=== PATIENT | female | born 1970 | race Two or more races ===

== ENCOUNTER 2017-01-28 06:42 | Inpatient (IN) | payer MEDICARE, OTHER ==
[2017-01-28] MEDS ORDERED: ACETAMINOPHEN IV (For NPO) 1,000 MG in EMPTY BAG 1 BAG IVPB STA (07:49)
[2017-01-28] MEDS ORDERED: SODIUM CHLORIDE 0.9% 500 ML IV STA (07:50)
[2017-01-28] MEDS ORDERED: RX INFO: IV CONTRAST WAS GIVEN 1 EACH MISC MISCELLANE PRN (07:50)
--- NOTE | 2017-01-28 07:55 | ED ---
General Adult HPI - General Chief complaint: Abdominal Pain Stated complaint: abd pain Time Seen by Provider: 01/28/17 07:42 Source: patient, family, RN notes reviewed Mode of arrival: wheelchair Limitations: no limitations - History of Present Illness Initial comments: Patient is a pleasant 46-year-old female complaining of abdominal discomfort. Patient states symptoms did start almost a week ago however became much more severe 3 days ago. Patient has been taking diet pills and questions if this is plain a factor. Patient does have nausea. Patient has had decreased appetite. Patient has had some dry heaves. Patient had one episode of diarrhea. Discomfort is diffuse about the abdomen however more so on the right lower abdomen. No history of chronic abdominal problems. No history of abdominal surgery previously. - Related Data Home Medications Medication Instructions Recorded Confirmed Aspirin 81 mg PO DAILY 07/15/15 01/28/17 Meloxicam 15 mg PO DAILY 07/15/15 01/28/17 Abatacept/Maltose [Orencia] 152 mg IVPB COATS 06/06/16 01/28/17 Clindamycin Topical Soln 1 applic TOPICAL BID 06/06/16 01/28/17 [Cleocin-T Topical Soln] Doxycycline Hyclate [Vibramycin] 100 mg PO BID 06/06/16 01/28/17 azaTHIOprine [Imuran] 50 mg PO TID 06/06/16 01/28/17 Leflunomide 20 mg PO DAILY 01/28/17 01/28/17 Melatonin 5 mg PO HS 01/28/17 01/28/17 Naltrexone HCl/Bupropion HCl 2 tab PO BID 01/28/17 01/28/17 [Contrave ER 8-90 mg Tablet] Allergies Allergy/AdvReac Type Severity Reaction Status Date / Time No Known Allergies Allergy Verified 01/28/17 08:06 Review of Systems ROS Statement: Those systems with pertinent positive or pertinent negative responses have been documented in the HPI. ROS Other: All systems not noted in ROS Statement are negative. Constitutional: Reports: chills. Denies: fever Eyes: Denies: eye pain ENT: Denies: ear pain Respiratory: Denies: cough, dyspnea Cardiovascular: Denies: chest pain Endocrine: Denies: as per HPI Gastrointestinal: Reports: abdominal pain, nausea, diarrhea Genitourinary: Reports: urgency Musculoskeletal: Denies: back pain Skin: Denies: rash Neurological: Denies: weakness Past Medical History Past Medical History: Rheumatoid Arthritis (RA) Additional Past Medical History / Comment(s): RA History of Any Multi-Drug Resistant Organisms: None Reported Additional Past Surgical History / Comment(s): Knee, sinus surgery Past Psychological History: No Psychological Hx Reported Smoking Status: Never smoker Past Alcohol Use History: None Reported Past Drug Use History: None Reported General Exam Limitations: no limitations General appearance: alert, in no apparent distress, obese Head exam: Present: atraumatic Eye exam: Present: normal appearance, PERRL ENT exam: Present: normal oropharynx Neck exam: Present: normal inspection Respiratory exam: Present: normal lung sounds bilaterally Cardiovascular Exam: Present: tachycardia GI/Abdominal exam: Present: soft, tenderness (Mild diffuse tenderness. Moderate tenderness right lower abdomen), guarding (Right lower abdomen), normal bowel sounds. Absent: distended, rebound, rigid, pulsatile mass External exam: Present: normal external exam (RN Sofy is present) Speculum exam: Present: normal speculum exam. Absent: vaginal discharge, cervical discharge By manual exam: Present: cervical motion tenderness, adnexal tenderness Extremities exam: Present: normal inspection Neurological exam: Present: alert Psychiatric exam: Present: normal affect, normal mood Skin exam: Absent: rash Course Vital Signs 01/28/17 01/28/17 01/28/17 06:46 07:48 10:26 Temperature 98.3 F 103.2 F H 100.6 F H Pulse Rate 124 H 107 H Respiratory 22 18 Rate Blood Pressure 121/59 O2 Sat by Pulse 98 99 Oximetry - Reevaluation(s) Reevaluation #1: 01/28/17 09:40 Patient does meet sepsis criteria diagnosed at 9:38 AM antibiotics have been ordered. Patient will need pelvic exam and surgical consultation. 01/28/17 10:32 Case was discussed with Dr. Mcdonnell, who will consult. 01/28/17 10:[address] Anglin who will admit for Dr. Bloom. Ultrasound is pending. CARDIOPULMONARY TECHNICIAN will be placed on consult. EKG Findings - EKG Comments: EKG Findings:: Sinus tachycardia at 112. Normal intervals. No axis. Low voltage. Q waves in leads V3 and V4. No acute ST change. Medical Decision Making - Lab Data Result diagrams: 01/28/17 07:55 01/28/17 07:55 Lab Results 01/28/17 01/28/17 01/28/17 Range/Units 07:55 07:55 07:55 WBC 9.9 (3.8-10.6) k/uL RBC 4.56 (3.80-5.40) m/uL Hgb 13.1 (11.4-16.0) gm/dL Hct 39.7 (34.0-46.0) % MCV 87.0 (80.0-100.0) fL MCH 28.8 (25.0-35.0) pg MCHC 33.1 (31.0-37.0) g/dL RDW 15.0 (11.5-15.5) % Plt Count 458 H (150-450) k/uL Neutrophils % (Manual) 77.5 % Band Neutrophils % 16.0 % Lymphocytes % (Manual) 2.5 % Monocytes % (Manual) 3.0 % Eosinophils % (Manual) 0.5 % Basophils % (Manual) 0.5 % Neutrophils # (Manual) 9.3 H (1.3-7.7) k/uL Lymphocytes # (Manual) 0.2 L (1.0-4.8) k/uL Monocytes # (Manual) 0.3 (0-1.0) k/uL Eosinophils # (Manual) 0.0 (0-0.7) k/uL Basophils # (Manual) 0.0 (0-0.2) k/uL Nucleated RBCs 0 (0-0) /100 WBC Manual Slide Review Performed PT (9.0-12.0) sec INR (<1.1) APTT (22.0-30.0) sec Sodium 137 (137-145) mmol/L Potassium 4.3 (3.5-5.1) mmol/L Chloride 104 (98-107) mmol/L Carbon Dioxide 20 L (22-30) mmol/L Anion Gap 13 mmol/L BUN 16 (7-17) mg/dL Creatinine 0.74 (0.52-1.04) mg/dL Est GFR (MDRD) Af Amer >60 (>60 ml/min/1.73 sqM) Est GFR (MDRD) Non-Af >60 (>60 ml/min/1.73 sqM) Glucose 156 H (74-99) mg/dL Plasma Lactic Acid Jose Martin 2.0 (0.7-2.0) mmol/L Calcium 8.9 (8.4-10.2) mg/dL Total Bilirubin 1.4 H (0.2-1.3) mg/dL AST 32 (14-36) U/L ALT 21 (9-52) U/L Alkaline Phosphatase 112 (38-126) U/L Total Protein 7.0 (6.3-8.2) g/dL Albumin 3.7 (3.5-5.0) g/dL Amylase 36 (30-110) U/L Lipase 63 (23-300) U/L Urine Color Urine Appearance (Clear) Urine pH (5.0-8.0) Urine Protein (Negative) Urine Glucose (UA) (Negative) Urine Ketones (Negative) Urine Blood (Negative) Urine Nitrite (Negative) Urine Bilirubin (Negative) Urine Urobilinogen (<2.0) mg/dL Ur Leukocyte Esterase (Negative) Urine RBC (0-5) /hpf Urine WBC (0-5) /hpf Ur Squamous Epith Cells (0-4) /hpf Urine Mucus (None) /hpf 01/28/17 01/28/17 Range/Units 07:55 10:00 WBC (3.8-10.6) k/uL RBC (3.80-5.40) m/uL Hgb (11.4-16.0) gm/dL Hct (34.0-46.0) % MCV (80.0-100.0) fL MCH (25.0-35.0) pg MCHC (31.0-37.0) g/dL RDW (11.5-15.5) % Plt Count (150-450) k/uL Neutrophils % (Manual) % Band Neutrophils % % Lymphocytes % (Manual) % Monocytes % (Manual) % Eosinophils % (Manual) % Basophils % (Manual) % Neutrophils # (Manual) (1.3-7.7) k/uL Lymphocytes # (Manual) (1.0-4.8) k/uL Monocytes # (Manual) (0-1.0) k/uL Eosinophils # (Manual) (0-0.7) k/uL Basophils # (Manual) (0-0.2) k/uL Nucleated RBCs (0-0) /100 WBC Manual Slide Review PT 11.6 (9.0-12.0) sec INR 1.2 (<1.1) APTT 24.7 (22.0-30.0) sec Sodium (137-145) mmol/L Potassium (3.5-5.1) mmol/L Chloride (98-107) mmol/L Carbon Dioxide (22-30) mmol/L Anion Gap mmol/L BUN (7-17) mg/dL Creatinine (0.52-1.04) mg/dL Est GFR (MDRD) Af Amer (>60 ml/min/1.73 sqM) Est GFR (MDRD) Non-Af (>60 ml/min/1.73 sqM) Glucose (74-99) mg/dL Plasma Lactic Acid Jose Martin (0.7-2.0) mmol/L Calcium (8.4-10.2) mg/dL Total Bilirubin (0.2-1.3) mg/dL AST (14-36) U/L ALT (9-52) U/L Alkaline Phosphatase (38-126) U/L Total Protein (6.3-8.2) g/dL Albumin (3.5-5.0) g/dL Amylase (30-110) U/L Lipase (23-300) U/L Urine Color Yellow Urine Appearance Clear (Clear) Urine pH 9.0 H (5.0-8.0) Urine Protein 1+ H (Negative) Urine Glucose (UA) Negative (Negative) Urine Ketones Negative (Negative) Urine Blood Negative (Negative) Urine Nitrite Negative (Negative) Urine Bilirubin Negative (Negative) Urine Urobilinogen <2.0 (<2.0) mg/dL Ur Leukocyte Esterase Negative (Negative) Urine RBC 20 H (0-5) /hpf Urine WBC 1 (0-5) /hpf Ur Squamous Epith Cells 16 H (0-4) /hpf Urine Mucus Rare H (None) /hpf Critical Care Time Critical Care Time: Yes Total Critical Care Time: 33 Disposition Clinical Impression: Abdominal pain, Sepsis Disposition: ADMITTED IP TO THIS HOSP
[2017-01-28] MEDS: SODIUM CHLORIDE 0.9% 500 ML IV SCH ×2 (08:03→09:33)
[2017-01-28 08:16] LABS: CH 29.1; CHCM 33.6; HCT 39.7 % (34.0-46.0); HGB 13.1 gm/dL (11.4-16.0); Immature Gran Flag Moderate; MCH 28.8 pg (25.0-35.0); MCHC 33.1 g/dL (31.0-37.0); Mean Platelet Volume 7.5; RBC 4.56 m/uL (3.80-5.40); WBC 9.9 k/uL (3.8-10.6); WBC (Perox) 10.19
[2017-01-28 08:17] LABS: INR 1.2 (<1.1); Partial Thromboplastin Time 24.7 sec (22.0-30.0); Prothrombin Time 11.6 sec (9.0-12.0)
[2017-01-28 08:18] LABS: ALT 21 U/L (9-52); AST 32 U/L (14-36); Alkaline Phosphatase 112 U/L (38-126); Amylase 36 U/L (30-110); Anion Gap 13 mmol/L; Blood Urea Nitrogen 16 mg/dL (7-17); Calcium 8.9 mg/dL (8.4-10.2); Carbon Dioxide 20 mmol/L (22-30); Chloride 104 mmol/L (98-107); Glucose 156 mg/dL (74-99); Non-African American GFR(MDRD) >60 (>60 ml/min/1.73 sqM); Potassium 4.3 mmol/L (3.5-5.1); Sodium 137 mmol/L (137-145); Total Bilirubin 1.4 mg/dL (0.2-1.3)
[2017-01-28 08:44] LABS: Add Differential Manual Differential
[2017-01-28 08:55] LABS: Nucleated Red Blood Cells 0 /100 WBC (0-0); Total Cells Counted 200
[2017-01-28 08:58] LABS: Manual Review Performed
--- NOTE | 2017-01-28 09:23 | XR ---
EXAMINATION TYPE: XR chest 2V DATE OF EXAM: 01/28/2017 9:13 AM COMPARISON: 07/15/2015 TECHNIQUE: PA and lateral views submitted. HISTORY: Fever FINDINGS: Exam technically limited The lungs are clear and there is no pneumothorax, pleural effusion, or focal pneumonia. IMPRESSION: 1. No obvious acute process. Correlate clinically.
--- NOTE | 2017-01-28 09:35 | CT ---
EXAMINATION TYPE: CT abdomen pelvis w con DATE OF EXAM: 01/28/2017 9:13 AM REFERENCE: Previous study dated 06/06/2016 HISTORY: Pain HISTORY: Generalized abdominal pain CT DLP: 4514 mGy Automated exposure control for dose reduction was used. TECHNIQUE: Helical acquisition through the abdomen and pelvis was obtained following the oral ingesti on of without Oral Contrast and following intravenous administration of 100 ml mL of Omnipaque 300. T he data was reformatted in axial, coronal and sagittal projections. FINDINGS: Visualized portions of the lungs are clear. There is no pleural or pericardial fluid. Within the abdomen, the liver, spleen and gallbladder are normal. Both adrenal glands are normal. Both kidneys demonstrate function and appear morphologically normal. The pancreas is unremarkable. There is no significant retroperitoneal, iliac or inguinal adenopathy. The bladder is unremarkable. This follicular changes in the right ovary. The uterus is unremarkable. There is marked inflammatory change surrounding the left adnexa. There is no significant diverticular change. Much of the colon is collapsed. This makes it difficult to assess colonic wall thickness. The appendix is prominent measuring 8.5 mm. There is a small amount of free fluid surrounding the appendix. Small bowel loops are normal. No free air is identified. There is degenerative disc disease at L4-5 and L5-S1. There is mild hypertrophic spondylosis in the l ower dorsal spine. IMPRESSION: 1. INFLAMMATORY CHANGE SURROUNDING THE LEFT ADNEXA. PLEASE CORRELATE FOR PID. 2. PROMINENT APPENDIX WITH MILD FLUID AROUND MAY BE SECONDARILY INFLAMED. I COULD NOT EXCLUDE ACUTE A PPENDICITIS. 3. I CANNOT ASSESS THE THICKNESS OF THE COLONIC WALL. PLEASE CORRELATE CLINICALLY TO EXCLUDE COLITIS.
[2017-01-28] MEDS ORDERED: cefTRIAXone 2,000 MG in SODIUM CHLORIDE 0.9% 100 ML IVPB STA (09:41)
[2017-01-28] MEDS ORDERED: HYDROmorphone 1 MG/ML 1 ML SYRINGE IVP STA (10:12)
[2017-01-28 10:26] LABS: Appearance,Urine Clear (Clear); Bilirubin,Urine Negative (Negative); Glucose,Urine (UA) Negative (Negative); Ketones,Urine Negative (Negative); Leukocyte Esterase,Urine Negative (Negative); Mucus,Urine Rare /hpf; Nitrite,Urine Negative (Negative); Particle Count 8142; Protein,Urine 1+ (Negative); RBC,Urine 20 /hpf (0-5); Squamous Epithelial Cell,Urine 16 /hpf (0-4); UA Billing (MACRO vs. MICRO) MICRO; Urobilinogen,Urine <2.0 mg/dL (<2.0); WBC,Urine 1 /hpf (0-5)
[2017-01-28] MEDS ORDERED: ONDANSETRON 4 MG/2 ML VIAL IVP STA (10:30)
[2017-01-28] MEDS ORDERED: NALOXONE 0.4 MG/ML 1 ML VIAL IV PRN (10:39)
[2017-01-28] MEDS ORDERED: DOXYCYCLINE 100 MG in SODIUM CHLORIDE 0.9% 100 ML IVPB STA ×2 (10:50→10:56)
[2017-01-28 10:54] LABS: Specific Gravity,Urine >1.050 (1.001-1.035)
[2017-01-28] MEDS: SODIUM CHLORIDE 0.9% 1,000 ML IV SCH ×2 (11:25→16:10)
--- NOTE | 2017-01-28 14:24 | US ---
EXAMINATION TYPE: US transvaginal DATE OF EXAM: 01/28/2017 1:31 PM COMPARISON: 3 01/28/2017 CT scan CLINICAL HISTORY: pain. TECHNIQUE: Transvaginal (TV), patient morbidly obese and in severe pain and distress, tried to lift her hips for transvaginal exam and had dry heaves, patient experiencing incontinence due to extreme p ain Date of LMP: unknown EXAM MEASUREMENTS: Uterus: 8.5 x 3.3 x 3.9 cm Endometrial Stripe: 0.8 cm Right Ovary: unable to visualize due to overlying bowel/obesity Left Ovary: unable to visualize due to overlying bowel/obesity cm FINDINGS: 1. Uterus: Anteverted wnl 2. Endometrium: wnl 3. Right Ovary: Obscured by overlying bowel gas/obesity 4. Left Ovary: Obscured by overlying bowel gas/obesity 5. Bilateral Adnexa: no abnormality seen 6. Posterior cul-de-sac: tubular structure in free fluid seen here in sagittal plane, unable to asse ss in transverse due to overlying bowel gas Exam technically difficult and limited due to patients large size/extensive bowel gas and patient kerline ng in extreme pain. IMPRESSION: 1. Severely limited exam technically. Ovaries are not seen. Small amount of free fluid. May not be si mple and may represent a component of hemorrhage. Appendix is not seen with certainty exam is nondiag nostic for appendicitis.
[2017-01-28] MEDS: ONDANSETRON 4 MG/2 ML VIAL IVP PRN ×2 (15:06→22:31)
[2017-01-28] MEDS: HYDROmorphone 1 MG/ML 1 ML SYRINGE IV PRN ×2 (15:06→21:22)
--- NOTE | 2017-01-28 16:07 | P.HPIM ---
History of Present Illness H&P Date: 01/28/17 46-year-old female was previously healthy comes in the hospital complains of right lower quadrant abdominal pain that started 2-3 days prior to admission. Patient states she has associated chills nausea vomiting and a fever of 103 within the last 24 hours. Patient states her abdominal pain and initially started in the right lower quadrant thereafter was radiating to her umbilical region. States that crushing down helps with her pain laying flat worsens the pain. Patient denies having any associated worsening of pain with bowel movements denies having any urinary urgency or frequency or any vaginal discharge. Patient's last menstrual period was on January 15. Patient is not sexually active at this time. In the emergency room patient underwent a computed tomography scan of the abdomen and pelvis was noted to have changes around the appendix some concern for PID. A vaginal ultrasound was also done which was a difficult study apparently. Currently states to have significant amount of pain and has persistent nausea at this time. Review of Systems All systems: negative (noted in HPI) Past Medical History Past Medical History: Rheumatoid Arthritis (RA), Seizure Disorder Additional Past Medical History / Comment(s): RA-pain in multiple joints, spinal stenosis/instability and herniated disc-difficulty walking, pt saw Dr. Lezama (neurologist in [place], [place]) yesterday for 2nd opnion for least invasive back surgery, past bronchitis, childhood seizures, History of Any Multi-Drug Resistant Organisms: None Reported Past Surgical History: Orthopedic Surgery Additional Past Surgical History / Comment(s): endoscopic sinus surgery, L knee arthroscopy, back epidural injections. Past Anesthesia/Blood Transfusion Reactions: No Reported Reaction, Motion Sickness Past Psychological History: No Psychological Hx Reported Additional Psychological History / Comment(s): Pt states since starting diet pill 2 days ago, she has had depression but denies suicidal thoughts or plans. She lives alone in a 1 level home. She has a cane but wheels herself around on her computer chair. She has a motorized scooter for going to stores. She drives. Smoking Status: Never smoker Past Alcohol Use History: None Reported Past Drug Use History: None Reported - Past Family History Father Family Medical History: Cancer Additional Family Medical History / Comment(s): Father of leukemia at the age of 65yrs. Mother Family Medical History: Diabetes Mellitus, Hypertension, Osteoarthritis (OA) Additional Family Medical History / Comment(s): Mother has IIDM, depression. Medications and Allergies Home Medications Medication Instructions Recorded Confirmed Type Aspirin 81 mg PO DAILY 07/15/15 01/28/17 History Meloxicam 15 mg PO DAILY 07/15/15 01/28/17 History Abatacept/Maltose [Orencia] 152 mg IVPB COATS 06/06/16 01/28/17 History Clindamycin Topical Soln 1 applic TOPICAL BID 06/06/16 01/28/17 History [Cleocin-T Topical Soln] Doxycycline Hyclate [Vibramycin] 100 mg PO BID 06/06/16 01/28/17 History azaTHIOprine [Imuran] 50 mg PO TID 06/06/16 01/28/17 History Leflunomide 20 mg PO DAILY 01/28/17 01/28/17 History Melatonin 5 mg PO HS 01/28/17 01/28/17 History Naltrexone HCl/Bupropion HCl 2 tab PO BID 01/28/17 01/28/17 History [Contrave ER 8-90 mg Tablet] Allergies Allergy/AdvReac Type Severity Reaction Status Date / Time No Known Allergies Allergy Verified 01/28/17 08:06 Physical Exam Vitals: Intake and Output 01/28/17 01/28/17 01/28/17 06:59 14:59 22:59 Intake Total 375 Balance 375 Intake: IV 375 Sodium Chloride 0.9% 1, 375 000 ml @ 125 mls/hr IV . Q8H [facility] Rx#:[id number] Other: # Voids 1 Physical exam Gen. appearance oriented 3 in no distress Neck is supple no JVD Lungs good air entry clear to auscultation no rhonchi or wheezing Heart S1-S2 heard regular rate and rhythm no murmurs appreciated Abdomen is soft tender to palpation in the right lower quadrant focally no rebound tenderness appreciated bowel sounds intact no organomegaly appreciated Neurologically cranial nerves II-12 grossly intact no focal motor or sensory deficits noted Skin no abnormalities appreciated Results CBC & Chem 7: 01/28/17 07:55 01/28/17 07:55 Thrombosis Risk Factor Assmnt - Choose All That Apply Any of the Below Risk Factors Present?: Yes Each Factor Represents 1 point: Age 41-60 years, Obesity (BMI >25) Other Risk Factors: No Other congenital or acquired thrombophilia - If yes, enter type in comment: No Thrombosis Risk Factor Assessment Total Risk Factor Score: 2 Thrombosis Risk Factor Assessment Level: Low Risk Assessment and Plan Plan: #1 abdominal pain likely secondary to be from acute appendicitis Rule out etiologies from the pelvis. However I strongly believe this is a case of acute appendicitis. #2 rheumatoid arthritis #3 morbid obesity Plan We'll hold off on immune therapy at this time we'll start patient on Rocephin and Flagyl to cover for for intra-abdominal organisms. We'll have a general surgery consult on. Obstetrics and gynecology was also consulted we'll await their evaluation to rule out any pelvic etiologies.
[2017-01-28] MEDS: metroNIDAZOLE-NS PMX 500 MG in SALINE 1 100ML.BAG IVPB SCH ×2 (16:10→23:05)
--- NOTE | 2017-01-28 20:56 | P.PN ---
Progress Note - Text Patient seen and evaluated. Please see full dictated consult. She presents with SIRS including acute abdominal pain with localized peritonitis. Will proceed with diagnostic laparoscopy with appendectomy. Benefits and risks described.
[2017-01-28] MEDS ORDERED: DOXYCYCLINE 100 MG in SODIUM CHLORIDE 0.9% 100 ML IVPB SCH (21:00)
[2017-01-28] MEDS: azaTHIOprine 50 MG TAB PO SCH (22:59)
[2017-01-28] MEDS: MELATONIN 5 MG TABLET PO SCH (22:59)
[2017-01-28] MEDS: HEPARIN SODIUM,PORCINE 5,000 UNIT/ML 1 ML VIAL SQ SCH (23:05)
[2017-01-29] MEDS: HYDROmorphone 1 MG/ML 1 ML SYRINGE IV PRN (03:21)
[2017-01-29] MEDS: SODIUM CHLORIDE 0.9% 1,000 ML IV SCH ×3 (03:33→17:02)
[2017-01-29] MEDS ORDERED: ceFAZolin 2 GM in SODIUM CHLORIDE 0.9% 100 ML IVPB ONE (06:00)
[2017-01-29] MEDS: metroNIDAZOLE-NS PMX 500 MG in SALINE 1 100ML.BAG IVPB SCH ×3 (08:12→23:00)
[2017-01-29] MEDS: PANTOPRAZOLE 40 MG/10 ML VIAL IV SCH (08:12)
[2017-01-29] MEDS: HEPARIN SODIUM,PORCINE 5,000 UNIT/ML 1 ML VIAL SQ SCH ×3 (08:18→23:00)
[2017-01-29] MEDS: azaTHIOprine 50 MG TAB PO SCH ×3 (08:19→21:55)
[2017-01-29 09:23] LABS: Basophils % (A) 0 %; CH 28.2; CHCM 32.3; Eosinophils % (A) 0 %; HDW 2.81; HGB 11.5 gm/dL (11.4-16.0); Luc # (Auto) 0.22; Luc % (Auto) 2; Lymphocytes # (A) 0.4 k/uL (1.0-4.8); Lymphocytes % (A) 4 %; MCH 28.9 pg (25.0-35.0); MCHC 32.9 g/dL (31.0-37.0); MCV 87.7 fL (80.0-100.0); Mean Platelet Volume 6.8; Monocytes # (A) 0.4 k/uL (0-1.0); Monocytes % (A) 4 %; Neutrophils # (A) 9.2 k/uL (1.3-7.7); Neutrophils % (A) 89 %; RBC 3.99 m/uL (3.80-5.40); RDW 15.1 % (11.5-15.5); WBC 10.3 k/uL (3.8-10.6); WBC (Perox) 11.07
[2017-01-29 09:46] LABS: ALT 20 U/L (9-52); AST 19 U/L (14-36); Alkaline Phosphatase 88 U/L (38-126); Anion Gap 14 mmol/L; Blood Urea Nitrogen 17 mg/dL (7-17); Calcium 8.1 mg/dL (8.4-10.2); Carbon Dioxide 21 mmol/L (22-30); Chloride 105 mmol/L (98-107); Glucose 110 mg/dL (74-99); Non-African American GFR(MDRD) >60 (>60 ml/min/1.73 sqM); Potassium 3.6 mmol/L (3.5-5.1); Sodium 140 mmol/L (137-145); Total Bilirubin 1.2 mg/dL (0.2-1.3); Total Protein 6.4 g/dL (6.3-8.2)
[2017-01-29] MEDS ORDERED: IV FLUID CONTINUATION 1,000 ML IV ONE (09:46)
[2017-01-29] MEDS ORDERED: MORPHINE SULFATE 4 MG/ML SYRINGE IVP ONE (09:47)
--- NOTE | 2017-01-29 10:00 | P.HPADDEND ---
H&P Addendum H&P Addendum Date: 01/29/17 Patient seen and evaluated. Findings consistent with abdominal peritonitis. I discussed with the patient's family diagnostic laparoscopy with abdominal washout should perforation be identified. Placement of drain was also reviewed. We'll likely need tailored antibiotics.
[2017-01-29] MEDS ORDERED: DEXAMETHASONE SOD PHOS (MDV) 100 MG/10 ML VIAL ONE (10:05)
[2017-01-29] MEDS ORDERED: GLYCOPYRROLATE 0.2 MG/ML 2 ML VIAL ONE (10:05)
[2017-01-29] MEDS ORDERED: ROCURONIUM BROMIDE 10 MG/ML 10 ML VIAL IV ONE (10:05)
[2017-01-29] MEDS ORDERED: NEOSTIGMINE 1 MG/ML 10 ML VIAL ONE (10:05)
[2017-01-29] MEDS ORDERED: HEPARIN SODIUM,PORCINE 5,000 UNIT/ML 1 ML VIAL ONE (10:05)
[2017-01-29] MEDS ORDERED: SUCCINYLCHOLINE CHLORIDE VIAL 200 MG/10 ML VIAL IV ONE (10:05)
[2017-01-29] MEDS ORDERED: PROPOFOL 10 MG/ML 20 ML VIAL IV ONE (10:05)
[2017-01-29] MEDS ORDERED: fentaNYL (PF) 50 MCG/ML 2 ML AMP ONE (10:05)
[2017-01-29] MEDS ORDERED: ONDANSETRON 4 MG/2 ML VIAL ONE (10:05)
[2017-01-29] MEDS ORDERED: LIDOCAINE 1% INJ 10MG/ML (20 ML MDV) ONE (10:05)
--- NOTE | 2017-01-29 10:09 | P.GSCN ---
History of Present Illness Consult date: 01/28/17 Reason for Consult: Possible appendicitis Requesting physician: Melo Cash History of present illness: The patient is a 46-year-old female who reports last night developing acute onset right lower quadrant abdominal pain. She reports having earlier abdominal pain approximate 4 days ago at the right lower abdomen. She takes daily suppressive therapy antibiotics for facial rash. Separately she has severe rheumatoid arthritis for which she is constantly on immunosuppressants. She also has troubles with weight loss as she is over 140 pounds overweight. She has been on Adipex including Contrave. She also reports severe back pain and is pending surgical intervention hence the need for surgical weight loss. Gen. surgery is consulted with as her computed tomography scan of the abdomen and pelvis demonstrated possible ovarian abscess versus appendicitis with free fluid. She comes in with 2 days of high temperatures over 101 including chills. As a result of her systemic inflammatory response syndrome, she has been admitted as well. Review of Systems CONSTITUTIONAL: Has fever and chills. No significant recent weight loss as she is on Contrave. She is over 100+ pounds overweight. HEENT: Denies any trouble with vision, hearing or nosebleeds. No difficulty swallowing. LYMPHATIC: The patient denies any lumps and bumps around the neck. ENDOCRINE: Denies any thyroid disorders. Denies any blood sugar glucose intolerance. RESPIRATORY: Denies pneumonia. Denies any troubles with breathing or dyspnea on exertion. CARDIOVASCULAR: Denies any chest pain, palpitations, or recent heart attacks. GASTROINTESTINAL: Has heart burn. No constipation or bright red blood per rectum. GENITOURINARY: Denies any blood in urine or increased urinary frequency. MUSCULOSKELETAL: Has back pain, stiffness and joint arthritis. NEUROLOGIC: Denies any numbness or tingling along the distal extremities. Has seizure disorders. PSYCHIATRIC: Denies depression or suidical ideation. HEMATOLOGIC: Denies any abnormal bleeding or bruising. Past Medical History Past Medical History: Rheumatoid Arthritis (RA), Seizure Disorder Additional Past Medical History / Comment(s): RA-pain in multiple joints, spinal stenosis/instability and herniated disc-difficulty walking, pt saw Dr. Lezama (neurologist in [place], [place]) yesterday for 2nd opnion for least invasive back surgery, past bronchitis, childhood seizures, History of Any Multi-Drug Resistant Organisms: None Reported Past Surgical History: Orthopedic Surgery Additional Past Surgical History / Comment(s): endoscopic sinus surgery, L knee arthroscopy, back epidural injections. Past Anesthesia/Blood Transfusion Reactions: No Reported Reaction, Motion Sickness Past Psychological History: No Psychological Hx Reported Additional Psychological History / Comment(s): Pt states since starting diet pill 2 days ago, she has had depression but denies suicidal thoughts or plans. She lives alone in a 1 level home. She has a cane but wheels herself around on her computer chair. She has a motorized scooter for going to stores. She drives. Smoking Status: Never smoker Past Alcohol Use History: None Reported Past Drug Use History: None Reported - Past Family History Father Family Medical History: Cancer Additional Family Medical History / Comment(s): Father of leukemia at the age of 65yrs. Mother Family Medical History: Diabetes Mellitus, Hypertension, Osteoarthritis (OA) Additional Family Medical History / Comment(s): Mother has IIDM, depression. Medications and Allergies Home Medications Medication Instructions Recorded Confirmed Type Aspirin 81 mg PO DAILY 07/15/15 01/28/17 History Meloxicam 15 mg PO DAILY 07/15/15 01/28/17 History Abatacept/Maltose [Orencia] 152 mg IVPB COATS 06/06/16 01/28/17 History Clindamycin Topical Soln 1 applic TOPICAL BID 06/06/16 01/28/17 History [Cleocin-T Topical Soln] Doxycycline Hyclate [Vibramycin] 100 mg PO BID 06/06/16 01/28/17 History azaTHIOprine [Imuran] 50 mg PO TID 06/06/16 01/28/17 History Leflunomide 20 mg PO DAILY 01/28/17 01/28/17 History Melatonin 5 mg PO HS 01/28/17 01/28/17 History Naltrexone HCl/Bupropion HCl 2 tab PO BID 01/28/17 01/28/17 History [Contrave ER 8-90 mg Tablet] Allergies Allergy/AdvReac Type Severity Reaction Status Date / Time No Known Allergies Allergy Verified 01/28/17 08:06 Surgical - Exam Vital Signs Temp Pulse Resp Pulse Ox 98.3 F 124 H 22 98 01/28/17 06:46 01/28/17 06:46 01/28/17 06:46 01/28/17 06:46 GENERAL: Well developed and in no acute distress. Pleasant. HEENT: No sclera icterus. Extraocular movements grossly intact. Moist buccal mucosa. Head is atraumatic, normocephalic. Hears conversational speech. No nasal drainage. NECK: Supple without lymphadenopathy. No JV distention. CHEST: Non-labored respirations and equal bilateral excursions. CARDIOVASCULAR: Has tachycardia. Palpable 2+ radial pulses. ABDOMEN: Soft. Diffusely tender. Has right lower quadrant guarding. Findings consistent with peritonitis. MUSCULOSKELETAL: No clubbing, cyanosis or edema. NEUROLOGIC: No focal or lateralizing signs. PSYCH: Appropriate affect. Alert and oriented to person, place and time. Results - Labs 01/29/17 09:13 01/29/17 09:13 - Imaging CT scan - abdomen: report reviewed, image reviewed CT scan - pelvis: report reviewed, image reviewed Assessment and Plan (1) Right lower quadrant abdominal pain Status: Acute (2) Morbid obesity due to excess calories Status: Acute (3) Rheumatoid arthritis Status: Acute (4) Immunosuppression Status: Acute (5) Chronic back pain Status: Acute (6) Peritonitis (acute) generalized Status: Acute (7) Fever Status: Acute (8) Tachycardia Status: Acute Plan: 1. Recommend diagnostic laparoscopy with appendectomy and placement of a drain if needed. 2. Antibiotic management, broad-spectrum. 3. Benefits and risks of surgical intervention with possibility of open technique was described in detail. 4. DVT prophylaxis. 5. Incentive spirometry. 6. Sepsis protocol.
[2017-01-29] MEDS ORDERED: BUPIVACAIN-EPI 0.25%-1:200,000 30 ML VIAL SQ ONE ×2 (10:30)
[2017-01-29] MEDS ORDERED: LACTATED RINGERS 1,000 ML IV ONE ×2 (11:10→12:10)
--- NOTE | 2017-01-29 11:13 | P.OBCN ---
History of Present Illness Consult date: 01/29/17 Reason for consult: pelvic pain (Possible PID) Chief complaint: Acute abdominal pain worsening over the last week, significantly so in the History of present illness: The patient is a 46-year-old woman who presented to the emergency room with increasing abdominal pain as reported in previous dictations. She is unavailable for interview at this time as she is in surgery. Having reviewed the other notes, the patient apparently reports no recent sexual activity and her age makes her an unlikely candidate for pelvic inflammatory disease. Obstetrical and gynecologic history unavailable to me at this time. Past Medical History Past Medical History: Rheumatoid Arthritis (RA), Seizure Disorder Additional Past Medical History / Comment(s): RA-pain in multiple joints, spinal stenosis/instability and herniated disc-difficulty walking, pt saw Dr. Lezama (neurologist in [place], [place]) yesterday for 2nd opnion for least invasive back surgery, past bronchitis, childhood seizures, History of Any Multi-Drug Resistant Organisms: None Reported Past Surgical History: Orthopedic Surgery Additional Past Surgical History / Comment(s): endoscopic sinus surgery, L knee arthroscopy, back epidural injections. Past Anesthesia/Blood Transfusion Reactions: No Reported Reaction, Motion Sickness Past Psychological History: No Psychological Hx Reported Additional Psychological History / Comment(s): Pt states since starting diet pill 2 days ago, she has had depression but denies suicidal thoughts or plans. She lives alone in a 1 level home. She has a cane but wheels herself around on her computer chair. She has a motorized scooter for going to stores. She drives. Smoking Status: Never smoker Past Alcohol Use History: None Reported Past Drug Use History: None Reported - Past Family History Father Family Medical History: Cancer Additional Family Medical History / Comment(s): Father of leukemia at the age of 65yrs. Mother Family Medical History: Diabetes Mellitus, Hypertension, Osteoarthritis (OA) Additional Family Medical History / Comment(s): Mother has IIDM, depression. Medications and Allergies Home Medications Medication Instructions Recorded Confirmed Type Aspirin 81 mg PO DAILY 07/15/15 01/28/17 History Meloxicam 15 mg PO DAILY 07/15/15 01/28/17 History Abatacept/Maltose [Orencia] 152 mg IVPB COATS 06/06/16 01/28/17 History Clindamycin Topical Soln 1 applic TOPICAL BID 06/06/16 01/28/17 History [Cleocin-T Topical Soln] Doxycycline Hyclate [Vibramycin] 100 mg PO BID 06/06/16 01/28/17 History azaTHIOprine [Imuran] 50 mg PO TID 06/06/16 01/28/17 History Leflunomide 20 mg PO DAILY 01/28/17 01/28/17 History Melatonin 5 mg PO HS 01/28/17 01/28/17 History Naltrexone HCl/Bupropion HCl 2 tab PO BID 01/28/17 01/28/17 History [Contrave ER 8-90 mg Tablet] Allergies Allergy/AdvReac Type Severity Reaction Status Date / Time No Known Allergies Allergy Verified 01/28/17 08:06 Exam - Vital Signs Vital signs: Vital Signs Temp Pulse Resp BP BP Pulse Ox 01/29/17 09:46 115 H 16 170/79 98 01/29/17 07:00 100.2 F H 115 H 18 136/65 96 01/28/17 22:10 100.9 F H 118 H 16 102/66 95 01/28/17 16:00 99.3 F 116 H 16 107/70 95 01/28/17 15:00 101.9 F H 123 H 20 128/75 96 Intake and Output 01/28/17 01/29/17 01/29/17 22:59 06:59 14:59 Intake Total 50 Balance 50 Intake: IV 50 Other: # Voids 2 1 Physical exam is deferred as the patient is under anesthesia. Her pelvis was examined laparoscopically with Dr. Ba's help. She was able to dissected the sigmoid colon from the pelvic organs. The bilateral ovaries were seen and appeared to be within normal limits. The sigmoid colon was densely adherent to the fundus of the uterus and the left adnexa. Dissection of the interface between these 2 structures demonstrated geovany pus. The findings appeared to be consistent with diverticular disease rather than a pelvic process. Results Result Diagrams: 01/29/17 09:13 01/29/17 09:13 Abnormal Lab Results - Last 24 Hours (Table) 01/29/17 01/29/17 Range/Units 09:13 09:13 Neutrophils # 9.2 H (1.3-7.7) k/uL Lymphocytes # 0.4 L (1.0-4.8) k/uL Carbon Dioxide 21 L (22-30) mmol/L Glucose 110 H (74-99) mg/dL Calcium 8.1 L (8.4-10.2) mg/dL Albumin 3.2 L (3.5-5.0) g/dL Assessment and Plan (1) Abdominal pain Status: Acute (2) Peritonitis (acute) generalized Status: Acute Plan: The process appears both historically and surgically consistent with diverticular disease with possible rupture or, at the very least, diverticular abscess. The pelvic organs appeared to be uninvolved. There is is does not appear to be evidence of pelvic inflammatory disease or tubo-ovarian abscess other than as created by the diverticular process. In either case, antibiotics are the best course of action. I will otherwise leave the case in the hands of medicine and general surgery as gynecologic input appears unnecessary at this time. Should that change, please call me and I will return for further disposition.
[2017-01-29] MEDS ORDERED: METOCLOPRAMIDE 5 MG/ML 2 ML VIAL IVP PRN (12:10)
[2017-01-29] MEDS ORDERED: SODIUM CHLORIDE 0.9% 2,000 ML IV ONE (12:16)
--- NOTE | 2017-01-29 12:20 | P.PCN ---
Date of Procedure: 01/29/17 Preoperative Diagnosis: Peritonitis, sepsis, abnormal computed tomography scan, dehydration, morbid obesity, BMI 47.6, right lower quadrant abdominal pain Postoperative Diagnosis: Same, pelvic abscess 30 mL, acute appendicitis, peritonitis, intra-abdominal adhesions from infection Procedure(s) Performed: Extensive laparoscopic lysis of adhesions over 1 hour, drainage of intrapelvic abscess 30 mL left lower quadrant, placement of JOSE drain cul-de-sac, laparoscopic appendectomy Anesthesia: GETA, local Surgeon: Hilda Ba Estimated Blood Loss (ml): 20 Pathology: other (Appendix, aerobic and anaerobic culture peritoneal fluid) Condition: stable Disposition: floor Operative Findings: Severe pelvic and intra-abdominal adhesions secondary to pelvic infection, uterus unremarkable, right fallopian tube and round ligament and ovary unremarkable, dense adhesions of the left fallopian tube and ovary without identified ovarian abscess, sigmoid colon with moderate inflammation, drainage of intermesenteric abscess 30 mL, inflammation of distal appendix with periappendicitis, cecum and terminal ileum unremarkable, base of cecum unremarkable
[2017-01-29] MEDS ORDERED: ONDANSETRON 4 MG/2 ML VIAL IVP ONE (12:24)
[2017-01-29] MEDS ORDERED: MORPHINE SULFATE 10 MG/ML SYRINGE IVP ONE (12:29)
[2017-01-29 13:36] VITALS: BMI 47.5
[2017-01-29] MEDS ORDERED: SODIUM CHLORIDE 0.9% 1,000 ML IV ONE (16:53)
[2017-01-29] MEDS: MORPHINE SULFATE 4 MG/ML SYRINGE IVP PRN ×2 (18:45→23:01)
--- NOTE | 2017-01-29 19:30 | P.PN ---
Subjective 46-year-old female was previously healthy comes in the hospital complains of right lower quadrant abdominal pain that started 2-3 days prior to admission. Patient states she has associated chills nausea vomiting and a fever of 103 within the last 24 hours. Patient states her abdominal pain and initially started in the right lower quadrant thereafter was radiating to her umbilical region. States that crushing down helps with her pain laying flat worsens the pain. Patient denies having any associated worsening of pain with bowel movements denies having any urinary urgency or frequency or any vaginal discharge. Patient's last menstrual period was on January 15. Patient is not sexually active at this time. In the emergency room patient underwent a computed tomography scan of the abdomen and pelvis was noted to have changes around the appendix some concern for PID. A vaginal ultrasound was also done which was a difficult study apparently. Currently states to have significant amount of pain and has persistent nausea at this time. 01/29/17 states to have some chills, intemittent nausea, bertha associated with pain medications Continues to have pain, was seen post operatively. Objective - Vital Signs Vital signs: Vital Signs Temp 100.3 F H 01/29/17 12:04 Pulse 104 H 01/29/17 14:45 Resp 16 01/29/17 12:46 BP 123/61 01/29/17 14:45 Pulse Ox 97 01/29/17 14:45 Intake & Output 01/29/17 01/29/17 01/30/17 06:59 18:59 06:59 Intake Total 1200 Output Total 270 Balance 930 Weight 117.934 kg Intake: IV 1200 Output: Drainage 100 Abdomen 100 Urine 100 Estimated Blood Loss 70 Other: # Voids 1 2 - Constitutional General appearance: Present: no acute distress - EENT Eyes: Present: PERRLA - Neck Neck: Present: normal ROM. Absent: rigidity - Respiratory Respiratory: bilateral: CTA, negative: dullness, rales, rhonchi, wheezing - Cardiovascular Rhythm: regular Heart sounds: normal: S1, S2 Abnormal Heart Sounds: Absent: systolic murmur - Gastrointestinal Localized gastrointestinal: tender: diffuse (port sites appear appropriate, Drain noted in the left mariah abdomen) - Neurologic Neurologic: Present: CNII-XII intact - Musculoskeletal Musculoskeletal: Present: gait normal, strength equal bilaterally - Psychiatric Psychiatric: Present: A&O x's 3, appropriate affect, intact judgment & insight - Labs CBC & Chem 7: 01/29/17 09:13 01/29/17 09:13 Labs: Abnormal Lab Results - Last 24 Hours (Table) 01/29/17 01/29/17 Range/Units 09:13 09:13 Neutrophils # 9.2 H (1.3-7.7) k/uL Lymphocytes # 0.4 L (1.0-4.8) k/uL Carbon Dioxide 21 L (22-30) mmol/L Glucose 110 H (74-99) mg/dL Calcium 8.1 L (8.4-10.2) mg/dL Albumin 3.2 L (3.5-5.0) g/dL Microbiology - Last 24 Hours (Table) 01/29/17 11:33 Anaerobic Culture - Preliminary Peritoneal Fluid 01/29/17 11:33 Body Fluid Culture - Preliminary Peritoneal Fluid Assessment and Plan Plan: #1Acute appendicitis, with abscess formation and pelvic adhesions #2 rheumatoid arthritis #3 morbid obesity Plan We'll hold off on immune therapy at this time, continue patient on Rocephin and Flagyl to cover for for intra-abdominal organisms. Pain control 3 l ivf 125 ml/hr ns thereafter Abx with concern for peritonitis.
[2017-01-29] MEDS: MELATONIN 5 MG TABLET PO SCH (21:55)
[2017-01-30] MEDS: PIPERACILLIN-TAZOBACTAM 3.375 GM in DEXTROSE/WATER 1 50ML.BAG IVPB SCH ×4 (00:44→23:30)
[2017-01-30] MEDS: MORPHINE SULFATE 4 MG/ML SYRINGE IVP PRN ×4 (05:20→21:14)
[2017-01-30] MEDS: SODIUM CHLORIDE 0.9% 1,000 ML IV SCH ×3 (05:21→18:24)
[2017-01-30] MEDS: metroNIDAZOLE-NS PMX 500 MG in SALINE 1 100ML.BAG IVPB SCH (08:00)
[2017-01-30] MEDS: ASPIRIN 81 MG CHEW PO SCH (08:02)
[2017-01-30] MEDS: HEPARIN SODIUM,PORCINE 5,000 UNIT/ML 1 ML VIAL SQ SCH ×3 (08:03→23:30)
[2017-01-30] MEDS: azaTHIOprine 50 MG TAB PO SCH (08:04)
[2017-01-30 08:55] LABS: Basophils % (A) 0 %; CH 28.3; CHCM 32.1; Eosinophils % (A) 0 %; HCT 31.7 % (34.0-46.0); HDW 2.93; HGB 10.2 gm/dL (11.4-16.0); Hypochromasia Slight; Luc # (Auto) 0.12; Luc % (Auto) 1; Lymphocytes # (A) 0.4 k/uL (1.0-4.8); Lymphocytes % (A) 4 %; MCH 28.5 pg (25.0-35.0); MCHC 32.2 g/dL (31.0-37.0); MCV 88.5 fL (80.0-100.0); Mean Platelet Volume 6.8; Monocytes # (A) 0.3 k/uL (0-1.0); Monocytes % (A) 4 %; Neutrophils # (A) 8.3 k/uL (1.3-7.7); Neutrophils % (A) 91 %; RBC 3.58 m/uL (3.80-5.40); RDW 15.3 % (11.5-15.5); WBC 9.1 k/uL (3.8-10.6); WBC (Perox) 9.74
[2017-01-30 09:04] LABS: ALT 21 U/L (9-52); AST 15 U/L (14-36); Alkaline Phosphatase 70 U/L (38-126); Anion Gap 8 mmol/L; Blood Urea Nitrogen 11 mg/dL (7-17); Calcium 7.5 mg/dL (8.4-10.2); Carbon Dioxide 23 mmol/L (22-30); Chloride 108 mmol/L (98-107); Glucose 107 mg/dL (74-99); Magnesium 2.1 mg/dL (1.6-2.3); Non-African American GFR(MDRD) >60 (>60 ml/min/1.73 sqM); Phosphorous 1.9 mg/dL (2.5-4.5); Potassium 3.8 mmol/L (3.5-5.1); Sodium 139 mmol/L (137-145); Total Bilirubin 0.6 mg/dL (0.2-1.3); Total Protein 5.5 g/dL (6.3-8.2)
[2017-01-30] MEDS: PANTOPRAZOLE 40 MG/10 ML VIAL IV SCH (09:09)
--- NOTE | 2017-01-30 14:42 | P.PN ---
Subjective Principal diagnosis: Intra-abdominal abscess, appendicitis The patient is a 46-year-old female who presented with right lower quadrant abdominal pain including intra-abdominal pelvic abscess of unclear etiology. Today she reports her pain is moderately improved. She no longer has fevers. Her tachycardia is resolved. She is yet to ambulate. Her family is at bedside. She reports minimal appetite. Objective - Vital Signs Vital signs: Vital Signs Temp 97.4 F L 01/30/17 07:00 Pulse 76 01/30/17 07:00 Resp 18 01/30/17 07:00 BP 103/73 01/30/17 07:00 Pulse Ox 97 01/30/17 07:00 Intake & Output 01/29/17 01/30/17 01/30/17 18:59 06:59 18:59 Intake Total 1200 500 Output Total 270 1730 Balance 930 -1230 Weight 117.934 kg Intake: IV 1200 Oral 500 Output: Drainage 100 30 Abdomen 100 30 Urine 100 1700 Estimated Blood Loss 70 Other: Voiding Method Indwelling Catheter Indwelling Catheter # Voids 2 - Exam GENERAL: Well developed and in no acute distress. Pleasant. HEENT: No sclera icterus. Extraocular movements grossly intact. Moist buccal mucosa. Head is atraumatic, normocephalic. Hears conversational speech. No nasal drainage. NECK: Supple without lymphadenopathy. No JV distention. CHEST: Non-labored respirations and equal bilateral excursions. CARDIOVASCULAR: Regular rate and rhythm. Palpable 2+ radial pulses. ABDOMEN: Soft, mild tenderness along the suprapubic area. JOSE serosanguineous. Incisions clean dry and intact with Dermabond. MUSCULOSKELETAL: No clubbing, cyanosis or edema. NEUROLOGIC: No focal or lateralizing signs. PSYCH: Appropriate affect. Alert and oriented to person, place and time. : Gutierres is now clear urine. - Labs CBC & Chem 7: 01/30/17 08:15 01/30/17 08:15 Labs: Abnormal Lab Results - Last 24 Hours (Table) 01/30/17 01/30/17 Range/Units 08:15 08:15 RBC 3.58 L (3.80-5.40) m/uL Hgb 10.2 L (11.4-16.0) gm/dL Hct 31.7 L (34.0-46.0) % Neutrophils # 8.3 H (1.3-7.7) k/uL Lymphocytes # 0.4 L (1.0-4.8) k/uL Chloride 108 H (98-107) mmol/L Glucose 107 H (74-99) mg/dL Calcium 7.5 L (8.4-10.2) mg/dL Phosphorus 1.9 L (2.5-4.5) mg/dL Total Protein 5.5 L (6.3-8.2) g/dL Albumin 2.7 L (3.5-5.0) g/dL Microbiology - Last 24 Hours (Table) 01/29/17 11:33 Gram Stain - Preliminary Peritoneal Fluid Body Fluid Culture - Preliminary 01/29/17 11:33 Anaerobic Culture - Preliminary Peritoneal Fluid Assessment and Plan (1) Right lower quadrant abdominal pain Status: Acute (2) Morbid obesity due to excess calories Status: Acute (3) Rheumatoid arthritis Status: Acute (4) Immunosuppression Status: Acute (5) Chronic back pain Status: Acute (6) Peritonitis (acute) generalized Status: Acute (7) Fever Status: Acute (8) Tachycardia Status: Acute (9) Peritoneal abscess Status: Acute (10) Appendicitis with peritonitis Status: Acute (11) Sepsis Status: Acute Plan: 1. Today she is doing much better. Recommend discontinuation of Gutierres. 2. Continue hospitalization with intravenous antibiotics. She is pending results of her microbiology of her peritoneal fluid. 3. I personally discussed with her attending provider possibility of infectious disease consultation pending results of her cultures. 4. Recommend ambulation following removal of Gutierres. 5. Anticipated disposition from hospital at least another 2-3 more days which was reviewed with the patient's family again pending cultures. 6. Continue with JOSE which will be removed in the office upon follow-up as outpatient. 7. She will need outpatient colonoscopy as perforated diverticulitis cannot be completely excluded as a cause of her peritoneal intra-abdominal abscess
[2017-01-30] MEDS: SODIUM PHOSPHATE 10 MMOL in SODIUM CHLORIDE 0.9% 250 ML IVPB SCH ×3 (15:36→21:07)
--- NOTE | 2017-01-30 17:30 | P.PN ---
Subjective 46-year-old female was previously healthy comes in the hospital complains of right lower quadrant abdominal pain that started 2-3 days prior to admission. Patient states she has associated chills nausea vomiting and a fever of 103 within the last 24 hours. Patient states her abdominal pain and initially started in the right lower quadrant thereafter was radiating to her umbilical region. States that crushing down helps with her pain laying flat worsens the pain. Patient denies having any associated worsening of pain with bowel movements denies having any urinary urgency or frequency or any vaginal discharge. Patient's last menstrual period was on January 15. Patient is not sexually active at this time. In the emergency room patient underwent a computed tomography scan of the abdomen and pelvis was noted to have changes around the appendix some concern for PID. A vaginal ultrasound was also done which was a difficult study apparently. Currently states to have significant amount of pain and has persistent nausea at this time. 01/29/17 states to have some chills, intemittent nausea, bertha associated with pain medications Continues to have pain, was seen post operatively. 01/30/17 Denies having chest pain, jose elias, headaches, palpitations Has some abdominal discomfort, however improving. Objective - Vital Signs Vital signs: Vital Signs Temp 97.4 F L 01/30/17 15:00 Pulse 71 01/30/17 15:00 Resp 18 01/30/17 15:00 BP 107/71 01/30/17 15:00 Pulse Ox 97 01/30/17 15:00 Intake & Output 01/29/17 01/30/17 01/30/17 18:59 06:59 18:59 Intake Total 1200 500 Output Total 270 1730 Balance 930 -1230 Weight 117.934 kg Intake: IV 1200 Oral 500 Output: Drainage 100 30 Abdomen 100 30 Urine 100 1700 Estimated Blood Loss 70 Other: Voiding Method Indwelling Catheter Indwelling Catheter # Voids 2 - Constitutional General appearance: Present: no acute distress - EENT Eyes: Present: EOMI, PERRLA - Neck Neck: Present: normal ROM - Respiratory Respiratory: bilateral: CTA, negative: rales, rhonchi - Cardiovascular Rhythm: regular Heart sounds: normal: S1, S2 Abnormal Heart Sounds: Absent: systolic murmur - Gastrointestinal General gastrointestinal: Present: normal bowel sounds (surgical sites appear appropriate. ), soft Localized gastrointestinal: surgical scar: LLQ (drain in place. ) - Integumentary Integumentary: Present: normal - Neurologic Neurologic: Present: CNII-XII intact. Absent: focal deficits - Musculoskeletal Musculoskeletal: Present: strength equal bilaterally - Psychiatric Psychiatric: Present: A&O x's 3, appropriate affect - Labs CBC & Chem 7: 01/30/17 08:15 01/30/17 08:15 Labs: Abnormal Lab Results - Last 24 Hours (Table) 01/30/17 01/30/17 Range/Units 08:15 08:15 RBC 3.58 L (3.80-5.40) m/uL Hgb 10.2 L (11.4-16.0) gm/dL Hct 31.7 L (34.0-46.0) % Neutrophils # 8.3 H (1.3-7.7) k/uL Lymphocytes # 0.4 L (1.0-4.8) k/uL Chloride 108 H (98-107) mmol/L Glucose 107 H (74-99) mg/dL Calcium 7.5 L (8.4-10.2) mg/dL Phosphorus 1.9 L (2.5-4.5) mg/dL Total Protein 5.5 L (6.3-8.2) g/dL Albumin 2.7 L (3.5-5.0) g/dL Microbiology - Last 24 Hours (Table) 01/29/17 11:33 Gram Stain - Preliminary Peritoneal Fluid Body Fluid Culture - Preliminary 01/29/17 11:33 Anaerobic Culture - Preliminary Peritoneal Fluid Assessment and Plan Plan: #1Acute appendicitis, with abscess formation and pelvic adhesions, suspicion for diverticular disease. will have a outpatient colonoscopy. #2 rheumatoid arthritis #3 morbid obesity #4 Asymptomatic bacteuria. Plan We'll hold off on immune therapy at this time, Continue ivf await cultures zosyn to continue Pain control dc sanchez Encourage ambulation Has not passed gas yet.
[2017-01-30] MEDS: MELOXICAM 7.5 MG TAB PO SCH (18:23)
[2017-01-30] MEDS ORDERED: CLINDAMYCIN PHOSPHATE TOPICAL SCH (21:00)
[2017-01-30] MEDS ORDERED: DOXYCYCLINE 50 MG CAP PO SCH (21:00)
[2017-01-30] MEDS: MELATONIN 5 MG TABLET PO SCH (22:28)
[2017-01-31] MEDS: MORPHINE SULFATE 4 MG/ML SYRINGE IVP PRN ×5 (01:48→20:40)
[2017-01-31] MEDS: SODIUM CHLORIDE 0.9% 1,000 ML IV SCH ×3 (03:18→15:41)
[2017-01-31] MEDS: MELOXICAM 7.5 MG TAB PO SCH (07:38)
[2017-01-31] MEDS: HEPARIN SODIUM,PORCINE 5,000 UNIT/ML 1 ML VIAL SQ SCH ×3 (07:38→23:06)
[2017-01-31] MEDS: ASPIRIN 81 MG CHEW PO SCH (07:38)
[2017-01-31] MEDS: PANTOPRAZOLE 40 MG/10 ML VIAL IV SCH (07:39)
[2017-01-31] MEDS: PIPERACILLIN-TAZOBACTAM 3.375 GM in DEXTROSE/WATER 1 50ML.BAG IVPB SCH ×3 (07:58→23:05)
[2017-01-31 08:57] LABS: ALT 27 U/L (9-52); AST 17 U/L (14-36); Alkaline Phosphatase 68 U/L (38-126); Anion Gap 10 mmol/L; Blood Urea Nitrogen 11 mg/dL (7-17); Calcium 7.6 mg/dL (8.4-10.2); Carbon Dioxide 22 mmol/L (22-30); Chloride 109 mmol/L (98-107); Glucose 86 mg/dL (74-99); Non-African American GFR(MDRD) >60 (>60 ml/min/1.73 sqM); Phosphorous 2.3 mg/dL (2.5-4.5); Potassium 3.2 mmol/L (3.5-5.1); Sodium 141 mmol/L (137-145); Total Bilirubin 0.5 mg/dL (0.2-1.3); Total Protein 5.4 g/dL (6.3-8.2)
[2017-01-31] MEDS ORDERED: LEFLUNOMIDE 20 MG TAB PO SCH (09:00)
[2017-01-31 09:04] LABS: Basophils % (A) 0 %; CH 28.3; CHCM 32.3; Eosinophils # (A) 0.1 k/uL (0-0.7); Eosinophils % (A) 1 %; HCT 31.7 % (34.0-46.0); HDW 3.02; HGB 10.1 gm/dL (11.4-16.0); Hypochromasia Slight; Luc # (Auto) 0.09; Luc % (Auto) 2; Lymphocytes # (A) 0.6 k/uL (1.0-4.8); Lymphocytes % (A) 12 %; MCH 28.2 pg (25.0-35.0); MCHC 31.9 g/dL (31.0-37.0); MCV 88.2 fL (80.0-100.0); Mean Platelet Volume 6.8; Monocytes # (A) 0.3 k/uL (0-1.0); Monocytes % (A) 6 %; Neutrophils # (A) 4.3 k/uL (1.3-7.7); Neutrophils % (A) 80 %; RBC 3.59 m/uL (3.80-5.40); RDW 15.2 % (11.5-15.5); WBC 5.5 k/uL (3.8-10.6); WBC (Perox) 6.25
[2017-01-31] MEDS ORDERED: Potassium Replacement Protocol 1 EACH MISC MISCELLANE PRN (09:51)
[2017-01-31] MEDS: POTASSIUM CHLORIDE ER 20 MEQ TAB.ER PO SCH ×2 (10:16→10:51)
[2017-01-31 13:09] LABS: Iron 20 ug/dL (37-170)
[2017-01-31 13:23] LABS: % Iron Saturation 7.8 % (20-50); Total Iron Binding Capacity 258 ug/dL (265-497)
--- NOTE | 2017-01-31 14:49 | P.PN ---
Subjective 46-year-old female being seen on rounds. Patient is sitting up in a chair this morning. Patient's chief complaint is "my rheumatoid arthritis is really acting up off of my meds can not move my hands. Patient is being followed by surgical service for right lower quadrant abdominal pain that started 2-3 days prior to coming into the hospital patient underwent on the first january Extensive laparoscopic lysis of adhesions over 1 hour, drainage of intrapelvic abscess 30 mL left lower quadrant , placement of JOSE drain cul-de-sac, laparoscopic appendectomy. Patient was being treated for peritonitis with sepsis with an abnormal CAT scan and dehydration Objective - Vital Signs Vital signs: Vital Signs Temp 97.1 F L 01/31/17 07:00 Pulse 90 01/31/17 07:00 Resp 20 01/31/17 07:00 BP 119/73 01/31/17 07:00 Pulse Ox 97 01/31/17 07:00 Intake & Output 01/30/17 01/31/17 01/31/17 18:59 06:59 18:59 Intake Total 440 600 Output Total 1200 Balance -760 600 Intake: Oral 440 600 Output: Urine 1200 Other: Voiding Method Indwelling Catheter Indwelling Catheter # Voids 1 # Bowel Movements 0 - Exam Physical exam 46-year-old female sitting up in a chair states pain medication has been effective for surgical pain Lungs essentially clear adequate air movement on room air Heart S1-S2 audible regular Abdomen surgical site dry soft and not distended no nausea vomiting surgical tenderness with active bowel tones noted states no stool states not passing gas urinating no difficulty Extremities no edema noted to the bilateral lower extremities - Labs CBC & Chem 7: 01/31/17 07:59 01/31/17 12:55 Labs: Abnormal Lab Results - Last 24 Hours (Table) 01/31/17 01/31/17 Range/Units 07:59 07:59 RBC 3.59 L (3.80-5.40) m/uL Hgb 10.1 L (11.4-16.0) gm/dL Hct 31.7 L (34.0-46.0) % Lymphocytes # 0.6 L (1.0-4.8) k/uL Potassium 3.2 L (3.5-5.1) mmol/L Chloride 109 H (98-107) mmol/L Calcium 7.6 L (8.4-10.2) mg/dL Phosphorus 2.3 L (2.5-4.5) mg/dL Iron 20 L (37-170) ug/dL TIBC 258 L (265-497) ug/dL % Saturation 7.8 L (20-50) % Total Protein 5.4 L (6.3-8.2) g/dL Albumin 2.6 L (3.5-5.0) g/dL Microbiology - Last 24 Hours (Table) 01/29/17 11:33 Gram Stain - Preliminary Peritoneal Fluid Body Fluid Culture - Preliminary Alpha Hemolytic Streptococcus Assessment and Plan Plan: ImpressionPlan: #1Acute appendicitis, with abscess formation and pelvic adhesions, suspicion for diverticular disease. will have a outpatient colonoscopy. #2 rheumatoid arthritis #3 morbid obesity with a BMI of 47 #4 Asymptomatic bacteuria. History of rheumatoid arthritis on immune therapy currently being held Plan Continue postop surgical care Continue with antibiotics follow-up on abdominal cultures currently on Zosyn to cover for intra-abdominal organisms Pain control DVT and GI prophylaxis Increase activity The above dictated assessment and findings were discussed with dr Jesenia Goodwin and the plan of care have been dictated as directed. Rebeca Ruiz nurse practitioner acting as a scribe for Jesenia
[2017-01-31] MEDS: ONDANSETRON 4 MG/2 ML VIAL IVP PRN (16:33)
[2017-01-31] MEDS ORDERED: predniSONE 20 MG TAB PO STA (16:55)
[2017-01-31] MEDS: azaTHIOprine 50 MG TAB PO SCH ×2 (17:15→20:53)
[2017-01-31] MEDS: LEFLUNOMIDE 20 MG TAB PO SCH (17:35)
--- NOTE | 2017-01-31 19:53 | P.PN ---
Subjective 46-year-old female was previously healthy comes in the hospital complains of right lower quadrant abdominal pain that started 2-3 days prior to admission. Patient states she has associated chills nausea vomiting and a fever of 103 within the last 24 hours. Patient states her abdominal pain and initially started in the right lower quadrant thereafter was radiating to her umbilical region. States that crushing down helps with her pain laying flat worsens the pain. Patient denies having any associated worsening of pain with bowel movements denies having any urinary urgency or frequency or any vaginal discharge. Patient's last menstrual period was on January 15. Patient is not sexually active at this time. In the emergency room patient underwent a computed tomography scan of the abdomen and pelvis was noted to have changes around the appendix some concern for PID. A vaginal ultrasound was also done which was a difficult study apparently. Currently states to have significant amount of pain and has persistent nausea at this time. 01/29/17 states to have some chills, intemittent nausea, bertha associated with pain medications Continues to have pain, was seen post operatively. 01/30/17 Denies having chest pain, jose elias, headaches, palpitations Has some abdominal discomfort, however improving. 01/31/17 Passing urine, denies any urgency, frequency abdominal pain is controlled, passing gas however states to have pain in her left hand and shoulder, Objective - Vital Signs Vital signs: Vital Signs Temp 97.2 F L 01/31/17 15:00 Pulse 90 01/31/17 15:00 Resp 20 01/31/17 15:00 BP 137/85 01/31/17 15:00 Pulse Ox 95 01/31/17 15:00 Intake & Output 01/31/17 01/31/17 02/01/17 06:59 18:59 06:59 Intake Total 600 Output Total 50 Balance 600 -50 Intake: Oral 600 Output: Drainage 50 Abdomen 50 Other: Voiding Method Bedside Commode # Voids 1 1 - Constitutional General appearance: Present: no acute distress - EENT Eyes: Present: PERRLA - Respiratory Respiratory: bilateral: CTA, negative: dullness, rales, rhonchi, wheezing - Cardiovascular Rhythm: regular Heart sounds: normal: S1, S2 Abnormal Heart Sounds: Absent: systolic murmur - Gastrointestinal General gastrointestinal: Present: normal bowel sounds (incision sites appear appropriate, JOSE drain in the left hemiabdomen.), soft. Absent: organomegaly - Integumentary Integumentary: Present: normal - Neurologic Neurologic: Present: CNII-XII intact. Absent: focal deficits - Musculoskeletal Musculoskeletal Comment(s): left shoulder tender to palpation, left wrist, swollen - Psychiatric Psychiatric: Present: A&O x's 3, appropriate affect - Labs CBC & Chem 7: 01/31/17 07:59 01/31/17 12:55 Labs: Abnormal Lab Results - Last 24 Hours (Table) 01/31/17 01/31/17 Range/Units 07:59 07:59 RBC 3.59 L (3.80-5.40) m/uL Hgb 10.1 L (11.4-16.0) gm/dL Hct 31.7 L (34.0-46.0) % Lymphocytes # 0.6 L (1.0-4.8) k/uL Potassium 3.2 L (3.5-5.1) mmol/L Chloride 109 H (98-107) mmol/L Calcium 7.6 L (8.4-10.2) mg/dL Phosphorus 2.3 L (2.5-4.5) mg/dL Iron 20 L (37-170) ug/dL TIBC 258 L (265-497) ug/dL % Saturation 7.8 L (20-50) % Total Protein 5.4 L (6.3-8.2) g/dL Albumin 2.6 L (3.5-5.0) g/dL Microbiology - Last 24 Hours (Table) 01/29/17 11:33 Gram Stain - Preliminary Peritoneal Fluid Body Fluid Culture - Preliminary Alpha Hemolytic Streptococcus Assessment and Plan Plan: #1Acute appendicitis, with abscess formation and pelvic adhesions, suspicion for diverticular disease. will have a outpatient colonoscopy. #2 rheumatoid arthritis #3 morbid obesity #4 Asymptomatic bacteuria. Plan Restart immune therapy, wtih leflonimide and azathioprine, pt can start her abatercept miguelito. One dose of solumedrol 40mg. Continue ivf await cultures zosyn to continue Pain control dc sanchez Encourage ambulation IS
[2017-01-31] MEDS: MELATONIN 5 MG TABLET PO SCH (20:36)
[2017-02-01] MEDS: SODIUM CHLORIDE 0.9% 1,000 ML IV SCH ×2 (02:10→11:49)
--- NOTE | 2017-02-01 07:36 | P.PN ---
Progress Note - Text Patient seen and evaluated. Fever curve now resolved. Now she reports inflammation from rheumatoid arthritis. JOSE is serosanguineous. Growth from peritoneal fluid is alpha hemolytic strep. She is passing flatus. May start slowly increasing diet. Oral versus intravenous antibiotic per cultures. Discharge home within 24 hours pending medical clearance. Continue with JOSE until seen in outpatient.
[2017-02-01] MEDS: azaTHIOprine 50 MG TAB PO SCH ×2 (07:47→15:07)
[2017-02-01] MEDS: ASPIRIN 81 MG CHEW PO SCH (07:47)
[2017-02-01] MEDS: MELOXICAM 7.5 MG TAB PO SCH (07:47)
[2017-02-01] MEDS: LEFLUNOMIDE 20 MG TAB PO SCH (07:47)
[2017-02-01] MEDS: PIPERACILLIN-TAZOBACTAM 3.375 GM in DEXTROSE/WATER 1 50ML.BAG IVPB SCH ×2 (07:48→15:07)
[2017-02-01] MEDS: HEPARIN SODIUM,PORCINE 5,000 UNIT/ML 1 ML VIAL SQ SCH ×2 (07:48→15:07)
[2017-02-01] MEDS: PANTOPRAZOLE 40 MG/10 ML VIAL IV SCH (07:48)
[2017-02-01 09:51] LABS: Basophils % (A) 0 %; CH 28.4; CHCM 32.2; Eosinophils % (A) 0 %; HCT 35.4 % (34.0-46.0); HDW 3.01; HGB 11.1 gm/dL (11.4-16.0); Hypochromasia Slight; Luc # (Auto) 0.07; Luc % (Auto) 2; Lymphocytes # (A) 0.5 k/uL (1.0-4.8); Lymphocytes % (A) 13 %; MCH 27.9 pg (25.0-35.0); MCHC 31.4 g/dL (31.0-37.0); MCV 88.8 fL (80.0-100.0); Mean Platelet Volume 6.7; Monocytes # (A) 0.2 k/uL (0-1.0); Monocytes % (A) 4 %; Neutrophils # (A) 3.3 k/uL (1.3-7.7); Neutrophils % (A) 81 %; RBC 3.98 m/uL (3.80-5.40); RDW 15.2 % (11.5-15.5); WBC 4.2 k/uL (3.8-10.6); WBC (Perox) 4.42
[2017-02-01 10:34] LABS: ALT 22 U/L (9-52); AST 21 U/L (14-36); Alkaline Phosphatase 94 U/L (38-126); Anion Gap 11 mmol/L; Blood Urea Nitrogen 9 mg/dL (7-17); Calcium 8.2 mg/dL (8.4-10.2); Carbon Dioxide 24 mmol/L (22-30); Chloride 107 mmol/L (98-107); Glucose 134 mg/dL (74-99); Non-African American GFR(MDRD) >60 (>60 ml/min/1.73 sqM); Sodium 142 mmol/L (137-145); Total Bilirubin 0.6 mg/dL (0.2-1.3); Total Protein 5.9 g/dL (6.3-8.2)
--- NOTE | 2017-02-01 12:40 | P.CONS ---
History of Present Illness - Reason for Consult Consult date: 02/01/17 - Chief Complaint Progressive abdominal pain - History of Present Illness 46-year-old woman presents to the emergency center with complaints of increasing right lower quadrant abdominal pain over several days before she came to hospital. She relates that she was having a fever up to 103 as well as chills without geovany rigors. She developed some nausea and emesis [place] considerably worse. Because of increasing amount of pain she did present to the emergency center. There imaging studies reveal evidence of marked abnormality into the right lower quadrant. Due to the potential involvement of the ovary and fallopian tube she was seen by gynecology. The patient was taken to the operating room and laproscopic intervention occurred. With both general surgery and gynecology. There is no evidence of any significant infection of the fallopian tube or ovary although they were a bit edematous. Patient had a marked infection of her appendix and this was removed. The patient showing ongoing improvement since the time of surgery. She has evidence of a positive culture but that the infectious disease consult was requested The patient does have a very significant history of rheumatoid arthritis it is difficult to control and she is on medications include Arava, Mobic, azathioprine, Orencia and has received steroid therapy here. The patient is quite immunosuppressed which is likely why she had a somewhat atypical presentation of her appendicitis. She's not doing considerably better. Review of Systems Pleasant 46 or woman who is currently feeling considerably better. Sitting upright looking forward to a solid lunch. His first solid food she's had so far and she believes she is ready HEENT:Denies headache or acute visual change. Denies sinus or mouth discomforts. Denies neck stiffness or pain. Denies significant oral cavity pain. Denies difficulty on swallowing. Lungs: Denies significant shortness of breath, cough, sputum production, or hemoptysis. Cardiovascular: Denies significant shortness of breath, chest pain, chest wall pain, orthopnea, dyspnea on exertion, syncope Gastrointestinal: Nausea emesis and bowel pain of all improved. She's passed 3 stools today. No hematemesis melena or hematochezia have occurred. Abdominal pain is much improved. Musculoskeletal: Has chronic myalgia and arthralgia. She is off her medications for a few days and was starting to flare to her left hand and left shoulder. The short burst of steroid has definitely helped. Skin: Denies new rash or lesions. No new ulcers or wounds are related.. Neuro: Denies headache or visual change. Denies any new onset weakness or difficulty with ambulation. Denies falls or seizures. Psychiatric:Denies anxiety or depression. Endocrine: Chronic fatigue and ongoing great difficulties with weight gain over time she is superobese Past Medical History Past Medical History: Rheumatoid Arthritis (RA), Seizure Disorder Additional Past Medical History / Comment(s): RA-pain in multiple joints, spinal stenosis/instability and herniated disc-difficulty walking, pt saw Dr. Lezama (neurologist in [place], [place]) yesterday for 2nd opnion for least invasive back surgery, past bronchitis, childhood seizures, History of Any Multi-Drug Resistant Organisms: None Reported Past Surgical History: Orthopedic Surgery Additional Past Surgical History / Comment(s): endoscopic sinus surgery, L knee arthroscopy, back epidural injections. Past Anesthesia/Blood Transfusion Reactions: No Reported Reaction, Motion Sickness Past Psychological History: No Psychological Hx Reported Additional Psychological History / Comment(s): Pt states since starting diet pill 2 days ago, she has had depression but denies suicidal thoughts or plans. She lives alone in a 1 level home. She has a cane but wheels herself around on her computer chair. She has a motorized scooter for going to stores. She drives. Single. No animal exposures. The experience. No international travel Smoking Status: Never smoker Past Alcohol Use History: None Reported Past Drug Use History: None Reported - Past Family History Father Family Medical History: Cancer Additional Family Medical History / Comment(s): Father of leukemia at the age of 65yrs. Mother Family Medical History: Diabetes Mellitus, Hypertension, Osteoarthritis (OA) Additional Family Medical History / Comment(s): Mother has IIDM, depression. Medications and Allergies Home Medications and Allergies Comment(s): Current Medications Aspirin (Aspirin) 81 mg PO DAILY [facility] Last Admin: 02/01/17 07:47 Dose: 81 mg Azathioprine (Imuran) 50 mg PO TID [facility] Last Admin: 02/01/17 07:47 Dose: 50 mg Heparin Sodium (Porcine) (Heparin) 5,000 unit SQ Q8HR [facility] Last Admin: 02/01/17 07:48 Dose: 5,000 unit Hydromorphone HCl (Dilaudid) 1 mg IV Q3HR PRN PRN Reason: Severe Pain Last Admin: 01/29/17 03:21 Dose: 1 mg Sodium Chloride (Saline 0.9%) 1,000 mls @ 125 mls/hr IV .Q8H [facility] Last Admin: 02/01/17 11:49 Dose: Not Given Piperacillin/Tazobactam/ (Dextrose 3.375 gm/ IV Solution) 50 mls @ 12.5 mls/hr IVPB Q8HR [facility] Last Admin: 02/01/17 07:48 Dose: 12.5 mls/hr Leflunomide (Arava) 20 mg PO DAILY [facility] Last Admin: 02/01/17 07:47 Dose: 20 mg Melatonin (Melatonin) 5 mg PO HS [facility] Last Admin: 01/31/17 20:36 Dose: 5 mg Meloxicam (Mobic) 15 mg PO DAILY [facility] Last Admin: 02/01/17 07:47 Dose: 15 mg Metoclopramide HCl (Reglan) 10 mg IVP Q6H PRN PRN Reason: Nausea And Vomiting Miscellaneous Information (Potassium Per Protocol) 1 each MISCELLANE DAILY PRN ; Protocol PRN Reason: Per Protocol Morphine Sulfate (Morphine Sulfate (Inj)) 4 mg IVP Q4HR PRN PRN Reason: Pain Last Admin: 01/31/17 20:40 Dose: 4 mg Naloxone HCl (Narcan) 0.2 mg IV Q2M PRN PRN Reason: Opioid Reversal Ondansetron HCl (Zofran) 4 mg IVP Q8HR PRN PRN Reason: Nausea And Vomiting Last Admin: 01/31/17 16:33 Dose: 4 mg Pantoprazole Sodium (Protonix) 40 mg IV DAILY [facility] Last Admin: 02/01/17 07:48 Dose: 40 mg Home Medications Medication Instructions Recorded Confirmed Type Aspirin 81 mg PO DAILY 07/15/15 01/28/17 History Meloxicam 15 mg PO DAILY 07/15/15 01/28/17 History Abatacept/Maltose [Orencia] 152 mg IVPB COATS 06/06/16 01/28/17 History Clindamycin Topical Soln 1 applic TOPICAL BID 06/06/16 01/28/17 History [Cleocin-T Topical Soln] Doxycycline Hyclate [Vibramycin] 100 mg PO BID 06/06/16 01/28/17 History azaTHIOprine [Imuran] 50 mg PO TID 06/06/16 01/28/17 History Leflunomide 20 mg PO DAILY 01/28/17 01/28/17 History Melatonin 5 mg PO HS 01/28/17 01/28/17 History Naltrexone HCl/Bupropion HCl 2 tab PO BID 01/28/17 01/28/17 History [Contrave ER 8-90 mg Tablet] Allergies Allergy/AdvReac Type Severity Reaction Status Date / Time No Known Allergies Allergy Verified 01/28/17 08:06 Physical Exam Vitals: Vital Signs Temp Pulse Resp BP BP Pulse Ox 02/01/17 07:00 96.6 F L 61 21 167/85 99 01/31/17 23:00 97.3 F L 78 20 120/75 96 01/31/17 15:00 97.2 F L 90 20 137/85 95 Intake and Output 01/31/17 02/01/17 02/01/17 22:59 06:59 14:59 Intake Total 100 100 100 Output Total 50 30 Balance 50 70 100 Intake: Oral 100 100 100 Output: Drainage 50 30 Abdomen 50 30 Other: Voiding Method Bedside Commode Bedside Commode # Voids 1 3 1 # Bowel Movements 2 Pleasant 41 year old woman who suffers from superobesity seems to be much more comfortable now than at admission. HEENT: Anicteric conjunctiva are pink and moist nasal mucosa grossly intact without significant lesions, there is no thrush. Neck: The neck is supple without significant lymphadenopathy or thyromegaly. Lungs: Good bilateral air entry without significant crackles or wheezing. There is no significant bronchial sounds. There is no egophony or dullness. Heart: Regular rate and rhythm with an audible S1-S2, no S3 no S4. There is no significant murmur click or rub, PMI was nondisplaced. Abdomen: Positive bowel sounds soft and obese without significant tenderness on exam. Organomegaly is not palpable there is no rigidity or rebound Extremities: The upper extremities have excellent pulses they are symmetric, no significant petechiae or telangiectasia. No splinter hemorrhages were noted. The lower extremities are free from significant edema. The peripheral pulses were 2+ and symmetric. Patient does have some mild deformity to the other joints of her hands nothing is acutely flared at the moment. However she has had poor range of motion of her left shoulder she relates is much worse now than it was a month ago related to being off of her medications. She relates that in the past and she is actually off her medications for a day or 2 she starts to get significant flares. This is why she is on 4 medications. Neuro: Awake alert oriented to person place and time. There are no acute new gross focal sensory motor deficits. Results CBC & Chem 7: 02/01/17 08:42 02/01/17 08:42 Labs: Abnormal Lab Results - Last 24 Hours (Table) 01/31/17 02/01/17 02/01/17 Range/Units 07:59 08:42 08:42 Hgb 11.1 L (11.4-16.0) gm/dL Plt Count 462 H (150-450) k/uL Lymphocytes # 0.5 L (1.0-4.8) k/uL Potassium 3.2 L (3.5-5.1) mmol/L Chloride 109 H (98-107) mmol/L Creatinine 0.48 L (0.52-1.04) mg/dL Glucose 134 H (74-99) mg/dL Calcium 7.6 L 8.2 L (8.4-10.2) mg/dL Phosphorus 2.3 L (2.5-4.5) mg/dL Iron 20 L (37-170) ug/dL TIBC 258 L (265-497) ug/dL % Saturation 7.8 L (20-50) % Total Protein 5.4 L 5.9 L (6.3-8.2) g/dL Albumin 2.6 L 2.9 L (3.5-5.0) g/dL Microbiology - Last 24 Hours (Table) 01/29/17 11:33 Gram Stain - Preliminary Peritoneal Fluid Body Fluid Culture - Preliminary Alpha Hemolytic Streptococcus Laboratory Results WBC 4.2 k/uL (3.8-10.6) 02/01/17 08:42 RBC 3.98 m/uL (3.80-5.40) 02/01/17 08:42 Hgb 11.1 gm/dL (11.4-16.0) L 02/01/17 08:42 Hct 35.4 % (34.0-46.0) 02/01/17 08:42 MCV 88.8 fL (80.0-100.0) 02/01/17 08:42 MCH 27.9 pg (25.0-35.0) 02/01/17 08:42 MCHC 31.4 g/dL (31.0-37.0) 02/01/17 08:42 RDW 15.2 % (11.5-15.5) 02/01/17 08:42 Plt Count 462 k/uL (150-450) H 02/01/17 08:42 Neutrophils % 81 % 02/01/17 08:42 Neutrophils % (Manual) 77.5 % 01/28/17 07:55 Band Neutrophils % 16.0 % 01/28/17 07:55 Lymphocytes % 13 % 02/01/17 08:42 Lymphocytes % (Manual) 2.5 % 01/28/17 07:55 Monocytes % 4 % 02/01/17 08:42 Monocytes % (Manual) 3.0 % 01/28/17 07:55 Eosinophils % 0 % 02/01/17 08:42 Eosinophils % (Manual) 0.5 % 01/28/17 07:55 Basophils % 0 % 02/01/17 08:42 Basophils % (Manual) 0.5 % 01/28/17 07:55 Neutrophils # 3.3 k/uL (1.3-7.7) 02/01/17 08:42 Neutrophils # (Manual) 9.3 k/uL (1.3-7.7) H 01/28/17 07:55 Lymphocytes # 0.5 k/uL (1.0-4.8) L 02/01/17 08:42 Lymphocytes # (Manual) 0.2 k/uL (1.0-4.8) L 01/28/17 07:55 Monocytes # 0.2 k/uL (0-1.0) 02/01/17 08:42 Monocytes # (Manual) 0.3 k/uL (0-1.0) 01/28/17 07:55 Eosinophils # 0.0 k/uL (0-0.7) 02/01/17 08:42 Eosinophils # (Manual) 0.0 k/uL (0-0.7) 01/28/17 07:55 Basophils # 0.0 k/uL (0-0.2) 02/01/17 08:42 Basophils # (Manual) 0.0 k/uL (0-0.2) 01/28/17 07:55 Nucleated RBCs 0 /100 WBC (0-0) 01/28/17 07:55 Manual Slide Review Performed 01/28/17 07:55 Hypochromasia Slight 02/01/17 08:42 PT 11.6 sec (9.0-12.0) 01/28/17 07:55 INR 1.2 (<1.1) 01/28/17 07:55 APTT 24.7 sec (22.0-30.0) 01/28/17 07:55 Sodium 142 mmol/L (137-145) 02/01/17 08:42 Potassium 4.0 mmol/L (3.5-5.1) 02/01/17 08:42 Chloride 107 mmol/L (98-107) 02/01/17 08:42 Carbon Dioxide 24 mmol/L (22-30) 02/01/17 08:42 Anion Gap 11 mmol/L 02/01/17 08:42 BUN 9 mg/dL (7-17) 02/01/17 08:42 Creatinine 0.48 mg/dL (0.52-1.04) L 02/01/17 08:42 Est GFR (MDRD) Af Amer >60 (>60 ml/min/1.73 sqM) 02/01/17 08:42 Est GFR (MDRD) Non-Af >60 (>60 ml/min/1.73 sqM) 02/01/17 08:42 Glucose 134 mg/dL (74-99) H 02/01/17 08:42 Plasma Lactic Acid Jose Martin 2.0 mmol/L (0.7-2.0) 01/28/17 07:55 Calcium 8.2 mg/dL (8.4-10.2) L 02/01/17 08:42 Phosphorus 2.3 mg/dL (2.5-4.5) L 01/31/17 07:59 Magnesium 2.1 mg/dL (1.6-2.3) 01/30/17 08:15 Iron 20 ug/dL (37-170) L 01/31/17 07:59 TIBC 258 ug/dL (265-497) L 01/31/17 07:59 % Saturation 7.8 % (20-50) L 01/31/17 07:59 Ferritin 115 ng/mL (6-137) 01/31/17 07:59 Total Bilirubin 0.6 mg/dL (0.2-1.3) 02/01/17 08:42 AST 21 U/L (14-36) 02/01/17 08:42 ALT 22 U/L (9-52) 02/01/17 08:42 Alkaline Phosphatase 94 U/L (38-126) 02/01/17 08:42 Total Protein 5.9 g/dL (6.3-8.2) L 02/01/17 08:42 Albumin 2.9 g/dL (3.5-5.0) L 02/01/17 08:42 Amylase 36 U/L (30-110) 01/28/17 07:55 Lipase 63 U/L (23-300) 01/28/17 07:55 Urine Color Yellow 01/28/17 10:00 Urine Appearance Clear (Clear) 01/28/17 10:00 Urine pH 9.0 (5.0-8.0) H 01/28/17 10:00 Ur Specific [place] >1.050 (1.001-1.035) H 01/28/17 10:00 Urine Protein 1+ (Negative) H 01/28/17 10:00 Urine Glucose (UA) Negative (Negative) 01/28/17 10:00 Urine Ketones Negative (Negative) 01/28/17 10:00 Urine Blood Negative (Negative) 01/28/17 10:00 Urine Nitrite Negative (Negative) 01/28/17 10:00 Urine Bilirubin Negative (Negative) 01/28/17 10:00 Urine Urobilinogen <2.0 mg/dL (<2.0) 01/28/17 10:00 Ur Leukocyte Esterase Negative (Negative) 01/28/17 10:00 Urine RBC 20 /hpf (0-5) H 01/28/17 10:00 Urine WBC 1 /hpf (0-5) 01/28/17 10:00 Ur Squamous Epith Cells 16 /hpf (0-4) H 01/28/17 10:00 Urine Mucus Rare /hpf (None) H 01/28/17 10:00 Urine HCG, Qual Not Detected (Not Detectd) 01/29/17 08:00 C.trachomatis RNA Not detected (Not detected) 01/28/17 10:11 Chlamydia/GC DNA Source Endocervix 01/28/17 10:11 N.gonorrhoeae RNA Not detected (Not detected) 01/28/17 10:11 Trichomonas Ag (Rapid) Negative (Negative) 01/28/17 10:11 Microbiology 01/28/17 08:10 Blood Blood Culture - Preliminary No Growth after 96 hours 01/28/17 10:11 Cervix Gram Stain - Final 01/28/17 10:11 Cervix Genital Culture - Final 01/29/17 11:33 Peritoneal Fluid Gram Stain - Preliminary 01/29/17 11:33 Peritoneal Fluid Body Fluid Culture - Preliminary Alpha Hemolytic Streptococcus 01/28/17 10:00 Urine,Voided Urine Culture - Final Proteus mirabilis 01/29/17 11:33 Peritoneal Fluid Anaerobic Culture - Preliminary Assessment and Plan (1) Appendicitis with peritonitis Narrative/Plan: 46-year-old woman presents to hospital with increasing abdominal pain over a few day time frame. It was mostly into the right lower quadrant with some radiation into the umbilical area. Imaging studies revealed evidence of concerns to appendicitis as well as of difficulties with the fallopian tube and ovary. She was taken to the operating room and evidence of appendicitis was found and microscopic appendectomy was performed. There is inflammation of fallopian tube and ovary but no abscess was seen. Testing was all negative for pelvic inflammatory disease. Patient however did have positive urine culture for Proteus mirabilis. In appear to have fluid has evidence of alpha hemolytic strep. Current antibiotic therapy of Zosyn is an excellent choice. If she is improving and transitioning to care for home. Augmentin 500 mg orally every 8 hours to complete 7 days of therapy should be adequate for both the post-appendicitis peritonitis and a urinary tract infection. Status: Acute (2) Rheumatoid arthritis Status: Acute (3) Fever Status: Acute
[2017-02-01 15:13] VITALS: BP 136/73; PULSE 84; RESP 20; TEMP 96.4
--- NOTE | 2017-02-01 16:03 | P.PN ---
Subjective 46-year-old female sitting up in a chair this morning states is less pain in her hands. Vivek-Vela drain removed patient states that she has had 2 bowel movements since passing gas. Did note the growth from the peritoneal fluid is alpha hemolytic strep. Infectious disease consultation will be requested. Patient states she's tolerating a diet. Has remained afebrile patient underwent on the january Extensive laparoscopic lysis of adhesions over 1 hour, drainage of intrapelvic abscess 30 mL left lower quadrant , placement of JOSE drain cul-de-sac, laparoscopic appendectomy. Patient was being treated for peritonitis with sepsis with an abnormal CAT scan and dehydration Objective - Vital Signs Vital signs: Vital Signs Temp 96.4 F L 02/01/17 15:00 Pulse 84 02/01/17 15:00 Resp 20 02/01/17 15:00 BP 136/73 02/01/17 15:00 Pulse Ox 98 02/01/17 15:00 Intake & Output 01/31/17 02/01/17 02/01/17 18:59 06:59 18:59 Intake Total 200 100 Output Total 50 30 Balance -50 170 100 Intake: Oral 200 100 Output: Drainage 50 30 Abdomen 50 30 Other: Voiding Method Bedside Commode Bedside Commode Bedside Commode # Voids 1 3 1 # Bowel Movements 2 - Exam Physical exam 46-year-old female sitting up in a chair states pain medication has been effective for surgical pain states passing gas and has had 2 bowel movements urinating no difficulty Lungs essentially clear adequate air movement on room air Heart S1-S2 audible regular Abdomen surgical site dry soft and not distended no nausea vomiting surgical tenderness with active bowel tones urinating no difficulty Extremities no edema noted to the bilateral lower extremities - Labs CBC & Chem 7: 02/01/17 08:42 02/01/17 08:42 Labs: Abnormal Lab Results - Last 24 Hours (Table) 02/01/17 02/01/17 Range/Units 08:42 08:42 Hgb 11.1 L (11.4-16.0) gm/dL Plt Count 462 H (150-450) k/uL Lymphocytes # 0.5 L (1.0-4.8) k/uL Creatinine 0.48 L (0.52-1.04) mg/dL Glucose 134 H (74-99) mg/dL Calcium 8.2 L (8.4-10.2) mg/dL Total Protein 5.9 L (6.3-8.2) g/dL Albumin 2.9 L (3.5-5.0) g/dL Microbiology - Last 24 Hours (Table) 01/29/17 11:33 Gram Stain - Preliminary Peritoneal Fluid Body Fluid Culture - Preliminary Alpha Hemolytic Streptococcus Assessment and Plan Plan: ImpressionPlan: 1Acute appendicitis, with abscess formation and pelvic adhesions, suspicion for diverticular disease. will have a outpatient colonoscopy. rheumatoid arthritis morbid obesity with a BMI of 47 Asymptomatic bacteuria. History of rheumatoid arthritis on immune therapy currently being held patient underwent on the january Extensive laparoscopic lysis of adhesions over 1 hour, drainage of intrapelvic abscess 30 mL left lower quadrant , placement of JOSE drain cul-de-sac, laparoscopic appendectomy. Patient was being treated for peritonitis with sepsis with an abnormal CAT scan and dehydration Growth from peritoneal fluid is alpha hemolytic strep Plan Continue postop surgical care Consult infectious disease Dr. Mendoza Pain control DVT and GI prophylaxis Increase activity The above dictated assessment and findings were discussed with dr Jesenia Goodwin and the plan of care have been dictated as directed. Rebeca Ruiz nurse practitioner acting as a scribe for Jesenia
--- NOTE | 2017-02-01 19:41 | P.DS ---
Providers Date of admission: 01/28/17 10:39 Attending physician: Ferny Anglin Consults: 01/28/17 20:58 Consult Physician Routine Consulting Provider: [facility] Consult Reason/Comments: [facility] Do you want consulting provider notified?: Yes 02/01/17 08:55 Consult Physician Stat Consulting Provider: Blanco Mendoza Consult Reason/Comments: rec abx Do you want consulting provider notified?: Yes Primary care physician: Rica Healy [facility] Hospital Course: 46-year-old female was previously healthy comes in the hospital complains of right lower quadrant abdominal pain that started 2-3 days prior to admission. Patient states she has associated chills nausea vomiting and a fever of 103 within the last 24 hours. Patient states her abdominal pain and initially started in the right lower quadrant thereafter was radiating to her umbilical region. States that crushing down helps with her pain laying flat worsens the pain. Patient denies having any associated worsening of pain with bowel movements denies having any urinary urgency or frequency or any vaginal discharge. Patient's last menstrual period was on January 15. Patient is not sexually active at this time. In the emergency room patient underwent a computed tomography scan of the abdomen and pelvis was noted to have changes around the appendix some concern for PID. A vaginal ultrasound was also done which was a difficult study apparently. Currently states to have significant amount of pain and has persistent nausea at this time. 01/29/17 states to have some chills, intemittent nausea, bertha associated with pain medications Continues to have pain, was seen post operatively. 01/30/17 Denies having chest pain, jose elias, headaches, palpitations Has some abdominal discomfort, however improving. 01/31/17 Passing urine, denies any urgency, frequency abdominal pain is controlled, passing gas however states to have pain in her left hand and shoulder, 02/01/17 Pt had a bowel movement, ambulated well No other complaints reported No fevers, chills, nausea, vomiting. tolerating diet. - Constitutional General appearance: Present: no acute distress - EENT Eyes: Present: PERRLA - Respiratory Respiratory: bilateral: CTA, negative: dullness, rales, rhonchi, wheezing - Cardiovascular Rhythm: regular Heart sounds: normal: S1, S2 Abnormal Heart Sounds: Absent: systolic murmur - Gastrointestinal General gastrointestinal: Present: normal bowel sounds (incision sites appear appropriate, soft. Absent: organomegaly - Integumentary Integumentary: Present: normal - Neurologic Neurologic: Present: CNII-XII intact. Absent: focal deficits - Musculoskeletal Musculoskeletal Comment(s): left shoulder tender to palpation, left wrist, swollen - Psychiatric Psychiatric: Present: A&O x's 3, appropriate affect Assessment and Plan Plan: #1Acute appendicitis, with abscess formation and pelvic adhesions, suspicion for diverticular disease. will have a outpatient colonoscopy. #2 rheumatoid arthritis #3 morbid obesity #4 Asymptomatic bacteuria. Plan leflonimide and azathioprine were held for 2 days then restarted, pt can start her abatercept miguelito. One dose of solumedrol 40mg was given. pt had complaints of left sided shoulder and wrist pain, which were relieved on the day of discharge Drain was removed Follow up with Dr Ba , Dr Ventura in 1 -2 weeks. Plan - Discharge Summary New Discharge Prescriptions: Ciprofloxacin HCl [Cipro] 750 mg PO DAILY #10 tablet metroNIDAZOLE [Flagyl] 500 mg PO TID #15 tab Discharge Medication List Aspirin 81 mg PO DAILY 07/15/15 [History] Meloxicam 15 mg PO DAILY 07/15/15 [History] Abatacept/Maltose [Orencia] 152 mg IVPB COATS 06/06/16 [History] Clindamycin Topical Soln [Cleocin-T Topical Soln] 1 applic TOPICAL BID 06/06/16 [History] Doxycycline Hyclate [Vibramycin] 100 mg PO BID 06/06/16 [History] azaTHIOprine [Imuran] 50 mg PO TID 06/06/16 [History] Leflunomide 20 mg PO DAILY 01/28/17 [History] Melatonin 5 mg PO HS 01/28/17 [History] Naltrexone HCl/Bupropion HCl [Contrave ER 8-90 mg Tablet] 2 tab PO BID 01/28/17 [History] Ciprofloxacin HCl [Cipro] 750 mg PO DAILY #10 tablet 02/01/17 [Rx] metroNIDAZOLE [Flagyl] 500 mg PO TID #15 tab 02/01/17 [Rx] Follow up Appointment(s)/Referral(s): Rica Bloom III, MD [Primary Care Provider] - 1-2 days Jesenia,Hilda N, MD [STAFF PHYSICIAN] - 1 Week Patient Instructions/Handouts: Laparoscopic Appendectomy (DC) Discharge Disposition: HOME SELF-CARE
--- NOTE | 2017-02-04 07:49 | CDI ---
In responding to this query, please exercise your independent professional judgment. The [facility] Coding Staff and Clinical Documentation Specialists appreciate your assistance in clarifying documentation, maintaining compliance with coding guidelines, accurately documenting patients condition and capturing severity of illness. The fact that a question is asked does not imply that any particular answer is desired or expected. Communication forms are a method of clarifying documentation and are not made part of the Legal Health Record. Thank you in advance for your clarification. Last Revision, August [address] [facility] [place] [address] Documentation Clarification Form Date: 02/04/2017 7:28:00 AM From: Sulma Rose Phone: Admit Date: 01/28/2017 10:39:00 AM Patient Name: Marixa Otero Visit Number: [id number] Discharge Date: 02/04/17 Dr. Melo Cash Conflicting documentation has been found in the medical record. Sepsis has been documented by the ED physician and the surgeon in the consult, operative note, and PNs 01/30, 01/31 & 02/01. History/Risk Factors: rheumatoid arthritis, morbid obesity Clinical Indicators: WBC 9.9, Neutrophils-9.3, lactic acid 9.2, temp in ED 98.3 /103.2/100.6, P-124/107, RR-22/18 Treatment: IV antibiotics (started w Ceftriaxone, Vibramycin changed to Zosyn In your opinion what is the most clinically appropriate diagnosis for this patient? Sepsis No sepsis OTHER explanation of clinical findings Unable to determine (no explanation for clinical findings) Please document in your progress notes and discharge summary in order to capture severity of illness and risk of mortality. Include clinical findings that support your diagnosis. FYI: Press F11 to launch patient chart. HILARY Rojas, CCS, AHIMA Certified [employer]/[place] [employer] II MURALI
--- NOTE | 2017-02-09 10:52 | DS ---
DATE OF ADMISSION: 01/28/2017 DATE OF DISCHARGE: 02/01/2017 ADDENDUM: Addendum to discharge summary. DISCHARGE DIAGNOSES: Sepsis secondary to acute complicated appendicitis that was present on admission in a patient with chronic immunosuppression.
--- NOTE | 2017-03-04 05:40 | P.OP ---
Date of Procedure: 01/29/17 Description of Procedure: DATE OF SERVICE: 01/29/2017 SURGEON: AMANDA SOTELO MD PHYSICIAN ANESTHESIOLOGIST: NONE. PREOPERATIVE DIAGNOSES: 1. Generalized peritonitis. 2. Sepsis. 3. Abnormal abdominal CT scan with questionable appendicitis versus tubo- ovarian abscess. 4. Dehydration. 5. Morbid obesity due to excess calories. 6. BMI of 47.6. 7. Rheumatoid arthritis. 8. Right lower quadrant abdominal pain. 9. Chronic pain. POSTOPERATIVE DIAGNOSES: 1. Generalized peritonitis. 2. Sepsis. 3. Abnormal abdominal CT scan with questionable appendicitis versus tubo-ovarian abscess. 4. Dehydration. 5. Morbid obesity due to excess calories. 6. BMI of 47.6. 7. Rheumatoid arthritis. 8. Right lower quadrant abdominal pain. 9. Persistent immunocompromise state. 10. Intrapelvic abscess left lower quadrant. 11. Acute appendicitis. 12. Diffuse intra-abdominal adhesions of the lower pelvis consistent with pelvic inflammatory disease. 13. Chronic pain. OPERATION: 1. Laparoscopic extensive lysis of adhesions over one hour. 2. Laparoscopic drainage of intrapelvic abscess 30 mL of the sigmoid mesentery. 3. Placement of round #19 Jaswant drain along the cul-de-sac and left lower quadrant. 4. Laparoscopic appendectomy. 5. Laparoscopic peritoneal lavage over 3 liters. ANESTHESIA: General with 60 mL of 0.25% Marcaine with epinephrine. ESTIMATED BLOOD LOSS: 20 mL. SPECIMENS REMOVED: 1. Appendix. 2. Aerobic, anaerobic culture of peritoneal fluid. COMPLICATIONS: None. OPERATIVE FINDINGS: 1. Severe pelvic and intra-abdominal adhesions secondary to pelvic inflammation and infection. 2. The uterus was unremarkable. 3. Right fallopian tube and round ligament and ovary were identified and unremarkable. 4. Dense adhesions of the left fallopian tube and ovary identified without gross ovarian abscess. 5. Decompressed mesenteric abscess over 30 mL with aerobic anaerobic cultures obtained. 6. Sigmoid colon identified, however, with moderate inflammation along the area of abscess. 7. Inflammation of the distal appendix with periappendicitis. 8. Cecum and terminal ileum were unremarkable for gross inflammation. 9. Base of the cecum was also unremarkable. INDICATIONS: Celeste Otero is a 46-year-old female who reports one week long history of increased abdominal pain. She had been taking Contrave for weight loss. In the last 24 to 48 hours she reports acute onset right lower quadrant abdominal pain. At baseline she is immunocompromised on medication for rheumatoid arthritis and she takes chronic antibiotics for facial rash. She then presented to the emergency room with pyrexia and fevers of over 103 as well as tachycardia consistent with sepsis. As a result, CT of the abdomen and pelvis was obtained with findings consistent with dense inflammation along the left pelvis; however, tubal ovarian abscess and appendicitis could not be excluded. Given the severity of her abdominal pain and peritonitis, surgical intervention with a diagnostic laparoscopy, laparoscopic appendectomy was described in detail. Informed consent was obtained. DESCRIPTION: Patient was brought to the operating room, laid in supine position. After general induction, the abdomen had been prepped and draped in standard sterile fashion. Gutierres catheter was placed. A timeout protocol was confirmed with surgical team regarding the patient's name including procedure to be performed. Attention was brought to the left upper quadrant whereby a 0 degree 5 mm laparoscopic trocar entry was performed and entered into abdominal cavity. The abdomen was insufflated to 15 mmHg of pressure, which she tolerated well. Diagnostic laparoscopy demonstrated no injury to bowel, viscera or mesentery. Along the right lower pelvis, peritoneal adhesions of the small bowel to the anterior abdominal wall were identified. Immediately over the pubis and dome of the uterus, small bowel was also found to be densely adherent. Along the left lower quadrant, the serosa and anterior surface of the sigmoid colon had appeared unremarkable. Next, two 5 mm trocars were placed along the left lateral abdominal wall under direct visualization. The patient was placed in Trendelenburg position with the right side up. At this time, Dr. Watt had entered the case for the diagnostic laparoscopy portion of the case. Using careful dissection, primarily bluntly, the small bowel of the lower pelvis was found densely adherent due to a phlegmon reaction. Using a fenestrated graspers, the small bowel was carefully dissected away and freed of the pelvis. Using blunt dissection with Kittner, the dome of the uterus was carefully dissected away from the sigmoid colon and immediately along the left pelvis gross pus was identified and aspirated using a Leuker trap. The decompress abscess pocket was consistent with inflammatory changes found along the mesentery of the pelvis of the sigmoid colon. No evidence of diverticulosis was found along this portion of the sigmoid colon, however. Attention was then brought to the cul-de-sac whereby free fluid was identified. The aspirate was turbid in color. The uterus was otherwise unremarkable. The right fallopian tube including round ligament was identified. The right ovary was identified without inflammatory changes or signs of ovarian abscess. Again, the ovary was found to be adherent to the right pelvic wall including the small bowel from inflammatory process. Attention was now brought to the left pelvis whereby the fallopian tube including round ligament was found densely adherent in a similar fashion to the left pelvis. Care was taken to identify the left ovary whereby cystic changes were found; however, without any gross tubo-ovarian abscess as well. The pocket of intrapelvic abscess was completely decompressed and irrigated with over 3 liters of normal saline until the aspirate was clear. Attention was now brought to identification of the appendix. The base of the cecum was identified and found to be without inflammation. The terminal ileum was also identified whereby the anterior surface was consistent with inflammatory reaction from the pelvic infection. The base of the appendix was unremarkable, however, the midbody to the distal tip of the appendix was grossly inflamed with periappendicitis. This was consistent with appendicitis as well. The appendix was dissected free from the phlegmon reaction and mesoappendix was controlled using a Sonicision, Along the left lateral abdominal wall, the 5 mm port was exchanged for a 12 mm trocar. Next, an Ethicon echelon automatic stapler, 60 mm mcdowell load was entered into abdominal cavity. The appendix was resected along the base of the appendix. An Endo Catch bag was used to retrieve the specimen. Next, a round #19 Jaswant drain was placed along the cul-de-sac and entering along the decompressed abscess pocket. Again, the irrigation fluid was serosanguineous. The JOSE drain tubing was exited via the 12 mm port under direct localization. Please note an additional 3 - 5 mm ports were placed; one above the pubis including one along the right lower quadrant and one above the umbilicus to perform her case. All instruments and pneumoperitoneum were evacuated from the abdominal cavity. A drain stitch using 2-0 nylon was placed followed by JOSE bulb. The incisions were reapproximated using 4-0 Monocryl in interrupted subcuticular fashion. A total of 60 mL 0.25% Marcaine with epinephrine was infiltrated into all wounds for postop analgesia. The patient was awoken from anesthesia. Gutierres catheter was maintained and she had very dark and low urine output. She was transferred to postanesthesia care unit in stable condition. Postoperatively her pain had improved.
== END 2017-02-01 18:51 | disposition home or self-care (01) | DRG 853 ==
LOC: EC 06:42 → 4MS4W 10:39
PROVIDERS: ADMIT Internal Medicine; ATTEND Internal Medicine
PROC: 0DTJ4ZZ Resection of Appendix, Percutaneous Endoscopic Approach (ICD-10-PCS; 2017-01-29)
PROC: 0UN64ZZ Release Left Fallopian Tube, Percutaneous Endoscopic Approach (ICD-10-PCS; 2017-01-29)
PROC: 0UN94ZZ Release Uterus, Percutaneous Endoscopic Approach (ICD-10-PCS; 2017-01-29)
PROC: 0UN24ZZ Release Bilateral Ovaries, Percutaneous Endoscopic Approach (ICD-10-PCS; 2017-01-29)
PROC: 0W9J40Z Drainage of Pelvic Cavity with Drainage Device, Percutaneous Endoscopic Approach (ICD-10-PCS; 2017-01-29)
PROC: 3E1M38Z Irrigation of Peritoneal Cavity using Irrigating Substance, Percutaneous Approach (ICD-10-PCS; 2017-01-29)
PROC: 0DNN4ZZ Release Sigmoid Colon, Percutaneous Endoscopic Approach (ICD-10-PCS; principal; 2017-01-29 10:00)
DX: A41.9 Sepsis, unspecified organism (principal); K35.2 Acute appendicitis with generalized peritonitis; Z68.42 Body mass index [BMI] 45.0-49.9, adult; E66.01 Morbid (severe) obesity due to excess calories; K57.90 Diverticulosis of intestine, part unspecified, without perforation or abscess without bleeding; N73.9 Female pelvic inflammatory disease, unspecified; M06.9 Rheumatoid arthritis, unspecified; G40.909 Epilepsy, unspecified, not intractable, without status epilepticus; M48.00 Spinal stenosis, site unspecified; G89.29 Other chronic pain; N73.6 Female pelvic peritoneal adhesions (postinfective); E86.0 Dehydration; R82.71 Bacteriuria; R26.2 Difficulty in walking, not elsewhere classified; Z79.82 Long term (current) use of aspirin; Z79.1 Long term (current) use of non-steroidal anti-inflammatories (NSAID); Z79.899 Other long term (current) drug therapy; Z86.59 Personal history of other mental and behavioral disorders
CPT/HCPCS: 36415; 71020; 74177; 76830; 80053; 81001; 81025; 82150; 82728; 83540; 83550; 83605; 83690; 83735; 84100; 84132; 85025; 85610; 85730; 87040; 87070; 87075; 87077; 87086; 87186; 87205; 87491; 87591; 87808; 88304; 93005; 96361; 96365; 96375; 99291

== ENCOUNTER → 2017-02-23 | Outpatient (CLI) | payer MEDICARE, OTHER ==
--- NOTE | 2017-02-24 11:09 | CT ---
EXAMINATION TYPE: CT abdomen pelvis w con DATE OF EXAM: 02/23/2017 7:11 PM COMPARISON: 01/28/2017 INDICATION: Generalized abdominal pain. DLP: 4133.10 mGycm, Automated exposure control for dose reduction was used. CONTRAST: 100 mL of Omnipaque 300. Study performed with Oral Contrast TECHNIQUE: Axial images were obtained from above the diaphragm to the pubic rami in the axial plane a t 5 mm thick sections. Reconstructed images are reviewed on the computer in the coronal plane. FINDINGS: Limited CT sections are obtained the lung bases. The lung bases are clear. CT ABDOMEN: Within the subcutaneous tissues of the left lower quadrant is a oval hypodensity extendin g from the extraperitoneal wall to nearly the skin surface. This has a maximum diameter of 1.6 cm. Co rrelate for instrumentation. Hematoma could be considered. Abscess should be included within the diff erential. Liver: Normal Spleen: Normal Pancreas: Normal Adrenal glands: The adrenal glands are normal. Gallbladder: Normal Kidneys: No masses are evident. No hydronephrosis is present. No cysts are present. Delayed images were obtained through the kidneys, which remain unremarkable. Aorta: Normal Inferior vena cava: Normal. CT PELVIS: Loops of bowel within the abdomen and pelvis are normal. There are loops of bowel which are incom pletely distended or lack oral contrast limiting their evaluation. Contrast extends to the sigmoid co janiya. Couple of diverticuli are present. Appendix: Normal as visualized. Urinary bladder: Normal. Genitourinary structures: Uterus and adnexal regions are normal. Couple follicles are likely on the o varies. No free fluid is within the pelvis. Osseous structures: No suspicious lytic or sclerotic lesions. IMPRESSIONS: 1. No suspicious acute intra-abdominal abnormalities. 2. Correlate for prior instrumentation left lower quadrant. Hematoma or abscess may be within the sub cutaneous tissues left midabdomen.
== END | disposition home or self-care (01) ==
LOC: RADCTMAIN 18:33
PROVIDERS: ATTEND Surgery Plastic and Reconstructive Surgery
DX: K57.92 Diverticulitis of intestine, part unspecified, without perforation or abscess without bleeding (principal)
CPT/HCPCS: 74177; Q9967

== ENCOUNTER 2017-03-11 07:13 | Day surgery (SDC) | payer MEDICARE, OTHER ==
[2017-03-09 09:46] VITALS: BMI 58.1
[~2017-03-11 07:13] MED LIST: LACTATED RINGERS 1,000 ML IV SCH
--- NOTE | 2017-03-11 07:27 | P.GSHP ---
History of Present Illness H&P Date: 03/11/17 CHIEF COMPLAINT: GERD and colon screen HISTORY OF PRESENT ILLNESS: The patient is a 47-year-old female who presents reports gastroesophageal reflux disease and change in bowel habits. Upper and lower endoscopy were offered for further evaluation and management. PAST MEDICAL HISTORY: Please see list. PAST SURGICAL HISTORY: Please see list. MEDICATIONS: Please see list. ALLERGIES: Please see list. SOCIAL HISTORY: No illicit drug use FAMILY HISTORY: No reports of Crohn disease or ulcerative colitis. REVIEW OF ORGAN SYSTEMS: CONSTITUTIONAL: No reports of fevers or chills. GI: Denies any blood in stools or constipation. PHYSICAL EXAM: VITAL SIGNS: Stable GENERAL: Well-developed pleasant in no acute distress. HEENT: No scleral icterus. Extraocular movements grossly intact. Moist buccal mucosa. NECK: Supple without lymphadenopathy. CHEST: Unlabored respirations. Equal bilateral excursions. CARDIOVASCULAR: Regular rate and rhythm. Distal 2+ pulses. ABDOMEN: Soft, nondistended. MUSCULOSKELETAL: No clubbing, cyanosis, or edema. ASSESSMENT: 1. Gastroesophageal reflux disease 2. Change in bowel habits. PLAN: 1. Recommend proceeding with an upper and lower endoscopy Past Medical History Past Medical History: Rheumatoid Arthritis (RA), Seizure Disorder Additional Past Medical History / Comment(s): RA-pain in multiple joints, spinal stenosis/instability and herniated disc-difficulty walking, pt sees Dr. Lezama (neurologist in [place], [place]), past bronchitis, childhood seizures, inflammatory eye disease, abdominal cramping,n/v History of Any Multi-Drug Resistant Organisms: None Reported Past Surgical History: Appendectomy, Orthopedic Surgery Additional Past Surgical History / Comment(s): endoscopic sinus surgery, L knee arthroscopy, back epidural injections. Past Anesthesia/Blood Transfusion Reactions: No Reported Reaction, Motion Sickness Past Psychological History: No Psychological Hx Reported Additional Psychological History / Comment(s): She has a cane but wheels herself around on her computer chair. She has a motorized scooter for going to stores Smoking Status: Never smoker Past Alcohol Use History: None Reported Past Drug Use History: None Reported - Past Family History Father Family Medical History: Cancer Additional Family Medical History / Comment(s): Father of leukemia at the age of 65yrs. Mother Family Medical History: Diabetes Mellitus, Hypertension, Osteoarthritis (OA) Additional Family Medical History / Comment(s): Mother has IIDM, depression. Medications and Allergies Home Medications Medication Instructions Recorded Confirmed Type Aspirin 81 mg PO DAILY 07/15/15 03/09/17 History Meloxicam 15 mg PO DAILY 07/15/15 03/09/17 History azaTHIOprine [Imuran] 50 mg PO TID 06/06/16 03/11/17 History Leflunomide 20 mg PO DAILY 01/28/17 03/11/17 History Melatonin 5 mg PO HS 01/28/17 03/09/17 History Leflunomide [Arava] 20 mg PO DAILY 03/09/17 03/11/17 History Allergies Allergy/AdvReac Type Severity Reaction Status Date / Time hydromorphone [From Dilaudid] AdvReac Nausea & Verified 03/09/17 09:19 Vomiting
[2017-03-11 07:33] VITALS: TEMP 97.2
[2017-03-11] MEDS ORDERED: PROPOFOL 10 MG/ML 20 ML VIAL IV ONE (07:55)
[2017-03-11] MEDS ORDERED: LIDOCAINE 1% INJ 10MG/ML (20 ML MDV) ONE (07:55)
--- NOTE | 2017-03-11 08:24 | P.PCN ---
Date of Procedure: 03/11/17 Description of Procedure: PREOPERATIVE DIAGNOSIS: Gastroesophageal reflux disease. Epigastric abdominal pain. Morbid obesity. POSTOPERATIVE DIAGNOSIS: Morbid obesity. Gastritis. Epigastric abdominal pain. Gastroesophageal reflux disease. OPERATION: Esophagogastroduodenoscopy with biopsies along antrum. SURGEON: Hilda Ba MD ANESTHESIA: MAC. INDICATIONS: The patient is a 47-year-old female who presents with a history of reflux disease and epigastric abdominal pain. Benefits and risks of the procedure were described. Informed consent was obtained. DESCRIPTION: The patient was brought into the endoscopy suite and laid in the left lateral decubitus position. An Olympus gastroscope was passed along the posterior oropharynx down to the distal esophagus where the squamocolumnar junction was encountered at 39 cm from the incisors. The stomach was entered and no bile reflux was found. Additional findings are listed below. Biopsies with cold forceps were obtained of the antrum. The first through third portion of the duodenum was examined and unremarkable. Retroflexion of the scope confirmed Hill grade 3 lower esophageal valve. The squamocolumnar junction demostrated LA grade B erosive esophagitis. The stomach was desufflated. The patient tolerated the procedure well. FINDINGS: Squamocolumnar junction 39 cm from the incisors. Diaphragmatic hiatus at 39 cm. Hill grade 3 lower esophageal valve. LA grade B erosive esophagitis. No active duodenitis. Chronic gastritis. RECOMMENDATIONS: Further recommendations pending results of pathology report. Upper endoscopy as needed.
[2017-03-11 08:27] VITALS: RESP 18
--- NOTE | 2017-03-11 08:28 | P.PCN ---
Date of Procedure: 03/11/17 Description of Procedure: PREOPERATIVE DIAGNOSIS: Change in bowel habits. History of intra-abdominal abscess. Family history of colitis. Personal history of colitis. POSTOPERATIVE DIAGNOSIS: Change in bowel habits. Personal history of colitis. History of intra-abdominal abscess. Family history of colitis. Sigmoid diverticulosis. Focal sigmoid diverticulitis. External hemorrhoids, grade 2. OPERATION: Colonoscopy to the ileocecal valve and appendiceal orifice. Colonoscopy with cold forceps biopsies at 20 cm from the anal verge. SURGEON: Hilda Ba MD. ANESTHESIA: MAC. INDICATIONS: The patient is a 47-year-old female who presents with change in bowel habits including family history of colitis. She has a previous history of intra- abdominal abscesses of unclear etiology. Benefits and risks were described and informed consent was obtained. DESCRIPTION OF PROCEDURE: The patient had undergone Gatorade, MiraLAX and Dulcolax prep. She had been brought into the operating room and laid in the left lateral decubitus position. After adequate intravenous sedation, the rectum was examined with 2% lidocaine jelly. External hemorrhoids were encountered. The rectal tone was within normal limits. No lesions were palpated in the rectal vault. An Olympus colonoscope was advanced until the ileocecal valve and appendiceal orifice were clearly viewed. The prep was good clear visualization of the mucosal folds. The scope was removed with visualization of each mucosal fold. Scattered diverticulosis was encountered. At 30 cm to 20 cm from anal verge, focal colitis with diverticulitis was identified however mild. No colonic polyps were found. The colon was desufflated. The patient had tolerated the procedure well. Withdrawal time was over 6 minutes. FINDINGS: Internal hemorrhoids, grade 2. External prolapsed hemorrhoids, grade 2. No arteriovenous malformations. No adenomatous polyps. Diverticulosis with sigmoid diverticulitis, recent attack. RECOMMENDATIONS: Lower endoscopy every 10 years per screening guidelines; however down to 5 years with family history of colon polyps or cancer. Plan - Discharge Summary Discharge Medication List Aspirin 81 mg PO DAILY 07/15/15 [History] Meloxicam 15 mg PO DAILY 07/15/15 [History] azaTHIOprine [Imuran] 50 mg PO TID 06/06/16 [History] Leflunomide 20 mg PO DAILY 01/28/17 [History] Melatonin 5 mg PO HS 01/28/17 [History] Leflunomide [Arava] 20 mg PO DAILY 03/09/17 [History] Patient Instructions/Handouts: *[facility] - (Anesthesia) Endoscopy Discharge Instructions, Colonoscopy (DC), Upper Endoscopy (DC)
[2017-03-11] MEDS ORDERED: ONDANSETRON 4 MG/2 ML VIAL IVP ONE (08:56)
[2017-03-11 09:14] VITALS: BP 130/75; PULSE 75
== END 2017-03-11 09:31 | disposition home or self-care (01) ==
LOC: ORWHC2ENDO 07:13
PROVIDERS: ATTEND Surgery Plastic and Reconstructive Surgery
DX: K22.10 Ulcer of esophagus without bleeding (principal); K29.50 Unspecified chronic gastritis without bleeding; K57.30 Diverticulosis of large intestine without perforation or abscess without bleeding; K52.9 Noninfective gastroenteritis and colitis, unspecified; K57.32 Diverticulitis of large intestine without perforation or abscess without bleeding; K64.1 Second degree hemorrhoids; Z87.19 Personal history of other diseases of the digestive system; Z83.79 Family history of other diseases of the digestive system; E66.01 Morbid (severe) obesity due to excess calories; Z68.43 Body mass index [BMI] 50.0-59.9, adult; M06.9 Rheumatoid arthritis, unspecified; Z79.82 Long term (current) use of aspirin; Z79.1 Long term (current) use of non-steroidal anti-inflammatories (NSAID); Z79.899 Other long term (current) drug therapy; Z88.5 Allergy status to narcotic agent
CPT/HCPCS: 81025; 88305; 88342; 45380; 43239; J2405; J2001; J2704

== ENCOUNTER 2017-03-18 10:37 | Day surgery (SDC) | payer MEDICARE, OTHER ==
[2017-03-16 11:03] VITALS: BMI 57.6
--- NOTE | 2017-03-18 07:56 | P.GSHP ---
History of Present Illness H&P Date: 03/18/17 CHIEF COMPLAINT: Cholecystitis HISTORY OF PRESENT ILLNESS: The patient is a 47-year-old female who presents with history of epigastric including right upper quadrant abdominal pain. She underwent diagnostic studies for her gallbladder. Separately her clinical picture was consistent with cholecystitis. Now she presents for surgical intervention. PAST MEDICAL HISTORY: Please see list PAST SURGICAL HISTORY: Please see list MEDICATIONS: Please see list ALLERGIES: Denies. SOCIAL HISTORY: No illicit drug use or recent tobacco use FAMILY HISTORY: Pertinent for gallbladder disease REVIEW OF ORGAN SYSTEMS: CONSTITUTIONAL: No reports of fevers or chills. HEENT: Denies any troubles with the vision or hearing. ENDOCRINE: No reports of hypothyroidism. No diabetes. PHYSICAL EXAM: VITAL SIGNS: Afebrile vital signs stable GENERAL: Well-developed pleasant in no acute distress. HEENT: No scleral icterus. Extraocular movements grossly intact. Moist buccal mucosa. NECK: Supple without lymphadenopathy. CHEST: Unlabored respirations. Equal bilateral excursions. CARDIOVASCULAR: Regular rate regular rhythm rhythm. Distal 2+ pulses. ABDOMEN: Soft, nondistended. Tender along the epigastrium and right upper quadrant. MUSCULOSKELETAL: No clubbing, cyanosis, or edema. NEURO: Cranial nerves II to XII within normal limits. No focal or lateralizing signs. PSYCH: Alert and oriented to person, place and time. ASSESSMENT: 1. Epigastric and right upper quadrant abdominal pain 2. Chronic cholecystitis 3. Symptomatic gallstones. PLAN: 1. Will need a laparoscopic cholecystectomy possible open. Benefits and risks were described. 2. Heparin for DVT prophylaxis 5000 units. 3. Antibiotic prophylaxis. Past Medical History Past Medical History: Rheumatoid Arthritis (RA), Seizure Disorder, Skin Disorder Additional Past Medical History / Comment(s): RA-pain in multiple joints, spinal stenosis/instability and herniated disc-difficulty walking, pt saw Dr. Lezama (neurologist in [place], [place]) inflammatory eye disease related to RA, childhood seizures, recent diverticulitis, rash on back History of Any Multi-Drug Resistant Organisms: None Reported Past Surgical History: Appendectomy, Orthopedic Surgery Additional Past Surgical History / Comment(s): endoscopic sinus surgery, L knee arthroscopy, back epidural injections, recent EGD,colonoscopy Past Anesthesia/Blood Transfusion Reactions: No Reported Reaction, Motion Sickness Past Psychological History: No Psychological Hx Reported Additional Psychological History / Comment(s): She has a cane, has a motorized scooter for going to stores. Smoking Status: Never smoker Past Alcohol Use History: None Reported Past Drug Use History: None Reported - Past Family History Father Family Medical History: Cancer Additional Family Medical History / Comment(s): Father of leukemia at the age of 65yrs. Mother Family Medical History: Diabetes Mellitus, Hypertension, Osteoarthritis (OA) Additional Family Medical History / Comment(s): Mother has IIDM, depression. Medications and Allergies Home Medications Medication Instructions Recorded Confirmed Type Aspirin 81 mg PO DAILY 07/15/15 03/16/17 History Meloxicam 15 mg PO DAILY 07/15/15 03/16/17 History azaTHIOprine [Imuran] 50 mg PO TID 06/06/16 03/16/17 History Melatonin 5 mg PO HS 01/28/17 03/16/17 History Leflunomide [Arava] 20 mg PO DAILY 03/09/17 03/16/17 History Allergies Allergy/AdvReac Type Severity Reaction Status Date / Time hydromorphone [From Dilaudid] AdvReac Nausea & Verified 03/16/17 09:03 Vomiting
[~2017-03-18 10:37] MED LIST changes: +DEXAMETHASONE SOD PHOSPHATE 10 MG/ML 1 ML VIAL IV ONE; +HEPARIN SODIUM,PORCINE 5,000 UNIT/ML 1 ML VIAL SQ ONE; -LACTATED RINGERS 1,000 ML IV SCH; +MIDAZOLAM 2 MG/2 ML VIAL IV PRN; +ONDANSETRON 4 MG/2 ML VIAL IVP ONE; +SCOPOLAMINE 1.5MG/72HR PATCH TRANSDERM ONE; +ceFAZolin 3 GM in SODIUM CHLORIDE 0.9% 100 ML IVPB ONE
[2017-03-18] MEDS: LACTATED RINGERS 1,000 ML IV SCH ×2 (11:02→11:35)
[2017-03-18] MEDS ORDERED: LIDOCAINE 1% 20 ML VIAL (10MG/ML) FOR IV START INTRADERMA ONE (11:03)
[2017-03-18] MEDS: ACETAMINOPHEN IV (For NPO) 1,000 MG in EMPTY BAG 1 BAG IVPB ONE ×2 (11:08→11:35)
[2017-03-18] MEDS ORDERED: NEOSTIGMINE 1 MG/ML 10 ML VIAL ONE (11:36)
[2017-03-18] MEDS ORDERED: GLYCOPYRROLATE 0.2 MG/ML 2 ML VIAL ONE (11:36)
[2017-03-18] MEDS ORDERED: ROCURONIUM BROMIDE 10 MG/ML 10 ML VIAL IV ONE (11:36)
[2017-03-18] MEDS ORDERED: SUCCINYLCHOLINE CHLORIDE 100 MG/5 ML SYR IV ONE (11:36)
[2017-03-18] MEDS ORDERED: LIDOCAINE 1% INJ 10MG/ML (20 ML MDV) ONE (11:36)
[2017-03-18] MEDS ORDERED: MIDAZOLAM 2 MG/2 ML VIAL ONE (11:36)
[2017-03-18] MEDS ORDERED: fentaNYL (PF) 50 MCG/ML 2 ML AMP ONE (11:36)
[2017-03-18] MEDS ORDERED: PROPOFOL 10 MG/ML 20 ML VIAL IV ONE (11:36)
[2017-03-18] MEDS ORDERED: BUPIVACAIN-EPI 0.25%-1:200,000 30 ML VIAL SQ ONE (12:03)
[2017-03-18] MEDS ORDERED: LACTATED RINGERS 1,000 ML IV ONE (12:25)
[2017-03-18] MEDS ORDERED: ONDANSETRON 4 MG/2 ML VIAL IVP PRN (12:59)
[2017-03-18] MEDS ORDERED: NALOXONE 0.4 MG/ML 1 ML VIAL IV PRN (12:59)
--- NOTE | 2017-03-18 12:59 | P.OP ---
Date of Procedure: 03/18/17 Preoperative Diagnosis: Postoperative Diagnosis: Procedure(s) Performed: Implants: Indications for Procedure: Operative Findings: Description of Procedure: SURGEON: HILDA BA MD AUTOMATIC SPLICING MACHINE OPERATOR: None. PREOPERATIVE DIAGNOSES: 1. Chronic Cholecystitis. 2. Morbid obesity, BMI 57.6. 3. Rheumatoid arthritis. 4. Previous history of sepsis. 5. Previous history of intra-abdominal abscess. POSTOPERATIVE DIAGNOSES: 1. Chronic Cholecystitis. 2. Morbid obesity, BMI 57.6. 3. Rheumatoid arthritis. 4. Previous history of sepsis. 5. Previous history of intra-abdominal abscess. 6. Hepatomegaly. 7. Diffuse peritoneal adhesions bilateral lower abdomen. 8. Left lower quadrant subcutaneous cyst. OPERATION: Laparoscopic cholecystectomy ANESTHESIA: General with 60 mL 0.25% Marcaine with epinephrine. ESTIMATED BLOOD LOSS: 10 mL. SPECIMENS REMOVED: Gallbladder. COMPLICATIONS: None. INDICATIONS: The patient is a 47-year-old female who presents with chronic cholelcystitis. Surgical intervention with a laparoscopic cholecystectomy was described at length including injury to the biliary tree, bleeding, infection, need for further surgery. Informed consent was obtained. DESCRIPTION OF THE PROCEDURE: The patient was brought to the operating room, laid in supine position. After general induction, the abdomen was prepped and draped in a standard sterile fashion. Prior to incision, a timeout protocol was confirmed with surgical team regarding patient's name, procedure to be performed including preoperative medications for which she had received heparin 5000 units subcutaneously as well as bilateral SCDs for DVT prophylaxis. A transverse 5 mm incision was made above the umbilicus and off to the right of the midline. Please note the skin was localized prior to incision. A 0 degree 5-mm laparoscopic trocar entry was performed and entered into the peritoneal cavity. Diagnostic laparoscopy confirmed no injury to bowel, viscera or mesentery. The liver serosa was completely unremarkable. Next, two 5 mm trocars were placed along the right costal margin followed by a 11 mm port at the left upper quadrant. Moderate thin peritoneal adhesions with the greater omentum to the abdominal wall was identified of the right lower quadrant including the left lower quadrant. Dense adhesions were found along the body including infundibulum and fundus of the gallbladder consistent with chronic cholecystitis. The patient was placed in steep reverse Trendelenburg position with the right side up. The gallbladder fundus was retracted over the dome of the liver. Initial attention was brought to the infundibulum which was gently retracted in the inferior lateral approach. Using a Kittner, the cystic duct including the cystic artery was carefully skeletonized. Using a large clip biodiesel plant manager 2 clips were placed proximally, and 2 clip was placed distally along the cystic duct and then cut. Again care was taken to avoid any injury to the biliary tree as the common bile duct was clearly visualized during this portion of dissection. Next, the cystic artery was clipped twice proximally, once distally and then divided with a Sonicision. Electro-Bovie cautery was used to remove the gallbladder from the hepatic fossa without decompression of the gallbladder. Hemostasis was checked and found to be adequate. The gallbladder was removed from the abdominal cavity using an Endo Catch bag and passed off for further pathological analysis. Attention was brought to the left lower quadrant where a 3 cm subcutaneous lesion was palpated. A 22-gauge needle on a 30 mL syringe was used to aspirate along the area of the left lower quadrant. No specimen was obtained. All instruments and pneumoperitoneum were removed from the abdominal cavity. The fascial defect was of the 11-mm port was over sewn using Chuck Mckeon and 0 Vicryl. The rest of incisions were reapproximated using 4-0 Monocryl in an interrupted subcuticular fashion. A total of 60 mL of 0.25% Marcaine with epinephrine was infiltrated to all wounds for postop analgesia. Dermabond was applied to the skin. At the end of the procedure, needle, sponge, and instrument count was verified correct by cardiovascular surgical tech. The patient had tolerated the procedure well and was taken to postanesthesia care unit in stable condition. The patient's family was pleased level of care. FINDINGS: 1. Chronic cholecystitis. 2. Hepatomegaly. 3. Moderate peritoneal adhesions about the gallbladder. 4. Omental adhesions right lower quadrant and left lower quadrant involving abdominal wall and greater omentum. 5. Resolved subcutaneous cyst of the left lower quadrant. Plan - Discharge Summary Discharge Medication List Aspirin 81 mg PO DAILY 07/15/15 [History] Meloxicam 15 mg PO DAILY 07/15/15 [History] azaTHIOprine [Imuran] 50 mg PO TID 06/06/16 [History] Melatonin 5 mg PO HS 01/28/17 [History] Leflunomide [Arava] 20 mg PO DAILY 03/09/17 [History] Ciprofloxacin HCl [Cipro] 500 mg PO Q12HR #20 tablet 03/15/17 [Rx] metroNIDAZOLE [Flagyl] 500 mg PO TID #30 tab 03/15/17 [Rx] Follow up Appointment(s)/Referral(s): Hilda Ba MD [STAFF PHYSICIAN] - 04/05/17 Patient Instructions/Handouts: *Surgery [facility] - Scopalamine Patch Instructions, Laparoscopic Cholecystectomy (DC) Activity/Diet/Wound Care/Special Instructions: No lifting over 4 pounds in 2 weeks. May shower. No bath tub soaks. Low fat diet. Discharge Disposition: HOME SELF-CARE
[2017-03-18] MEDS ORDERED: KETOROLAC 30 MG/ML 1 ML VIAL IVP SCH (13:00)
[2017-03-18 13:03] VITALS: TEMP 98.1
[2017-03-18] MEDS ORDERED: METOCLOPRAMIDE 5 MG/ML 2 ML VIAL IVP ONE (13:16)
[2017-03-18] MEDS ORDERED: diphenhydrAMINE 50 MG/ML 1 ML VIAL IVP ONE (13:29)
[2017-03-18 14:15] VITALS: RESP 16
[2017-03-18 15:06] VITALS: BP 162/95; PULSE 79
== END 2017-03-18 15:04 | disposition home or self-care (01) ==
LOC: OR 10:37
PROVIDERS: ATTEND Surgery Plastic and Reconstructive Surgery
DX: K81.1 Chronic cholecystitis (principal); K66.0 Peritoneal adhesions (postprocedural) (postinfection); L72.9 Follicular cyst of the skin and subcutaneous tissue, unspecified; K21.9 Gastro-esophageal reflux disease without esophagitis; R16.0 Hepatomegaly, not elsewhere classified; E66.01 Morbid (severe) obesity due to excess calories; Z68.43 Body mass index [BMI] 50.0-59.9, adult; M06.9 Rheumatoid arthritis, unspecified; Z79.82 Long term (current) use of aspirin; Z79.899 Other long term (current) drug therapy
CPT/HCPCS: 81025; 88304; 47562; J2250; J1200; J1644; J1100; J2710; J2765; J0690; J2405; J2001; J3010; J1885; J0131; J0330; J2704

== ENCOUNTER 2017-03-18 18:02 | Inpatient (IN) | payer MEDICARE, OTHER ==
[2017-03-18] MEDS ORDERED: MORPHINE SULFATE 4 MG/ML SYRINGE IV STA (18:51)
[2017-03-18] MEDS ORDERED: SODIUM CHLORIDE 0.9% 1,000 ML IV STA (18:51)
[2017-03-18] MEDS ORDERED: ONDANSETRON 4 MG/2 ML VIAL IVP STA (18:51)
--- NOTE | 2017-03-18 19:24 | ED ---
Chest Pain HPI - General Source: patient, RN notes reviewed Mode of arrival: ambulatory Limitations: no limitations <Francisco Farfan - Last Filed: 03/18/17 19:22> <Juan Jose Lima - Last Filed: 03/18/17 21:34> - General Chief Complaint: Chest Pain Stated Complaint: chest pain Time Seen by Provider: 03/18/17 18:43 - History of Present Illness Initial Comments: 47 -year-old female presents emergency Department with chief complaint of chest pain. Patient states she had ulaparoscopic cholecystectomy today by Dr. Mcdonnell. Patient states she was discharged around 3pm and states that shortly after being home she started having abdominal pain. Patient states she was discharged advised to take Aleve and was given scopolamine patch for nausea. Patient states that they told her walk around severe improved symptoms but it hasn't. She states she has epigastric sometimes chest pain that radiates to her left. Patient has no prior cardiac issue and denies any hypertension, hyperlipidemia or diabetes.patient states that her incision sites have not ruptured she has been vomiting which makes his symptoms worse. Patient states that it surgery was uncomplicated. Patient has no shortness of breath at this time. (Francisco Farfan) - Related Data Home Medications Medication Instructions Recorded Confirmed Meloxicam 15 mg PO DAILY 07/15/15 03/18/17 Melatonin 5 mg PO HS 01/28/17 03/18/17 Leflunomide [Arava] 20 mg PO DAILY 03/09/17 03/18/17 Aspirin EC [Ecotrin Low Dose] 81 mg PO DAILY 03/18/17 03/18/17 Ciprofloxacin HCl [Cipro] 500 mg PO BID 03/18/17 03/18/17 Scopolamine 1.5MG/72Hr Patch 1 patch TRANSDERM Q72H 03/18/17 03/18/17 [Transderm-Scop 1.5MG/72Hr Patch] Previous Rx's Medication Instructions Recorded metroNIDAZOLE [Flagyl] 500 mg PO TID #30 tab 03/15/17 Allergies Allergy/AdvReac Type Severity Reaction Status Date / Time hydromorphone [From Dilaudid] AdvReac Nausea & Verified 03/18/17 19:03 Vomiting Review of Systems ROS Other: All systems not noted in ROS Statement are negative. <Francisco Farfan - Last Filed: 03/18/17 19:22> ROS Other: All systems not noted in ROS Statement are negative. <ClarenceJuan Jose - Last Filed: 03/18/17 21:34> ROS Statement: Those systems with pertinent positive or pertinent negative responses have been documented in the HPI. Past Medical History Past Medical History: Rheumatoid Arthritis (RA), Seizure Disorder, Skin Disorder Additional Past Medical History / Comment(s): RA-pain in multiple joints, spinal stenosis/instability and herniated disc-difficulty walking, pt saw Dr. 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 Smoking Status: Never smoker Past Alcohol Use History: None Reported Past Drug Use History: None Reported - Past Family History Father Family Medical History: Cancer Additional Family Medical History / Comment(s): Father of leukemia at the age of 65yrs. Mother Family Medical History: Diabetes Mellitus, Hypertension, Osteoarthritis (OA) Additional Family Medical History / Comment(s): Mother has IIDM, depression. <SylvesterjeanetteFrancisco - Last Filed: 03/18/17 19:22> General Exam Limitations: no limitations General appearance: alert, in no apparent distress, obese Head exam: Present: atraumatic, normocephalic, normal inspection Eye exam: Present: normal appearance, PERRL, EOMI. Absent: scleral icterus, conjunctival injection, periorbital swelling Respiratory exam: Present: normal lung sounds bilaterally. Absent: respiratory distress, wheezes, rales, rhonchi, stridor Cardiovascular Exam: Present: regular rate, normal rhythm, normal heart sounds. Absent: systolic murmur, diastolic murmur, rubs, gallop, clicks GI/Abdominal exam: Present: soft, tenderness (mild diffuse, moderate epigastric) , normal bowel sounds. Absent: distended, guarding, rebound, rigid Neurological exam: Present: alert, oriented X3, CN II-XII intact <Francisco Farfan - Last Filed: 03/18/17 19:22> Chest Pain MDM <Francisco Farfan - Last Filed: 03/18/17 19:22> <ClarenceJuan Jose - Last Filed: 03/18/17 21:34> - [facility] Medical decision-making. Patient's white count 6.7 hemoglobin 13 hematocrit 41. Potassium is 4.3 BUN 12 creatinine 0.54 with a GFR greater than 60. Glucose 134. CK is 152 troponin less than 0.012. Amylase lipase normal limits. X-ray the patient's chest was done 2 views and reviewed by radiologist's his findings are the heart size is normal. The pulmonary vasculature is normal. The lungs are clear. Impression no acute pulmonary process. As read by Dr. Frantz kuo 2 views of the abdomen were done and reviewed by radiologist his findings are there is a normal bowel gas pattern. Psoas margins are normal. No organomegaly is present. No free air is under the diaphragm. Bowel gas pattern appears normal. Impression unremarkable abdomen. As read by Dr. Frantz kuo Examination finds patient complaining of pain from the epigastric region reads it up to the left chest area. It increases with deep breathing coughing and leaning forward. No diaphoresis. Pain is not radiating down the arm to the neck or into the back. The patient is currently on Cipro and Flagyl froma previous diagnosis of diverticulitis. Patient also had the appendix which the patient reports did not rupture. Patient states that he surgeon thought the inflammation within the abdomen was secondary to diverticulitis. Patient had labs, gallbladder surgery at approximately noon today discharged approximately 3 PM pain started at 4:[address] Ange Ingram on-call for Dr. Ba has come in to see the patient in emergency room. The case discussed with Dr. Benton, on-call mds rn. Labs past history all discussed. EKG including what appears to be a Q-wave in 3 discussed. Patient does not have any significant risk factors this time. The patient will be admitted with serial cardiac enzymes pain management. Ongoing consultation with general surgeries already seen her in emergency room. The patient be admitted to hospitalist. Case discussed with Suze landers NP taking referrals for hospitalist. (Juan Jose Lima) Disposition <Francisco Farfan - Last Filed: 03/18/17 19:22> <Juan Jose Lima - Last Filed: 03/18/17 21:34> Clinical Impression: Abdominal pain, Chest pain, atypical Disposition: ADMITTED IP TO THIS HOSP Condition: Serious Referrals: Rica Bloom III, MD [Primary Care Provider] - 1-2 days
[2017-03-18 19:39] LABS: Basophils % (A) 0 %; CH 29.7; CHCM 33.5; Eosinophils % (A) 0 %; HDW 2.85; HGB 13.5 gm/dL (11.4-16.0); Luc # (Auto) 0.03; Luc % (Auto) 0; Lymphocytes # (A) 0.3 k/uL (1.0-4.8); Lymphocytes % (A) 5 %; MCH 29.4 pg (25.0-35.0); Mean Platelet Volume 6.2; Monocytes # (A) 0.1 k/uL (0-1.0); Monocytes % (A) 2 %; Neutrophils # (A) 6.1 k/uL (1.3-7.7); Neutrophils % (A) 92 %; RBC 4.61 m/uL (3.80-5.40); RDW 15.6 % (11.5-15.5); WBC 6.7 k/uL (3.8-10.6); WBC (Perox) 6.33
[2017-03-18 19:49] LABS: ALT 30 U/L (9-52); AST 59 U/L (14-36); Alkaline Phosphatase 80 U/L (38-126); Amylase 53 U/L (30-110); Anion Gap 12 mmol/L; Blood Urea Nitrogen 12 mg/dL (7-17); Calcium 9.3 mg/dL (8.4-10.2); Carbon Dioxide 19 mmol/L (22-30); Chloride 109 mmol/L (98-107); Creatine Kinase 152 U/L (30-135); Glucose 134 mg/dL (74-99); Magnesium 1.8 mg/dL (1.6-2.3); Non-African American GFR(MDRD) >60 (>60 ml/min/1.73 sqM); Potassium 4.3 mmol/L (3.5-5.1); Sodium 140 mmol/L (137-145); Total Protein 7.5 g/dL (6.3-8.2)
[2017-03-18 20:01] LABS: Creatine Kinase MB 0.7 ng/mL (0.0-2.4); Troponin I <0.012 ng/mL (0.000-0.034)
--- NOTE | 2017-03-18 20:04 | XR ---
EXAMINATION TYPE: XR chest 2V DATE OF EXAM: 03/18/2017 7:45 PM COMPARISON: 01/28/2017 INDICATION: Epigastric pain to left side of chest TECHNIQUE: Single frontal view of the chest is obtained. FINDINGS: The heart size is normal. The pulmonary vasculature is normal. The lungs are clear. IMPRESSION: 1. No acute pulmonary process.
--- NOTE | 2017-03-18 20:06 | XR ---
EXAMINATION TYPE: XR abdomen 2V DATE OF EXAM: 03/18/2017 7:46 PM COMPARISON: NONE INDICATION: Epigastric pain radiating to left chest TECHNIQUE: Single view abdomen upright FINDINGS: There is a normal bowel gas pattern. Psoas margins are normal. No organomegaly is present. No free air is under the diaphragm. Bowel gas pattern appears normal IMPRESSION: 1. Unremarkable Abdomen
[2017-03-18] MEDS ORDERED: MORPHINE SULFATE 4 MG/ML SYRINGE IVP STA (20:23)
[2017-03-18 20:50] LABS: INR 1.1 (<1.1); Partial Thromboplastin Time 24.4 sec (22.0-30.0); Prothrombin Time 11.4 sec (9.0-12.0)
[2017-03-18] MEDS ORDERED: ONDANSETRON 4 MG/2 ML VIAL IVP PRN (21:34)
[2017-03-18] MEDS ORDERED: NALOXONE 0.4 MG/ML 1 ML VIAL IV PRN (21:34)
--- NOTE | 2017-03-18 21:46 | P.GSHP ---
History of Present Illness H&P Date: 03/18/17 Chief Complaint: Midepigastric chest pain following laparoscopic cholecystectomy Annalee Otero is a 47-year-old morbidly obese white female who is status post laparoscopic cholecystectomy performed earlier today. Additionally she was noted to have a previous history of an intra-abdominal abscess which was not identified intraoperatively. The patient was noted to have diffuse peritoneal adhesions bilaterally in the lower quadrants. Additionally she was noted to have adhesions to the gallbladder consistent with chronic cholecystitis. The operative procedure proceeded without complication. Following discharge home the patient began having increased nausea and dry heaves. She developed increased midepigastric pain which was worse in the area of the chest and traveled to the left shoulder. She states her abdominal discomfort is minimal. Patient underwent EKG in the emergency room with a Q wave noted in the 3. Patient's liver function studies are within normal limits. Patient's white blood cell count 6.7. Patient's radiographs nonspecific. Past surgical history: 1. Appendectomy 2. Sinus surgery 3. Arthroscopic left knee surgery Past medical history: 1. Rheumatoid arthritis 2. Chronic rash 3. Morbid obesity Medications: 1. Aspirin 2. Piroxicam 3. Imuran 4. Melatonin 5. Leflunomide 6. Cipro 7. Flagyl ALLERGIES: 1. Dilaudid Social history: Smoking: Negative Alcohol: Negative Pregnancies: Negative Review of systems: HEENT: Eye changes related to rheumatoid arthritis Lungs: Chronic bronchitis Heart: Negative GI: As above : Ovarian cyst in the past Patient with a history of rheumatoid arthritis - Constitutional Constitutional: Reports as per HPI - Cardiovascular Cardiovascular: Reports as per HPI - Respiratory Comment: Chronic bronchitis Respiratory: Reports as per HPI - Gastrointestinal Comment: Chronic cholecystitis status post laparoscopic cholecystectomy today, status post appendectomy in the past, Gastrointestinal: Reports as per HPI - Genitourinary (Female) Genitourinary: Reports as per HPI - Musculoskeletal Comment: Rheumatoid arthritis Past Medical History Past Medical History: Rheumatoid Arthritis (RA), Seizure Disorder, Skin Disorder Additional Past Medical History / Comment(s): RA-pain in multiple joints, spinal stenosis/instability and herniated disc-difficulty walking, pt saw Dr. 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 Smoking Status: Never smoker Past Alcohol Use History: None Reported Past Drug Use History: None Reported - Past Family History Father Family Medical History: Cancer Additional Family Medical History / Comment(s): Father of leukemia at the age of 65yrs. Mother Family Medical History: Diabetes Mellitus, Hypertension, Osteoarthritis (OA) Additional Family Medical History / Comment(s): Mother has IIDM, depression. Medications and Allergies Home Medications Medication Instructions Recorded Confirmed Type Meloxicam 15 mg PO DAILY 07/15/15 03/18/17 History Melatonin 5 mg PO HS 01/28/17 03/18/17 History Leflunomide [Arava] 20 mg PO DAILY 03/09/17 03/18/17 History Aspirin EC [Ecotrin Low Dose] 81 mg PO DAILY 03/18/17 03/18/17 History Ciprofloxacin HCl [Cipro] 500 mg PO BID 03/18/17 03/18/17 History Scopolamine 1.5MG/72Hr Patch 1 patch TRANSDERM Q72H 03/18/17 03/18/17 History [Transderm-Scop 1.5MG/72Hr Patch] Allergies Allergy/AdvReac Type Severity Reaction Status Date / Time hydromorphone [From Dilaudid] AdvReac Nausea & Verified 03/18/17 19:03 Vomiting Surgical - Exam Vital Signs Temp Pulse Resp BP Pulse Ox 98.3 F 91 22 176/118 96 03/18/17 18:33 03/18/17 18:33 03/18/17 18:33 03/18/17 18:33 03/18/17 18:33 - General Morbid obesity BMI 57.6 moderate distress - Eyes normal ocular movement - ENT normal pinna, normal nares, no hearing loss - Neck no masses, trachea midline, no lymphadectomy - Respiratory Decreased breath sounds at bases normal expansion, clear to auscultation - Cardiovascular Rhythm: regular Heart Sounds: normal: S1, S2 - Abdomen Incisions clean and dry Abdomen: soft - Psychiatric oriented to time, oriented to person, oriented to place, speech is normal Results - Labs 03/18/17 19:10 03/18/17 19:10 Abnormal Lab Results - Last 24 Hours (Table) 03/18/17 03/18/17 03/18/17 Range/Units 19:10 19:10 19:10 RDW 15.6 H (11.5-15.5) % Lymphocytes # 0.3 L (1.0-4.8) k/uL Chloride 109 H (98-107) mmol/L Carbon Dioxide 19 L (22-30) mmol/L Glucose 134 H (74-99) mg/dL AST 59 H (14-36) U/L Total Creatine Kinase 152 H (30-135) U/L Diabetes panel 03/18/17 Range/Units 19:10 Sodium 140 (137-145) mmol/L Potassium 4.3 (3.5-5.1) mmol/L Chloride 109 H (98-107) mmol/L Carbon Dioxide 19 L (22-30) mmol/L BUN 12 (7-17) mg/dL Creatinine 0.54 (0.52-1.04) mg/dL Glucose 134 H (74-99) mg/dL Calcium 9.3 (8.4-10.2) mg/dL AST 59 H (14-36) U/L ALT 30 (9-52) U/L Alkaline Phosphatase 80 (38-126) U/L Total Protein 7.5 (6.3-8.2) g/dL Albumin 4.1 (3.5-5.0) g/dL Calcium panel 03/18/17 Range/Units 19:10 Calcium 9.3 (8.4-10.2) mg/dL Albumin 4.1 (3.5-5.0) g/dL Pituitary panel 03/18/17 Range/Units 19:10 Sodium 140 (137-145) mmol/L Potassium 4.3 (3.5-5.1) mmol/L Chloride 109 H (98-107) mmol/L Carbon Dioxide 19 L (22-30) mmol/L BUN 12 (7-17) mg/dL Creatinine 0.54 (0.52-1.04) mg/dL Glucose 134 H (74-99) mg/dL Calcium 9.3 (8.4-10.2) mg/dL Adrenal panel 03/18/17 Range/Units 19:10 Sodium 140 (137-145) mmol/L Potassium 4.3 (3.5-5.1) mmol/L Chloride 109 H (98-107) mmol/L Carbon Dioxide 19 L (22-30) mmol/L BUN 12 (7-17) mg/dL Creatinine 0.54 (0.52-1.04) mg/dL Glucose 134 H (74-99) mg/dL Calcium 9.3 (8.4-10.2) mg/dL Total Bilirubin 1.0 (0.2-1.3) mg/dL AST 59 H (14-36) U/L ALT 30 (9-52) U/L Alkaline Phosphatase 80 (38-126) U/L Total Protein 7.5 (6.3-8.2) g/dL Albumin 4.1 (3.5-5.0) g/dL - Imaging Chest x-ray: report reviewed, image reviewed Abdominal x-ray: report reviewed, image reviewed Assessment and Plan Plan: Impression/plan: 1. Midepigastric chest pain status post laparoscopic cholecystectomy today 2. Nausea with dry heaves 3. Rheumatoid arthritis 4. Morbid obesity Plan: 1. Admission with IV hydration 2. Consultation with cardiology to rule out cardiac event 3. Continue home medications including antibiotics 4. Repeat CBC in a.m.
[2017-03-18] MEDS ORDERED: METOCLOPRAMIDE 5 MG/ML 2 ML VIAL IVP PRN (21:48)
[2017-03-18] MEDS ORDERED: LORazepam 2 MG/ML SYRINGE IV STA (22:05)
[2017-03-18] MEDS ORDERED: hydrALAZINE HCL 20 MG/ML 1 ML VIAL IVP STA (22:05)
[2017-03-18] MEDS ORDERED: ENALAPRILAT 1.25 MG/ML 1 ML VIAL IVP PRN (22:30)
[2017-03-18] MEDS ORDERED: LEVOFLOXACIN 500MG-D5W PMX 500 MG in DEXTROSE/WATER 1 100ML.BAG IVPB SCH (23:00)
[2017-03-18] MEDS: SODIUM CHLORIDE 0.9% 1,000 ML IV SCH (23:51)
[2017-03-19 00:02] VITALS: BMI 57.6
[2017-03-19] MEDS: metroNIDAZOLE-NS PMX 500 MG in SALINE 1 100ML.BAG IVPB SCH ×3 (00:04→11:27)
[2017-03-19] MEDS: MORPHINE SULFATE 4 MG/ML SYRINGE IV PRN ×5 (00:06→23:04)
[2017-03-19] MEDS: NITROGLYCERIN SL TABS 0.4 MG TAB SUBLINGUAL ONE ×3 (00:41→00:51)
[2017-03-19] MEDS ORDERED: HYDROmorphone 1 MG/ML 1 ML SYRINGE IVP STA (01:21)
[2017-03-19 01:45] LABS: Creatine Kinase 189 U/L (30-135)
[2017-03-19 01:58] LABS: Creatine Kinase MB 0.7 ng/mL (0.0-2.4); Troponin I <0.012 ng/mL (0.000-0.034)
[2017-03-19 07:46] LABS: Basophils % (A) 0 %; CH 29.4; CHCM 32.9; Eosinophils % (A) 0 %; HCT 35.3 % (34.0-46.0); HDW 2.78; HGB 11.5 gm/dL (11.4-16.0); Luc # (Auto) 0.09; Luc % (Auto) 2; Lymphocytes # (A) 0.8 k/uL (1.0-4.8); Lymphocytes % (A) 13 %; MCH 29.1 pg (25.0-35.0); MCHC 32.4 g/dL (31.0-37.0); MCV 89.8 fL (80.0-100.0); Mean Platelet Volume 6.4; Monocytes # (A) 0.4 k/uL (0-1.0); Monocytes % (A) 6 %; Neutrophils % (A) 79 %; RBC 3.94 m/uL (3.80-5.40); RDW 15.9 % (11.5-15.5); WBC 6.4 k/uL (3.8-10.6); WBC (Perox) 6.74
[2017-03-19] MEDS: SIMETHICONE 80 MG CHEWABLE PO SCH ×4 (08:22→22:22)
[2017-03-19] MEDS: SODIUM CHLORIDE 0.9% 1,000 ML IV SCH ×2 (08:22→17:36)
[2017-03-19 08:30] LABS: Creatine Kinase 228 U/L (30-135)
[2017-03-19 08:37] LABS: ALT 36 U/L (9-52); AST 55 U/L (14-36); Alkaline Phosphatase 89 U/L (38-126); Amylase 34 U/L (30-110); Anion Gap 8 mmol/L; Blood Urea Nitrogen 13 mg/dL (7-17); Calcium 8.8 mg/dL (8.4-10.2); Carbon Dioxide 23 mmol/L (22-30); Chloride 110 mmol/L (98-107); Glucose 103 mg/dL (74-99); Non-African American GFR(MDRD) >60 (>60 ml/min/1.73 sqM); Potassium 3.8 mmol/L (3.5-5.1); Sodium 141 mmol/L (137-145); Total Bilirubin 1.2 mg/dL (0.2-1.3); Total Protein 6.4 g/dL (6.3-8.2)
[2017-03-19 08:38] LABS: Creatine Kinase MB 0.6 ng/mL (0.0-2.4); Troponin I <0.012 ng/mL (0.000-0.034)
[2017-03-19] MEDS: PANTOPRAZOLE 40 MG/10 ML VIAL IV SCH (09:33)
--- NOTE | 2017-03-19 10:16 | P.PN ---
Subjective Principal diagnosis: Abdominal/chest discomfort following laparoscopic cholecystectomy Patient is postoperative day #1 from laparoscopic cholecystectomy. She was discharged home and began experiencing mid epigastric and chest discomfort. She presented to the emergency room with a subtle finding was noted on the EKG and she was admitted for evaluation. At this time the patient states she is feeling much better and denies any abdominal pain. She still has some mildly persistent chest discomfort but this is largely resolved as well. Troponin levels have all been less than 0.012. She has described feeling unstable on her feet felt to be secondary to chronic spine issues requiring assistance with ambulation. Objective - Vital Signs Vital signs: Vital Signs Temp 97.0 F L 03/19/17 08:00 Pulse 88 03/19/17 08:00 Resp 18 03/19/17 08:00 BP 114/69 03/19/17 08:00 Pulse Ox 98 03/19/17 08:00 Intake & Output 03/18/17 03/19/17 03/19/17 18:59 06:59 18:59 Intake Total 800 Output Total 301 Balance 499 Weight 142.882 kg 144.3 kg Intake: IV 800 Levofloxacin 500Mg-D5w 100 Pmx 500 mg In Dextrose/ Water 1 100ml.bag @ 100 mls/hr IVPB HS [facility] Rx#: [id number] Sodium Chloride 0.9% 1, 600 000 ml @ 100 mls/hr IV . Q10H [facility] Rx#:[id number] metroNIDAZOLE-NS PMX 500 100 mg In Saline 1 100ml.bag @ 100 mls/hr IVPB Q6HR [facility] Rx#:[id number] Output: Urine 301 - Constitutional Constitutional Comment(s): Morbid obesity General appearance: Present: no acute distress - Respiratory Details: Decreased breath sounds at the bases - Cardiovascular Rhythm: regular Heart sounds: normal: S1, S2 - Gastrointestinal General gastrointestinal: Present: normal bowel sounds, soft - Psychiatric Psychiatric: Present: A&O x's 3, appropriate affect, intact judgment & insight - Labs CBC & Chem 7: 03/19/17 07:22 03/19/17 07:22 Labs: Abnormal Lab Results - Last 24 Hours (Table) 03/18/17 03/18/17 03/18/17 Range/Units 19:10 19:10 19:10 RDW 15.6 H (11.5-15.5) % Lymphocytes # 0.3 L (1.0-4.8) k/uL Chloride 109 H (98-107) mmol/L Carbon Dioxide 19 L (22-30) mmol/L Glucose 134 H (74-99) mg/dL AST 59 H (14-36) U/L Total Creatine Kinase 152 H (30-135) U/L 03/19/17 03/19/17 03/19/17 Range/Units 01:03 07:22 07:22 RDW 15.9 H (11.5-15.5) % Lymphocytes # 0.8 L (1.0-4.8) k/uL Chloride 110 H (98-107) mmol/L Carbon Dioxide (22-30) mmol/L Glucose 103 H (74-99) mg/dL AST 55 H (14-36) U/L Total Creatine Kinase 189 H (30-135) U/L 03/19/17 Range/Units 07:22 RDW (11.5-15.5) % Lymphocytes # (1.0-4.8) k/uL Chloride (98-107) mmol/L Carbon Dioxide (22-30) mmol/L Glucose (74-99) mg/dL AST (14-36) U/L Total Creatine Kinase 228 H (30-135) U/L Assessment and Plan Plan: Impression/plan: 1. Decrease chest discomfort and no abdominal pain this morning 2. Resolved nausea 3. Rheumatoid arthritis 4. Morbid obesity 5. Patient complaining of some unsteadiness with ambulation, felt to be secondary to chronic back pain Plan: 1. Advance diet 2. Discharge as per medicine 3. Follow-up with Dr. Ba next week
--- NOTE | 2017-03-19 11:15 | P.CRDCN ---
History of Present Illness History of present illness: 47-year-old female who had laparoscopic cholecystectomy and that developed epigastric discomfort that went up towards her chest. She was also short of breath and very anxious. This morning she is feeling a lot better cardiac enzymes are normal EKG shows isolated T-wave inversion in lead 3 which is normal On examination she is afebrile pulse rate is in the 80s blood pressure 1409 mmHg Heart sounds S1 and S2 normal no murmurs or gallops Breath sounds are reduced abdomen is tender Impression Epigastric discomfort radiating to the chest, likely noncardiac/noncoronary, normal cardiac enzymes no ST segment abnormalities and ECG inverted T wave in lead 3 is a normal variation Morbid obesity Suggest 2-D echo and Doppler study to assess cardiac structure and function There is no current evidence for an acute myocardial infarction Consider Pulmonary consultation for assessment of any acute pulmonary conditions that could've caused her symptoms Past Medical History Past Medical History: Rheumatoid Arthritis (RA), Seizure Disorder, Skin Disorder Additional Past Medical History / Comment(s): RA-pain in multiple joints, spinal stenosis/instability and herniated disc-difficulty walking, pt saw Dr. 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 Smoking Status: Never smoker Past Alcohol Use History: None Reported Past Drug Use History: None Reported - Past Family History Father Family Medical History: Cancer Additional Family Medical History / Comment(s): Father of leukemia at the age of 65yrs. Mother Family Medical History: Diabetes Mellitus, Hypertension, Osteoarthritis (OA) Additional Family Medical History / Comment(s): Mother has IIDM, depression. Medications and Allergies Home Medications Medication Instructions Recorded Confirmed Type Meloxicam 15 mg PO DAILY 07/15/15 03/18/17 History Melatonin 5 mg PO HS 01/28/17 03/18/17 History Leflunomide [Arava] 20 mg PO DAILY 03/09/17 03/18/17 History Aspirin EC [Ecotrin Low Dose] 81 mg PO DAILY 03/18/17 03/18/17 History Ciprofloxacin HCl [Cipro] 500 mg PO BID 03/18/17 03/18/17 History Scopolamine 1.5MG/72Hr Patch 1 patch TRANSDERM Q72H 03/18/17 03/18/17 History [Transderm-Scop 1.5MG/72Hr Patch] Allergies Allergy/AdvReac Type Severity Reaction Status Date / Time hydromorphone [From Dilaudid] AdvReac Nausea & Verified 03/18/17 19:03 Vomiting Physical Exam Vitals: Vital Signs Temp Pulse Pulse Resp BP BP BP 03/19/17 08:00 97.0 F L 88 18 114/69 03/19/17 04:00 97.5 F L 83 16 03/19/17 00:53 101 H 16 133/73 03/19/17 00:51 121 H 18 133/73 03/19/17 00:45 107 H 18 140/73 03/19/17 00:18 97.8 F 103 H 16 131/82 03/18/17 23:23 98.1 F 96 18 161/99 03/18/17 22:49 101 H 16 156/75 03/18/17 22:19 175/86 03/18/17 21:36 98.8 F 87 14 214/104 03/18/17 18:33 98.3 F 91 22 176/118 Pulse Ox 03/19/17 08:00 98 03/19/17 04:00 97 03/19/17 00:53 94 L 03/19/17 00:51 91 L 03/19/17 00:45 95 03/19/17 00:18 97 03/18/17 23:23 99 03/18/17 22:49 98 03/18/17 22:19 03/18/17 21:36 98 03/18/17 18:33 96 Intake and Output 03/18/17 03/19/17 03/19/17 22:59 06:59 14:59 Intake Total 800 Output Total 301 Balance 499 Intake: IV 800 Levofloxacin 500Mg-D5w 100 Pmx 500 mg In Dextrose/ Water 1 100ml.bag @ 100 mls/hr IVPB HS [facility] Rx#: [id number] Sodium Chloride 0.9% 1, 600 000 ml @ 100 mls/hr IV . Q10H [facility] Rx#:[id number] metroNIDAZOLE-NS PMX 500 100 mg In Saline 1 100ml.bag @ 100 mls/hr IVPB Q6HR [facility] Rx#:[id number] Output: Urine 301 Other: Weight 142.882 kg 144.3 kg Results 03/19/17 07:22 03/19/17 07:22 Cardiac Enzymes 03/18/17 03/18/17 03/19/17 Range/Units 19:10 19:10 01:03 AST 59 H (14-36) U/L CK-MB (CK-2) 0.7 0.7 (0.0-2.4) ng/mL Troponin I <0.012 <0.012 (0.000-0.034) ng/mL 03/19/17 03/19/17 Range/Units 07:22 07:22 AST 55 H (14-36) U/L CK-MB (CK-2) 0.6 (0.0-2.4) ng/mL Troponin I <0.012 (0.000-0.034) ng/mL Coagulation 03/18/17 Range/Units 20:31 PT 11.4 (9.0-12.0) sec APTT 24.4 (22.0-30.0) sec CBC 03/18/17 03/19/17 Range/Units 19:10 07:22 WBC 6.7 6.4 (3.8-10.6) k/uL RBC 4.61 3.94 (3.80-5.40) m/uL Hgb 13.5 11.5 (11.4-16.0) gm/dL Hct 41.0 35.3 (34.0-46.0) % Plt Count 342 306 (150-450) k/uL Comprehensive Metabolic Panel 03/18/17 03/19/17 Range/Units 19:10 07:22 Sodium 140 141 (137-145) mmol/L Potassium 4.3 3.8 (3.5-5.1) mmol/L Chloride 109 H 110 H (98-107) mmol/L Carbon Dioxide 19 L 23 (22-30) mmol/L BUN 12 13 (7-17) mg/dL Creatinine 0.54 0.57 (0.52-1.04) mg/dL Glucose 134 H 103 H (74-99) mg/dL Calcium 9.3 8.8 (8.4-10.2) mg/dL AST 59 H 55 H (14-36) U/L ALT 30 36 (9-52) U/L Alkaline Phosphatase 80 89 (38-126) U/L Total Protein 7.5 6.4 (6.3-8.2) g/dL Albumin 4.1 3.5 (3.5-5.0) g/dL Current Medications Generic Name Dose Route Start Last Admin Trade Name Freq PRN Reason Stop Dose Admin Enalaprilat 1.25 mg 03/18/17 22:30 Vasotec IVP Q6H PRN For systolic greater than 160 Sodium Chloride 1,000 mls @ 100 mls/hr 03/18/17 21:45 03/19/17 08:22 Saline 0.9% IV 100 mls/hr .Q10H [facility] Administration Levofloxacin 500 mg/ IV 100 mls @ 100 mls/hr 03/18/17 23:00 03/18/17 23:32 Solution IVPB 100 mls/hr HS [facility] Administration Metronidazole 500 mg/ IV 100 mls @ 100 mls/hr 03/19/17 00:00 03/19/17 05:37 Solution IVPB 100 mls/hr Q6HR [facility] Administration Metoclopramide HCl 5 mg 03/18/17 21:48 03/19/17 00:31 Reglan IVP 5 mg Q6H PRN Administration Nausea vomiting Morphine Sulfate 4 mg 03/18/17 21:34 03/19/17 04:26 Morphine Sulfate (Inj) IV 4 mg Q4HR PRN Administration Severe Pain Naloxone HCl 0.2 mg 03/18/17 21:34 Narcan IV Q2M PRN Opioid Reversal Pantoprazole Sodium 40 mg 03/19/17 09:00 03/19/17 09:33 Protonix IV 40 mg DAILY [facility] Administration Simethicone 80 mg 03/19/17 09:00 03/19/17 08:22 Mylicon Chew PO 80 mg QID [facility] Administration Intake and Output 03/18/17 03/19/17 03/19/17 22:59 06:59 14:59 Intake Total 800 Output Total 301 Balance 499 Intake: IV 800 Levofloxacin 500Mg-D5w 100 Pmx 500 mg In Dextrose/ Water 1 100ml.bag @ 100 mls/hr IVPB HS [facility] Rx#: [id number] Sodium Chloride 0.9% 1, 600 000 ml @ 100 mls/hr IV . Q10H [facility] Rx#:[id number] metroNIDAZOLE-NS PMX 500 100 mg In Saline 1 100ml.bag @ 100 mls/hr IVPB Q6HR [facility] Rx#:[id number] Output: Urine 301 Other: Weight 142.882 kg 144.3 kg 03/19/17 07:22 03/19/17 07:22
[2017-03-19] MEDS ORDERED: MAG HYDROX/AL HYDROX/SIMETH 30 ML, HYOSCYAMINE ELIXIR 10 ML, CIMETIDINE HCL 300 MG PO ONE ×6 (13:30→15:15)
--- NOTE | 2017-03-19 15:05 | P.CN ---
Psychiatric Consult - . Consult date: 03/19/17 Consult:: IDENTIFYING DATA: Mr. Cottrell is a 47-year-old [place] female admitted to medicine service for evaluation and treatment of chest pain. The attending submitted a psychiatry consult for evaluation of suicidality. HISTORY OF PRESENT ILLNESS: I reviewed the medical record and interviewed her. She feels overwhelmed by her medical problems and family issues. She was discharged from a surgery service earlier today following a laparoscopic cholecystectomy. She presented to the ER with complaints of epigastric and chest pain that radiated to her left arm. During her assessment she expressed suicidal thoughts of overdosing on her prescription medications. She denied that she had intended to overdose and repeatedly reassured me that she would never commit suicide. She stressed how overwhelmed, anxious and distress she has felt by her medical problems and family concerns. She talked about her increasing physical disability. She does not want to burden her family with her problems. She is also distressed that her nephew has not involved her in the planning of his wedding. She stated that she raised him since he was a baby and they have been very close. She is disappointed that he did not call or visit on Mother's Day. She complained that he does not keep his promises to visit. She describes symptoms of anxiety and feelings of depression. These symptoms have been present for "about one week". The depressive symptoms include sadness , pessimism, loss of pleasure, crying, loss of energy, changes in sleep and tiredness or fatigue. She described thoughts of killing herself during the height of her physical distress but assured me that she would not carry them out. She denied use of alcohol or drugs. She denied anxiety symptoms suggestive of panic attacks. She denied psychotic symptoms such as auditory or visual hallucinations, ideas reference, thought insertion, thought broadcasting or thought control. PAST PSYCHIATRIC HISTORY: She denied a history of mental health treatment. She described periods of depression but, episodes have been self-limiting and not severe, disabling requiring medical intervention. She denied a history of victor hugo or hypomania suggestive of a bipolar illness. SUBSTANCE USE HISTORY: She denied the use of drugs. She stated that she has had alcohol drink "occasionally". She denied that family or friends health criticize her about her alcohol use. She has never participated in a substance abuse treatment program. SOCIAL HISTORY: She was raised in an intact family. She is single and lives alone in [facility]. She is unemployed and receives social security income. She cannot work because of her physical disability.. MENTAL STATUS EXAM: She presented as a casually groomed morbidly obese 47-year- old [place] female who looks younger than her stated age. She was pleasant on approach and attended to the interview. She had no distinguishing features. She had a distressed facial expression. She was alert and oriented to person, place and time. She showed psychomotor retardation but no abnormal involuntary movements. Her speech was spontaneous with slight decrease in rate but normal rhythm and volume. Her affect was dysphoric, depressed and anxious. She denied suicidal ideation or wishes. She denied homicidal ideation. She expresses feelings of helplessness and hopelessness. She ruminated about her medical and family issues. She did not express ideas reference or paranoid ideation. Her thinking was abstract and associations were coherent and logical. She denied hallucinations and did not appear to be responding to internal stimuli. IMPRESSIONS: She is a 47-year-old single [place] female with multiple medical problems. She is readmitted to hospital following a laparoscopic cholecystectomy for abdominal and chest pain. She feels depressed, anxious and overwhelmed by her medical problems as well as concerned about her relationship with her nephew. The symptoms of depression and anxiety have been present for about one week. The time course of her symptoms are not consistent with major depressive disorder and she has no history of victor hugo or hypomania. I suspect that the depression, anxiety and suicidal thoughts are related to her chronic and acute medical problems. We talked about mental health treatment options. She was open to referral for outpatient counseling/therapy but was disinterested in an antidepressant. DIAGNOSIS: Unspecified depressive disorder, rule out adjustment disorder with disturbance of mood, rule out depression secondary to medical illness, rule out major depressive disorder PLAN: There is no indication for psychiatric hospitalization at this time. She may benefit from antidepressant but was unwilling to consider a prescription at this time. Consider a referral for outpatient mental health services. I believe there is a community mental health clinic in [place]. 03/19/17 14:40
--- NOTE | 2017-03-19 16:23 | P.HPIM ---
History of Present Illness H&P Date: 03/19/17 This is a 47 year old female with history of chronic right upper quadrant pain this is attribute is secondary to gallbladder disease. Patient has significant rheumatoid arthritis is currently on 3 medications for maintenance. Patient underwent a cholecystectomy laparoscopically postop day 1. Patient was initially discharged home however was not able to tolerate any diet and has 2 episodes of vomiting. Thereafter patient noted significant amount of pain in her chest she was concerned about a cardiac event and hence came in to the hospital for ongoing care A EKG did not reveal ST-T wave changes Cardiac enzymes 3 were negative At the time of my evaluation patient's symptoms are improved does state to have some pain in the epigastric region surgical trocar areas appear to be within normal limits no significant tenderness is reported No fevers chills difficulty in breathing abdominal pain urinary urgency or frequency is reported Apparently overnight patient got tearful there was some concerns over medical bills and repeated admissions the hospital and she stated that she had thoughts of ending her life at this time she denies having similar complaints Review of Systems All systems: negative (Noted in HPI) Past Medical History Past Medical History: Rheumatoid Arthritis (RA), Seizure Disorder, Skin Disorder Additional Past Medical History / Comment(s): RA-pain in multiple joints, spinal stenosis/instability and herniated disc-difficulty walking, pt saw Dr. 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 Smoking Status: Never smoker Past Alcohol Use History: None Reported Past Drug Use History: None Reported - Past Family History Father Family Medical History: Cancer Additional Family Medical History / Comment(s): Father of leukemia at the age of 65yrs. Mother Family Medical History: Diabetes Mellitus, Hypertension, Osteoarthritis (OA) Additional Family Medical History / Comment(s): Mother has IIDM, depression. Medications and Allergies Home Medications Medication Instructions Recorded Confirmed Type Meloxicam 15 mg PO DAILY 07/15/15 03/18/17 History Melatonin 5 mg PO HS 01/28/17 03/18/17 History Leflunomide [Arava] 20 mg PO DAILY 03/09/17 03/18/17 History Aspirin EC [Ecotrin Low Dose] 81 mg PO DAILY 03/18/17 03/18/17 History Ciprofloxacin HCl [Cipro] 500 mg PO BID 03/18/17 03/18/17 History Scopolamine 1.5MG/72Hr Patch 1 patch TRANSDERM Q72H 03/18/17 03/18/17 History [Transderm-Scop 1.5MG/72Hr Patch] Allergies Allergy/AdvReac Type Severity Reaction Status Date / Time hydromorphone [From Dilaudid] AdvReac Nausea & Verified 03/18/17 19:03 Vomiting Physical Exam Vitals: Vital Signs Temp Pulse Pulse Resp BP BP BP 03/19/17 11:55 86 03/19/17 11:52 97.2 F L 86 18 116/61 03/19/17 08:00 97.0 F L 88 18 114/69 03/19/17 04:00 97.5 F L 83 16 03/19/17 00:53 101 H 16 133/73 03/19/17 00:51 121 H 18 133/73 03/19/17 00:45 107 H 18 140/73 03/19/17 00:18 97.8 F 103 H 16 131/82 03/18/17 23:23 98.1 F 96 18 161/99 03/18/17 22:49 101 H 16 156/75 03/18/17 22:19 175/86 03/18/17 21:36 98.8 F 87 14 214/104 03/18/17 18:33 98.3 F 91 22 176/118 Pulse Ox 03/19/17 11:55 03/19/17 11:52 98 03/19/17 08:00 98 03/19/17 04:00 97 03/19/17 00:53 94 L 03/19/17 00:51 91 L 03/19/17 00:45 95 03/19/17 00:18 97 03/18/17 23:23 99 03/18/17 22:49 98 03/18/17 22:19 03/18/17 21:36 98 03/18/17 18:33 96 Intake and Output 03/19/17 03/19/17 03/19/17 06:59 14:59 22:59 Intake Total 800 1120 Output Total 301 Balance 499 1120 Intake: IV 800 1100 Levofloxacin 500Mg-D5w 100 Pmx 500 mg In Dextrose/ Water 1 100ml.bag @ 100 mls/hr IVPB HS [facility] Rx#: [id number] Sodium Chloride 0.9% 1, 600 1000 000 ml @ 100 mls/hr IV . Q10H [facility] Rx#:[id number] metroNIDAZOLE-NS PMX 500 100 100 mg In Saline 1 100ml.bag @ 100 mls/hr IVPB Q6HR [facility] Rx#:[id number] Oral 20 Output: Urine 301 Other: Weight 144.3 kg Physical exam Gen. appearance oriented 3 in no distress Neck is supple no JVD Lungs good air entry clear to auscultation no rhonchi or wheezing Heart S1-S2 heard regular rate and rhythm no murmurs appreciated Abdomen trocar sites appear appropriate no significant tenderness bowel sounds intact Neurologically cranial nerves II-12 grossly intact no focal motor or sensory deficits noted Skin no abnormalities appreciated Results CBC & Chem 7: 03/19/17 07:22 03/19/17 07:22 Labs: Abnormal Lab Results - Last 24 Hours (Table) 03/18/17 03/18/17 03/18/17 Range/Units 19:10 19:10 19:10 RDW 15.6 H (11.5-15.5) % Lymphocytes # 0.3 L (1.0-4.8) k/uL Chloride 109 H (98-107) mmol/L Carbon Dioxide 19 L (22-30) mmol/L Glucose 134 H (74-99) mg/dL AST 59 H (14-36) U/L Total Creatine Kinase 152 H (30-135) U/L 03/19/17 03/19/17 03/19/17 Range/Units 01:03 07:22 07:22 RDW 15.9 H (11.5-15.5) % Lymphocytes # 0.8 L (1.0-4.8) k/uL Chloride 110 H (98-107) mmol/L Carbon Dioxide (22-30) mmol/L Glucose 103 H (74-99) mg/dL AST 55 H (14-36) U/L Total Creatine Kinase 189 H (30-135) U/L 03/19/17 Range/Units 07:22 RDW (11.5-15.5) % Lymphocytes # (1.0-4.8) k/uL Chloride (98-107) mmol/L Carbon Dioxide (22-30) mmol/L Glucose (74-99) mg/dL AST (14-36) U/L Total Creatine Kinase 228 H (30-135) U/L Thrombosis Risk Factor Assmnt - Choose All That Apply Each Factor Represents 1 point: Age 41-60 years Thrombosis Risk Factor Assessment Total Risk Factor Score: 1 Thrombosis Risk Factor Assessment Level: Low Risk Assessment and Plan Plan: Atypical chest pain this is likely secondary to Hannah-Ramos tears #2 recent cholecystectomy #3 rheumatoid arthritis #4 obesity #5 degenerative disc disease with some nerve root compression of the lumbar spine #6 hypertension Plan Continue with the PPI We'll give a dose ofGIcocktail Advance diet as tolerated Cardiac recommendations are noted Surgery recommendations are appreciative We'll monitor the patient overnight will likely discharge the patient home tomorrow discontinue antibiotic therapy There is no signs of infection
[2017-03-19] MEDS ORDERED: metroNIDAZOLE-NS PMX 500 MG in SALINE 1 100ML.BAG IVPB SCH (20:00)
[2017-03-19] MEDS ORDERED: HYDROCORTISONE 1% CREAM 30 GM TUBE TOPICAL PRN (23:17)
[2017-03-20] MEDS: SODIUM CHLORIDE 0.9% 1,000 ML IV SCH ×2 (00:50→14:14)
[2017-03-20] MEDS: MORPHINE SULFATE 4 MG/ML SYRINGE IV PRN (05:50)
[2017-03-20 07:53] LABS: Basophils % (A) 1 %; CH 29.2; CHCM 32.3; Eosinophils # (A) 0.1 k/uL (0-0.7); Eosinophils % (A) 2 %; HCT 34.1 % (34.0-46.0); HDW 2.73; HGB 10.9 gm/dL (11.4-16.0); Luc % (Auto) 2; Lymphocytes # (A) 1.3 k/uL (1.0-4.8); Lymphocytes % (A) 28 %; MCH 28.9 pg (25.0-35.0); MCHC 31.8 g/dL (31.0-37.0); MCV 90.9 fL (80.0-100.0); Mean Platelet Volume 6.4; Monocytes # (A) 0.4 k/uL (0-1.0); Monocytes % (A) 9 %; Neutrophils # (A) 2.6 k/uL (1.3-7.7); Neutrophils % (A) 58 %; RBC 3.76 m/uL (3.80-5.40); RDW 15.9 % (11.5-15.5); WBC 4.5 k/uL (3.8-10.6); WBC (Perox) 4.47
[2017-03-20] MEDS: SIMETHICONE 80 MG CHEWABLE PO SCH ×2 (07:54→14:23)
[2017-03-20] MEDS: PANTOPRAZOLE 40 MG/10 ML VIAL IV SCH (07:54)
[2017-03-20 08:14] VITALS: BP 123/63; RESP 20; TEMP 98.2
[2017-03-20 08:27] LABS: ALT 37 U/L (9-52); AST 60 U/L (14-36); Alkaline Phosphatase 73 U/L (38-126); Anion Gap 8 mmol/L; Blood Urea Nitrogen 12 mg/dL (7-17); Calcium 8.5 mg/dL (8.4-10.2); Carbon Dioxide 24 mmol/L (22-30); Chloride 110 mmol/L (98-107); Glucose 83 mg/dL (74-99); Non-African American GFR(MDRD) >60 (>60 ml/min/1.73 sqM); Potassium 3.6 mmol/L (3.5-5.1); Sodium 142 mmol/L (137-145)
--- NOTE | 2017-03-20 08:41 | P.PN ---
Subjective Principal diagnosis: Abdominal/chest discomfort following laparoscopic cholecystectomy. This has improved and patient is tolerating a clear liquid diet at this time. She has been seen by cardiology and they have suggested a 2-D echo and Doppler study to assess cardiac structure and function. There is no current evidence for any acute myocardial infarction. At this time the patient is not having any abdominal pain. Objective - Vital Signs Vital signs: Vital Signs Temp 98.2 F 03/20/17 07:00 Pulse 76 03/20/17 07:00 Resp 20 03/20/17 07:00 BP 123/63 03/20/17 07:00 Pulse Ox 95 03/20/17 07:00 Intake & Output 03/19/17 03/20/17 03/20/17 18:59 06:59 18:59 Intake Total 1320 950 Balance 1320 950 Intake: IV 1100 100 Sodium Chloride 0.9% 1, 1000 100 000 ml @ 100 mls/hr IV . Q10H [facility] Rx#:[id number] metroNIDAZOLE-NS PMX 500 100 mg In Saline 1 100ml.bag @ 100 mls/hr IVPB Q6HR [facility] Rx#:[id number] Oral 220 850 Other: Voiding Method Toilet # Voids 2 - Constitutional General appearance: Present: morbidly obese, no acute distress - Respiratory Details: Decreased breath sounds at the bases bilaterally - Cardiovascular Rhythm: regular Heart sounds: normal: S1, S2 - Gastrointestinal Gastrointestinal Comment(s): Incisions clean and dry General gastrointestinal: Present: normal bowel sounds, soft - Psychiatric Psychiatric: Present: A&O x's 3, appropriate affect, intact judgment & insight - Labs CBC & Chem 7: 03/20/17 07:10 03/20/17 07:10 Labs: Abnormal Lab Results - Last 24 Hours (Table) 03/19/17 03/19/17 03/20/17 Range/Units 07:22 07:22 07:10 RBC 3.76 L (3.80-5.40) m/uL Hgb 10.9 L (11.4-16.0) gm/dL RDW 15.9 H (11.5-15.5) % Chloride 110 H (98-107) mmol/L Glucose 103 H (74-99) mg/dL AST 55 H (14-36) U/L Total Creatine Kinase 228 H (30-135) U/L Total Protein (6.3-8.2) g/dL Albumin (3.5-5.0) g/dL 03/20/17 Range/Units 07:10 RBC (3.80-5.40) m/uL Hgb (11.4-16.0) gm/dL RDW (11.5-15.5) % Chloride 110 H (98-107) mmol/L Glucose (74-99) mg/dL AST 60 H (14-36) U/L Total Creatine Kinase (30-135) U/L Total Protein 6.0 L (6.3-8.2) g/dL Albumin 3.3 L (3.5-5.0) g/dL Assessment and Plan Plan: Impression/plan: 1. Decrease chest discomfort and no abdominal pain this morning 2. Resolved nausea 3. Rheumatoid arthritis 4. Morbid obesity 5. Persistent chronic back pain Plan: 1. Advance diet 2. Discharge as per medicine 3. Follow-up with Dr. Ba next week 4. Appreciate cardiology consult additional cardiac workup as per medicine
[2017-03-20 10:12] VITALS: PULSE 83
--- NOTE | 2017-03-20 19:54 | P.DS ---
Providers Date of admission: 03/18/17 21:35 Attending physician: Melo Cash MD Consults: 03/18/17 21:34 Consult Physician Stat Consulting Provider: Yokasta Wallace Consult Reason/Comments: Abdominal pain, post laparoscopic cholecystectomy Do you want consulting provider notified?: Already Contacted Consult Physician Stat Consulting Provider: Vinnei Gupta Consult Reason/Comments: Chest pain Do you want consulting provider notified?: Already Contacted 03/19/17 07:04 Consult Physician Routine Consulting Provider: Blanco Peraza Consult Reason/Comments: suicide Do you want consulting provider notified?: Yes, Notify in am Primary care physician: [facility] Course: This is a 47 year old female with history of chronic right upper quadrant pain this is attribute is secondary to gallbladder disease. Patient has significant rheumatoid arthritis is currently on 3 medications for maintenance. Patient underwent a cholecystectomy laparoscopically postop day 1. Patient was initially discharged home however was not able to tolerate any diet and has 2 episodes of vomiting. Thereafter patient noted significant amount of pain in her chest she was concerned about a cardiac event and hence came in to the hospital for ongoing care A EKG did not reveal ST-T wave changes Cardiac enzymes 3 were negative At the time of my evaluation patient's symptoms are improved does state to have some pain in the epigastric region surgical trocar areas appear to be within normal limits no significant tenderness is reported No fevers chills difficulty in breathing abdominal pain urinary urgency or frequency is reported Apparently overnight patient got tearful there was some concerns over medical bills and repeated admissions the hospital and she stated that she had thoughts of ending her life at this time she denies having similar complaints 03/20/17 doing well tolerating diet no chest pain , fevers, chills, abdominal pain, nausea, vomiting reported Physical exam Gen. appearance oriented 3 in no distress Neck is supple no JVD Lungs good air entry clear to auscultation no rhonchi or wheezing Heart S1-S2 heard regular rate and rhythm no murmurs appreciated Abdomen trocar sites appear appropriate no significant tenderness bowel sounds intact Neurologically cranial nerves II-12 grossly intact no focal motor or sensory deficits noted Skin no abnormalities appreciated Plan: Atypical chest pain this is likely secondary to Hannah-Ramos tears, improved #2 recent cholecystectomy #3 rheumatoid arthritis, restart home medications. #4 obesity #5 degenerative disc disease with some nerve root compression of the lumbar spine #6 hypertension 7. Depression with suicidal ideation on admission improved mood. SSRi recommended, however pt would like to hold off on starting medications. follow up with surgery in one week Patient Condition at Discharge: Serious Plan - Discharge Summary Discharge Medication List Meloxicam 15 mg PO DAILY 07/15/15 [History] Melatonin 5 mg PO HS 01/28/17 [History] Leflunomide [Arava] 20 mg PO DAILY 03/09/17 [History] Aspirin EC [Ecotrin Low Dose] 81 mg PO DAILY 03/18/17 [History] Scopolamine 1.5MG/72Hr Patch [TransDerm Scop] 1 patch TRANSDERM Q72H 03/18/17 [ History] Follow up Appointment(s)/Referral(s): Rica Bloom III, MD [Primary Care Provider] - 1-2 days Hilda Ba MD [STAFF PHYSICIAN] - 1 Week Patient Instructions/Handouts: *Surgery [facility] - Laparoscopic Cholecystectomy Discharge Instructions Discharge Disposition: HOME SELF-CARE
== END 2017-03-20 15:26 | disposition home or self-care (01) | DRG 369 ==
LOC: EC 18:02 → 6SEL 21:35 → 5MS5E 03-19 19:00
PROVIDERS: ADMIT Internal Medicine; ATTEND Internal Medicine
DX: K22.6 Gastro-esophageal laceration-hemorrhage syndrome (principal); R45.851 Suicidal ideations; Z68.43 Body mass index [BMI] 50.0-59.9, adult; E66.01 Morbid (severe) obesity due to excess calories; I10 Essential (primary) hypertension; F32.9 Major depressive disorder, single episode, unspecified; G40.909 Epilepsy, unspecified, not intractable, without status epilepticus; G89.29 Other chronic pain; M06.9 Rheumatoid arthritis, unspecified; M51.36 Other intervertebral disc degeneration, lumbar region; M48.00 Spinal stenosis, site unspecified; M54.9 Dorsalgia, unspecified; R10.9 Unspecified abdominal pain; K57.90 Diverticulosis of intestine, part unspecified, without perforation or abscess without bleeding; R21 Rash and other nonspecific skin eruption; J42 Unspecified chronic bronchitis; Z79.82 Long term (current) use of aspirin; Z79.899 Other long term (current) drug therapy; Z88.5 Allergy status to narcotic agent; Z82.49 Family history of ischemic heart disease and other diseases of the circulatory system
CPT/HCPCS: 36415; 71020; 74020; 80053; 81025; 82150; 82550; 82553; 83690; 83735; 84484; 85025; 85610; 85730; 88304; 93005

== ENCOUNTER 2017-06-02 20:50 | Observation (INO) | payer MEDICARE, OTHER ==
[2017-06-02] MEDS ORDERED: SODIUM CHLORIDE 0.9% 1,000 ML IV ONE (21:32)
--- NOTE | 2017-06-02 21:39 | ED ---
Abdominal Pain HPI - General Chief Complaint: Abdominal Pain Stated Complaint: back/abdominal/groin pain Time Seen by Provider: 06/02/17 21:20 Source: patient, RN notes reviewed Mode of arrival: ambulatory Limitations: no limitations - History of Present Illness Initial Comments: Patient is a 47-year-old female since emergency room for evaluation of left- sided back pain and abdominal pain. Patient states pain began yesterday. Patient states today throughout the day pain has been radiating to her left groin. Patient states she's never had pain like this before. Patient states she is worried she has a kidney infection or kidney stone. Patient denies any pain or burning during urination or blood in urine. Patient denies headache or dizziness. Patient denies fevers or chills. Patient states chest pain or shortness of breath. Patient denies the pain being any worse or better with deep breaths. Patient does states she's been nauseous. Patient states she had a cholecystectomy and appendectomy done last 2 months has had continuous nausea since. patient denies any recent injury or trauma to her back. Patient states she has a bulging disc in her lower back that is chronic. Patient denies saddle anesthesia. Patient denies fecal or urinary incontinence. Patient denies paresthesias. - Related Data Home Medications Medication Instructions Recorded Confirmed Meloxicam 15 mg PO DAILY 07/15/15 06/02/17 Melatonin 5 mg PO HS 01/28/17 06/02/17 Leflunomide [Arava] 20 mg PO DAILY 03/09/17 06/02/17 Aspirin EC [Ecotrin Low Dose] 81 mg PO HS 03/18/17 06/02/17 Acetaminophen Tab [Tylenol Tab] 650 mg PO BID PRN 06/02/17 06/02/17 azaTHIOprine [Imuran] 50 mg PO TID 06/02/17 06/02/17 Allergies Allergy/AdvReac Type Severity Reaction Status Date / Time hydromorphone [From Dilaudid] AdvReac Nausea & Verified 06/02/17 20:55 Vomiting Review of Systems ROS Statement: Those systems with pertinent positive or pertinent negative responses have been documented in the HPI. ROS Other: All systems not noted in ROS Statement are negative. Past Medical History Past Medical History: Rheumatoid Arthritis (RA), Seizure Disorder, Skin Disorder Additional Past Medical History / Comment(s): RA-pain in multiple joints, spinal stenosis/instability and herniated disc-difficulty walking, pt saw Dr. 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, childhood seizures, recent diverticulitis, rash on back History of Any Multi-Drug Resistant Organisms: None Reported Past Surgical History: Appendectomy, Cholecystectomy, Orthopedic Surgery Additional Past Surgical History / Comment(s): endoscopic sinus surgery, L knee arthroscopy, back epidural injections, recent EGD,colonoscopy Past Anesthesia/Blood Transfusion Reactions: No Reported Reaction, Motion Sickness Past Psychological History: No Psychological Hx Reported Smoking Status: Never smoker Past Alcohol Use History: None Reported Past Drug Use History: None Reported - Past Family History Father Family Medical History: Cancer Additional Family Medical History / Comment(s): Father of leukemia at the age of 65yrs. Mother Family Medical History: Diabetes Mellitus, Hypertension, Osteoarthritis (OA) Additional Family Medical History / Comment(s): Mother has IIDM, depression. General Exam - General Exam Comments Initial Comments: sitting in exam room, appears uncomfortable secondary to pain, no acute distress. Limitations: no limitations General appearance: alert, in no apparent distress Head exam: Present: atraumatic, normocephalic, normal inspection Eye exam: Present: normal appearance ENT exam: Present: normal exam Neck exam: Present: normal inspection Respiratory exam: Present: normal lung sounds bilaterally. Absent: respiratory distress Cardiovascular Exam: Present: normal rhythm, tachycardia, normal heart sounds GI/Abdominal exam: Present: soft, tenderness (tenderness on palpating over left side of the abdomen), normal bowel sounds. Absent: distended, guarding, rebound , rigid Extremities exam: Present: normal inspection Back exam: Present: normal inspection, paraspinal tenderness (tenderness on palpating over the left lumbosacral paraspinal muscles.). Absent: CVA tenderness (R), CVA tenderness (L) Neurological exam: Present: alert, oriented X3, CN II-XII intact, normal gait Psychiatric exam: Present: normal affect, normal mood Skin exam: Present: warm, dry, intact, normal color. Absent: rash Course Vital Signs 06/02/17 06/03/17 20:53 00:18 Temperature 99.2 F Pulse Rate 104 H 68 Respiratory 20 22 Rate Blood Pressure 135/92 118/67 O2 Sat by Pulse 98 100 Oximetry Medical Decision Making - Medical Decision Making patient is a 47-year-old female presents to the emergency room for evaluation of left-sided low back and left-sided abdominal pain. Patient in a significant amount of pain on examination. Patient at first declined any pain medications. Patient did finally agree to Toradol. Patient still complaining of pain. Patient was offered narcotic medication and patient refused. Labs show no concerning findings. CT of abdomen/pelvis showed no concerning findings. Patient reevaluated by Dr. Roberts. Patient still noted to be significantly tender over left side of lower back and left abdomen. It is believed that patient's pain might possibly be musculoskeletal related. Due to patient's significant pain on palpating over her abdomen and recent surgical history, will admit patient for pain management and further evaluation. Patient did finally agree to narcotic pain medications. Patient will consult with general surgery. - Lab Data Result diagrams: 06/02/17 21:46 06/02/17 21:46 Lab Results 06/02/17 06/02/17 06/02/17 Range/Units 21:46 21:46 21:46 WBC 5.9 (3.8-10.6) k/uL RBC 4.73 (3.80-5.40) m/uL Hgb 13.9 (11.4-16.0) gm/dL Hct 42.4 (34.0-46.0) % MCV 89.6 (80.0-100.0) fL MCH 29.5 (25.0-35.0) pg MCHC 32.9 (31.0-37.0) g/dL RDW 15.7 H (11.5-15.5) % Plt Count 359 (150-450) k/uL Neutrophils % 71 % Lymphocytes % 14 % Monocytes % 7 % Eosinophils % 4 % Basophils % 1 % Neutrophils # 4.3 (1.3-7.7) k/uL Lymphocytes # 0.9 L (1.0-4.8) k/uL Monocytes # 0.4 (0-1.0) k/uL Eosinophils # 0.3 (0-0.7) k/uL Basophils # 0.1 (0-0.2) k/uL D-Dimer (<0.60) mg/L FEU Sodium 139 (137-145) mmol/L Potassium 4.0 (3.5-5.1) mmol/L Chloride 106 (98-107) mmol/L Carbon Dioxide 24 (22-30) mmol/L Anion Gap 9 mmol/L BUN 18 H (7-17) mg/dL Creatinine 0.59 (0.52-1.04) mg/dL Est GFR (MDRD) Af Amer >60 (>60 ml/min/1.73 sqM) Est GFR (MDRD) Non-Af >60 (>60 ml/min/1.73 sqM) Glucose 101 H (74-99) mg/dL Calcium 9.2 (8.4-10.2) mg/dL Total Bilirubin 0.7 (0.2-1.3) mg/dL AST 22 (14-36) U/L ALT 19 (9-52) U/L Alkaline Phosphatase 96 (38-126) U/L Total Protein 7.5 (6.3-8.2) g/dL Albumin 4.1 (3.5-5.0) g/dL Amylase 58 (30-110) U/L Lipase 118 (23-300) U/L Urine Color Dark Yellow Urine Appearance Cloudy H (Clear) Urine pH 5.5 (5.0-8.0) Ur Specific Morrow 1.030 (1.001-1.035) Urine Protein 1+ H (Negative) Urine Glucose (UA) Trace H (Negative) Urine Ketones Trace H (Negative) Urine Blood Trace H (Negative) Urine Nitrite Negative (Negative) Urine Bilirubin Negative (Negative) Urine Urobilinogen 2.0 (<2.0) mg/dL Ur Leukocyte Esterase Negative (Negative) Urine RBC 1 (0-5) /hpf Urine WBC 1 (0-5) /hpf Ur Squamous Epith Cells 7 H (0-4) /hpf Hyaline Casts 2 (0-2) /lpf Urine Mucus Many H (None) /hpf 06/02/17 Range/Units 21:46 WBC (3.8-10.6) k/uL RBC (3.80-5.40) m/uL Hgb (11.4-16.0) gm/dL Hct (34.0-46.0) % MCV (80.0-100.0) fL MCH (25.0-35.0) pg MCHC (31.0-37.0) g/dL RDW (11.5-15.5) % Plt Count (150-450) k/uL Neutrophils % % Lymphocytes % % Monocytes % % Eosinophils % % Basophils % % Neutrophils # (1.3-7.7) k/uL Lymphocytes # (1.0-4.8) k/uL Monocytes # (0-1.0) k/uL Eosinophils # (0-0.7) k/uL Basophils # (0-0.2) k/uL D-Dimer 0.61 H (<0.60) mg/L FEU Sodium (137-145) mmol/L Potassium (3.5-5.1) mmol/L Chloride (98-107) mmol/L Carbon Dioxide (22-30) mmol/L Anion Gap mmol/L BUN (7-17) mg/dL Creatinine (0.52-1.04) mg/dL Est GFR (MDRD) Af Amer (>60 ml/min/1.73 sqM) Est GFR (MDRD) Non-Af (>60 ml/min/1.73 sqM) Glucose (74-99) mg/dL Calcium (8.4-10.2) mg/dL Total Bilirubin (0.2-1.3) mg/dL AST (14-36) U/L ALT (9-52) U/L Alkaline Phosphatase (38-126) U/L Total Protein (6.3-8.2) g/dL Albumin (3.5-5.0) g/dL Amylase (30-110) U/L Lipase (23-300) U/L Urine Color Urine Appearance (Clear) Urine pH (5.0-8.0) Ur Specific Morrow (1.001-1.035) Urine Protein (Negative) Urine Glucose (UA) (Negative) Urine Ketones (Negative) Urine Blood (Negative) Urine Nitrite (Negative) Urine Bilirubin (Negative) Urine Urobilinogen (<2.0) mg/dL Ur Leukocyte Esterase (Negative) Urine RBC (0-5) /hpf Urine WBC (0-5) /hpf Ur Squamous Epith Cells (0-4) /hpf Hyaline Casts (0-2) /lpf Urine Mucus (None) /hpf - Radiology Data Radiology results: report reviewed, image reviewed Disposition Clinical Impression: Intractable abdominal pain, Intractable back pain Disposition: ADMITTED IP TO THIS [facility] Condition: Stable Decision Date: 06/03/17
[2017-06-02 21:59] LABS: Basophils # (A) 0.1 k/uL (0-0.2); Basophils % (A) 1 %; CH 30.1; CHCM 33.7; Eosinophils # (A) 0.3 k/uL (0-0.7); Eosinophils % (A) 4 %; HCT 42.4 % (34.0-46.0); HDW 2.76; HGB 13.9 gm/dL (11.4-16.0); Luc # (Auto) 0.11; Luc % (Auto) 2; Lymphocytes # (A) 0.9 k/uL (1.0-4.8); Lymphocytes % (A) 14 %; MCH 29.5 pg (25.0-35.0); MCHC 32.9 g/dL (31.0-37.0); MCV 89.6 fL (80.0-100.0); Mean Platelet Volume 6.8; Monocytes # (A) 0.4 k/uL (0-1.0); Monocytes % (A) 7 %; Neutrophils # (A) 4.3 k/uL (1.3-7.7); Neutrophils % (A) 71 %; RBC 4.73 m/uL (3.80-5.40); RDW 15.7 % (11.5-15.5); WBC 5.9 k/uL (3.8-10.6); WBC (Perox) 6.03
[2017-06-02 22:00] LABS: Appearance,Urine Cloudy (Clear); Bilirubin,Urine Negative (Negative); Glucose,Urine (UA) Trace (Negative); Ketones,Urine Trace (Negative); Leukocyte Esterase,Urine Negative (Negative); Mucus,Urine Many /hpf; Nitrite,Urine Negative (Negative); PH, Urine 5.5 (5.0-8.0); Particle Count 9134; Protein,Urine 1+ (Negative); RBC,Urine 1 /hpf (0-5); Squamous Epithelial Cell,Urine 7 /hpf (0-4); UA Billing (MACRO vs. MICRO) MICRO; WBC,Urine 1 /hpf (0-5)
[2017-06-02 22:07] LABS: ALT 19 U/L (9-52); AST 22 U/L (14-36); Alkaline Phosphatase 96 U/L (38-126); Amylase 58 U/L (30-110); Anion Gap 9 mmol/L; Blood Urea Nitrogen 18 mg/dL (7-17); Calcium 9.2 mg/dL (8.4-10.2); Carbon Dioxide 24 mmol/L (22-30); Chloride 106 mmol/L (98-107); Glucose 101 mg/dL (74-99); Non-African American GFR(MDRD) >60 (>60 ml/min/1.73 sqM); Sodium 139 mmol/L (137-145); Total Bilirubin 0.7 mg/dL (0.2-1.3); Total Protein 7.5 g/dL (6.3-8.2)
[2017-06-02] MEDS ORDERED: KETOROLAC 30 MG/ML 1 ML VIAL IVP STA (22:11)
--- NOTE | 2017-06-02 23:12 | CT ---
EXAM: CT Abdomen and Pelvis Without Intravenous Contrast CLINICAL HISTORY: Left flank pain. TECHNIQUE: Axial computed tomography images of the abdomen and pelvis without intravenous contrast. Coronal and sagittal reformatted images were created and reviewed. DOSE INFORMATION: CTDI is 48.50 mGy and DLP is 2502.30 mGy-cm. This CT exam was performed using one or more of the following dose reduction techniques: automated exposure control, adjustment of the mA and/or kV according to patient size, and/or use of iterative reconstruction technique. COMPARISON: CT dated 02/23/2017. FINDINGS: Lower thorax: No acute findings. ABDOMEN: Liver: Unremarkable on noncontrast CT. Gallbladder and bile ducts: Status post cholecystectomy. No significant biliary dilation. Pancreas: Unremarkable. No ductal dilation. No adjacent inflammatory changes. Spleen: Unremarkable. No splenomegaly. Adrenals: Unremarkable. No mass. Kidneys and ureters: Unremarkable. No obstructing calculi. No hydronephrosis. No perinephric inflammatory changes. Stomach and bowel: Mild prominence of sigmoid colonic wall which may be related to underdistention. Scattered colonic diverticula without evidence of acute diverticulitis. No pericolonic inflammatory changes. Appendix: No evidence of acute appendicitis. PELVIS: Bladder: Unremarkable. No calculi or wall thickening. Reproductive: Right ovarian dominant follicle. ABDOMEN and PELVIS: Intraperitoneal space: Unremarkable. No free air. No significant fluid collection. Bones/joints: Stable disc protrusion, facet arthropathy and disc disease at L4-5 with associated spinal canal and neural foraminal narrowing. Soft tissues: Small fat-containing right inguinal hernia. Vasculature: Unremarkable. No aortic aneurysm. Lymph nodes: Unremarkable. No enlarged lymph nodes. IMPRESSION: 1. No evidence of acute inflammatory or obstructive process in the abdomen or pelvis to account for symptoms. Specifically, no hydronephrosis, ureteral calculus or perinephric inflammatory changes to account for left flank pain. 2. Mild prominence of sigmoid colonic wall which may be related to underdistention. Scattered colonic diverticula without evidence of acute diverticulitis. No pericolonic inflammatory changes. 3. Status post cholecystectomy. 4. Stable disc protrusion, facet arthropathy and disc disease at L4-5 with associated spinal canal or neural foraminal narrowing at this level.
[2017-06-03] MEDS ORDERED: MORPHINE SULFATE 4 MG/ML SYRINGE IVP STA (00:30)
[2017-06-03] MEDS ORDERED: NALOXONE 0.4 MG/ML 1 ML VIAL IV PRN (01:02)
[2017-06-03] MEDS ORDERED: ONDANSETRON 4 MG/2 ML VIAL IVP PRN (01:02)
[2017-06-03] MEDS: SODIUM CHLORIDE 0.9% 1,000 ML IV SCH ×2 (02:39→16:50)
[2017-06-03 03:10] VITALS: BMI 55.4
[2017-06-03] MEDS: MORPHINE SULFATE 4 MG/ML SYRINGE IV PRN ×2 (06:56→13:44)
[2017-06-03] MEDS ORDERED: ALPRAZolam 0.25 MG TAB PO PRN (10:34)
[2017-06-03] MEDS ORDERED: HYDROcodone/APAP 5-325MG 1 EACH TAB PO PRN (10:34)
[2017-06-03] MEDS ORDERED: TEMAZEPAM 15 MG CAP PO PRN (10:34)
[2017-06-03] MEDS ORDERED: KETOROLAC 30 MG/ML 1 ML VIAL IVP PRN (10:36)
[2017-06-03] MEDS ORDERED: LEVOFLOXACIN 500MG-D5W PMX 500 MG in DEXTROSE/WATER 1 100ML.BAG IVPB SCH (11:00)
[2017-06-03 11:59] LABS: INR 1.1 (<1.2)
[2017-06-03] MEDS: PANTOPRAZOLE 40 MG TABLET PO SCH (12:27)
[2017-06-03] MEDS: HEPARIN SODIUM,PORCINE 5,000 UNIT/ML 1 ML VIAL SQ SCH ×2 (12:27→22:24)
--- NOTE | 2017-06-03 15:13 | P.PN ---
Progress Note - Text Please see full dictated report. Patient denies diffuse abdominal pain. Her pain has improved.
--- NOTE | 2017-06-03 16:47 | P.CNOR ---
History of Present Illness - [facility] Consult date: 06/03/17 Consult reason: back pain History of present illness: This is a 47-year-old female who is admitted to [facility] with intractable abdominal and left flank pain. She states that she does have history of chronic low back pain and has been seen by a neurosurgeon in [place] who is planning a lumbar fusion after the patient loses some weight. She states that she has been seen in our office but would like to be treated down in [place]. She states that she has no interest in being treated for her back pain today. She has no new neurologic symptoms. She does have chronic numbness and tingling to the left lower extremity which is unchanged. She has no new bowel or bladder problems. She states that her pain right now begins in the mid thoracic and radiates to her left flank and around to her abdomen. Past Medical History Past Medical History: Rheumatoid Arthritis (RA), Seizure Disorder, Skin Disorder Additional Past Medical History / Comment(s): RA-pain in multiple joints, spinal stenosis/instability and herniated disc-difficulty walking, pt saw Dr. 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, childhood seizures, recent diverticulitis, rash on back History of Any Multi-Drug Resistant Organisms: None Reported Past Surgical History: Appendectomy, Cholecystectomy, Orthopedic Surgery Additional Past Surgical History / Comment(s): endoscopic sinus surgery, L knee arthroscopy, back epidural injections, recent EGD,colonoscopy Past Anesthesia/Blood Transfusion Reactions: No Reported Reaction, Motion Sickness Past Psychological History: No Psychological Hx Reported Smoking Status: Never smoker Past Alcohol Use History: None Reported Past Drug Use History: None Reported - Past Family History Father Family Medical History: Cancer Additional Family Medical History / Comment(s): Father of leukemia at the age of 65yrs. Mother Family Medical History: Diabetes Mellitus, Hypertension, Osteoarthritis (OA) Additional Family Medical History / Comment(s): Mother has IIDM, depression. Medications and Allergies Home Medications Medication Instructions Recorded Confirmed Type Meloxicam 15 mg PO DAILY 07/15/15 06/02/17 History Melatonin 5 mg PO HS 01/28/17 06/02/17 History Leflunomide [Arava] 20 mg PO DAILY 03/09/17 06/02/17 History Aspirin EC [Ecotrin Low Dose] 81 mg PO HS 03/18/17 06/02/17 History Acetaminophen Tab [Tylenol Tab] 650 mg PO BID PRN 06/02/17 06/02/17 History azaTHIOprine [Imuran] 50 mg PO TID 06/02/17 06/02/17 History Allergies Allergy/AdvReac Type Severity Reaction Status Date / Time hydromorphone [From Dilaudid] AdvReac Nausea & Verified 06/02/17 20:55 Vomiting Physical Examination This is a pleasant 47-year-old obese female in no acute distress. She is alert and oriented 3. Exam of her thoracic and lumbar spine reveal no obvious deformity. There is pain with palpation about the left flank. There is no mid thoracic spine pain with palpation. There is no pain with palpation about the lower lumbar spine. The patient is able to sit up independently in bed. There is no hip irritability noted with internal and external rotation. She has 4/5 strength with dorsiflexion of the great toe against resistance and 3/5 strength with plantar flexion against resistance on the left lower extremity. Pedal pulses +2/4. Exam of the right lower extremity is unremarkable. Results Computed tomography scan of the abdomen and pelvis reveals a disc bulging at L4 5 with slight retrolisthesis of L5. No acute fractures are identified. - Labs Labs: Abnormal Lab Results - Last 24 Hours (Table) 06/02/17 06/02/17 06/02/17 Range/Units 21:46 21:46 21:46 RDW 15.7 H (11.5-15.5) % Lymphocytes # 0.9 L (1.0-4.8) k/uL D-Dimer (<0.60) mg/L FEU BUN 18 H (7-17) mg/dL Glucose 101 H (74-99) mg/dL Urine Appearance Cloudy H (Clear) Urine Protein 1+ H (Negative) Urine Glucose (UA) Trace H (Negative) Urine Ketones Trace H (Negative) Urine Blood Trace H (Negative) Ur Squamous Epith Cells 7 H (0-4) /hpf Urine Mucus Many H (None) /hpf 06/02/17 Range/Units 21:46 RDW (11.5-15.5) % Lymphocytes # (1.0-4.8) k/uL D-Dimer 0.61 H (<0.60) mg/L FEU BUN (7-17) mg/dL Glucose (74-99) mg/dL Urine Appearance (Clear) Urine Protein (Negative) Urine Glucose (UA) (Negative) Urine Ketones (Negative) Urine Blood (Negative) Ur Squamous Epith Cells (0-4) /hpf Urine Mucus (None) /hpf Microbiology - Last 24 Hours (Table) 06/02/17 21:46 Urine Culture - Preliminary Urine,Clean Catch H & H 06/02/17 Range/Units 21:46 Hgb 13.9 (11.4-16.0) gm/dL Hct 42.4 (34.0-46.0) % Coagulation 06/03/17 Range/Units 11:13 INR 1.1 (<1.2) Result Diagrams: 06/02/17 21:46 06/02/17 21:46 Assessment and Plan (1) Intractable abdominal pain Status: Acute (2) Intractable back pain Status: Acute (3) Chronic back pain Status: Acute Plan: The clinical and radiographic findings are discussed with the patient. We discussed possibility of using some steroids for inflammation to determine if her pain is spine related. The patient does not wish to proceed with steroids this time. She would like to follow up with her neurosurgeon in [place] when she is discharged from the hospital. I've also ordered physical therapy which she also declines. We will sign off for now. Please call our office if there are any questions regarding her care.
[2017-06-03] MEDS: azaTHIOprine 50 MG TAB PO SCH ×2 (16:50→22:25)
[2017-06-03] MEDS: MELOXICAM 7.5 MG TAB PO SCH (17:43)
[2017-06-03] MEDS: LEFLUNOMIDE 20 MG TAB PO SCH (17:44)
[2017-06-03] MEDS ORDERED: ASPIRIN 81 MG CHEW PO SCH (21:00)
[2017-06-03] MEDS ORDERED: MELATONIN 5 MG TABLET PO SCH (21:00)
[2017-06-04 07:42] LABS: Basophils % (A) 1 %; CH 29.5; CHCM 32.9; Eosinophils # (A) 0.3 k/uL (0-0.7); Eosinophils % (A) 9 %; HCT 37.4 % (34.0-46.0); HDW 2.71; HGB 12.2 gm/dL (11.4-16.0); Luc # (Auto) 0.09; Luc % (Auto) 3; Lymphocytes # (A) 0.8 k/uL (1.0-4.8); Lymphocytes % (A) 26 %; MCH 29.4 pg (25.0-35.0); MCHC 32.6 g/dL (31.0-37.0); MCV 90.2 fL (80.0-100.0); Mean Platelet Volume 6.5; Monocytes # (A) 0.3 k/uL (0-1.0); Monocytes % (A) 10 %; Neutrophils # (A) 1.6 k/uL (1.3-7.7); Neutrophils % (A) 52 %; RBC 4.14 m/uL (3.80-5.40); RDW 14.9 % (11.5-15.5); WBC 3.2 k/uL (3.8-10.6); WBC (Perox) 3.12
[2017-06-04 08:26] LABS: Anion Gap 5 mmol/L; Blood Urea Nitrogen 11 mg/dL (7-17); Calcium 8.4 mg/dL (8.4-10.2); Carbon Dioxide 27 mmol/L (22-30); Chloride 109 mmol/L (98-107); Glucose 87 mg/dL (74-99); Non-African American GFR(MDRD) >60 (>60 ml/min/1.73 sqM); Sodium 141 mmol/L (137-145)
[2017-06-04] MEDS: HEPARIN SODIUM,PORCINE 5,000 UNIT/ML 1 ML VIAL SQ SCH (08:31)
[2017-06-04] MEDS: azaTHIOprine 50 MG TAB PO SCH (08:31)
[2017-06-04] MEDS: MELOXICAM 7.5 MG TAB PO SCH (08:31)
[2017-06-04] MEDS: PANTOPRAZOLE 40 MG TABLET PO SCH (08:31)
[2017-06-04] MEDS: LEFLUNOMIDE 20 MG TAB PO SCH (08:32)
--- NOTE | 2017-06-04 09:01 | P.PN ---
Progress Note - Text Patient seen and evaluated this evening. She reports improvement of her abdominal pain. Her main concern is also her lower back as well. Patient is eager to return home. I do agree with antibiotics as his known history of previous diverticulitis. In the interim, patient's been evaluated for the bariatric program. Patient may be discharged home with oral antibiotics and follow-up in the office.
--- NOTE | 2017-06-04 10:00 | P.PN ---
Progress Note - Text Patient seen and evaluated. Abdominal pain is resolved. Patient is clear from a surgical Stamper for discharge and follow-up as outpatient. Recommend continuing oral antibiotics.
[2017-06-04 11:15] VITALS: BP 136/84; PULSE 75; RESP 16; TEMP 98.6
--- NOTE | 2017-06-04 12:35 | HP ---
DATE OF ADMISSION: 06/03/17 CHIEF COMPLAINT: Back and abdominal pain. HISTORY OF PRESENT ILLNESS: This 47-year-old woman with past medical history of multiple medical problems including rheumatoid arthritis, seizure disorder, appendectomy, being followed by Dr. Bloom in the outpatient setting complaining of back pain. The patient also initially had left sided flank pain and subsequently had back pain radiating into the front to back and the patient came to [facility] and was admitted further evaluation and treatment. The patient also found to have some nausea also. On admission, abdominal and pelvis CT scan was done which showed mild pronounced sigmoid colonic wall as well as stable in the L4-5 as well as associated with neuroforaminal narrowing also. Orthopedic as well as surgery consultation wsa sought and the patient is also started on broad spectrum IV antibiotics. The patient was admitted to the hospital for further evaluation and treatment. Orthopedic evaluation recommended steroids. The patient apparently also had a neurosurgeon in the [place] area. Dr. Ba has seen the patient also. Past medical history of rheumatoid, seizure disorder, skin disorder. Medications prior to admission are: Home medications are: 1. Imuran 50 mg po t.i.d. 2. Miralax 17 gm daily. 3. Melatonin 5 mg po q.h.s. 5. Ecotrin 81 mg po. 6. Tylenol 650 mg. ALLERGIES: DILAUDID. FAMILY HISTORY: No history of cancer in the family. Father had leukemia. SOCIAL HISTORY: No history of smoking and no history of alcohol intake. REVIEW OF SYSTEMS: HEENT: No diminished vision. No diminished hearing. Cardiovascular system: No angina or palpitations. Respiratory: No cough. GI : No nausea or vomiting. : No dysuria. Nervous system: No numbness or weakness. Allergy/Immunology: No asthma or hayfever. Musculoskeletal: As mentioned earlier. Hematology/oncology: No history of anemia. Endocrine: No history of diabetes or hypothyroidism. Constitutional: As mentioned earlier. Dermatology: Negative. Rheumatology: Negative. Psychiatry: As mentioned earlier. PHYSICAL EXAMINATION: Alert and oriented times three. Pulse 76. Blood pressure 109/77. Respiratory rate 16, temperature 98.2. Pulse ox 97% on room air. HEENT: Conjunctivae normal. Oral mucosa moist. NECK: No JVD. No carotid bruit. No lymph node enlargement. Cardiovascular: S1, S2 normal. No S3, no S4. Respiratory: Breath sounds diminished at the bases. A few scattered rhonchi and crackles. Abdomen is soft. Nontender. No mass palpable. Legs: No edema. No swelling. Nervous system: Higher functions as mentioned earlier. Moves all four limbs. No focal deficits. Lymphatics: No lymph nodes palpable in the neck, axillae and groin. LABS: WBC 5.8, hemoglobin 13.9. Sodium 139. Potassium 4. ASSESSMENT: 1. Diffuse abdominal pain, possibly colitis. 2. Back pain, severe degenerative joint disease with L4-5 spinal canal neuroforaminal narrowing. 3. Rheumatoid arthritis. 4. Seizure disorder. 5. History of degenerative joint disease. 6. History of recent diverticulitis. RECOMMENDATIONS AND DISCUSSION: In this 47 -year-old woman who presented with multiple complex medical issues, at this time, recommend to continue current medications. Initial empiric antibiotics. Otherwise, resume the home medications. DVT prophylaxis. Guarded prognosis. Further recommendations to follow. Discussed with the patient. Symptomatic treatment for the pain will be ordered. MURALI
[2017-06-04] MEDS ORDERED: LEVOFLOXACIN 500 MG TAB PO SCH (16:00)
--- NOTE | 2017-06-05 20:03 | P.GSCN ---
History of Present Illness Consult date: 06/03/17 Reason for Consult: Abdominal pain Requesting physician: Lina Miranda History of present illness: The patient is a 47-year-old female who presents with day history of severe initially left flank pain with radiation to the left lower abdomen. She has known personal history of diverticulitis with previous drainage of intra- abdominal abscess within the last 6+ months. Since admission, she reports her abdominal pain particularly also her left flank pain has improved. No reports of fevers or chills. CT of the abdomen pelvis had been unremarkable. Secondary to her abdominal pain, Gen. surgery is consulted. Review of Systems CONSTITUTIONAL: Denies any fever or chills. Weight loss over 65+ pounds in 1 year. HEENT: Denies any trouble with vision, hearing or nosebleeds. No difficulty swallowing. LYMPHATIC: The patient denies any lumps and bumps around the neck. ENDOCRINE: Denies any thyroid disorders. Denies any blood sugar glucose intolerance. RESPIRATORY: Denies pneumonia. Denies any troubles with breathing or dyspnea on exertion. CARDIOVASCULAR: Denies any chest pain, palpitations, or recent heart attacks. GASTROINTESTINAL: Has heart burn. Occasional constipation. GENITOURINARY: Denies any blood in urine or increased urinary frequency. MUSCULOSKELETAL: Has severe back pain, stiffness, joint arthritis. NEUROLOGIC: Denies any numbness or tingling along the distal extremities. No seizure disorders or headaches. PSYCHIATRIC: Denies depression or suidical ideation. HEMATOLOGIC: Denies any abnormal bleeding or bruising. SKIN: Has no diffuse rash. No recent skin cancer. Has history of acne treated with oral antibiotics. RHEUMATOLIC: Has history of rheumatoid arthritis. Past Medical History Past Medical History: Rheumatoid Arthritis (RA), Seizure Disorder, Skin Disorder Additional Past Medical History / Comment(s): RA-pain in multiple joints, spinal stenosis/instability and herniated disc-difficulty walking, pt saw Dr. 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, childhood seizures, recent diverticulitis, rash on back History of Any Multi-Drug Resistant Organisms: None Reported Past Surgical History: Appendectomy, Cholecystectomy, Orthopedic Surgery Additional Past Surgical History / Comment(s): endoscopic sinus surgery, L knee arthroscopy, back epidural injections, recent EGD,colonoscopy Past Anesthesia/Blood Transfusion Reactions: No Reported Reaction, Motion Sickness Past Psychological History: No Psychological Hx Reported Smoking Status: Never smoker Past Alcohol Use History: None Reported Past Drug Use History: None Reported - Past Family History Father Family Medical History: Cancer Additional Family Medical History / Comment(s): Father of leukemia at the age of 65yrs. Mother Family Medical History: Diabetes Mellitus, Hypertension, Osteoarthritis (OA) Additional Family Medical History / Comment(s): Mother has IIDM, depression. Medications and Allergies Home Medications Medication Instructions Recorded Confirmed Type Meloxicam 15 mg PO DAILY 07/15/15 06/02/17 History Melatonin 5 mg PO HS 01/28/17 06/02/17 History Leflunomide [Arava] 20 mg PO DAILY 03/09/17 06/02/17 History Aspirin EC [Ecotrin Low Dose] 81 mg PO HS 03/18/17 06/02/17 History Acetaminophen Tab [Tylenol] 650 mg PO BID PRN 06/02/17 06/02/17 History azaTHIOprine [Imuran] 50 mg PO TID 06/02/17 06/02/17 History Allergies Allergy/AdvReac Type Severity Reaction Status Date / Time hydromorphone [From Dilaudid] AdvReac Nausea & Verified 06/02/17 20:55 Vomiting Surgical - Exam Vital Signs Temp Pulse Resp BP Pulse Ox 99.2 F 104 H 20 135/92 98 06/02/17 20:53 06/02/17 20:53 06/02/17 20:53 06/02/17 20:53 06/02/17 20:53 GENERAL: Well developed and in no acute distress. Pleasant. HEENT: No sclera icterus. Extraocular movements grossly intact. Moist buccal mucosa. Head is atraumatic, normocephalic. Hears conversational speech. No nasal drainage. NECK: Supple without lymphadenopathy. No JV distention. CHEST: Non-labored respirations and equal bilateral excursions. CARDIOVASCULAR: Regular rate and rhythm. Palpable 2+ radial pulses. ABDOMEN: Soft. Tenderness along left lower quadrant. No diffuse peritonitis. MUSCULOSKELETAL: No clubbing, cyanosis or edema. NEUROLOGIC: No focal or lateralizing signs. PSYCH: Appropriate affect. Alert and oriented to person, place and time. SKIN: Good skin turgor. Will perfused. Results - Labs 06/04/17 06:05 06/04/17 06:05 Abnormal Lab Results - Last 24 Hours (Table) 06/02/17 06/02/17 06/02/17 Range/Units 21:46 21:46 21:46 RDW 15.7 H (11.5-15.5) % Lymphocytes # 0.9 L (1.0-4.8) k/uL D-Dimer (<0.60) mg/L FEU BUN 18 H (7-17) mg/dL Glucose 101 H (74-99) mg/dL Urine Appearance Cloudy H (Clear) Urine Protein 1+ H (Negative) Urine Glucose (UA) Trace H (Negative) Urine Ketones Trace H (Negative) Urine Blood Trace H (Negative) Ur Squamous Epith Cells 7 H (0-4) /hpf Urine Mucus Many H (None) /hpf 06/02/17 Range/Units 21:46 RDW (11.5-15.5) % Lymphocytes # (1.0-4.8) k/uL D-Dimer 0.61 H (<0.60) mg/L FEU BUN (7-17) mg/dL Glucose (74-99) mg/dL Urine Appearance (Clear) Urine Protein (Negative) Urine Glucose (UA) (Negative) Urine Ketones (Negative) Urine Blood (Negative) Ur Squamous Epith Cells (0-4) /hpf Urine Mucus (None) /hpf Microbiology - Last 24 Hours (Table) 06/02/17 21:46 Urine Culture - Preliminary Urine,Clean Catch Diabetes panel 06/02/17 Range/Units 21:46 Sodium 139 (137-145) mmol/L Potassium 4.0 (3.5-5.1) mmol/L Chloride 106 (98-107) mmol/L Carbon Dioxide 24 (22-30) mmol/L BUN 18 H (7-17) mg/dL Creatinine 0.59 (0.52-1.04) mg/dL Glucose 101 H (74-99) mg/dL Calcium 9.2 (8.4-10.2) mg/dL AST 22 (14-36) U/L ALT 19 (9-52) U/L Alkaline Phosphatase 96 (38-126) U/L Total Protein 7.5 (6.3-8.2) g/dL Albumin 4.1 (3.5-5.0) g/dL Calcium panel 06/02/17 Range/Units 21:46 Calcium 9.2 (8.4-10.2) mg/dL Albumin 4.1 (3.5-5.0) g/dL Pituitary panel 06/02/17 Range/Units 21:46 Sodium 139 (137-145) mmol/L Potassium 4.0 (3.5-5.1) mmol/L Chloride 106 (98-107) mmol/L Carbon Dioxide 24 (22-30) mmol/L BUN 18 H (7-17) mg/dL Creatinine 0.59 (0.52-1.04) mg/dL Glucose 101 H (74-99) mg/dL Calcium 9.2 (8.4-10.2) mg/dL Adrenal panel 06/02/17 Range/Units 21:46 Sodium 139 (137-145) mmol/L Potassium 4.0 (3.5-5.1) mmol/L Chloride 106 (98-107) mmol/L Carbon Dioxide 24 (22-30) mmol/L BUN 18 H (7-17) mg/dL Creatinine 0.59 (0.52-1.04) mg/dL Glucose 101 H (74-99) mg/dL Calcium 9.2 (8.4-10.2) mg/dL Total Bilirubin 0.7 (0.2-1.3) mg/dL AST 22 (14-36) U/L ALT 19 (9-52) U/L Alkaline Phosphatase 96 (38-126) U/L Total Protein 7.5 (6.3-8.2) g/dL Albumin 4.1 (3.5-5.0) g/dL - Imaging CT scan - abdomen: report reviewed, image reviewed CT scan - pelvis: report reviewed, image reviewed (Findings consistent with mild inflammation of the descending colon. No free air or obstruction.) Assessment and Plan (1) Left flank pain Status: Acute (2) Left lower quadrant pain Status: Acute (3) BMI 50.0-59.9, adult Status: Acute (4) Back pain Status: Acute (5) Chronic back pain Status: Acute (6) Morbid obesity due to excess calories Status: Acute (7) Rheumatoid arthritis Status: Acute Plan: 1. Clinically her abdominal pain improved. 2. No surgical dementia and time. 3. Recommend treatment for history of diverticulitis.
--- NOTE | 2017-06-05 20:06 | P.PN ---
Subjective Principal diagnosis: Abdominal pain The patient is a 47 year old female with known history of rheumatoid arthritis including morbid obesity and diverticulitis. She had presented initially with left flank pain which radiated to the left lower quadrant. Today she reports her abdominal pain is essentially resolved. She is tolerating diet. Objective - Vital Signs Vital signs: Vital Signs Temp 97.8 F 06/04/17 02:54 Pulse 79 06/04/17 02:54 Resp 17 06/04/17 02:54 BP 130/83 06/04/17 02:54 Pulse Ox 94 L 06/04/17 02:54 Intake & Output 06/03/17 06/04/17 06/04/17 18:59 06:59 18:59 Intake Total 1270 Output Total 700 Balance 570 Weight 137.438 kg Intake: Intake, IV Titration 600 Amount Sodium Chloride 0.9% 1, 600 000 ml @ 75 mls/hr IV . [id number] [facility] Rx#:[id number] Oral 670 Output: Urine 700 Other: Voiding Method Toilet # Voids 2 - Exam GENERAL: Well developed and in no acute distress. Pleasant. HEENT: No sclera icterus. Extraocular movements grossly intact. Moist buccal mucosa. Head is atraumatic, normocephalic. Hears conversational speech. No nasal drainage. NECK: Supple without lymphadenopathy. No JV distention. CHEST: Non-labored respirations and equal bilateral excursions. CARDIOVASCULAR: Regular rate and rhythm. Palpable 2+ radial pulses. ABDOMEN: Soft, nontender. Nondistended. MUSCULOSKELETAL: No clubbing, cyanosis or edema. NEUROLOGIC: No focal or lateralizing signs. PSYCH: Appropriate affect. Alert and oriented to person, place and time. SKIN: Good skin turgor. Will perfused. - Labs CBC & Chem 7: 06/04/17 06:05 06/04/17 06:05 Labs: Abnormal Lab Results - Last 24 Hours (Table) 06/04/17 06/04/17 Range/Units 06:05 06:05 WBC 3.2 L (3.8-10.6) k/uL Lymphocytes # 0.8 L (1.0-4.8) k/uL Chloride 109 H (98-107) mmol/L Microbiology - Last 24 Hours (Table) 06/02/17 21:46 Urine Culture - Preliminary Urine,Clean Catch Assessment and Plan (1) Diverticulitis large intestine Status: Acute (2) Abdominal pain Status: Acute (3) BMI 50.0-59.9, adult Status: Acute (4) Chronic back pain Status: Acute (5) Left flank pain Status: Acute (6) Left lower quadrant pain Status: Acute (7) Morbid obesity due to excess calories Status: Acute (8) Rheumatoid arthritis Status: Acute Plan: 1. Continue with oral antibiotics for treatment for presumed diverticulitis. 2. Agreeable with discharge home with follow-up in the office.
--- NOTE | 2017-06-07 15:16 | DS ---
DATE OF SERVICE: 06/04/2017 FINAL DIAGNOSES: 1. Diffuse abdominal pain, acute colitis. 2. Back pain, severe degenerative joint disease. 3. L4-5 annular foraminal narrowing. 4. Rheumatoid arthritis. 5. Seizure disorder. DISCHARGE DISPOSITION: The patient will be discharged in a stable condition with guarded prognosis. HISTORY OF PRESENT ILLNESS: This is a 47-year-old woman with a past medical history of multiple medical problems, admitted with back and abdominal pain, treated symptomatically. Seen by Orthopedic Surgery and as well as General Surgery. Recommend outpatient followup. Also recommend a followup with Dr. Bloom in the outpatient setting. On exam, vitals are stable. CARDIOVASCULAR SYSTEM: S1, S2. ABDOMEN: Soft. NERVOUS SYSTEM: No focal deficits. DISCHARGE ADVICE: 1. Diet is cardiac. 2. Activity limited until followup with Dr. Bloom. 3. Follow up with patient's neurosurgeon as recommended. DISCHARGE MEDICATIONS: 1. Tylenol 650 b.i.d. p.r.n. 2. Ecotrin 81 mg q.h.s. 3. Imuran 50 mg p.o. t.i.d. 4. Arava 20 mg p.o. daily. 5. Levaquin 500 mg p.o. daily for 5 days. 6. Melatonin 5 mg q.h.s. 7. Meloxicam 15 mg p.o. daily. Once again, the patient will be discharged in a stable condition with a guarded prognosis. MTDD
== END 2017-06-04 14:00 | disposition home or self-care (01) ==
LOC: EC 20:50 → 3SUR 06-03 01:48
PROVIDERS: ADMIT Hospitalist; ATTEND Hospitalist
DX: K52.9 Noninfective gastroenteritis and colitis, unspecified (principal); K57.32 Diverticulitis of large intestine without perforation or abscess without bleeding; M19.90 Unspecified osteoarthritis, unspecified site; M06.9 Rheumatoid arthritis, unspecified; G40.909 Epilepsy, unspecified, not intractable, without status epilepticus; E66.01 Morbid (severe) obesity due to excess calories; G89.29 Other chronic pain; M54.5 Low back pain; Z68.43 Body mass index [BMI] 50.0-59.9, adult; Z79.82 Long term (current) use of aspirin; Z79.899 Other long term (current) drug therapy; Z88.5 Allergy status to narcotic agent; Z80.6 Family history of leukemia; Z81.8 Family history of other mental and behavioral disorders; Z83.3 Family history of diabetes mellitus; Z82.49 Family history of ischemic heart disease and other diseases of the circulatory system
CPT/HCPCS: 99285; 96375 ×5; 96361 ×2; 96376; 96365; 96372 ×2; 36415; 85379; 80053; 80048; 82150; 83690; 85025 ×2; 85610; 81001; 87086; 74176; G0378 ×2; J7500 ×2; J2270; J1644 ×2; J2405; J1956; J1885

== ENCOUNTER → 2017-06-15 | Outpatient (CLI) | payer MEDICARE, OTHER ==
[~2017-06-15] MED LIST changes: -DEXAMETHASONE SOD PHOSPHATE 10 MG/ML 1 ML VIAL IV ONE; -HEPARIN SODIUM,PORCINE 5,000 UNIT/ML 1 ML VIAL SQ ONE; +LIDOCAINE 2% INJ 20 MG/ML (20 ML MDV) ONE; -MIDAZOLAM 2 MG/2 ML VIAL IV PRN; +MIDAZOLAM 2 MG/2 ML VIAL ONE; -ONDANSETRON 4 MG/2 ML VIAL IVP ONE; -SCOPOLAMINE 1.5MG/72HR PATCH TRANSDERM ONE; -ceFAZolin 3 GM in SODIUM CHLORIDE 0.9% 100 ML IVPB ONE; +fentaNYL (PF) 50 MCG/ML 2 ML AMP ONE
[2017-06-15 14:06] VITALS: BP 130/72; PULSE 80; RESP 16; TEMP 98.6; BMI 55.0
[2017-06-15 15:46] LABS: CH 28.8; CHCM 32.2; HDW 2.68; HGB 13.4 gm/dL (11.4-16.0); MCHC 33.5 g/dL (31.0-37.0); MCV 89.6 fL (80.0-100.0); Mean Platelet Volume 6.3; RBC 4.47 m/uL (3.80-5.40); RDW 14.6 % (11.5-15.5); WBC 6.5 k/uL (3.8-10.6)
[2017-06-15 15:47] LABS: INR 1.1 (<1.2); Partial Thromboplastin Time 25.8 sec (22.0-30.0); Prothrombin Time 10.9 sec (9.0-12.0)
[2017-06-15 15:58] LABS: ALT 29 U/L (9-52); AST 16 U/L (14-36); Alkaline Phosphatase 98 U/L (38-126); Anion Gap 10 mmol/L; Blood Urea Nitrogen 17 mg/dL (7-17); Calcium 9.6 mg/dL (8.4-10.2); Carbon Dioxide 26 mmol/L (22-30); Chloride 106 mmol/L (98-107); Cholesterol 171 mg/dL (<200); Glucose 97 mg/dL (74-99); HDL Cholesterol 60 mg/dL (40-60); Iron 82 ug/dL (37-170); Magnesium 1.9 mg/dL (1.6-2.3); Non-African American GFR(MDRD) >60 (>60 ml/min/1.73 sqM); Potassium 4.4 mmol/L (3.5-5.1); Sodium 142 mmol/L (137-145); Total Protein 7.3 g/dL (6.3-8.2)
[2017-06-15 16:09] LABS: % Iron Saturation 21.5 % (20-50); Prealbumin 22 mg/dL (18-36); Total Iron Binding Capacity 381 ug/dL (265-497)
[2017-06-15 17:04] LABS: Vitamin B12 596 pg/mL (239-931)
[2017-06-15 17:59] LABS: Hemoglobin A1C 5.4 % (4.2-6.1)
[2017-06-18 10:53] LABS: Selenium 137 mcg/L (63-160)
== END | disposition home or self-care (01) ==
LOC: BARWHC3 13:18
PROVIDERS: ATTEND Surgery Plastic and Reconstructive Surgery
DX: Z48.815 Encounter for surgical aftercare following surgery on the digestive system (principal); E66.01 Morbid (severe) obesity due to excess calories; E21.1 Secondary hyperparathyroidism, not elsewhere classified; E89.1 Postprocedural hypoinsulinemia; D50.8 Other iron deficiency anemias; Z98.84 Bariatric surgery status; E44.0 Moderate protein-calorie malnutrition; E55.9 Vitamin D deficiency, unspecified; K74.1 Hepatic sclerosis; N19 Unspecified kidney failure; K50.90 Crohn's disease, unspecified, without complications; Z88.6 Allergy status to analgesic agent; Z68.43 Body mass index [BMI] 50.0-59.9, adult
CPT/HCPCS: 84255; 84134; 84425; 80061; 80053; 82607; 82728; 83036; 82525; 82746; 83540; 83550; 83735; 84100; 84443; 84590; 84630; 85027; 85610; 85730; 82306; 83970; 36415; G0463; 99211

== ENCOUNTER → 2017-06-28 | Outpatient (CLI) | payer MEDICARE, OTHER ==
--- NOTE | 2017-06-29 07:13 | MM ---
Reason for exam: screening (asymptomatic). Baseline mammogram. History: Took hormonal contraceptives for 1 year beginning at age 21. Physical Findings: Nurse did not find any significant physical abnormalities on exam. MG 3D Screening Mammo W/Cad CV view(s) were taken of the right breast. MLO and CC view(s) were taken of the left breast. The breast tissue is almost entirely fat. There is no discrete abnormality. These results were verbally communicated with the patient and result sheet given to the patient on 06/28/17. ASSESSMENT: Negative, BI-RAD 1 RECOMMENDATION: Routine screening mammogram of both breasts in 1 year.
== END | disposition home or self-care (01) ==
LOC: RADMAMWWP 12:40
PROVIDERS: ATTEND Family Medicine
DX: Z12.31 Encounter for screening mammogram for malignant neoplasm of breast (principal)
CPT/HCPCS: 77063; G0202

== ENCOUNTER → 2017-07-14 | Outpatient (CLI) | payer MEDICARE, OTHER ==
[2017-07-14 11:30] VITALS: BP 139/71; PULSE 97; RESP 16; TEMP 98.6; BMI 55.3
--- NOTE | 2017-07-31 15:14 | P.PN ---
Progress Note - Text DATE OF SERVICE: 07/14/2017 CHIEF COMPLAINT: Bariatric evaluation. HISTORY OF PRESENT ILLNESS: Marixa Otero is a 47-year-old female who reports morbid obesity lifelong. She is scheduled to undergo a lower back procedure given the severity of her osteoarthritis. She has developed reflux disease including hypertensive heart disease and prediabetes as a result of her morbid obesity. Separately, she had an upper endoscopy and was placed on omeprazole; however, she had a reaction with diarrhea. She now needs surgery on her hands for the severe rheumatoid arthritis. With her past history of abdominal surgery , she is evaluating for a sleeve gastrectomy. At her height of 5 foot 1.81 inches, her highest was 360 pounds. Initial body mass index was 66.4. She had lost 60 pounds on her own in less than 1 year. Total percent excess weight loss is 26% as a result. Body mass index is reduced to 55.3. PAST MEDICAL HISTORY: 1. Morbid obesity. 2. Body mass index initial of 66.4. 3. Gastroesophageal reflux disease. 4. Hiatal hernia. 5. Hyperlipidemia. 6. Prediabetes. 7. Sleep apnea. 8. Rheumatoid arthritis. 9. Osteoarthritis of the lower back. 10. Seizure disorder. 11. Skin disorder. 12. Diverticulitis with perforation. PAST SURGICAL HISTORY: 1. Cholecystectomy. 2. Lysis of adhesions. 3. Appendectomy. 4. Esophagogastroduodenoscopy. 5. Colonoscopy. 6. Sinus surgery. 7. Epidural injections. 8. Left knee arthroscopy. HOME MEDICATIONS: 1. Imuran. 2. Meloxicam 3. Arava 4. Melatonin. 5. Aspirin. 6. Tylenol. ALLERGIES: 1. Dilaudid. SOCIAL HISTORY: No active tobacco use. No alcohol use. FAMILY HISTORY: Denies any DVTs, pulmonary embolisms in her family. Denies any ulcerative colitis disease or Crohn's. She does have a family history of morbid obesity. REVIEW OF ORGAN SYSTEMS: CONSTITUTIONAL: No recent fevers or chills. At her height of 5 foot 1.81 inches , her highest was 360 pounds. Initial body mass index was 66.4. Today she comes in weighing 300 pounds. Her body mass is 55.3. She is 169 pounds overweight. She has maintained 60 pound weight loss in less than 1 year. HEENT: Denies any active troubles with vision or hearing. Past history of dysphagia. ENDOCRINE: No current diabetes. No hypothyroidism. CARDIOVASCULAR: No reports of palpitations or heart attacks. Past history of chest pain. Recent cardiovascular workup in the last 6 months. RESPIRATORY: Has daytime somnolence including snoring, suspicious for sleep apnea. No recent asthma. GI: Denies any bright red blood per rectum. Has gastroesophageal reflux disease. History of diverticulitis. MUSCULOSKELETAL: Describes generalized muscle aches. RHUEMATOLOGIC: Has rheumatoid arthritis. Also has severe lower back pain. NEURO: There were no reports of headaches. Past history of seizure disorder. PSYCH: Past depression. She had a recent psych assessment the last 3-4 months. HEMATOLOGIC: Denies any abnormal bleeding or bruising. SKIN: Has skin disorder including acting. No recent skin cancer. BREAST: No history of breast cancer. No history of breast lumps. PHYSICAL EXAM: VITAL SIGNS: Height 5 foot 1.81 inches, weight 300 pounds. BMI 55.3. Vital Signs Temp 98.6 F 07/14/17 10:50 Pulse 97 07/14/17 10:50 Resp 16 07/14/17 10:50 BP 139/71 07/14/17 10:50 Pulse Ox GENERAL: Well-developed female in no acute distress. HEENT: No scleral icterus. Extraocular movements grossly intact. Hears conversational speech. No nasal drainage. NECK: Supple without lymphadenopathy. CHEST: Nonlabored respirations with equal bilateral excursions. CARDIOVASCULAR: Regular rate. Distal 2+ pulses. ABDOMEN: Obese, soft, nontender, nondistended. MUSCULOSKELETAL: No clubbing, cyanosis, or edema. Gross strength 5/5 distal lower extremities. Hand deformity noted along the greater fingers. NEURO: No focal or lateralizing signs. Cranial nerves 2 through 12 grossly within normal limits. PSYCH: Appropriate affect. Alert and oriented to person, place and time. SKIN: Good skin turgor. Well perfused. LABS: Vitamin D deficiency identified. Rest of labs within normal limits. ASSESSMENT: 1. Morbid obesity. 2. Body mass index initial of 66.4 down to 55.3. 3. Gastroesophageal reflux disease. 4. Hiatal hernia. 5. Hyperlipidemia. 6. Prediabetes. 7. Sleep apnea. 8. Rheumatoid arthritis. 9. Osteoarthritis of the lower back. 10. Seizure disorder. 11. Skin disorder. 12. Diverticulitis with perforation. 13. Vitamin D deficiency. PLAN: 1. Labs reviewed with findings of vitamin D deficiency. 2. With a history of rheumatoid arthritis, she is looking into a sleeve gastrectomy. 3. Currently, she requires immediate surgery on her hand. Will need at least 30 days between procedures. 4. Recommend diet classes for gastrectomy procedures. 5. She has completed cardiac risk assessment. 6. Psych assessment per insurance guidelines. 7. She has intolerance to omeprazole. Recommend Zantac instead. 8. Recommend vitamin D supplement 50,000 units weekly.
== END | disposition home or self-care (01) ==
LOC: BARWHC3 09:47
PROVIDERS: ATTEND Surgery Plastic and Reconstructive Surgery
DX: E66.01 Morbid (severe) obesity due to excess calories (principal); Z68.43 Body mass index [BMI] 50.0-59.9, adult; K21.9 Gastro-esophageal reflux disease without esophagitis; K44.9 Diaphragmatic hernia without obstruction or gangrene; E78.5 Hyperlipidemia, unspecified; R73.03 Prediabetes; G47.30 Sleep apnea, unspecified; M06.9 Rheumatoid arthritis, unspecified; M47.816 Spondylosis without myelopathy or radiculopathy, lumbar region; G40.909 Epilepsy, unspecified, not intractable, without status epilepticus; L98.9 Disorder of the skin and subcutaneous tissue, unspecified; K57.92 Diverticulitis of intestine, part unspecified, without perforation or abscess without bleeding; E55.9 Vitamin D deficiency, unspecified; Z88.5 Allergy status to narcotic agent; Z79.1 Long term (current) use of non-steroidal anti-inflammatories (NSAID); Z79.82 Long term (current) use of aspirin; Z79.899 Other long term (current) drug therapy
CPT/HCPCS: 99211

== ENCOUNTER 2017-08-01 11:05 | Day surgery (SDC) | payer MEDICARE, OTHER ==
[2017-07-26 14:48] VITALS: BMI 55.2
[~2017-08-01 11:05] MED LIST changes: +DEXAMETHASONE SOD PHOSPHATE 10 MG/ML 1 ML VIAL IV ONE; +LACTATED RINGERS 1,000 ML IV SCH; -LIDOCAINE 2% INJ 20 MG/ML (20 ML MDV) ONE; +MIDAZOLAM 2 MG/2 ML VIAL IV PRN; -MIDAZOLAM 2 MG/2 ML VIAL ONE; +ONDANSETRON 4 MG/2 ML VIAL IVP ONE; +Pre Op ABX Message 1 EACH MISC MISCELLANE ONE; +SCOPOLAMINE 1.5MG/72HR PATCH TRANSDERM ONE; +fentaNYL (PF) 50 MCG/ML 2 ML AMP IV PRN; -fentaNYL (PF) 50 MCG/ML 2 ML AMP ONE
[2017-08-01 11:31] VITALS: TEMP 98.2
[2017-08-01] MEDS ORDERED: LIDOCAINE 1% 20 ML VIAL (10MG/ML) FOR IV START INTRADERMA ONE (11:36)
[2017-08-01] MEDS ORDERED: LIDOCAINE 1% INJ 10MG/ML (20 ML MDV) ONE (12:46)
[2017-08-01] MEDS ORDERED: PROPOFOL 10 MG/ML 20 ML VIAL IV ONE (12:46)
[2017-08-01] MEDS ORDERED: fentaNYL (PF) 50 MCG/ML 2 ML AMP ONE (12:46)
[2017-08-01] MEDS ORDERED: MIDAZOLAM 2 MG/2 ML VIAL ONE (12:46)
[2017-08-01] MEDS ORDERED: BUPIVACAINE (PF) 0.5% 30 ML VIAL SQ ONE (13:02)
[2017-08-01] MEDS ORDERED: LIDOCAINE 2% INJ 20 MG/ML SQ ONE (13:03)
[2017-08-01 13:57] VITALS: BP 130/78; PULSE 72; RESP 18
--- NOTE | 2017-09-18 22:12 | OP ---
OPERATIVE REPORT PROCEDURE DATE: 08/01/2017 PREOP DIAGNOSIS: Mass volar proximal phalanx level right middle finger. FINAL DIAGNOSIS: Mass volar proximal phalanx level right middle finger. PROCEDURE: 1. Excision mass volar right middle finger. 2. Neurolysis ulnar digital nerve. GROSS PATHOLOGY: This was a moderately well encapsulated multi lobular darkish colored mass approximately 2 cm in diameter. It was grossly consistent with giant cell tumor. The vital structures including the flexor tendon and digital nerves were intact. DESCRIPTION OF PROCEDURE: This 47-year-old wounds was taken to the operative suite, given IV sedation. A digital block was performed of her right middle finger with combinations of Xylocaine and Marcaine both without epinephrine. The hand was prepped and draped in the usual manner. The arm was then elevated exsanguinated and cuff was inflated to 250 mmHg. A longitudinal zigzag incision was made over the proximal phalanx level of the right middle finger. The procedure was done under 4.5 loupe magnification. The mass was encountered and dissected free of the vital structures. In particular, the ulnar digital nerve was encompassed by the mass and a neurolysis of the digital nerve was necessary to free it. When this was accomplished, it was gently retracted out of harm's way and the mass was excised. It was dissected off of the flexor tendon sheath and periosteum of the middle 3rd of the proximal phalanx. The mass was sent to the lab for analysis. The wound was thoroughly irrigated. Tourniquet was released. Hemostasis acquired with pressure and electrocautery. Digital nerves were intact at the completion of the procedure. The wound was closed with 5-O nylon sutures. Soft bulky dressing was applied. The patient was taken to recovery room in satisfactory condition. MMODL / IJN: [id number] /
== END 2017-08-01 14:26 | disposition home or self-care (01) ==
LOC: OR 11:05
PROVIDERS: ATTEND Orthopaedic Surgery Hand Surgery
DX: D48.1 Neoplasm of uncertain behavior of connective and other soft tissue (principal); Z79.82 Long term (current) use of aspirin; Z79.899 Other long term (current) drug therapy; Z88.5 Allergy status to narcotic agent; M06.9 Rheumatoid arthritis, unspecified; E66.01 Morbid (severe) obesity due to excess calories
CPT/HCPCS: 26160; 64702; 81025; 88307; J2001 ×2; J2250; J1100; J2405; J3010; J2704; 88305

== ENCOUNTER 2017-08-03 15:21 | Inpatient (IN) | payer MEDICARE, OTHER ==
[2017-08-03] MEDS ORDERED: DICYCLOMINE 10 MG/ML 2 ML AMP IM STA (15:50)
[2017-08-03] MEDS ORDERED: SODIUM CHLORIDE 0.9% 1,000 ML IV STA (15:50)
[2017-08-03] MEDS ORDERED: RX INFO: IV CONTRAST WAS GIVEN 1 EACH MISC MISCELLANE PRN (15:57)
--- NOTE | 2017-08-03 16:08 | ED ---
Abdominal Pain HPI - General Chief Complaint: Abdominal Pain Stated Complaint: Dr Sent/Vomiting Time Seen by Provider: 08/03/17 15:49 Source: patient Mode of arrival: wheelchair Limitations: no limitations - History of Present Illness Initial Comments: Patient is a 47-year-old morbidly obese female with extensive past medical history who presents to the emergency department for evaluation of severe abdominal pain, nausea, vomiting and bloody diarrhea. The patient's recent history is significant for acute appendicitis with abscess in January of this year , subsequently readmitted for abdominal pain and diverticulitis. She was then admitted in February for acute cholecystitis and had a cholecystectomy. Patient underwent a colonoscopy at that time which revealed diffuse diverticular disease. Patient reports that she has been doing well over the past few months but on Tuesday evening she began feeling nausea and vague abdominal pain. Throughout the day Tuesday pain progressively worsened, she developed fever, bloody diarrhea and multiple episodes of nonbloody nonbilious emesis. Patient describes this pain as being similar in context to previous episode of acute appendicitis. He describes the pain as stabbing and tearing, severe in intensity no relieving factors. She saw her primary care physician this afternoon who gave her an IM shot of Zofran and advised to come to the emergency department for further evaluation. Patient denies chest pain, shortness of breath, vaginal bleeding or discharge. MD Complaint: abdominal pain Onset/Timin -: days(s) Location: diffuse, RUQ, RLQ Severity: severe Quality: cramping, stabbing, fullness, sharp Consistency: constant Improves With: nothing Worsens With: nothing Associated Symptoms: nausea, vomiting, diarrhea, fever, chills, anorexia - Related Data Home Medications Medication Instructions Recorded Confirmed Meloxicam 15 mg PO DAILY 07/15/15 08/03/17 Melatonin 5 mg PO HS 01/28/17 08/03/17 Leflunomide [Arava] 20 mg PO DAILY 03/09/17 08/03/17 Aspirin EC [Ecotrin Low Dose] 81 mg PO HS 03/18/17 08/03/17 Acetaminophen Tab [Tylenol] 650 mg PO BID PRN 06/02/17 08/03/17 azaTHIOprine [Imuran] 50 mg PO TID 06/02/17 08/03/17 Cholecalciferol (Vitamin D3) 10,000 unit PO DAILY 07/14/17 08/03/17 [Vitamin D3] Allergies Allergy/AdvReac Type Severity Reaction Status Date / Time hydromorphone [From Dilaudid] AdvReac Nausea & Verified 08/03/17 21:20 Vomiting Review of Systems ROS Statement: Those systems with pertinent positive or pertinent negative responses have been documented in the HPI. ROS Other: All systems not noted in ROS Statement are negative. Past Medical History Past Medical History: Rheumatoid Arthritis (RA), Seizure Disorder, Skin Disorder Additional Past Medical History / Comment(s): RA-pain in multiple joints, spinal stenosis/instability and herniated disc-difficulty walking, pt saw Dr. 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, childhood seizures, recent diverticulitis, History of Any Multi-Drug Resistant Organisms: None Reported Past Surgical History: Appendectomy, Cholecystectomy, Orthopedic Surgery Additional Past Surgical History / Comment(s): endoscopic sinus surgery, L knee arthroscopy, back epidural injections, recent EGD,colonoscopy Past Anesthesia/Blood Transfusion Reactions: Motion Sickness Past Psychological History: No Psychological Hx Reported Smoking Status: Never smoker Past Alcohol Use History: None Reported Past Drug Use History: None Reported - Past Family History Father Family Medical History: Cancer Additional Family Medical History / Comment(s): Father of leukemia at the age of 65yrs. Mother Family Medical History: Diabetes Mellitus, Hypertension, Osteoarthritis (OA) Additional Family Medical History / Comment(s): Mother has IIDM, depression. General Exam Limitations: no limitations Course Vital Signs 08/03/17 08/03/17 08/03/17 15:46 16:30 17:15 Temperature 101.0 F H 100.9 F H Pulse Rate 110 H 117 H 115 H Pulse Rate [ Pulse Oximetery ] Respiratory 20 22 20 Rate Blood Pressure 151/64 135/86 137/70 Blood Pressure [Right Arm] O2 Sat by Pulse 99 95 100 Oximetry 08/03/17 08/03/17 08/03/17 17:54 19:04 20:31 Temperature 99.9 F H 99.0 F 98 F Pulse Rate 107 H 105 H 108 H Pulse Rate [ Pulse Oximetery ] Respiratory 22 18 18 Rate Blood Pressure 119/73 117/57 115/62 Blood Pressure [Right Arm] O2 Sat by Pulse 97 95 98 Oximetry 08/03/17 21:00 Temperature 99.3 F Pulse Rate Pulse Rate [ 109 H Pulse Oximetery ] Respiratory 16 Rate Blood Pressure Blood Pressure 125/70 [Right Arm] O2 Sat by Pulse 95 Oximetry Medical Decision Making - Medical Decision Making She was seen and evaluated Vital signs were reviewed Nica is obtained from the patient and medical record With a very complicated recent surgical history as well as multiple abdominal abscesses and recurrent diverticulitis Labs and ordered She received Zofran at her PCP office prior to transfer here Computed tomography scan reveals a large intra-abdominal abscess The antibiotics ordered Surgical team paged 7:45 PM She care was discussed with the surgical team is very familiar with the patient , they recommend consult IR for drainage and admission to medicine. 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 They request a consult IR , consult was placed. They agree with the plan for further antibiosis with Zosyn. - Lab Data Result diagrams: 08/03/17 16:30 08/03/17 16:30 Lab Results 08/03/17 08/03/17 08/03/17 Range/Units 16:15 16:15 16:15 WBC (3.8-10.6) k/uL RBC (3.80-5.40) m/uL Hgb (11.4-16.0) gm/dL Hct (34.0-46.0) % MCV (80.0-100.0) fL MCH (25.0-35.0) pg MCHC (31.0-37.0) g/dL RDW (11.5-15.5) % Plt Count (150-450) k/uL Neutrophils % % Lymphocytes % % Monocytes % % Eosinophils % % Basophils % % Neutrophils # (1.3-7.7) k/uL Lymphocytes # (1.0-4.8) k/uL Monocytes # (0-1.0) k/uL Eosinophils # (0-0.7) k/uL Basophils # (0-0.2) k/uL Sodium (137-145) mmol/L Potassium (3.5-5.1) mmol/L Chloride (98-107) mmol/L Carbon Dioxide (22-30) mmol/L Anion Gap mmol/L BUN (7-17) mg/dL Creatinine (0.52-1.04) mg/dL Est GFR (MDRD) Af Amer (>60 ml/min/1.73 sqM) Est GFR (MDRD) Non-Af (>60 ml/min/1.73 sqM) Glucose (74-99) mg/dL Plasma Lactic Acid Jose Martin (0.7-2.0) mmol/L Calcium (8.4-10.2) mg/dL Total Bilirubin (0.2-1.3) mg/dL AST (14-36) U/L ALT (9-52) U/L Alkaline Phosphatase (38-126) U/L Total Protein (6.3-8.2) g/dL Albumin (3.5-5.0) g/dL Lipase (23-300) U/L Urine Color Yellow Urine Appearance Cloudy H (Clear) Urine pH 8.5 H (5.0-8.0) Ur Specific [place] 1.023 (1.001-1.035) Urine Protein 3+ H (Negative) Urine Glucose (UA) Trace H (Negative) Urine Ketones Negative (Negative) Urine Blood Negative (Negative) Urine Nitrite Negative (Negative) Urine Bilirubin Negative (Negative) Urine Urobilinogen 2.0 (<2.0) mg/dL Ur Leukocyte Esterase Large H (Negative) Urine RBC 2 (0-5) /hpf Urine WBC 46 H (0-5) /hpf Ur Squamous Epith Cells 12 H (0-4) /hpf Urine Bacteria Rare H (None) /hpf Urine Mucus Occasional H (None) /hpf Urine HCG, Qual Not Detected (Not Detectd) Blood Type B Positive Blood Type Confirm Blood Type Recheck CABO Indicated Antibody Screen NEGATIVE Spec Expiration Date 08/06/2017232908/03/17 08/03/17 08/03/17 Range/Units 16:30 16:30 16:30 WBC 10.8 H (3.8-10.6) k/uL RBC 4.52 (3.80-5.40) m/uL Hgb 13.5 (11.4-16.0) gm/dL Hct 40.7 (34.0-46.0) % MCV 90.0 (80.0-100.0) fL MCH 29.8 (25.0-35.0) pg MCHC 33.1 (31.0-37.0) g/dL RDW 14.7 (11.5-15.5) % Plt Count 403 (150-450) k/uL Neutrophils % 86 % Lymphocytes % 7 % Monocytes % 5 % Eosinophils % 0 % Basophils % 1 % Neutrophils # 9.2 H (1.3-7.7) k/uL Lymphocytes # 0.8 L (1.0-4.8) k/uL Monocytes # 0.6 (0-1.0) k/uL Eosinophils # 0.0 (0-0.7) k/uL Basophils # 0.1 (0-0.2) k/uL Sodium 136 L (137-145) mmol/L Potassium 3.5 (3.5-5.1) mmol/L Chloride 105 (98-107) mmol/L Carbon Dioxide 20 L (22-30) mmol/L Anion Gap 11 mmol/L BUN 15 (7-17) mg/dL Creatinine 0.65 (0.52-1.04) mg/dL Est GFR (MDRD) Af Amer >60 (>60 ml/min/1.73 sqM) Est GFR (MDRD) Non-Af >60 (>60 ml/min/1.73 sqM) Glucose 105 H (74-99) mg/dL Plasma Lactic Acid Jose Martin 1.5 (0.7-2.0) mmol/L Calcium 8.8 (8.4-10.2) mg/dL Total Bilirubin 1.1 (0.2-1.3) mg/dL AST 16 (14-36) U/L ALT 20 (9-52) U/L Alkaline Phosphatase 88 (38-126) U/L Total Protein 6.9 (6.3-8.2) g/dL Albumin 3.7 (3.5-5.0) g/dL Lipase 51 (23-300) U/L Urine Color Urine Appearance (Clear) Urine pH (5.0-8.0) Ur Specific [place] (1.001-1.035) Urine Protein (Negative) Urine Glucose (UA) (Negative) Urine Ketones (Negative) Urine Blood (Negative) Urine Nitrite (Negative) Urine Bilirubin (Negative) Urine Urobilinogen (<2.0) mg/dL Ur Leukocyte Esterase (Negative) Urine RBC (0-5) /hpf Urine WBC (0-5) /hpf Ur Squamous Epith Cells (0-4) /hpf Urine Bacteria (None) /hpf Urine Mucus (None) /hpf Urine HCG, Qual (Not Detectd) Blood Type Blood Type Confirm Blood Type Recheck Antibody Screen Spec Expiration Date 08/03/17 Range/Units 19:09 WBC (3.8-10.6) k/uL RBC (3.80-5.40) m/uL Hgb (11.4-16.0) gm/dL Hct (34.0-46.0) % MCV (80.0-100.0) fL MCH (25.0-35.0) pg MCHC (31.0-37.0) g/dL RDW (11.5-15.5) % Plt Count (150-450) k/uL Neutrophils % % Lymphocytes % % Monocytes % % Eosinophils % % Basophils % % Neutrophils # (1.3-7.7) k/uL Lymphocytes # (1.0-4.8) k/uL Monocytes # (0-1.0) k/uL Eosinophils # (0-0.7) k/uL Basophils # (0-0.2) k/uL Sodium (137-145) mmol/L Potassium (3.5-5.1) mmol/L Chloride (98-107) mmol/L Carbon Dioxide (22-30) mmol/L Anion Gap mmol/L BUN (7-17) mg/dL Creatinine (0.52-1.04) mg/dL Est GFR (MDRD) Af Amer (>60 ml/min/1.73 sqM) Est GFR (MDRD) Non-Af (>60 ml/min/1.73 sqM) Glucose (74-99) mg/dL Plasma Lactic Acid Jose Martin (0.7-2.0) mmol/L Calcium (8.4-10.2) mg/dL Total Bilirubin (0.2-1.3) mg/dL AST (14-36) U/L ALT (9-52) U/L Alkaline Phosphatase (38-126) U/L Total Protein (6.3-8.2) g/dL Albumin (3.5-5.0) g/dL Lipase (23-300) U/L Urine Color Urine Appearance (Clear) Urine pH (5.0-8.0) Ur Specific [place] (1.001-1.035) Urine Protein (Negative) Urine Glucose (UA) (Negative) Urine Ketones (Negative) Urine Blood (Negative) Urine Nitrite (Negative) Urine Bilirubin (Negative) Urine Urobilinogen (<2.0) mg/dL Ur Leukocyte Esterase (Negative) Urine RBC (0-5) /hpf Urine WBC (0-5) /hpf Ur Squamous Epith Cells (0-4) /hpf Urine Bacteria (None) /hpf Urine Mucus (None) /hpf Urine HCG, Qual (Not Detectd) Blood Type Blood Type Confirm B Positive Blood Type Recheck Antibody Screen Spec Expiration Date Disposition Clinical Impression: Abscess of sigmoid colon due to diverticulitis Disposition: ADMITTED IP TO THIS [facility] Time of Disposition: 19:59
[2017-08-03 16:46] LABS: Basophils # (A) 0.1 k/uL (0-0.2); Basophils % (A) 1 %; CH 29.5; CHCM 32.9; Eosinophils % (A) 0 %; HCT 40.7 % (34.0-46.0); HDW 2.65; HGB 13.5 gm/dL (11.4-16.0); Luc # (Auto) 0.14; Luc % (Auto) 1; Lymphocytes # (A) 0.8 k/uL (1.0-4.8); Lymphocytes % (A) 7 %; MCH 29.8 pg (25.0-35.0); MCHC 33.1 g/dL (31.0-37.0); Mean Platelet Volume 6.4; Monocytes # (A) 0.6 k/uL (0-1.0); Monocytes % (A) 5 %; Neutrophils # (A) 9.2 k/uL (1.3-7.7); Neutrophils % (A) 86 %; RBC 4.52 m/uL (3.80-5.40); RDW 14.7 % (11.5-15.5); WBC 10.8 k/uL (3.8-10.6); WBC (Perox) 11.32
[2017-08-03 16:47] LABS: Appearance,Urine Cloudy (Clear); Bacteria,Urine Rare /hpf; Bilirubin,Urine Negative (Negative); Glucose,Urine (UA) Trace (Negative); Ketones,Urine Negative (Negative); Leukocyte Esterase,Urine Large (Negative); Mucus,Urine Occasional /hpf; Nitrite,Urine Negative (Negative); PH, Urine 8.5 (5.0-8.0); Particle Count 10895; Protein,Urine 3+ (Negative); RBC,Urine 2 /hpf (0-5); Specific Gravity,Urine 1.023 (1.001-1.035); Squamous Epithelial Cell,Urine 12 /hpf (0-4); UA Billing (MACRO vs. MICRO) MICRO; WBC,Urine 46 /hpf (0-5)
[2017-08-03 16:57] LABS: ALT 20 U/L (9-52); AST 16 U/L (14-36); Alkaline Phosphatase 88 U/L (38-126); Anion Gap 11 mmol/L; Blood Urea Nitrogen 15 mg/dL (7-17); Calcium 8.8 mg/dL (8.4-10.2); Carbon Dioxide 20 mmol/L (22-30); Chloride 105 mmol/L (98-107); Glucose 105 mg/dL (74-99); Non-African American GFR(MDRD) >60 (>60 ml/min/1.73 sqM); Potassium 3.5 mmol/L (3.5-5.1); Sodium 136 mmol/L (137-145); Total Bilirubin 1.1 mg/dL (0.2-1.3); Total Protein 6.9 g/dL (6.3-8.2)
--- NOTE | 2017-08-03 17:34 | XR ---
EXAMINATION TYPE: XR KUB DATE OF EXAM: 08/03/2017 COMPARISON: NONE HISTORY: Pain TECHNIQUE: Single supine KUB image of the abdomen is obtained FINDINGS: Small bowel demonstrates no evidence for dilatation or air fluid levels. Gas and fecal material is seen in non-distended colon. No convincing evidence for pneumoperitoneum. No unusual calcifications. The lung bases are clear. The osseous structures are intact. IMPRESSION: 1. Overall nonobstructive bowel gas pattern.
[2017-08-03] MEDS ORDERED: ONDANSETRON 4 MG/2 ML VIAL IVP STA (17:57)
[2017-08-03] MEDS ORDERED: MORPHINE SULFATE 4 MG/ML SYRINGE IV ONE (17:57)
--- NOTE | 2017-08-03 18:11 | CT ---
EXAMINATION TYPE: CT abdomen pelvis w con DATE OF EXAM: 08/03/2017 COMPARISON: June 02, 2017 HISTORY: Patient complains of RLQ pain, nausea, vomiting, and diarrhea. CT DLP: 3290.1 mGycm CONTRAST: CT scan of the abdomen and pelvis is performed without Oral Contrast and with IV Contrast, patient in jected with 100 mL of Omnipaque 300. FINDINGS: LUNG BASES-: No visible nodule. No infiltrate. LIVER/GB: Cholecystectomy clips are in place. No space occupying hepatic lesion. Biliary tree is o f normal caliber. PANCREAS: No inflammation. No distinct mass. SPLEEN: No splenic enlargement. No lesion seen. ADRENALS: No nodule. No thickening. KIDNEYS/BLADDER: No hydronephrosis. No nephrolithiasis. No disctinct renal mass. Urinary bladder g rossly unremarkable. BOWEL: Normal appendix. There is moderately severe sigmoid diverticulitis with surrounding inflammato ry change and abscess measuring 9.4 x 4.4 x 3.5 cm. Small bowel is of normal caliber. No free air is evident. GENITAL ORGANS: No gross abnormality. LYMPH NODES: No greater than 1cm abdominal or pelvic lymph nodes are appreciated. AORTA: No significant abnormality. OSSEOUS STRUCTURES: No significant abnormality is seen. OTHER: No significant additional abnormality is seen. IMPRESSION: 1. Sigmoid diverticulitis with its extensive surrounding inflammatory change and abscess as discussed above.
[2017-08-03] MEDS ORDERED: metroNIDAZOLE-NS PMX 500 MG in SALINE 1 100ML.BAG IVPB STA (18:18)
[2017-08-03] MEDS ORDERED: LEVOFLOXACIN 750MG-D5W PMX 750 MG in DEXTROSE/WATER 1 150ML.BAG IVPB STA (18:18)
[2017-08-03] MEDS ORDERED: AMPICILLIN-SULBACTAM 3 GM in SODIUM CHLORIDE 0.9% 100 ML IVPB STA (18:25)
[2017-08-03] MEDS ORDERED: SODIUM CHLORIDE 0.9% 1,000 ML IV ONE (18:26)
[2017-08-03] MEDS ORDERED: NALOXONE 0.4 MG/ML 1 ML VIAL IV PRN (19:52)
[2017-08-03] MEDS: SODIUM CHLORIDE 0.9% 1,000 ML IV SCH (21:43)
[2017-08-03] MEDS: METOCLOPRAMIDE 5 MG/ML 2 ML VIAL IVP PRN (21:43)
[2017-08-04] MEDS: MORPHINE SULFATE 4 MG/ML SYRINGE IV PRN ×5 (00:03→23:15)
[2017-08-04] MEDS: ONDANSETRON 4 MG/2 ML VIAL IVP PRN ×2 (04:55→14:15)
[2017-08-04] MEDS: SODIUM CHLORIDE 0.9% 1,000 ML IV SCH ×3 (05:09→23:06)
[2017-08-04] MEDS: METOCLOPRAMIDE 5 MG/ML 2 ML VIAL IVP PRN (09:38)
[2017-08-04 09:49] LABS: Basophils % (A) 1 %; CH 29.4; Eosinophils # (A) 0.1 k/uL (0-0.7); Eosinophils % (A) 1 %; HCT 35.9 % (34.0-46.0); HDW 2.61; HGB 11.4 gm/dL (11.4-16.0); Luc # (Auto) 0.13; Luc % (Auto) 2; Lymphocytes # (A) 0.6 k/uL (1.0-4.8); Lymphocytes % (A) 7 %; MCH 29.3 pg (25.0-35.0); MCHC 31.7 g/dL (31.0-37.0); MCV 92.3 fL (80.0-100.0); Monocytes # (A) 0.5 k/uL (0-1.0); Monocytes % (A) 6 %; Neutrophils # (A) 7.4 k/uL (1.3-7.7); Neutrophils % (A) 85 %; RBC 3.89 m/uL (3.80-5.40); RDW 14.7 % (11.5-15.5); WBC 8.8 k/uL (3.8-10.6); WBC (Perox) 9.34
[2017-08-04 09:53] LABS: INR 1.3 (<1.2); Prothrombin Time 12.5 sec (9.0-12.0)
[2017-08-04 09:58] LABS: ALT 31 U/L (9-52); AST 33 U/L (14-36); Alkaline Phosphatase 88 U/L (38-126); Anion Gap 7 mmol/L; Blood Urea Nitrogen 14 mg/dL (7-17); Calcium 8.1 mg/dL (8.4-10.2); Carbon Dioxide 25 mmol/L (22-30); Chloride 107 mmol/L (98-107); Glucose 90 mg/dL (74-99); Non-African American GFR(MDRD) >60 (>60 ml/min/1.73 sqM); Potassium 3.5 mmol/L (3.5-5.1); Sodium 139 mmol/L (137-145); Total Bilirubin 1.3 mg/dL (0.2-1.3); Total Protein 5.9 g/dL (6.3-8.2)
[2017-08-04] MEDS: PIPERACILLIN-TAZOBACTAM 3.375 GM in DEXTROSE/WATER 1 50ML.BAG IVPB SCH ×3 (11:21→23:11)
--- NOTE | 2017-08-04 14:19 | P.CONS ---
History of Present Illness - Reason for Consult Consult date: 08/04/17 Antibiotic management - History of Present Illness This is a 47-year-old female known to ID service as she was seen in January of this year at which time she was seen for appendicitis and peritonitis. He was discharged at that time on Augmentin to complete another 7 days. Since that time, patient underwent an outpatient CAT scan of the abdomen and pelvis with contrast that showed no suspicious intra-abdominal abnormalities. On June 11, she underwent EGD with biopsies finding gastritis, gastroesophageal reflux disease. Biopsy was positive for chronic gastritis and negative for H. pylori. Sigmoid biopsy showed no significant changes. Colonoscopy showed sigmoid diverticulosis and focal sigmoid diverticulitis. She was then admitted on March 18 for atypical chest pain following laparoscopic cholecystectomy likely secondary to Hannah-Ramos tears. She was most recently admitted in May for acute colitis. Patient states she was doing well until Tuesday at 7 PM she started with cramping abdominal pain in the right lower quadrant that then went to the left lower quadrant and it gave her a strange sensation in the vaginal area. She describes it as a spasm type pain. She had bright red blood from her rectum and following that started having some nausea and vomiting and fever. The abdominal pain worsened. By the morning her last bowel movement was a greasy film on the water. She states she has not had any food. By the afternoon she was having a sharp abdominal pain and had lost control of her bladder. She went to her doctor's office and was told to come into [facility] emergency center for evaluation. She was found to have a temperature 101 with white count of 10.8. Urinalysis was cloudy, leukoesterase large, WBC is 46 and squamous cells 12th she denies urinary symptoms. She underwent a KUB that showed nonobstructive pattern and abdominal and pelvic CAT scan with contrast showed sigmoid diverticulitis with extensive surrounding inflammatory change and abscess. She has been admitted to the hospital and started on Unasyn which is subtotally been changed by ID to Zosyn. She has a CAT scan guided abscess drainage scheduled for this afternoon. Patient continues to have nausea and vomiting as well as significant abdominal pain. Review of Systems All systems: negative Constitutional: Reports anorexia, Reports chills, Reports fatigue, Reports fever , Reports poor appetite Eyes: denies blurred vision, denies pain Ears, nose, mouth and throat: Denies dental pain, Denies headache, Denies mouth pain, Denies sore throat, Denies vertigo Cardiovascular: Denies chest pain, Denies decreased exercise tolerance, Denies dyspnea on exertion, Denies edema, Denies leg edema, Denies lightheadedness, Denies shortness of breath, Denies syncope Respiratory: Denies cough, Denies cough with sputum, Denies dyspnea, Denies excessive sputum, Denies hemoptysis, Denies home oxygen Gastrointestinal: Reports abdominal pain, Reports diarrhea, Reports loss of appetite, Reports melena, Reports nausea, Reports vomiting, Denies constipation Genitourinary: Denies dysuria, Denies hematuria, Denies urgency, Denies urinary frequency Musculoskeletal: Denies myalgias Integumentary: Denies pruritus, Denies rash, Denies wounds Neurological: Denies numbness, Denies weakness Psychiatric: Denies anxiety, Denies depression Endocrine: Denies fatigue, Denies weight change Past Medical History Past Medical History: Rheumatoid Arthritis (RA), Seizure Disorder, Skin Disorder Additional Past Medical History / Comment(s): RA-pain in multiple joints, spinal stenosis/instability and herniated disc-difficulty walking, pt saw Dr. 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, childhood seizures, recent diverticulitis, History of Any Multi-Drug Resistant Organisms: None Reported Past Surgical History: Appendectomy, Cholecystectomy, Orthopedic Surgery Additional Past Surgical History / Comment(s): endoscopic sinus surgery, L knee arthroscopy, back epidural injections, recent EGD,colonoscopy Past Anesthesia/Blood Transfusion Reactions: Motion Sickness Past Psychological History: No Psychological Hx Reported Smoking Status: Never smoker Past Alcohol Use History: None Reported Past Drug Use History: None Reported - Past Family History Father Family Medical History: Cancer Additional Family Medical History / Comment(s): Father of leukemia at the age of 65yrs. Mother Family Medical History: Diabetes Mellitus, Hypertension, Osteoarthritis (OA) Additional Family Medical History / Comment(s): Mother has IIDM, depression. Medications and Allergies Home Medications Medication Instructions Recorded Confirmed Type Meloxicam 15 mg PO DAILY 07/15/15 08/03/17 History Melatonin 5 mg PO HS 01/28/17 08/03/17 History Leflunomide [Arava] 20 mg PO DAILY 03/09/17 08/03/17 History Aspirin EC [Ecotrin Low Dose] 81 mg PO HS 03/18/17 08/03/17 History Acetaminophen Tab [Tylenol] 650 mg PO BID PRN 06/02/17 08/03/17 History azaTHIOprine [Imuran] 50 mg PO TID 06/02/17 08/03/17 History Cholecalciferol (Vitamin D3) 10,000 unit PO DAILY 07/14/17 08/03/17 History [Vitamin D3] Allergies Allergy/AdvReac Type Severity Reaction Status Date / Time hydromorphone [From Dilaudid] AdvReac Nausea & Verified 08/03/17 21:20 Vomiting Physical Exam Vitals: Vital Signs Temp Pulse Pulse Resp BP BP Pulse Ox 08/04/17 08:27 16 08/04/17 07:00 98.4 F 94 16 120/68 97 08/04/17 02:54 98 F 100 17 115/75 96 08/03/17 21:00 99.3 F 109 H 16 125/70 95 08/03/17 20:31 98 F 108 H 18 115/62 98 08/03/17 19:04 99.0 F 105 H 18 117/57 95 08/03/17 17:54 99.9 F H 107 H 22 119/73 97 08/03/17 17:15 100.9 F H 115 H 20 137/70 100 08/03/17 16:30 117 H 22 135/86 95 08/03/17 15:46 101.0 F H 110 H 20 151/64 99 Intake and Output 08/03/17 08/04/17 08/04/17 22:59 06:59 14:59 Intake Total 1100 1250 Output Total 200 Balance 1100 1050 Intake: Amount of Fluid Infused ( 1100 ml) Intake, IV Titration 1250 Amount Sodium Chloride 0.9% 1, 1250 000 ml @ 125 mls/hr IV . Q8H LAURENT Rx#:[id number] Output: Urine 200 Other: Voiding Method Toilet # Voids 3 1 Weight 136.078 kg Gen: This is a morbidly obese 47-year-old female. She is found in bed and appears to be uncomfortable secondary to pain HEENT: Head is atraumatic, normocephalic. Pupils equal, round. Sclerae is anicteric. Conjunctiva pink. Mucous membranes of the mouth are dry. NECK: Supple. No JVD. No lymphadenopathy. No thyromegaly. LUNGS: Clear to auscultation. No wheezes or rhonchi. No intercostal retractions. HEART: Regular rate and rhythm. No murmur. ABDOMEN: Soft. Bowel sounds are present. Generalized abdominal tenderness most significant at the right lower quadrant. EXTREMITIES: No pedal edema. No calf tenderness. Dorsalis pedis is +2 bilaterally. NEUROLOGICAL: Patient is awake, alert and oriented x3. Cranial nerves 2 through 12 are grossly intact. Results Results: Laboratory Results WBC 8.8 k/uL (3.8-10.6) 08/04/17 09: RBC 3.89 m/uL (3.80-5.40) 08/04/17 09:22 Hgb 11.4 gm/dL (11.4-16.0) 08/04/17 09: Hct 35.9 % (34.0-46.0) 08/04/17: MCV 92.3 fL (80.0-100.0) 08/04/17 09:22 MCH 29.3 pg (25.0-35.0) 08/04/17 09: MCHC 31.7 g/dL (31.0-37.0) 08/04/17 09: RDW 14.7 % (11.5-15.5) 08/04/17 09:22 Plt Count 317 k/uL (150-450) 08/04/17 09:22 Neutrophils % 85 % 08/04/17 09:22 Lymphocytes % 7 % 08/04/17 09:22 Monocytes % 6 % 08/04/17 09:22 Eosinophils % 1 % 08/04/17 09:22 Basophils % 1 % 08/04/17 09:22 Neutrophils # 7.4 k/uL (1.3-7.7) 08/04/17 09:22 Lymphocytes # 0.6 k/uL (1.0-4.8) L 08/04/17 09:22 Monocytes # 0.5 k/uL (0-1.0) 08/04/17 09:22 Eosinophils # 0.1 k/uL (0-0.7) 08/04/17 09:22 Basophils # 0.0 k/uL (0-0.2) 08/04/17 09:22 PT 12.5 sec (9.0-12.0) H 08/04/17 09:22 INR 1.3 (<1.2) H 08/04/17 09:22 Sodium 139 mmol/L (137-145) 08/04/17 09:22 Potassium 3.5 mmol/L (3.5-5.1) 08/04/17 09:22 Chloride 107 mmol/L (98-107) 08/04/17 09:22 Carbon Dioxide 25 mmol/L (22-30) 08/04/17 09:22 Anion Gap 7 mmol/L 08/04/17 09:22 BUN 14 mg/dL (7-17) 08/04/17 09:22 Creatinine 0.59 mg/dL (0.52-1.04) 08/04/17 09:22 Est GFR (MDRD) Af Amer >60 (>60 ml/min/1.73 sqM) 08/04/17 09:22 Est GFR (MDRD) Non-Af >60 (>60 ml/min/1.73 sqM) 08/04/17 09:22 Glucose 90 mg/dL (74-99) 08/04/17 09:22 Plasma Lactic Acid Jose Martin 1.5 mmol/L (0.7-2.0) 08/03/17 16:30 Calcium 8.1 mg/dL (8.4-10.2) L 08/04/17 09:22 Total Bilirubin 1.3 mg/dL (0.2-1.3) 08/04/17 09:22 AST 33 U/L (14-36) 08/04/17 09:22 ALT 31 U/L (9-52) 08/04/17 09:22 Alkaline Phosphatase 88 U/L (38-126) 08/04/17 09:22 Total Protein 5.9 g/dL (6.3-8.2) L 08/04/17 09:22 Albumin 2.9 g/dL (3.5-5.0) L 08/04/17 09:22 Lipase 51 U/L (23-300) 08/03/17 16:30 Urine Color Yellow 08/03/17 16:15 Urine Appearance Cloudy (Clear) H 08/03/17 16:15 Urine pH 8.5 (5.0-8.0) H 08/03/17 16:15 Ur Specific [place] 1.023 (1.001-1.035) 08/03/17 16:15 Urine Protein 3+ (Negative) H 08/03/17 16:15 Urine Glucose (UA) Trace (Negative) H 08/03/17 16:15 Urine Ketones Negative (Negative) 08/03/17 16:15 Urine Blood Negative (Negative) 08/03/17 16:15 Urine Nitrite Negative (Negative) 08/03/17 16:15 Urine Bilirubin Negative (Negative) 08/03/17 16:15 Urine Urobilinogen 2.0 mg/dL (<2.0) 08/03/17 16:15 Ur Leukocyte Esterase Large (Negative) H 08/03/17 16:15 Urine RBC 2 /hpf (0-5) 08/03/17 16:15 Urine WBC 46 /hpf (0-5) H 08/03/17 16:15 Ur Squamous Epith Cells 12 /hpf (0-4) H 08/03/17 16:15 Urine Bacteria Rare /hpf (None) H 08/03/17 16:15 Urine Mucus Occasional /hpf (None) H 08/03/17 16:15 Urine HCG, Qual Not Detected (Not Detectd) 08/03/17 16:15 Blood Type B Positive 08/03/17 16:15 Blood Type Confirm B Positive 08/03/17 19:09 Blood Type Recheck CABO Indicated 08/03/17 16:15 Antibody Screen NEGATIVE 08/03/17 16:15 Spec Expiration Date 08/06/2017232908/03/17 16:15 CBC & Chem 7: 08/04/17 09:22 08/04/17 09:22 Labs: Abnormal Lab Results - Last 24 Hours (Table) 08/03/17 08/03/17 08/03/17 Range/Units 16:15 16:30 16:30 WBC 10.8 H (3.8-10.6) k/uL Neutrophils # 9.2 H (1.3-7.7) k/uL Lymphocytes # 0.8 L (1.0-4.8) k/uL PT (9.0-12.0) sec INR (<1.2) Sodium 136 L (137-145) mmol/L Carbon Dioxide 20 L (22-30) mmol/L Glucose 105 H (74-99) mg/dL Calcium (8.4-10.2) mg/dL Total Protein (6.3-8.2) g/dL Albumin (3.5-5.0) g/dL Urine Appearance Cloudy H (Clear) Urine pH 8.5 H (5.0-8.0) Urine Protein 3+ H (Negative) Urine Glucose (UA) Trace H (Negative) Ur Leukocyte Esterase Large H (Negative) Urine WBC 46 H (0-5) /hpf Ur Squamous Epith Cells 12 H (0-4) /hpf Urine Bacteria Rare H (None) /hpf Urine Mucus Occasional H (None) /hpf 08/04/17 08/04/17 08/04/17 Range/Units 09:22 09:22 09:22 WBC (3.8-10.6) k/uL Neutrophils # (1.3-7.7) k/uL Lymphocytes # 0.6 L (1.0-4.8) k/uL PT 12.5 H (9.0-12.0) sec INR 1.3 H (<1.2) Sodium (137-145) mmol/L Carbon Dioxide (22-30) mmol/L Glucose (74-99) mg/dL Calcium 8.1 L (8.4-10.2) mg/dL Total Protein 5.9 L (6.3-8.2) g/dL Albumin 2.9 L (3.5-5.0) g/dL Urine Appearance (Clear) Urine pH (5.0-8.0) Urine Protein (Negative) Urine Glucose (UA) (Negative) Ur Leukocyte Esterase (Negative) Urine WBC (0-5) /hpf Ur Squamous Epith Cells (0-4) /hpf Urine Bacteria (None) /hpf Urine Mucus (None) /hpf Microbiology - Last 24 Hours (Table) 08/03/17 16:15 Urine Culture - Preliminary Urine,Voided Assessment and Plan Plan: This is a 47-year-old female presenting to the hospital with abdominal pain, nausea vomiting and signs of sepsis secondary to sigmoid diverticulitis with abscess formation. She is scheduled for CAT scan guided abscess drainage today. Antibiotics have been changed to Zosyn which will be continued. Continue supportive care. Further recommendations as patient progresses. The above dictated assessment and findings were discussed with Dr. Mendoza. The impression and plan of care have been directed as dictated. Viry Liu nurse practitioner acting as scribe for Dr. Mendoza.
[2017-08-04] MEDS ORDERED: ACETAMINOPHEN TAB 325 MG TAB PO PRN (14:21)
--- NOTE | 2017-08-04 14:38 | CT ---
EXAMINATION TYPE: CT guided abscess drainage DATE OF EXAM: 08/04/2017 COMPARISON: CT 08/03/2017 HISTORY: Postop fluid collection CT DLP: 986 mGycm Automated exposure control for dose reduction was used. PROCEDURE: Maximal barrier technique was utilized. The skin over suitable path to the abdominal fluid collectio n was localized with CT and the overlying skin prepped and draped. Lidocaine was used for local anes thesia. A skin tong made with a scalpel. Access was gained using CT guidance with a 21-gauge needle , serous and cloudy yellow material returned in the hub of the needle. A 0.018 inch wire was advance d and the access site was upsized, the wire was upsized and subsequently an 10 [place] drain was deplo yed within the fluid collection and fixed in place. Catheter attached to gravity drainage. No immed iate complication. Sample material sent for laboratory analysis and draining into the bag. The patie nt remained in stable condition. IMPRESSION: STATUS POST CT GUIDED ABSCESS DRAINAGE, MICROBIOLOGY ANALYSIS IS PENDING. THIS PROCEDURE WAS PERFORM ED BY THE UNDERSIGNED.
--- NOTE | 2017-08-04 14:51 | P.PN ---
Progress Note - Text Progress Note Date: 08/04/[address] Ortiz. Patient examined. CT scan reviewed. Sigmoid diverticulitis with abscess. S/P CT guided drainage. Continue NPO, IV hydration and IV abx. COnsult ID Dr. Mendoza. Await abdominal cultures. Repeat CBC in am Please see Rebeca Ruiz TRAFFIC ENUMERATOR's note for full consult
--- NOTE | 2017-08-04 15:06 | P.GSCN ---
History of Present Illness Consult date: 08/04/17 Reason for Consult: surgical eval History of present illness: 47-year-old female presented on the day of admission to the emergency room to be evaluated for intractable cramping to the right lower quadrant radiates down into the pelvic area with a pressure sensation to the vagina. Patient stated the symptoms started on Tuesday this week. Patient stated the pains were different than any other type of pain she had experienced before. Patient stated that she did have a bowel movement did note bright red blood in the toilet bowl .patient states at home had intractable pain caused loss of control over bladder and urine. Patient states has been a decrease in appetite pain started in the right lower quadrant radiated to the bilateral abdomen down to the pelvic area into the vagina feeling like a pressure.with any movement caused increased pain Patient stated that she felt feverish nausea and vomiting. patient stated that she did contact her primary care provider was told to come to the [facility] emergency room to be evaluated known history of prior diverticulitis episodes with the previous drainage of an intra-abdominal abscess within the last 6 months.patient is known to Dr. Ba's service patient was last seen a month ago in the bariatric center with Dr. Mcdonnell patient had a lap appendectomy in December followed by a cholecystectomy in February. Additionally in May patient underwent EGD with biopsy EGD showed chronic gastritis negative for H. pylori. Colonoscopy done showed sigmoid diverticulosis focal sigmoid diverticulitis In the emergency room the temp was 101 elevated white count 10.8. KUB done in the emergency room showed nonobstructive pattern. CAT scan of the abdomen pelvis with contrast did show sigmoid diverticulitis with extensive surrounding inflammatory changes suggestive of an abscess.. Patient is scheduled for a CAT scan guided percutaneous drainto be placed for the abscess by interventional radiology today Review of Systems essentially unremarkable except as mentioned in the present illness Past Medical History Past Medical History: Rheumatoid Arthritis (RA), Seizure Disorder, Skin Disorder Additional Past Medical History / Comment(s): RA-pain in multiple joints, spinal stenosis/instability and herniated disc-difficulty walking, pt saw Dr. 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, childhood seizures, recent diverticulitis, History of Any Multi-Drug Resistant Organisms: None Reported Past Surgical History: Appendectomy, Cholecystectomy, Orthopedic Surgery Additional Past Surgical History / Comment(s): endoscopic sinus surgery, L knee arthroscopy, back epidural injections, recent EGD,colonoscopy Past Anesthesia/Blood Transfusion Reactions: Motion Sickness Past Psychological History: No Psychological Hx Reported Smoking Status: Never smoker Past Alcohol Use History: None Reported Past Drug Use History: None Reported - Past Family History Father Family Medical History: Cancer Additional Family Medical History / Comment(s): Father of leukemia at the age of 65yrs. Mother Family Medical History: Diabetes Mellitus, Hypertension, Osteoarthritis (OA) Additional Family Medical History / Comment(s): Mother has IIDM, depression. Medications and Allergies Home Medications Medication Instructions Recorded Confirmed Type Meloxicam 15 mg PO DAILY 07/15/15 08/03/17 History Melatonin 5 mg PO HS 01/28/17 08/03/17 History Leflunomide [Arava] 20 mg PO DAILY 03/09/17 08/03/17 History Aspirin EC [Ecotrin Low Dose] 81 mg PO HS 03/18/17 08/03/17 History Acetaminophen Tab [Tylenol] 650 mg PO BID PRN 06/02/17 08/03/17 History azaTHIOprine [Imuran] 50 mg PO TID 06/02/17 08/03/17 History Cholecalciferol (Vitamin D3) 10,000 unit PO DAILY 07/14/17 08/03/17 History [Vitamin D3] Allergies Allergy/AdvReac Type Severity Reaction Status Date / Time hydromorphone [From Dilaudid] AdvReac Nausea & Verified 08/03/17 21:20 Vomiting Surgical - Exam Vital Signs Temp Pulse Resp BP Pulse Ox 101.0 F H 110 H 20 151/64 99 08/03/17 15:46 08/03/17 15:46 08/03/17 15:46 08/03/17 15:46 08/03/17 15:46 GENERAL APPEARANCE: 47-year-old female morbidly obese sitting up in bed continues to report having generalized abdominal tenderness right lower quadrant pressure with a nausea sensation patient is alert, oriented, VITAL SIGNS: reviewed HEENT: Head is normocephalic and atraumatic. Pupils are equal and reactive. The nares are patent. Oropharynx is clear without lesions. NECK: Supple without lymphadenopathy. Traches midline. HEART: S1, S2. Regular rate and rhythm.no murmur noted LUNGS: No crackles or wheezes are heard.adequate air movement bilaterally ABDOMEN: Soft, obese generalized diffuse abdominal tenderness right greater than the left pain increases with movement nondistended with good bowel sounds. No peritoneal signs. No palpable organomegaly or masses. EXTREMITIES: Normal skin color and turgor. No cyanosis, rash, ulceration, clubbing or edema. Radial pedal pulses are 2/4 bilaterally. NEUROLOGICAL: No focal deficits. Strength and sensation are grossly intact. Results - Labs 08/04/17 09:22 08/04/17 09:22 Abnormal Lab Results - Last 24 Hours (Table) 08/03/17 08/03/17 08/03/17 Range/Units 16:15 16:30 16:30 WBC 10.8 H (3.8-10.6) k/uL Neutrophils # 9.2 H (1.3-7.7) k/uL Lymphocytes # 0.8 L (1.0-4.8) k/uL PT (9.0-12.0) sec INR (<1.2) Sodium 136 L (137-145) mmol/L Carbon Dioxide 20 L (22-30) mmol/L Glucose 105 H (74-99) mg/dL Calcium (8.4-10.2) mg/dL Total Protein (6.3-8.2) g/dL Albumin (3.5-5.0) g/dL Urine Appearance Cloudy H (Clear) Urine pH 8.5 H (5.0-8.0) Urine Protein 3+ H (Negative) Urine Glucose (UA) Trace H (Negative) Ur Leukocyte Esterase Large H (Negative) Urine WBC 46 H (0-5) /hpf Ur Squamous Epith Cells 12 H (0-4) /hpf Urine Bacteria Rare H (None) /hpf Urine Mucus Occasional H (None) /hpf 08/04/17 08/04/17 08/04/17 Range/Units 09:22 09:22 09:22 WBC (3.8-10.6) k/uL Neutrophils # (1.3-7.7) k/uL Lymphocytes # 0.6 L (1.0-4.8) k/uL PT 12.5 H (9.0-12.0) sec INR 1.3 H (<1.2) Sodium (137-145) mmol/L Carbon Dioxide (22-30) mmol/L Glucose (74-99) mg/dL Calcium 8.1 L (8.4-10.2) mg/dL Total Protein 5.9 L (6.3-8.2) g/dL Albumin 2.9 L (3.5-5.0) g/dL Urine Appearance (Clear) Urine pH (5.0-8.0) Urine Protein (Negative) Urine Glucose (UA) (Negative) Ur Leukocyte Esterase (Negative) Urine WBC (0-5) /hpf Ur Squamous Epith Cells (0-4) /hpf Urine Bacteria (None) /hpf Urine Mucus (None) /hpf Microbiology - Last 24 Hours (Table) 08/03/17 16:15 Urine Culture - Preliminary Urine,Voided Diabetes panel 08/03/17 08/04/17 Range/Units 16:30 09:22 Sodium 136 L 139 (137-145) mmol/L Potassium 3.5 3.5 (3.5-5.1) mmol/L Chloride 105 107 (98-107) mmol/L Carbon Dioxide 20 L 25 (22-30) mmol/L BUN 15 14 (7-17) mg/dL Creatinine 0.65 0.59 (0.52-1.04) mg/dL Glucose 105 H 90 (74-99) mg/dL Calcium 8.8 8.1 L (8.4-10.2) mg/dL AST 16 33 (14-36) U/L ALT 20 31 (9-52) U/L Alkaline Phosphatase 88 88 (38-126) U/L Total Protein 6.9 5.9 L (6.3-8.2) g/dL Albumin 3.7 2.9 L (3.5-5.0) g/dL Calcium panel 08/03/17 08/04/17 Range/Units 16:30 09:22 Calcium 8.8 8.1 L (8.4-10.2) mg/dL Albumin 3.7 2.9 L (3.5-5.0) g/dL Pituitary panel 08/03/17 08/04/17 Range/Units 16:30 09:22 Sodium 136 L 139 (137-145) mmol/L Potassium 3.5 3.5 (3.5-5.1) mmol/L Chloride 105 107 (98-107) mmol/L Carbon Dioxide 20 L 25 (22-30) mmol/L BUN 15 14 (7-17) mg/dL Creatinine 0.65 0.59 (0.52-1.04) mg/dL Glucose 105 H 90 (74-99) mg/dL Calcium 8.8 8.1 L (8.4-10.2) mg/dL Adrenal panel 08/03/17 08/04/17 Range/Units 16:30 09:22 Sodium 136 L 139 (137-145) mmol/L Potassium 3.5 3.5 (3.5-5.1) mmol/L Chloride 105 107 (98-107) mmol/L Carbon Dioxide 20 L 25 (22-30) mmol/L BUN 15 14 (7-17) mg/dL Creatinine 0.65 0.59 (0.52-1.04) mg/dL Glucose 105 H 90 (74-99) mg/dL Calcium 8.8 8.1 L (8.4-10.2) mg/dL Total Bilirubin 1.1 1.3 (0.2-1.3) mg/dL AST 16 33 (14-36) U/L ALT 20 31 (9-52) U/L Alkaline Phosphatase 88 88 (38-126) U/L Total Protein 6.9 5.9 L (6.3-8.2) g/dL Albumin 3.7 2.9 L (3.5-5.0) g/dL Assessment and Plan Plan: impression present on admission intractable abdominal pain fever chills nausea vomiting sepsis suspect due to sigmoid diverticulitis with abscess formation Morbid obesity BMI 56 due to excessive calories chronic lower back pain CAT scan of the abdomen and pelvis showed moderate severe sigmoid diverticulitis with an abscess measuring 9.4 x 3[address]-guided abscess drainage by interventional radiology done on the july prior history of reoccurring diverticulitis with previous drainage of an intra- abdominal abscess within the last 6+ months a recent EGD and colonoscopy 06/11/2017 showed gastritis chronic, colonoscopy sigmoid diverticulosis with focal sigmoid diverticulitis Plan Continue recommendations by infectious disease for treatment of the diverticulitis involving the sigmoid with abscess pain control No surgical intervention at this time conservative management continue to follow closely surgical course addressing clinical issues as they arise IV fluid for hydration defer to admitting service and other consultants of management of medical issues The above impression and plan of care have been discussed and directed by signing physician. Rebeca Ruiz nurse practitioner acting as scribe for signing physician.
[2017-08-04] MEDS ORDERED: SODIUM CHLORIDE 0.9% 1,000 ML IV ONE (15:33)
--- NOTE | 2017-08-04 16:27 | P.HPIM ---
History of Present Illness his is a 47-year-old pleasant female came in with complaints of severeleft lower quadrant abdominal pain and 10 x 10 sharp in nature underwent the CAT scan of the abdomen which showed diverticulitis with abscess of 9.4 and 3.5 cm for which patient was sent in for CT-guided drainage and patient is also complaining of epigastric abdominal burning sensation and nausea vomiting for which patient was started on Protonix and Zofran. A she is on IV fluids patient was evaluated by infectious disease as well and the was started on Zosyn. Patient was febrile and septic on admission. Patient is feeling little bit better now. Patient denied any cough dysuria.patient had previous episodes of intra-abdominal abscess secondary to diverticulitis in the past Review of Systems REVIEW OF SYSTEMS: CONSTITUTIONAL: No fever, no malaise, no fatigue. HEENT: No recent visual problems or hearing problems. Denied any sore throat. CARDIOVASCULAR: No chest pain, orthopnea, PND, no palpitations, no syncope. PULMONARY: No shortness of breath, no cough, no hemoptysis. GASTROINTESTINAL: as mentioned in HPI NEUROLOGICAL: No headaches, no weakness, no numbness. HEMATOLOGICAL: Denies any bleeding or petechiae. GENITOURINARY: Denies any burning micturition, frequency, or urgency. MUSCULOSKELETAL/RHEUMATOLOGICAL: Denies any joint pain, swelling, or any muscle pain. ENDOCRINE: Denies any polyuria or polydipsia. The rest of the 14-point review of systems is negative. Past Medical History Past Medical History: Rheumatoid Arthritis (RA), Seizure Disorder, Skin Disorder Additional Past Medical History / Comment(s): RA-pain in multiple joints, spinal stenosis/instability and herniated disc-difficulty walking, pt saw Dr. 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, childhood seizures, recent diverticulitis, History of Any Multi-Drug Resistant Organisms: None Reported Past Surgical History: Appendectomy, Cholecystectomy, Orthopedic Surgery Additional Past Surgical History / Comment(s): endoscopic sinus surgery, L knee arthroscopy, back epidural injections, recent EGD,colonoscopy Past Anesthesia/Blood Transfusion Reactions: Motion Sickness Past Psychological History: No Psychological Hx Reported Smoking Status: Never smoker Past Alcohol Use History: None Reported Past Drug Use History: None Reported - Past Family History Father Family Medical History: Cancer Additional Family Medical History / Comment(s): Father of leukemia at the age of 65yrs. Mother Family Medical History: Diabetes Mellitus, Hypertension, Osteoarthritis (OA) Additional Family Medical History / Comment(s): Mother has IIDM, depression. Medications and Allergies Home Medications Medication Instructions Recorded Confirmed Type Meloxicam 15 mg PO DAILY 07/15/15 08/03/17 History Melatonin 5 mg PO HS 01/28/17 08/03/17 History Leflunomide [Arava] 20 mg PO DAILY 03/09/17 08/03/17 History Aspirin EC [Ecotrin Low Dose] 81 mg PO HS 03/18/17 08/03/17 History Acetaminophen Tab [Tylenol] 650 mg PO BID PRN 06/02/17 08/03/17 History azaTHIOprine [Imuran] 50 mg PO TID 06/02/17 08/03/17 History Cholecalciferol (Vitamin D3) 10,000 unit PO DAILY 07/14/17 08/03/17 History [Vitamin D3] Allergies Allergy/AdvReac Type Severity Reaction Status Date / Time hydromorphone [From Dilaudid] AdvReac Nausea & Verified 08/03/17 21:20 Vomiting Physical Exam Vitals: Vital Signs Temp Pulse Pulse Resp BP BP Pulse Ox 08/04/17 14:38 98.8 F 90 16 139/67 98 08/04/17 08:27 16 08/04/17 07:00 98.4 F 94 16 120/68 97 08/04/17 02:54 98 F 100 17 115/75 96 08/03/17 21:00 99.3 F 109 H 16 125/70 95 08/03/17 20:31 98 F 108 H 18 115/62 98 08/03/17 19:04 99.0 F 105 H 18 117/57 95 08/03/17 17:54 99.9 F H 107 H 22 119/73 97 08/03/17 17:15 100.9 F H 115 H 20 137/70 100 08/03/17 16:30 117 H 22 135/86 95 Intake and Output 08/04/17 08/04/17 08/04/17 06:59 14:59 22:59 Intake Total 1250 Output Total 200 Balance 1050 Intake: Intake, IV Titration 1250 Amount Sodium Chloride 0.9% 1, 1250 000 ml @ 125 mls/hr IV . Q8H [facility] Rx#:[id number] Output: Urine 200 Other: Voiding Method Toilet # Voids 3 1 PHYSICAL EXAMINATION: GENERAL: The patient is alert and oriented x3, not in any acute distress. Well developed, well nourished. HEENT: Pupils are round and equally reacting to light. EOMI. No scleral icterus. No conjunctival pallor. Normocephalic, atraumatic. No pharyngeal erythema. No thyromegaly. CARDIOVASCULAR: S1 and S2 present. No murmurs, rubs, or gallops. PULMONARY: Chest is clear to auscultation, no wheezing or crackles. ABDOMEN: postoperatively soft, nontender does have left lower quadrant drain draining pus. does not have any significant rebound or rigidity, does have bowel sounds does have multiple abdominal scars consistent with previous surgeries and morbidly obese MUSCULOSKELETAL: No joint swelling or deformity. EXTREMITIES: No cyanosis, clubbing, or pedal edema. NEUROLOGICAL: Gross neurological examination did not reveal any focal deficits. SKIN: No rashes. Results CBC & Chem 7: 08/04/17 09:22 08/04/17 09:22 Labs: Abnormal Lab Results - Last 24 Hours (Table) 08/03/17 08/03/17 08/03/17 Range/Units 16:15 16:30 16:30 WBC 10.8 H (3.8-10.6) k/uL Neutrophils # 9.2 H (1.3-7.7) k/uL Lymphocytes # 0.8 L (1.0-4.8) k/uL PT (9.0-12.0) sec INR (<1.2) Sodium 136 L (137-145) mmol/L Carbon Dioxide 20 L (22-30) mmol/L Glucose 105 H (74-99) mg/dL Calcium (8.4-10.2) mg/dL Total Protein (6.3-8.2) g/dL Albumin (3.5-5.0) g/dL Urine Appearance Cloudy H (Clear) Urine pH 8.5 H (5.0-8.0) Urine Protein 3+ H (Negative) Urine Glucose (UA) Trace H (Negative) Ur Leukocyte Esterase Large H (Negative) Urine WBC 46 H (0-5) /hpf Ur Squamous Epith Cells 12 H (0-4) /hpf Urine Bacteria Rare H (None) /hpf Urine Mucus Occasional H (None) /hpf 08/04/17 08/04/17 08/04/17 Range/Units 09:22 09:22 09:22 WBC (3.8-10.6) k/uL Neutrophils # (1.3-7.7) k/uL Lymphocytes # 0.6 L (1.0-4.8) k/uL PT 12.5 H (9.0-12.0) sec INR 1.3 H (<1.2) Sodium (137-145) mmol/L Carbon Dioxide (22-30) mmol/L Glucose (74-99) mg/dL Calcium 8.1 L (8.4-10.2) mg/dL Total Protein 5.9 L (6.3-8.2) g/dL Albumin 2.9 L (3.5-5.0) g/dL Urine Appearance (Clear) Urine pH (5.0-8.0) Urine Protein (Negative) Urine Glucose (UA) (Negative) Ur Leukocyte Esterase (Negative) Urine WBC (0-5) /hpf Ur Squamous Epith Cells (0-4) /hpf Urine Bacteria (None) /hpf Urine Mucus (None) /hpf Microbiology - Last 24 Hours (Table) 08/03/17 16:15 Urine Culture - Preliminary Urine,Voided Thrombosis Risk Factor Assmnt - Choose All That Apply Any of the Below Risk Factors Present?: Yes Each Factor Represents 1 point: Age 41-60 years Other Risk Factors: No Thrombosis Risk Factor Assessment Total Risk Factor Score: 1 Thrombosis Risk Factor Assessment Level: Low Risk Assessment and Plan Plan: #1 severe sepsis: Possibly secondary to diverticulitis and diverticular abscess for which patient underwent CT-guided drainage by radiology. Patient is on Zosyn which will be continued #2history of rheumatoid arthritis not in failure: Patient will be continued on azathioprine and Leflunomide and patient is actually immunosuppressed because of this #3 seizure disorder #4 moderate obesity
[2017-08-04] MEDS: azaTHIOprine 50 MG TAB PO SCH ×2 (16:56→20:43)
[2017-08-04] MEDS: ACETAMINOPHEN TAB 325 MG TAB PO PRN (19:45)
[2017-08-04] MEDS: ASPIRIN 81 MG PO SCH (20:42)
[2017-08-04] MEDS: MELATONIN 5 MG TABLET PO SCH (20:42)
--- NOTE | 2017-08-04 21:27 | P.CON ---
Consult Note - . Consult date: 08/04/17 Assessment/Plan:: This is a 47-year-old female known to ID service as she was seen in January of this year at which time she was seen for appendicitis and peritonitis. He was discharged at that time on Augmentin to complete another 7 days. Since that time, patient underwent an outpatient CAT scan of the abdomen and pelvis with contrast that showed no suspicious intra-abdominal abnormalities. On June 11, she underwent EGD with biopsies finding gastritis, gastroesophageal reflux disease. Biopsy was positive for chronic gastritis and negative for H. pylori. Sigmoid biopsy showed no significant changes. Colonoscopy showed sigmoid diverticulosis and focal sigmoid diverticulitis. She was then admitted on March 18 for atypical chest pain following laparoscopic cholecystectomy likely secondary to Hannah-Ramos tears. She was most recently admitted in May for acute colitis. Patient states she was doing well until Tuesday at 7 PM she started with cramping abdominal pain in the right lower quadrant that then went to the left lower quadrant and it gave her a strange sensation in the vaginal area. She describes it as a spasm type pain. She had bright red blood from her rectum and following that started having some nausea and vomiting and fever. The abdominal pain worsened. By the morning her last bowel movement was a greasy film on the water. She states she has not had any food. By the afternoon she was having a sharp abdominal pain and had lost control of her bladder. She went to her doctor's office and was told to come into [facility] emergency center for evaluation. She was found to have a temperature 101 with white count of 10.8. Urinalysis was cloudy, leukoesterase large, WBC is 46 and squamous cells 12th she denies urinary symptoms. She underwent a KUB that showed nonobstructive pattern and abdominal and pelvic CAT scan with contrast showed sigmoid diverticulitis with extensive surrounding inflammatory change and abscess. She has been admitted to the hospital and started on Unasyn which is subtotally been changed by ID to Zosyn. She has a CAT scan guided abscess drainage scheduled for this afternoon. Patient continues to have nausea and vomiting as well as significant abdominal pain. Please see the consult note as dictated by nurse practitioner Viry Liu. This 47 show woman is known to the ID service as noted she had appendicitis earlier. Since that time she's had difficulty with a bout of colitis. She now again has intense abdominal pain was with evidence of the sigmoid diverticulitis as well as abscess. She is now had a percutaneous drainage still is having pain but feeling slightly better. The patient understands that the percutaneous drainage as a temporizing procedure and that when she is improved will need to go on to surgical resection of part of her colon. She is on significant immunotherapy for her rheumatoid arthritis. 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 That fortunately is healing well. If she is having any further difficulties with healing will suggest discontinuation of her Imuran Cultures are in progress. Prior cultures do show evidence of a Klebsiella oxytoca that is somewhat resistant to Unasyn and constantly to microbial therapy was changed to Zosyn pending further culture data. If she has negative blood cultures within procedure Central line placement such as a PICC line to complete her course of outpatient intravenous antibiotic therapy. If possible ertapenem will be utilized for once daily therapy. If she is recovering suggest a diet that also has probiotic such as yogurt if she can tolerate. I agree with evaluation, assessment and plan as dictated by nurse practitioner Mrs. Viry Liu.
[2017-08-05] MEDS: MORPHINE SULFATE 4 MG/ML SYRINGE IV PRN ×4 (03:46→21:14)
[2017-08-05] MEDS: SODIUM CHLORIDE 0.9% 1,000 ML IV SCH ×2 (03:51→08:20)
[2017-08-05 07:18] LABS: Basophils % (A) 0 %; CH 29.4; CHCM 31.7; Eosinophils # (A) 0.1 k/uL (0-0.7); Eosinophils % (A) 1 %; HCT 33.1 % (34.0-46.0); HGB 10.4 gm/dL (11.4-16.0); Hypochromasia Slight; Luc # (Auto) 0.14; Luc % (Auto) 2; Lymphocytes # (A) 0.7 k/uL (1.0-4.8); Lymphocytes % (A) 10 %; MCH 29.3 pg (25.0-35.0); MCHC 31.4 g/dL (31.0-37.0); MCV 93.3 fL (80.0-100.0); Mean Platelet Volume 6.8; Monocytes # (A) 0.4 k/uL (0-1.0); Monocytes % (A) 5 %; Neutrophils # (A) 5.9 k/uL (1.3-7.7); Neutrophils % (A) 81 %; RBC 3.54 m/uL (3.80-5.40); RDW 14.6 % (11.5-15.5); WBC 7.2 k/uL (3.8-10.6); WBC (Perox) 8.11
[2017-08-05 07:45] LABS: ALT 28 U/L (9-52); AST 25 U/L (14-36); Alkaline Phosphatase 105 U/L (38-126); Anion Gap 7 mmol/L; Blood Urea Nitrogen 9 mg/dL (7-17); Calcium 7.6 mg/dL (8.4-10.2); Carbon Dioxide 23 mmol/L (22-30); Chloride 108 mmol/L (98-107); Glucose 80 mg/dL (74-99); Non-African American GFR(MDRD) >60 (>60 ml/min/1.73 sqM); Potassium 3.2 mmol/L (3.5-5.1); Sodium 138 mmol/L (137-145); Total Bilirubin 0.9 mg/dL (0.2-1.3); Total Protein 5.5 g/dL (6.3-8.2)
[2017-08-05] MEDS: azaTHIOprine 50 MG TAB PO SCH ×3 (08:18→21:17)
[2017-08-05] MEDS: PIPERACILLIN-TAZOBACTAM 3.375 GM in DEXTROSE/WATER 1 50ML.BAG IVPB SCH (08:18)
[2017-08-05] MEDS: LEFLUNOMIDE 20 MG TAB PO SCH (08:19)
[2017-08-05] MEDS ORDERED: MELOXICAM 7.5 MG TAB PO SCH (09:00)
[2017-08-05] MEDS: ONDANSETRON 4 MG/2 ML VIAL IVP PRN ×2 (10:13→21:17)
--- NOTE | 2017-08-05 12:05 | P.PN ---
Subjective Progress Note Date: 08/05/17 47-year-old female seen and examined. Patient continues to report having pain in the right lower quadrant but it has improved compared to admission. Patient is status post percutaneous drain placed per interventional radiology for abscess. Currently patients being followed by infectious disease Dr. Mendoza. Cultures are in progress. Admission patient did undergo a CAT scan of the abdomen pelvis with contrast it did show sigmoid diverticulitis with extensive surrounding inflammatory changes suggestive of an abscess in which interventional radiology was requested to place a percutaneous drain Objective - Vital Signs Vital signs: Vital Signs Temp 98.6 F 08/05/17 07:22 Pulse 84 08/05/17 07:22 Resp 17 08/05/17 07:23 BP 120/58 08/05/17 07:22 Pulse Ox 97 08/05/17 07:22 Intake & Output 08/04/17 08/05/17 08/05/17 18:59 06:59 18:59 Intake Total 1590 160 Output Total 680 Balance 910 160 Intake: Intake, IV Titration 1050 Amount Piperacillin-Tazobactam 3 50 .375 gm In Dextrose/Water 1 50ml.bag @ 12.5 mls/hr IVPB Q8HR [facility] Rx#: [id number] Sodium Chloride 0.9% 1, 1000 000 ml @ 125 mls/hr IV . Q8H [facility] Rx#:[id number] Oral 540 160 Output: Drainage 80 Left Abdomen 80 Urine 600 Other: Voiding Method Toilet Toilet # Voids 1 2 1 - Exam GENERAL APPEARANCE: 47-year-old female patient is alert, oriented, in no acute distress. Sitting up in bed patient states pain medication effective for pain control. Patient states she continues to have left lower quadrant pain but has improved since drain has been placed VITAL SIGNS: Reviewed HEENT: Head is normocephalic and atraumatic. Pupils are equal and reactive. The nares are patent. Oropharynx is clear without lesions. NECK: Supple without lymphadenopathy. Traches midline. HEART: S1, S2. Regular rate and rhythm. Denying any chest pain no murmur LUNGS: No crackles or wheezes are heard. Adequate air movement bilaterally ABDOMEN: Soft, slight tenderness to the left lower quadrant percutaneous drain in place nondistended with good bowel sounds. No peritoneal signs. No palpable organomegaly or masses. She reports a nausea sensation no active emesis EXTREMITIES: Normal skin color and turgor. No cyanosis, rash, ulceration, clubbing or edema. Radial pedal pulses are 2/4 bilaterally. NEUROLOGICAL: No focal deficits. Strength and sensation are grossly intact. - Labs CBC & Chem 7: 08/05/17 06:45 08/05/17 06:45 Labs: Abnormal Lab Results - Last 24 Hours (Table) 08/05/17 08/05/17 Range/Units 06:45 06:45 RBC 3.54 L (3.80-5.40) m/uL Hgb 10.4 L (11.4-16.0) gm/dL Hct 33.1 L (34.0-46.0) % Lymphocytes # 0.7 L (1.0-4.8) k/uL Potassium 3.2 L (3.5-5.1) mmol/L Chloride 108 H (98-107) mmol/L Calcium 7.6 L (8.4-10.2) mg/dL Total Protein 5.5 L (6.3-8.2) g/dL Albumin 2.6 L (3.5-5.0) g/dL Microbiology - Last 24 Hours (Table) 08/03/17 16:15 Urine Culture - Final Urine,Voided 08/04/17 14:00 Gram Stain - Preliminary Aspirate Body Fluid Culture - Preliminary 08/04/17 14:00 Anaerobic Culture - Preliminary Aspirate 08/03/17 16:15 Blood Culture - Preliminary Blood No Growth after 24 hours Assessment and Plan Plan: impression present on admission intractable abdominal pain fever chills nausea vomiting sepsis suspect due to sigmoid diverticulitis with abscess formation Morbid obesity BMI 56 due to excessive calories chronic lower back pain CAT scan of the abdomen and pelvis showed moderate severe sigmoid diverticulitis with an abscess measuring 9.4 x 3[address]-guided abscess drainage by interventional radiology done on the july prior history of reoccurring diverticulitis with previous drainage of an intra- abdominal abscess within the last 6+ months a recent EGD and colonoscopy 06/11/2017 showed gastritis chronic, colonoscopy sigmoid diverticulosis with focal sigmoid diverticulitis history of a gaint cell arteritis removed from right hand recently Plan Infectious disease to follow-up on the wound cultures Continue recommendations by infectious disease for treatment of the diverticulitis involving the sigmoid with abscess pain control No surgical intervention at this time conservative management continue to follow closely surgical course addressing clinical issues as they arise IV fluid for hydration defer to admitting service and other consultants of management of medical issues The above impression and plan of care have been discussed and directed by signing physician. Rebeca Ruiz nurse practitioner acting as scribe for signing physician.
[2017-08-05] MEDS: PANTOPRAZOLE 40 MG/10 ML VIAL IVP SCH ×2 (12:18→22:54)
[2017-08-05] MEDS: POTASSIUM CHLORIDE 10 MEQ, LIDOCAINE 2% INJ 10 MG in SODIUM CHLORIDE 0.9% 100 ML IVPB SCH ×4 (12:18→16:41)
[2017-08-05] MEDS ORDERED: LIDOCAINE 2% (PF) 20 MG/ML 10 ML AMP SQ ONE (13:26)
[2017-08-05] MEDS: ERTAPENEM 1 GM in SODIUM CHLORIDE 0.9% 50 ML IVPB SCH (13:48)
[2017-08-05] MEDS: METOCLOPRAMIDE 5 MG/ML 2 ML VIAL IVP PRN (15:23)
--- NOTE | 2017-08-05 15:27 | P.PN ---
Subjective Patient was admitted for diverticular abscess, status post drain placement. Awaiting wound cultures patient is on ertapenem at this point of time. And the patient is still complaining of nausea, nonsteroidal anti-inflammatory medications will risk and urine patient was started on Protonix twice a day. Next Constitutional: Denied any fatigue denied any fever. Cardio vascular: denied any chest pain, palpitations Gastrointestinal as mentioned in HPI Pulmonary: Denied any shortness of breath cough Neurologic denied any new focal deficits Objective - Vital Signs Vital signs: Vital Signs Temp 98.3 F 08/05/17 13:49 Pulse 72 08/05/17 13:49 Resp 17 08/05/17 13:49 BP 121/78 08/05/17 13:49 Pulse Ox 100 08/05/17 13:49 Intake & Output 08/04/17 08/05/17 08/05/17 18:59 06:59 18:59 Intake Total 1590 160 Output Total 680 20 Balance 910 140 Intake: Intake, IV Titration 1050 Amount Piperacillin-Tazobactam 3 50 .375 gm In Dextrose/Water 1 50ml.bag @ 12.5 mls/hr IVPB Q8HR [facility] Rx#: [id number] Sodium Chloride 0.9% 1, 1000 000 ml @ 125 mls/hr IV . Q8H [facility] Rx#:[id number] Oral 540 160 Output: Drainage 80 20 Left Abdomen 80 20 Urine 600 Other: Voiding Method Toilet Toilet # Voids 1 2 1 - Exam GENERAL: The patient is alert and oriented x3, not in any acute distress. Well developed, well nourished. HEENT: Pupils are round and equally reacting to light. EOMI. No scleral icterus. No conjunctival pallor. Normocephalic, atraumatic. No pharyngeal erythema. No thyromegaly. CARDIOVASCULAR: S1 and S2 present. No murmurs, rubs, or gallops. PULMONARY: Chest is clear to auscultation, no wheezing or crackles. ABDOMEN: postoperatively soft, nontender does have left lower quadrant drain draining pus. does not have any significant rebound or rigidity, does have bowel sounds does have multiple abdominal scars consistent with previous surgeries and morbidly obese MUSCULOSKELETAL: No joint swelling or deformity. EXTREMITIES: No cyanosis, clubbing, or pedal edema. NEUROLOGICAL: Gross neurological examination did not reveal any focal deficits. SKIN: No rashes. - Labs CBC & Chem 7: 08/05/17 06:45 08/05/17 06:45 Labs: Abnormal Lab Results - Last 24 Hours (Table) 08/05/17 08/05/17 Range/Units 06:45 06:45 RBC 3.54 L (3.80-5.40) m/uL Hgb 10.4 L (11.4-16.0) gm/dL Hct 33.1 L (34.0-46.0) % Lymphocytes # 0.7 L (1.0-4.8) k/uL Potassium 3.2 L (3.5-5.1) mmol/L Chloride 108 H (98-107) mmol/L Calcium 7.6 L (8.4-10.2) mg/dL Total Protein 5.5 L (6.3-8.2) g/dL Albumin 2.6 L (3.5-5.0) g/dL Microbiology - Last 24 Hours (Table) 08/03/17 16:15 Urine Culture - Final Urine,Voided 08/04/17 14:00 Gram Stain - Preliminary Aspirate Body Fluid Culture - Preliminary 08/04/17 14:00 Anaerobic Culture - Preliminary Aspirate 08/03/17 16:15 Blood Culture - Preliminary Blood No Growth after 24 hours Assessment and Plan Plan: #1 severe sepsis: Possibly secondary to diverticulitis and diverticular abscess for which patient underwent CT-guided drainage by radiology. Patient is on ertapenem #2history of rheumatoid arthritis not in failure: Patient will be continued on azathioprine and Leflunomide and patient is actually immunosuppressed because of this #3 seizure disorder #4 moderate obesity #5 nausea and vomiting, secondary to stress related gastritis for which patient was started on protonic send the discontinue nonsteroidal anti-inflammatory medications.
[2017-08-05] MEDS: ASPIRIN 81 MG PO SCH (21:17)
[2017-08-05] MEDS: MELATONIN 5 MG TABLET PO SCH (21:17)
--- NOTE | 2017-08-05 23:26 | P.PN ---
Subjective Progress Note Date: 08/05/17 Principal diagnosis: abdominal pain This is a 47-year-old female known to ID service as she was seen in January of this year at which time she was seen for appendicitis and peritonitis. He was discharged at that time on Augmentin to complete another 7 days. Since that time, patient underwent an outpatient CAT scan of the abdomen and pelvis with contrast that showed no suspicious intra-abdominal abnormalities. On June 11, she underwent EGD with biopsies finding gastritis, gastroesophageal reflux disease. Biopsy was positive for chronic gastritis and negative for H. pylori. Sigmoid biopsy showed no significant changes. Colonoscopy showed sigmoid diverticulosis and focal sigmoid diverticulitis. She was then admitted on March 18 for atypical chest pain following laparoscopic cholecystectomy likely secondary to Hannah-Ramos tears. She was most recently admitted in May for acute colitis. Patient states she was doing well until Tuesday at 7 PM she started with cramping abdominal pain in the right lower quadrant that then went to the left lower quadrant and it gave her a strange sensation in the vaginal area. She describes it as a spasm type pain. She had bright red blood from her rectum and following that started having some nausea and vomiting and fever. The abdominal pain worsened. By the morning her last bowel movement was a greasy film on the water. She states she has not had any food. By the afternoon she was having a sharp abdominal pain and had lost control of her bladder. She went to her doctor's office and was told to come into [facility] emergency center for evaluation. She was found to have a temperature 101 with white count of 10.8. Urinalysis was cloudy, leukoesterase large, WBC is 46 and squamous cells 12th she denies urinary symptoms. She underwent a KUB that showed nonobstructive pattern and abdominal and pelvic CAT scan with contrast showed sigmoid diverticulitis with extensive surrounding inflammatory change and abscess. She has been admitted to the hospital and started on Unasyn which is subtotally been changed by ID to Zosyn. Computed tomography guided drainages occurred. She's drained a large amount of purulent material. Of drainage is starting to reduce. She stilling having abdominal pain which is quite severe. Had nausea and emesis this morning and has had only water to drink the day today. She's quite concerned about further nausea and emesis. Having difficulty with ambulation because of pain. Objective - Vital Signs Vital signs: Vital Signs Temp 99.8 F H 08/05/17 20:58 Pulse 83 08/05/17 20:58 Resp 16 08/05/17 20:58 BP 123/82 08/05/17 20:58 Pulse Ox 96 08/05/17 20:58 Intake & Output 08/05/17 08/05/17 08/06/17 06:59 18:59 06:59 Intake Total 1590 160 Output Total 680 20 Balance 910 140 Intake: Intake, IV Titration 1050 Amount Piperacillin-Tazobactam 3 50 .375 gm In Dextrose/Water 1 50ml.bag @ 12.5 mls/hr IVPB Q8HR [facility] Rx#: [id number] Sodium Chloride 0.9% 1, 1000 000 ml @ 125 mls/hr IV . Q8H [facility]URENT Rx#:[id number] Oral 540 160 Output: Drainage 80 20 Left Abdomen 80 20 Urine 600 Other: Voiding Method Toilet # Voids 2 1 2 - Exam Gen: This is a morbidly obese 47-year-old female. She is found in bed and appears to be uncomfortable secondary to pain HEENT: Head is atraumatic, normocephalic. Pupils equal, round. Sclerae is anicteric. Conjunctiva pink. Mucous membranes of the mouth are dry. NECK: Supple. No JVD. No lymphadenopathy. No thyromegaly. LUNGS: Clear to auscultation. No wheezes or rhonchi. No intercostal retractions. HEART: Regular rate and rhythm. No murmur. ABDOMEN: Soft. Bowel sounds are present. Generalized abdominal tenderness most significant at the right lower quadrant. The percutaneous drain in the left lower quadrant is noted. The mucopurulent material is in the drainage bag. EXTREMITIES: No pedal edema. No calf tenderness. Dorsalis pedis is +2 bilaterally. NEUROLOGICAL: Patient is awake, alert and oriented x3. - Labs CBC & Chem 7: 08/05/17 06:45 08/05/17 06:45 Labs: Abnormal Lab Results - Last 24 Hours (Table) 08/05/17 08/05/17 Range/Units 06:45 06:45 RBC 3.54 L (3.80-5.40) m/uL Hgb 10.4 L (11.4-16.0) gm/dL Hct 33.1 L (34.0-46.0) % Lymphocytes # 0.7 L (1.0-4.8) k/uL Potassium 3.2 L (3.5-5.1) mmol/L Chloride 108 H (98-107) mmol/L Calcium 7.6 L (8.4-10.2) mg/dL Total Protein 5.5 L (6.3-8.2) g/dL Albumin 2.6 L (3.5-5.0) g/dL Microbiology - Last 24 Hours (Table) 08/03/17 16:15 Blood Culture - Preliminary Blood No Growth after 48 hours 08/04/17 14:00 Gram Stain - Preliminary Aspirate Body Fluid Culture - Preliminary 08/03/17 16:15 Urine Culture - Final Urine,Voided 08/04/17 14:00 Anaerobic Culture - Preliminary Aspirate Laboratory Results WBC 7.2 k/uL (3.8-10.6) 08/05/17 06:45 RBC 3.54 m/uL (3.80-5.40) L 08/05/17 06:45 Hgb 10.4 gm/dL (11.4-16.0) L 08/05/17 06:45 Hct 33.1 % (34.0-46.0) L 08/05/17 06:45 MCV 93.3 fL (80.0-100.0) 08/05/17 06:45 MCH 29.3 pg (25.0-35.0) 08/05/17 06:45 MCHC 31.4 g/dL (31.0-37.0) 08/05/17 06:45 RDW 14.6 % (11.5-15.5) 08/05/17 06:45 Plt Count 301 k/uL (150-450) 08/05/17 06:45 Neutrophils % 81 % 08/05/17 06:45 Lymphocytes % 10 % 08/05/17 06:45 Monocytes % 5 % 08/05/17 06:45 Eosinophils % 1 % 08/05/17 06:45 Basophils % 0 % 08/05/17 06:45 Neutrophils # 5.9 k/uL (1.3-7.7) 08/05/17 06:45 Lymphocytes # 0.7 k/uL (1.0-4.8) L 08/05/17 06:45 Monocytes # 0.4 k/uL (0-1.0) 08/05/17 06:45 Eosinophils # 0.1 k/uL (0-0.7) 08/05/17 06:45 Basophils # 0.0 k/uL (0-0.2) 08/05/17 06:45 Hypochromasia Slight 08/05/17 06:45 PT 12.5 sec (9.0-12.0) H 08/04/17 09:22 INR 1.3 (<1.2) H 08/04/17 09:22 Sodium 138 mmol/L (137-145) 08/05/17 06:45 Potassium 3.2 mmol/L (3.5-5.1) L 08/05/17 06:45 Chloride 108 mmol/L (98-107) H 08/05/17 06:45 Carbon Dioxide 23 mmol/L (22-30) 08/05/17 06:45 Anion Gap 7 mmol/L 08/05/17 06:45 BUN 9 mg/dL (7-17) 08/05/17 06:45 Creatinine 0.56 mg/dL (0.52-1.04) 08/05/17 06:45 Est GFR (MDRD) Af Amer >60 (>60 ml/min/1.73 sqM) 08/05/17 06:45 Est GFR (MDRD) Non-Af >60 (>60 ml/min/1.73 sqM) 08/05/17 06:45 Glucose 80 mg/dL (74-99) 08/05/17 06:45 Plasma Lactic Acid Jose Martin 1.5 mmol/L (0.7-2.0) 08/03/17 16:30 Calcium 7.6 mg/dL (8.4-10.2) L 08/05/17 06:45 Total Bilirubin 0.9 mg/dL (0.2-1.3) 08/05/17 06:45 AST 25 U/L (14-36) 08/05/17 06:45 ALT 28 U/L (9-52) 08/05/17 06:45 Alkaline Phosphatase 105 U/L (38-126) 08/05/17 06:45 Total Protein 5.5 g/dL (6.3-8.2) L 08/05/17 06:45 Albumin 2.6 g/dL (3.5-5.0) L 08/05/17 06:45 Lipase 51 U/L (23-300) 08/03/17 16:30 Urine Color Yellow 08/03/17 16:15 Urine Appearance Cloudy (Clear) H 08/03/17 16:15 Urine pH 8.5 (5.0-8.0) H 08/03/17 16:15 Ur Specific [place] 1.023 (1.001-1.035) 08/03/17 16:15 Urine Protein 3+ (Negative) H 08/03/17 16:15 Urine Glucose (UA) Trace (Negative) H 08/03/17 16:15 Urine Ketones Negative (Negative) 08/03/17 16:15 Urine Blood Negative (Negative) 08/03/17 16:15 Urine Nitrite Negative (Negative) 08/03/17 16:15 Urine Bilirubin Negative (Negative) 08/03/17 16:15 Urine Urobilinogen 2.0 mg/dL (<2.0) 08/03/17 16:15 Ur Leukocyte Esterase Large (Negative) H 08/03/17 16:15 Urine RBC 2 /hpf (0-5) 08/03/17 16:15 Urine WBC 46 /hpf (0-5) H 08/03/17 16:15 Ur Squamous Epith Cells 12 /hpf (0-4) H 08/03/17 16:15 Urine Bacteria Rare /hpf (None) H 08/03/17 16:15 Urine Mucus Occasional /hpf (None) H 08/03/17 16:15 Urine HCG, Qual Not Detected (Not Detectd) 08/03/17 16:15 C. difficile (EIA) Intrp Negative (Negative) 08/04/17 18:10 Blood Type B Positive 08/03/17 16:15 Blood Type Confirm B Positive 08/03/17 19:09 Blood Type Recheck CABO Indicated 08/03/17 16:15 Antibody Screen NEGATIVE 08/03/17 16:15 Spec Expiration Date 08/06/2017 - 2504 08/03/17 16:15 Microbiology 08/03/17 16:15 Blood Blood Culture - Preliminary No Growth after 48 hours 08/04/17 14:00 Aspirate Gram Stain - Preliminary 08/04/17 14:00 Aspirate Body Fluid Culture - Preliminary 08/03/17 16:15 Urine,Voided Urine Culture - Final 08/04/17 14:00 Aspirate Anaerobic Culture - Preliminary Assessment and Plan (1) Abscess of sigmoid colon due to diverticulitis Narrative/Plan: This 47 year old woman is known to the ID service as noted she had appendicitis earlier. Since that time she's had difficulty with a bout of colitis. She now again has intense abdominal pain was with evidence of the sigmoid diverticulitis as well as abscess. She is now had a percutaneous drainage still is having pain but feeling slightly better. The patient understands that the percutaneous drainage as a temporizing procedure and that when she is improved will need to go on to surgical resection of part of her colon. She is on significant immunotherapy for her rheumatoid arthritis. 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 That fortunately is healing well. If she is having any further difficulties with healing will suggest discontinuation of her Imuran Cultures are in progress. Prior cultures do show evidence of a Klebsiella oxytoca that is somewhat resistant to Unasyn and constantly to microbial therapy was changed to Zosyn pending further culture data. If she has negative blood cultures within procedure Central line placement such as a PICC line to complete her course of outpatient intravenous antibiotic therapy. If possible ertapenem will be utilized for once daily therapy. If she is recovering suggest a diet that also has probiotic such as yogurt if she can tolerate. Is continuing to have nausea and emesis. Surgery is following. Status: Acute (2) Nausea & vomiting Status: Acute
[2017-08-06] MEDS: MORPHINE SULFATE 4 MG/ML SYRINGE IV PRN ×3 (02:49→20:30)
[2017-08-06] MEDS: SODIUM CHLORIDE 0.9% 1,000 ML IV SCH ×3 (05:50→15:37)
[2017-08-06 07:19] LABS: Basophils % (A) 1 %; CH 30.1; Eosinophils # (A) 0.2 k/uL (0-0.7); Eosinophils % (A) 3 %; HCT 31.3 % (34.0-46.0); HDW 2.73; HGB 9.9 gm/dL (11.4-16.0); Luc # (Auto) 0.08; Luc % (Auto) 1; Lymphocytes # (A) 0.7 k/uL (1.0-4.8); Lymphocytes % (A) 12 %; MCHC 31.7 g/dL (31.0-37.0); MCV 91.5 fL (80.0-100.0); Mean Platelet Volume 6.7; Monocytes # (A) 0.4 k/uL (0-1.0); Monocytes % (A) 6 %; Neutrophils # (A) 4.4 k/uL (1.3-7.7); Neutrophils % (A) 77 %; RBC 3.42 m/uL (3.80-5.40); RDW 15.2 % (11.5-15.5); WBC 5.6 k/uL (3.8-10.6); WBC (Perox) 5.75
[2017-08-06 07:42] LABS: ALT 36 U/L (9-52); AST 25 U/L (14-36); Alkaline Phosphatase 125 U/L (38-126); Anion Gap 8 mmol/L; Blood Urea Nitrogen 5 mg/dL (7-17); Calcium 7.9 mg/dL (8.4-10.2); Carbon Dioxide 23 mmol/L (22-30); Chloride 107 mmol/L (98-107); Glucose 79 mg/dL (74-99); Non-African American GFR(MDRD) >60 (>60 ml/min/1.73 sqM); Potassium 3.5 mmol/L (3.5-5.1); Sodium 138 mmol/L (137-145); Total Bilirubin 0.5 mg/dL (0.2-1.3); Total Protein 5.3 g/dL (6.3-8.2)
[2017-08-06] MEDS: LEFLUNOMIDE 20 MG TAB PO SCH (09:40)
[2017-08-06] MEDS: PANTOPRAZOLE 40 MG/10 ML VIAL IVP SCH ×2 (09:40→20:24)
[2017-08-06] MEDS: ERTAPENEM 1 GM in SODIUM CHLORIDE 0.9% 50 ML IVPB SCH (09:40)
[2017-08-06] MEDS: azaTHIOprine 50 MG TAB PO SCH ×3 (09:40→20:25)
[2017-08-06] MEDS: MELOXICAM 7.5 MG TAB PO SCH (10:01)
--- NOTE | 2017-08-06 12:15 | P.PN ---
Subjective Progress Note Date: 08/06/17 Patient is a 47-year-old female who is admitted with lower abdominal discomfort. She was noted to have diverticular disease and a abscess was drained percutaneously. Drain is in place. The patient at this time he is feeling better. Objective - Vital Signs Vital signs: Vital Signs Temp 98.3 F 08/06/17 09:38 Pulse 65 08/06/17 09:38 Resp 16 08/06/17 09:38 BP 95/62 08/06/17 09:38 Pulse Ox 94 L 08/06/17 09:38 Intake & Output 08/05/17 08/06/17 08/06/17 18:59 06:59 18:59 Intake Total 160 620 500 Output Total 20 1 15 Balance 140 619 485 Intake: Oral 160 620 500 Output: Drainage 20 15 Left Abdomen 20 15 Urine 1 Other: Voiding Method Toilet Toilet # Voids 1 2 - Constitutional General appearance: Present: no acute distress, obese - Respiratory Respiratory: bilateral: diminished (At the bases) - Cardiovascular Rhythm: regular Heart sounds: normal: S1, S2 - Gastrointestinal Gastrointestinal Comment(s): Mild tender left lower quadrant Drain in place: Drainage is serous General gastrointestinal: Present: decreased bowel sounds, soft - Psychiatric Psychiatric: Present: A&O x's 3, appropriate affect, intact judgment & insight - Labs CBC & Chem 7: 08/06/17 06:17 08/06/17 06:17 Labs: Abnormal Lab Results - Last 24 Hours (Table) 08/06/17 08/06/17 Range/Units 06:17 06:17 RBC 3.42 L (3.80-5.40) m/uL Hgb 9.9 L (11.4-16.0) gm/dL Hct 31.3 L (34.0-46.0) % Lymphocytes # 0.7 L (1.0-4.8) k/uL BUN 5 L (7-17) mg/dL Creatinine 0.50 L (0.52-1.04) mg/dL Calcium 7.9 L (8.4-10.2) mg/dL Total Protein 5.3 L (6.3-8.2) g/dL Albumin 2.5 L (3.5-5.0) g/dL Microbiology - Last 24 Hours (Table) 08/03/17 16:15 Blood Culture - Preliminary Blood No Growth after 48 hours 08/04/17 14:00 Gram Stain - Preliminary Aspirate Body Fluid Culture - Preliminary Assessment and Plan Plan: Impression/plan: 1. Morbid obesity 2. Sigmoid diverticulitis with an abscess which was drained percutaneously 3. PICC line placed for. Giant cell arteritis 5. Immunotherapy for rheumatoid arthritis 6. White count 5.6 Plan: 1. Infectious disease following 2. No surgical intervention at this time 3. Continue present management
--- NOTE | 2017-08-06 12:25 | P.PN ---
Subjective Patient was admitted for diverticular abscess, status post drain placement. Awaiting wound cultures patient is on ertapenem at this point of time. And the patient is still complaining of nausea, nonsteroidal anti-inflammatory medications will risk and urine patient was started on Protonix twice a day. 08/06/2017 Patient's nausea significantly improved. Wound cultures are pending and the surgical service is recommending one more day of monitoring patient doesn't have significant drainage today from the surgical drain area in the left the lower abdominal quadrant Constitutional: Denied any fatigue denied any fever. Cardio vascular: denied any chest pain, palpitations Gastrointestinal as mentioned in HPI Pulmonary: Denied any shortness of breath cough Neurologic denied any new focal deficits Objective - Vital Signs Vital signs: Vital Signs Temp 98.3 F 08/06/17 09:38 Pulse 65 08/06/17 09:38 Resp 16 08/06/17 09:38 BP 95/62 08/06/17 09:38 Pulse Ox 94 L 08/06/17 09:38 Intake & Output 08/05/17 08/06/17 08/06/17 18:59 06:59 18:59 Intake Total 160 620 500 Output Total 20 1 15 Balance 140 619 485 Intake: Oral 160 620 500 Output: Drainage 20 15 Left Abdomen 20 15 Urine 1 Other: Voiding Method Toilet Toilet # Voids 1 2 - Exam GENERAL: The patient is alert and oriented x3, not in any acute distress. Well developed, well nourished. HEENT: Pupils are round and equally reacting to light. EOMI. No scleral icterus. No conjunctival pallor. Normocephalic, atraumatic. No pharyngeal erythema. No thyromegaly. CARDIOVASCULAR: S1 and S2 present. No murmurs, rubs, or gallops. PULMONARY: Chest is clear to auscultation, no wheezing or crackles. ABDOMEN: postoperatively soft, nontender does have left lower quadrant drain draining pus. does not have any significant rebound or rigidity, does have bowel sounds does have multiple abdominal scars consistent with previous surgeries and morbidly obese MUSCULOSKELETAL: No joint swelling or deformity. EXTREMITIES: No cyanosis, clubbing, or pedal edema. NEUROLOGICAL: Gross neurological examination did not reveal any focal deficits. SKIN: No rashes. - Labs CBC & Chem 7: 08/06/17 06:17 08/06/17 06:17 Labs: Abnormal Lab Results - Last 24 Hours (Table) 08/06/17 08/06/17 Range/Units 06:17 06:17 RBC 3.42 L (3.80-5.40) m/uL Hgb 9.9 L (11.4-16.0) gm/dL Hct 31.3 L (34.0-46.0) % Lymphocytes # 0.7 L (1.0-4.8) k/uL BUN 5 L (7-17) mg/dL Creatinine 0.50 L (0.52-1.04) mg/dL Calcium 7.9 L (8.4-10.2) mg/dL Total Protein 5.3 L (6.3-8.2) g/dL Albumin 2.5 L (3.5-5.0) g/dL Microbiology - Last 24 Hours (Table) 08/03/17 16:15 Blood Culture - Preliminary Blood No Growth after 48 hours 08/04/17 14:00 Gram Stain - Preliminary Aspirate Body Fluid Culture - Preliminary Assessment and Plan Plan: #1 severe sepsis: Possibly secondary to diverticulitis and diverticular abscess for which patient underwent CT-guided drainage by radiology. Patient is on ertapenem #2history of rheumatoid arthritis not in failure: Patient will be continued on azathioprine and Leflunomide and patient is actually immunosuppressed because of this #3 seizure disorder #4 moderate obesity #5 nausea and vomiting, secondary to stress related gastritis for which patient was started on protonic send the discontinue nonsteroidal anti-inflammatory medications.
[2017-08-06 13:48] VITALS: BMI 56.7
[2017-08-06] MEDS: MELATONIN 5 MG TABLET PO SCH (20:25)
[2017-08-06] MEDS: ASPIRIN 81 MG PO SCH (20:25)
[2017-08-07] MEDS: SODIUM CHLORIDE 0.9% 1,000 ML IV SCH ×4 (00:19→22:12)
[2017-08-07] MEDS: MORPHINE SULFATE 4 MG/ML SYRINGE IV PRN (02:49)
[2017-08-07 07:07] LABS: Basophils % (A) 1 %; CHCM 33.3; Eosinophils # (A) 0.2 k/uL (0-0.7); Eosinophils % (A) 5 %; HCT 31.7 % (34.0-46.0); HDW 2.85; HGB 10.1 gm/dL (11.4-16.0); Luc # (Auto) 0.06; Luc % (Auto) 1; Lymphocytes # (A) 0.7 k/uL (1.0-4.8); Lymphocytes % (A) 14 %; MCH 28.9 pg (25.0-35.0); MCHC 31.9 g/dL (31.0-37.0); MCV 90.6 fL (80.0-100.0); Mean Platelet Volume 6.8; Monocytes # (A) 0.3 k/uL (0-1.0); Monocytes % (A) 6 %; Neutrophils # (A) 3.6 k/uL (1.3-7.7); Neutrophils % (A) 74 %; RDW 14.9 % (11.5-15.5); WBC 4.9 k/uL (3.8-10.6)
[2017-08-07 07:24] LABS: ALT 34 U/L (9-52); AST 24 U/L (14-36); Alkaline Phosphatase 129 U/L (38-126); Anion Gap 6 mmol/L; Blood Urea Nitrogen 3 mg/dL (7-17); Calcium 8.1 mg/dL (8.4-10.2); Carbon Dioxide 26 mmol/L (22-30); Chloride 106 mmol/L (98-107); Glucose 89 mg/dL (74-99); Non-African American GFR(MDRD) >60 (>60 ml/min/1.73 sqM); Potassium 3.3 mmol/L (3.5-5.1); Sodium 138 mmol/L (137-145); Total Bilirubin 0.5 mg/dL (0.2-1.3); Total Protein 5.3 g/dL (6.3-8.2)
--- NOTE | 2017-08-07 09:25 | P.PN ---
Subjective Progress Note Date: 08/06/17 Principal diagnosis: abdominal pain This is a 47-year-old female known to ID service as she was seen in January of this year at which time she was seen for appendicitis and peritonitis. He was discharged at that time on Augmentin to complete another 7 days. Since that time, patient underwent an outpatient CAT scan of the abdomen and pelvis with contrast that showed no suspicious intra-abdominal abnormalities. On June 11, she underwent EGD with biopsies finding gastritis, gastroesophageal reflux disease. Biopsy was positive for chronic gastritis and negative for H. pylori. Sigmoid biopsy showed no significant changes. Colonoscopy showed sigmoid diverticulosis and focal sigmoid diverticulitis. She was then admitted on March 18 for atypical chest pain following laparoscopic cholecystectomy likely secondary to Hannah-Ramos tears. She was most recently admitted in May for acute colitis. Patient states she was doing well until Tuesday at 7 PM she started with cramping abdominal pain in the right lower quadrant that then went to the left lower quadrant and it gave her a strange sensation in the vaginal area. She describes it as a spasm type pain. She had bright red blood from her rectum and following that started having some nausea and vomiting and fever. The abdominal pain worsened. By the morning her last bowel movement was a greasy film on the water. She states she has not had any food. By the afternoon she was having a sharp abdominal pain and had lost control of her bladder. She went to her doctor's office and was told to come into [facility] emergency center for evaluation. She was found to have a temperature 101 with white count of 10.8. Urinalysis was cloudy, leukoesterase large, WBC is 46 and squamous cells 12th she denies urinary symptoms. She underwent a KUB that showed nonobstructive pattern and abdominal and pelvic CAT scan with contrast showed sigmoid diverticulitis with extensive surrounding inflammatory change and abscess. She has been admitted to the hospital and started on Unasyn which is subtotally been changed by ID to Zosyn. Computed tomography guided drainages occurred. She's drained a large amount of purulent material. Of drainage is starting to reduce. She stilling having abdominal pain which is quite severe. Had nausea and emesis this morning and has had only water to drink the day today. She's quite concerned about nausea and emesis. Has been able to ingest and not vomit some clear liquids today. Having difficulty with ambulation because of pain. Objective - Vital Signs Vital signs: Vital Signs Temperature is 98.3 Blood pressure is 133/92 Heart rate is 79 Respiratory rate is 16 - Exam Gen: This is a morbidly obese 47-year-old female. She is found in bed and appears to be uncomfortable secondary to pain HEENT: Head is atraumatic, normocephalic. Pupils equal, round. Sclerae is anicteric. Conjunctiva pink. Mucous membranes of the mouth are dry. NECK: Supple. No JVD. No lymphadenopathy. No thyromegaly. LUNGS: Clear to auscultation. No wheezes or rhonchi. No intercostal retractions. HEART: Regular rate and rhythm. No murmur. ABDOMEN: Soft. Bowel sounds are present. Generalized abdominal tenderness most significant at the right lower quadrant. The percutaneous drain in the left lower quadrant is noted. The mucopurulent material is in the drainage bag. EXTREMITIES: No pedal edema. No calf tenderness. Dorsalis pedis is +2 bilaterally. NEUROLOGICAL: Patient is awake, alert and oriented x3. - Labs CBC & Chem 7: 08/07/17 06:15 08/07/17 06:15 Labs: Abnormal Lab Results - Last 24 Hours (Table) Laboratory Results WBC 4.9 k/uL (3.8-10.6) 08/07/17 06:15 RBC 3.50 m/uL (3.80-5.40) L 08/07/17 06:15 Hgb 10.1 gm/dL (11.4-16.0) L 08/07/17 06:15 Hct 31.7 % (34.0-46.0) L 08/07/17 06:15 MCV 90.6 fL (80.0-100.0) 08/07/17 06:15 MCH 28.9 pg (25.0-35.0) 08/07/17 06:15 MCHC 31.9 g/dL (31.0-37.0) 08/07/17 06:15 RDW 14.9 % (11.5-15.5) 08/07/17 06:15 Plt Count 355 k/uL (150-450) 08/07/17 06:15 Neutrophils % 74 % 08/07/17 06:15 Lymphocytes % 14 % 08/07/17 06:15 Monocytes % 6 % 08/07/17 06:15 Eosinophils % 5 % 08/07/17 06:15 Basophils % 1 % 08/07/17 06:15 Neutrophils # 3.6 k/uL (1.3-7.7) 08/07/17 06:15 Lymphocytes # 0.7 k/uL (1.0-4.8) L 08/07/17 06:15 Monocytes # 0.3 k/uL (0-1.0) 08/07/17 06:15 Eosinophils # 0.2 k/uL (0-0.7) 08/07/17 06:15 Basophils # 0.0 k/uL (0-0.2) 08/07/17 06:15 Hypochromasia Slight 08/05/17 06:45 PT 12.5 sec (9.0-12.0) H 08/04/17 09:22 INR 1.3 (<1.2) H 08/04/17 09:22 Sodium 138 mmol/L (137-145) 08/07/17 06:15 Potassium 3.3 mmol/L (3.5-5.1) L 08/07/17 06:15 Chloride 106 mmol/L (98-107) 08/07/17 06:15 Carbon Dioxide 26 mmol/L (22-30) 08/07/17 06:15 Anion Gap 6 mmol/L 08/07/17 06:15 BUN 3 mg/dL (7-17) L 08/07/17 06:15 Creatinine 0.50 mg/dL (0.52-1.04) L 08/07/17 06:15 Est GFR (MDRD) Af Amer >60 (>60 ml/min/1.73 sqM) 08/07/17 06:15 Est GFR (MDRD) Non-Af >60 (>60 ml/min/1.73 sqM) 08/07/17 06:15 Glucose 89 mg/dL (74-99) 08/07/17 06:15 Plasma Lactic Acid Jose Martin 1.5 mmol/L (0.7-2.0) 08/03/17 16:30 Calcium 8.1 mg/dL (8.4-10.2) L 08/07/17 06:15 Total Bilirubin 0.5 mg/dL (0.2-1.3) 08/07/17 06:15 AST 24 U/L (14-36) 08/07/17 06:15 ALT 34 U/L (9-52) 08/07/17 06:15 Alkaline Phosphatase 129 U/L (38-126) H 08/07/17 06:15 Total Protein 5.3 g/dL (6.3-8.2) L 08/07/17 06:15 Albumin 2.6 g/dL (3.5-5.0) L 08/07/17 06:15 Lipase 51 U/L (23-300) 08/03/17 16:30 Urine Color Yellow 08/03/17 16:15 Urine Appearance Cloudy (Clear) H 08/03/17 16:15 Urine pH 8.5 (5.0-8.0) H 08/03/17 16:15 Ur Specific [place] 1.023 (1.001-1.035) 08/03/17 16:15 Urine Protein 3+ (Negative) H 08/03/17 16:15 Urine Glucose (UA) Trace (Negative) H 08/03/17 16:15 Urine Ketones Negative (Negative) 08/03/17 16:15 Urine Blood Negative (Negative) 08/03/17 16:15 Urine Nitrite Negative (Negative) 08/03/17 16:15 Urine Bilirubin Negative (Negative) 08/03/17 16:15 Urine Urobilinogen 2.0 mg/dL (<2.0) 08/03/17 16:15 Ur Leukocyte Esterase Large (Negative) H 08/03/17 16:15 Urine RBC 2 /hpf (0-5) 08/03/17 16:15 Urine WBC 46 /hpf (0-5) H 08/03/17 16:15 Ur Squamous Epith Cells 12 /hpf (0-4) H 08/03/17 16:15 Urine Bacteria Rare /hpf (None) H 08/03/17 16:15 Urine Mucus Occasional /hpf (None) H 08/03/17 16:15 Urine HCG, Qual Not Detected (Not Detectd) 08/03/17 16:15 C. difficile (EIA) Intrp Negative (Negative) 08/04/17 18:10 Blood Type B Positive 08/03/17 16:15 Blood Type Confirm B Positive 08/03/17 19:09 Blood Type Recheck CABO Indicated 08/03/17 16:15 Antibody Screen NEGATIVE 08/03/17 16:15 Spec Expiration Date 08/06/2017232908/03/17 16:15 Microbiology 08/04/17 14:00 Aspirate Gram Stain - Preliminary 08/04/17 14:00 Aspirate Body Fluid Culture - Preliminary 08/03/17 16:15 Blood Blood Culture - Preliminary No Growth after 72 hours 08/03/17 16:15 Urine,Voided Urine Culture - Final 08/04/17 14:00 Aspirate Anaerobic Culture - Preliminary Assessment and Plan (1) Abscess of sigmoid colon due to diverticulitis Narrative/Plan: This 47 year old woman is known to the ID service as noted she had appendicitis earlier. Since that time she's had difficulty with a bout of colitis. She now again has intense abdominal pain was with evidence of the sigmoid diverticulitis as well as abscess. She is now had a percutaneous drainage still is having pain but feeling slightly better. The patient understands that the percutaneous drainage as a temporizing procedure and that when she is improved will need to go on to surgical resection of part of her colon. She is on significant immunotherapy for her rheumatoid arthritis. 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 That fortunately is healing well. If she is having any further difficulties with healing will suggest discontinuation of her Imuran Cultures are in progress. Prior cultures do show evidence of a Klebsiella oxytoca that is somewhat resistant to Unasyn and constantly to microbial therapy was changed to Zosyn pending further culture data. With negative blood cultures a PICC line has been placed. Plans for outpatient intravenous antibiotic therapy and process. ertapenem will be utilized for once daily therapy. If she is recovering suggest a diet that also has probiotic such as yogurt if she can tolerate. Is continuing to have nausea and emesis. Surgery is following. Status: Acute (2) Nausea & vomiting Status: Acute
--- NOTE | 2017-08-07 09:31 | P.PN ---
Subjective Patient was admitted for diverticular abscess, status post drain placement. Awaiting wound cultures patient is on ertapenem at this point of time. And the patient is still complaining of nausea, nonsteroidal anti-inflammatory medications will risk and urine patient was started on Protonix twice a day. 08/06/2017 Patient's nausea significantly improved. Wound cultures are pending and the surgical service is recommending one more day of monitoring patient doesn't have significant drainage today from the surgical drain area in the left the lower abdominal quadrant 08/07/2017 Advancing the diet today, patient will be discharged on IV antibiotics tomorrow. Constitutional: Denied any fatigue denied any fever. Cardio vascular: denied any chest pain, palpitations Gastrointestinal as mentioned in HPI Pulmonary: Denied any shortness of breath cough Neurologic denied any new focal deficits Objective - Vital Signs Vital signs: Vital Signs Temp 98 F 08/07/17 00:54 Pulse 86 08/07/17 00:54 Resp 16 08/07/17 00:54 BP 136/84 08/07/17 00:54 Pulse Ox 96 08/07/17 00:54 Intake & Output 08/06/17 08/07/17 08/07/17 18:59 06:59 18:59 Intake Total 2100 1437.5 480 Output Total 15 Balance 2085 1437.5 480 Weight 136.078 kg Intake: IV 100 Potassium Chloride 10 meq 100 Lidocaine 2% Inj 10 mg In Sodium Chloride 0.9% 100 ml @ 100 mls/hr IVPB Q1HR [facility] Rx#:[id number] Intake, IV Titration 1437.5 Amount Sodium Chloride 0.9% 1, 1437.5 000 ml @ 125 mls/hr IV . Q8H [facility] Rx#:[id number] Oral 2000 480 Output: Drainage 15 Left Abdomen 15 Other: Voiding Method Toilet # Voids 3 2 - Exam GENERAL: The patient is alert and oriented x3, not in any acute distress. Well developed, well nourished. HEENT: Pupils are round and equally reacting to light. EOMI. No scleral icterus. No conjunctival pallor. Normocephalic, atraumatic. No pharyngeal erythema. No thyromegaly. CARDIOVASCULAR: S1 and S2 present. No murmurs, rubs, or gallops. PULMONARY: Chest is clear to auscultation, no wheezing or crackles. ABDOMEN: postoperatively soft, nontender does have left lower quadrant drain draining pus. does not have any significant rebound or rigidity, does have bowel sounds does have multiple abdominal scars consistent with previous surgeries and morbidly obese MUSCULOSKELETAL: No joint swelling or deformity. EXTREMITIES: No cyanosis, clubbing, or pedal edema. NEUROLOGICAL: Gross neurological examination did not reveal any focal deficits. SKIN: No rashes. - Labs CBC & Chem 7: 08/07/17 06:15 08/07/17 06:15 Labs: Abnormal Lab Results - Last 24 Hours (Table) 08/07/17 08/07/17 Range/Units 06:15 06:15 RBC 3.50 L (3.80-5.40) m/uL Hgb 10.1 L (11.4-16.0) gm/dL Hct 31.7 L (34.0-46.0) % Lymphocytes # 0.7 L (1.0-4.8) k/uL Potassium 3.3 L (3.5-5.1) mmol/L BUN 3 L (7-17) mg/dL Creatinine 0.50 L (0.52-1.04) mg/dL Calcium 8.1 L (8.4-10.2) mg/dL Alkaline Phosphatase 129 H (38-126) U/L Total Protein 5.3 L (6.3-8.2) g/dL Albumin 2.6 L (3.5-5.0) g/dL Microbiology - Last 24 Hours (Table) 08/04/17 14:00 Gram Stain - Preliminary Aspirate Body Fluid Culture - Preliminary 08/03/17 16:15 Blood Culture - Preliminary Blood No Growth after 72 hours Assessment and Plan Plan: #1 severe sepsis: Possibly secondary to diverticulitis and diverticular abscess for which patient underwent CT-guided drainage by radiology. Patient is on ertapenem. Possible discharge tomorrow on IV antibiotics #2history of rheumatoid arthritis not in failure: Patient will be continued on azathioprine and Leflunomide and patient is actually immunosuppressed because of this #3 seizure disorder #4 moderate obesity #5 nausea and vomiting, secondary to stress related gastritis for which patient was started on protonic send the discontinue nonsteroidal anti-inflammatory medications.
[2017-08-07] MEDS: ERTAPENEM 1 GM in SODIUM CHLORIDE 0.9% 50 ML IVPB SCH (09:41)
[2017-08-07] MEDS: LEFLUNOMIDE 20 MG TAB PO SCH (09:42)
[2017-08-07] MEDS: MELOXICAM 7.5 MG TAB PO SCH (09:42)
[2017-08-07] MEDS: PANTOPRAZOLE 40 MG/10 ML VIAL IVP SCH ×2 (09:42→20:19)
[2017-08-07] MEDS: azaTHIOprine 50 MG TAB PO SCH ×3 (09:43→20:20)
[2017-08-07] MEDS: ACETAMINOPHEN TAB 325 MG TAB PO PRN ×2 (09:48→20:20)
--- NOTE | 2017-08-07 09:54 | P.PN ---
Subjective Patient is a 47-year-old female who is admitted with lower abdominal discomfort. She was noted to have diverticular disease and a abscess was drained percutaneously. Drain is in place. The patient at this time he is feeling better. Patient is on ertapenem. She continues to complain of some nausea but this has improved somewhat. Objective - Vital Signs Vital signs: Vital Signs Temp 98 F 08/07/17 00:54 Pulse 86 08/07/17 00:54 Resp 16 08/07/17 00:54 BP 136/84 08/07/17 00:54 Pulse Ox 96 08/07/17 00:54 Intake & Output 08/06/17 08/07/17 08/07/17 18:59 06:59 18:59 Intake Total 2100 1437.5 480 Output Total 15 Balance 2085 1437.5 480 Weight 136.078 kg Intake: IV 100 Potassium Chloride 10 meq 100 Lidocaine 2% Inj 10 mg In Sodium Chloride 0.9% 100 ml @ 100 mls/hr IVPB Q1HR [facility] Rx#:[id number] Intake, IV Titration 1437.5 Amount Sodium Chloride 0.9% 1, 1437.5 000 ml @ 125 mls/hr IV . Q8H [facility] Rx#:[id number] Oral 2000 480 Output: Drainage 15 Left Abdomen 15 Other: Voiding Method Toilet # Voids 3 2 - Constitutional General appearance: Present: obese - Respiratory Details: Decreased breath sounds at the bases - Cardiovascular Rhythm: regular Heart sounds: normal: S1, S2 - Gastrointestinal Gastrointestinal Comment(s): Drain in place left lower quadrant serous drainage General gastrointestinal: Present: decreased bowel sounds, soft - Psychiatric Psychiatric: Present: A&O x's 3, appropriate affect, intact judgment & insight - Labs CBC & Chem 7: 08/07/17 06:15 08/07/17 06:15 Labs: Abnormal Lab Results - Last 24 Hours (Table) 08/07/17 08/07/17 Range/Units 06:15 06:15 RBC 3.50 L (3.80-5.40) m/uL Hgb 10.1 L (11.4-16.0) gm/dL Hct 31.7 L (34.0-46.0) % Lymphocytes # 0.7 L (1.0-4.8) k/uL Potassium 3.3 L (3.5-5.1) mmol/L BUN 3 L (7-17) mg/dL Creatinine 0.50 L (0.52-1.04) mg/dL Calcium 8.1 L (8.4-10.2) mg/dL Alkaline Phosphatase 129 H (38-126) U/L Total Protein 5.3 L (6.3-8.2) g/dL Albumin 2.6 L (3.5-5.0) g/dL Microbiology - Last 24 Hours (Table) 08/04/17 14:00 Gram Stain - Preliminary Aspirate Body Fluid Culture - Preliminary 08/03/17 16:15 Blood Culture - Preliminary Blood No Growth after 72 hours Assessment and Plan Plan: Impression/plan: 1. Morbid obesity 2. Sigmoid diverticulitis with an abscess which was drained percutaneously 3. PICC line placed for. Giant cell arteritis 5. Immunotherapy for rheumatoid arthritis 6. White count 4.9 Plan: 1. Infectious disease following 2. No surgical intervention at this time 3. Continue present management 4. Probable discharge home tomorrow
--- NOTE | 2017-08-07 15:50 | P.PN ---
Subjective Progress Note Date: 08/07/17 Principal diagnosis: abdominal pain This is a 47-year-old female known to ID service as she was seen in January of this year at which time she was seen for appendicitis and peritonitis. He was discharged at that time on Augmentin to complete another 7 days. Since that time, patient underwent an outpatient CAT scan of the abdomen and pelvis with contrast that showed no suspicious intra-abdominal abnormalities. On June 11, she underwent EGD with biopsies finding gastritis, gastroesophageal reflux disease. Biopsy was positive for chronic gastritis and negative for H. pylori. Sigmoid biopsy showed no significant changes. Colonoscopy showed sigmoid diverticulosis and focal sigmoid diverticulitis. She was then admitted on March 18 for atypical chest pain following laparoscopic cholecystectomy likely secondary to Hannah-Ramos tears. She was most recently admitted in May for acute colitis. Patient states she was doing well until Tuesday at 7 PM she started with cramping abdominal pain in the right lower quadrant that then went to the left lower quadrant and it gave her a strange sensation in the vaginal area. She describes it as a spasm type pain. She had bright red blood from her rectum and following that started having some nausea and vomiting and fever. The abdominal pain worsened. By the morning her last bowel movement was a greasy film on the water. She states she has not had any food. By the afternoon she was having a sharp abdominal pain and had lost control of her bladder. She went to her doctor's office and was told to come into [facility] emergency center for evaluation. She was found to have a temperature 101 with white count of 10.8. Urinalysis was cloudy, leukoesterase large, WBC is 46 and squamous cells 12th she denies urinary symptoms. She underwent a KUB that showed nonobstructive pattern and abdominal and pelvic CAT scan with contrast showed sigmoid diverticulitis with extensive surrounding inflammatory change and abscess. She has been admitted to the hospital and started on Unasyn which is subtotally been changed by ID to Zosyn. Computed tomography guided drainages occurred. She's drained a large amount of purulent material. Of drainage is starting to reduce. She stilling having abdominal pain which is quite severe. Had nausea and emesis this morning and has had only water to drink the day today. She's quite concerned about nausea and emesis. Having difficulty with ambulation because of pain. However is improved today. Is eating solid foods without much increased pain. And has not had nausea or emesis of solid food. Objective - Vital Signs Vital signs: Vital Signs Temp 98.4 F 08/07/17 07:00 Pulse 94 08/07/17 07:00 Resp 16 08/07/17 07:00 BP 118/68 08/07/17 07:00 Pulse Ox 94 L 08/07/17 07:00 Intake & Output 08/06/17 08/07/17 08/07/17 18:59 06:59 18:59 Intake Total 2100 1437.5 720 Output Total 15 Balance 2085 1437.5 720 Weight 136.078 kg Intake: IV 100 Potassium Chloride 10 meq 100 Lidocaine 2% Inj 10 mg In Sodium Chloride 0.9% 100 ml @ 100 mls/hr IVPB Q1HR [facility] Rx#:[id number] Intake, IV Titration 1437.5 Amount Sodium Chloride 0.9% 1, 1437.5 000 ml @ 125 mls/hr IV . Q8H [facility] Rx#:[id number] Oral 2000 720 Output: Drainage 15 Left Abdomen 15 Other: Voiding Method Toilet # Voids 3 2 2 - Exam Gen: This is a morbidly obese 47-year-old female. She is found in bed and appears to be uncomfortable secondary to pain HEENT: Head is atraumatic, normocephalic. Pupils equal, round. Sclerae is anicteric. Conjunctiva pink. Mucous membranes of the mouth are dry. NECK: Supple. No JVD. No lymphadenopathy. No thyromegaly. LUNGS: Clear to auscultation. No wheezes or rhonchi. No intercostal retractions. HEART: Regular rate and rhythm. No murmur. ABDOMEN: Soft. Bowel sounds are present. Generalized abdominal tenderness most significant at the right lower quadrant. The percutaneous drain in the left lower quadrant is noted. The mucopurulent material is in the drainage bag. EXTREMITIES: No pedal edema. No calf tenderness. Dorsalis pedis is +2 bilaterally. NEUROLOGICAL: Patient is awake, alert and oriented x3. - Labs CBC & Chem 7: 08/07/17 06:15 08/07/17 06:15 Labs: Abnormal Lab Results - Last 24 Hours (Table) 08/07/17 08/07/17 Range/Units 06:15 06:15 RBC 3.50 L (3.80-5.40) m/uL Hgb 10.1 L (11.4-16.0) gm/dL Hct 31.7 L (34.0-46.0) % Lymphocytes # 0.7 L (1.0-4.8) k/uL Potassium 3.3 L (3.5-5.1) mmol/L BUN 3 L (7-17) mg/dL Creatinine 0.50 L (0.52-1.04) mg/dL Calcium 8.1 L (8.4-10.2) mg/dL Alkaline Phosphatase 129 H (38-126) U/L Total Protein 5.3 L (6.3-8.2) g/dL Albumin 2.6 L (3.5-5.0) g/dL Microbiology - Last 24 Hours (Table) 08/04/17 14:00 Gram Stain - Preliminary Aspirate Body Fluid Culture - Preliminary 08/03/17 16:15 Blood Culture - Preliminary Blood No Growth after 72 hours Laboratory Results WBC 4.9 k/uL (3.8-10.6) 08/07/17 06:15 RBC 3.50 m/uL (3.80-5.40) L 08/07/17 06:15 Hgb 10.1 gm/dL (11.4-16.0) L 08/07/17 06:15 Hct 31.7 % (34.0-46.0) L 08/07/17 06:15 MCV 90.6 fL (80.0-100.0) 08/07/17 06:15 MCH 28.9 pg (25.0-35.0) 08/07/17 06:15 MCHC 31.9 g/dL (31.0-37.0) 08/07/17 06:15 RDW 14.9 % (11.5-15.5) 08/07/17 06:15 Plt Count 355 k/uL (150-450) 08/07/17 06:15 Neutrophils % 74 % 08/07/17 06:15 Lymphocytes % 14 % 08/07/17 06:15 Monocytes % 6 % 08/07/17 06:15 Eosinophils % 5 % 08/07/17 06:15 Basophils % 1 % 08/07/17 06:15 Neutrophils # 3.6 k/uL (1.3-7.7) 08/07/17 06:15 Lymphocytes # 0.7 k/uL (1.0-4.8) L 08/07/17 06:15 Monocytes # 0.3 k/uL (0-1.0) 08/07/17 06:15 Eosinophils # 0.2 k/uL (0-0.7) 08/07/17 06:15 Basophils # 0.0 k/uL (0-0.2) 08/07/17 06:15 Hypochromasia Slight 08/05/17 06:45 PT 12.5 sec (9.0-12.0) H 08/04/17 09:22 INR 1.3 (<1.2) H 08/04/17 09:22 Sodium 138 mmol/L (137-145) 08/07/17 06:15 Potassium 3.3 mmol/L (3.5-5.1) L 08/07/17 06:15 Chloride 106 mmol/L (98-107) 08/07/17 06:15 Carbon Dioxide 26 mmol/L (22-30) 08/07/17 06:15 Anion Gap 6 mmol/L 08/07/17 06:15 BUN 3 mg/dL (7-17) L 08/07/17 06:15 Creatinine 0.50 mg/dL (0.52-1.04) L 08/07/17 06:15 Est GFR (MDRD) Af Amer >60 (>60 ml/min/1.73 sqM) 08/07/17 06:15 Est GFR (MDRD) Non-Af >60 (>60 ml/min/1.73 sqM) 08/07/17 06:15 Glucose 89 mg/dL (74-99) 08/07/17 06:15 Plasma Lactic Acid Jose Martin 1.5 mmol/L (0.7-2.0) 08/03/17 16:30 Calcium 8.1 mg/dL (8.4-10.2) L 08/07/17 06:15 Total Bilirubin 0.5 mg/dL (0.2-1.3) 08/07/17 06:15 AST 24 U/L (14-36) 08/07/17 06:15 ALT 34 U/L (9-52) 08/07/17 06:15 Alkaline Phosphatase 129 U/L (38-126) H 08/07/17 06:15 Total Protein 5.3 g/dL (6.3-8.2) L 08/07/17 06:15 Albumin 2.6 g/dL (3.5-5.0) L 08/07/17 06:15 Lipase 51 U/L (23-300) 08/03/17 16:30 Urine Color Yellow 08/03/17 16:15 Urine Appearance Cloudy (Clear) H 08/03/17 16:15 Urine pH 8.5 (5.0-8.0) H 08/03/17 16:15 Ur Specific [place] 1.023 (1.001-1.035) 08/03/17 16:15 Urine Protein 3+ (Negative) H 08/03/17 16:15 Urine Glucose (UA) Trace (Negative) H 08/03/17 16:15 Urine Ketones Negative (Negative) 08/03/17 16:15 Urine Blood Negative (Negative) 08/03/17 16:15 Urine Nitrite Negative (Negative) 08/03/17 16:15 Urine Bilirubin Negative (Negative) 08/03/17 16:15 Urine Urobilinogen 2.0 mg/dL (<2.0) 08/03/17 16:15 Ur Leukocyte Esterase Large (Negative) H 08/03/17 16:15 Urine RBC 2 /hpf (0-5) 08/03/17 16:15 Urine WBC 46 /hpf (0-5) H 08/03/17 16:15 Ur Squamous Epith Cells 12 /hpf (0-4) H 08/03/17 16:15 Urine Bacteria Rare /hpf (None) H 08/03/17 16:15 Urine Mucus Occasional /hpf (None) H 08/03/17 16:15 Urine HCG, Qual Not Detected (Not Detectd) 08/03/17 16:15 C. difficile (EIA) Intrp Negative (Negative) 08/04/17 18:10 Blood Type B Positive 08/03/17 16:15 Blood Type Confirm B Positive 08/03/17 19:09 Blood Type Recheck CABO Indicated 08/03/17 16:15 Antibody Screen NEGATIVE 08/03/17 16:15 Spec Expiration Date 08/06/2017232908/03/17 16:15 Microbiology 08/04/17 14:00 Aspirate Gram Stain - Preliminary 08/04/17 14:00 Aspirate Body Fluid Culture - Preliminary 08/03/17 16:15 Blood Blood Culture - Preliminary No Growth after 72 hours 08/03/17 16:15 Urine,Voided Urine Culture - Final 08/04/17 14:00 Aspirate Anaerobic Culture - Preliminary Assessment and Plan (1) Abscess of sigmoid colon due to diverticulitis Narrative/Plan: This 47 year old woman is known to the ID service as noted she had appendicitis earlier. Since that time she's had difficulty with a bout of colitis. She now again has intense abdominal pain was with evidence of the sigmoid diverticulitis as well as abscess. She is now had a percutaneous drainage still is having pain but feeling slightly better. The patient understands that the percutaneous drainage as a temporizing procedure and that when she is improved will need to go on to surgical resection of part of her colon. She is on significant immunotherapy for her rheumatoid arthritis. 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 That fortunately is healing well. If she is having any further difficulties with healing will suggest discontinuation of her Imuran Cultures are in progress. Prior cultures do show evidence of a Klebsiella oxytoca that is somewhat resistant to Unasyn and constantly to microbial therapy was changed to Zosyn pending further culture data. With negative blood cultures a PICC line has been placed. Plans for outpatient intravenous antibiotic therapy and process. ertapenem will be utilized for once daily therapy. Status: Acute (2) Nausea & vomiting Status: Acute
[2017-08-07] MEDS: ONDANSETRON 4 MG/2 ML VIAL IVP PRN (17:36)
[2017-08-07] MEDS: MELATONIN 5 MG TABLET PO SCH (20:19)
[2017-08-07] MEDS: ASPIRIN 81 MG PO SCH (20:19)
[2017-08-08] MEDS: SODIUM CHLORIDE 0.9% 1,000 ML IV SCH ×2 (05:37→11:46)
[2017-08-08 06:59] LABS: Basophils % (A) 1 %; CH 29.4; CHCM 32.1; Eosinophils # (A) 0.3 k/uL (0-0.7); Eosinophils % (A) 6 %; HCT 33.8 % (34.0-46.0); HDW 2.93; HGB 10.6 gm/dL (11.4-16.0); Hypochromasia Slight; Luc # (Auto) 0.08; Luc % (Auto) 2; Lymphocytes # (A) 0.7 k/uL (1.0-4.8); Lymphocytes % (A) 15 %; MCH 28.8 pg (25.0-35.0); MCHC 31.4 g/dL (31.0-37.0); MCV 91.9 fL (80.0-100.0); Mean Platelet Volume 6.2; Monocytes # (A) 0.3 k/uL (0-1.0); Monocytes % (A) 7 %; Neutrophils # (A) 3.3 k/uL (1.3-7.7); Neutrophils % (A) 70 %; RBC 3.68 m/uL (3.80-5.40); RDW 14.5 % (11.5-15.5); WBC 4.7 k/uL (3.8-10.6); WBC (Perox) 4.81
[2017-08-08 07:16] LABS: ALT 21 U/L (9-52); AST 16 U/L (14-36); Alkaline Phosphatase 102 U/L (38-126); Anion Gap 5 mmol/L; Blood Urea Nitrogen 3 mg/dL (7-17); Calcium 8.3 mg/dL (8.4-10.2); Carbon Dioxide 28 mmol/L (22-30); Chloride 108 mmol/L (98-107); Glucose 90 mg/dL (74-99); Non-African American GFR(MDRD) >60 (>60 ml/min/1.73 sqM); Potassium 3.5 mmol/L (3.5-5.1); Sodium 141 mmol/L (137-145); Total Bilirubin 0.3 mg/dL (0.2-1.3); Total Protein 5.4 g/dL (6.3-8.2)
[2017-08-08] MEDS ORDERED: HYDROcodone/APAP 7.5-325MG 1 EACH TAB PO PRN (09:00)
[2017-08-08] MEDS ORDERED: ONDANSETRON 4 MG TAB PO PRN (09:01)
[2017-08-08] MEDS: PANTOPRAZOLE 40 MG/10 ML VIAL IVP SCH (09:21)
[2017-08-08] MEDS: LEFLUNOMIDE 20 MG TAB PO SCH (09:22)
[2017-08-08] MEDS: MELOXICAM 7.5 MG TAB PO SCH (09:22)
[2017-08-08] MEDS: azaTHIOprine 50 MG TAB PO SCH ×3 (09:23→20:23)
[2017-08-08] MEDS: ERTAPENEM 1 GM in SODIUM CHLORIDE 0.9% 50 ML IVPB SCH (09:25)
--- NOTE | 2017-08-08 14:02 | IR ---
PICC LINE PLACEMENT: HISTORY: Infection requiring long-term antibiotic therapy PROCEDURE: Ultrasound and fluoroscopic guidance of PICC line placement. COMPLICATIONS: None ANESTHESIA: 1. 1% Lidocaine locally. FINDINGS/TECHNIQUE: The procedure was explained to the patient. The risks, complications, benefits and alternatives were discussed and any questions were answered. Informed consent was obtained. The patient was placed supine on the fluoroscopic table and prepped and draped in the usual sterile [facility] ion. Utilizing a 21 gauge needle and sonographic and fluoroscopic guidance, access in the vein was achieved and there is placement of a 0.018 guidewire. The vein is patent. A 4-F sheath was placed o suni the guidewire. The guidewire and dilator were removed and a 4-F. PICC line was placed through th e sheath with the tip at the level of the SVC. The sheath was removed, the catheter was flushed and sutured into position. The patient was stable throughout the procedure and remained stable upon disc harge from the Department of Radiology. The vein puncture was patent under ultrasound. A mcdowell scale image was obtained to document patency of the vein punctured. All elements of the maximal barrier technique were utilized. FLUOROSCOPY TIME: 0.2 minute, one image submitted IMPRESSION: Successful PICC line placement under ultrasound and fluoroscopic guidance.
--- NOTE | 2017-08-08 14:13 | P.PN ---
Subjective Patient was admitted for diverticular abscess, status post drain placement. Awaiting wound cultures patient is on ertapenem at this point of time. And the patient is still complaining of nausea, nonsteroidal anti-inflammatory medications will risk and urine patient was started on Protonix twice a day. 08/06/2017 Patient's nausea significantly improved. Wound cultures are pending and the surgical service is recommending one more day of monitoring patient doesn't have significant drainage today from the surgical drain area in the left the lower abdominal quadrant 08/07/2017 Advancing the diet today, patient will be discharged on IV antibiotics tomorrow. 08/08/2017 patient had quite a bit of nausea today morning received extra dose of Zofran and the no overnight events Constitutional: Denied any fatigue denied any fever. Cardio vascular: denied any chest pain, palpitations Gastrointestinal as mentioned in HPI Pulmonary: Denied any shortness of breath cough Neurologic denied any new focal deficits Objective - Vital Signs Vital signs: Vital Signs Temp 98.6 F 08/08/17 13:27 Pulse 70 08/08/17 13:27 Resp 16 08/08/17 13:27 BP 126/79 08/08/17 13:27 Pulse Ox 99 08/08/17 13:27 Intake & Output 08/07/17 08/08/17 08/08/17 18:59 06:59 18:59 Intake Total 720 1437.5 Output Total 40 Balance 720 1397.5 Intake: Intake, IV Titration 1437.5 Amount Sodium Chloride 0.9% 1, 1437.5 000 ml @ 125 mls/hr IV . Q8H [facility] Rx#:[id number] Oral 720 Output: Drainage 40 Left Abdomen 40 Other: Voiding Method Toilet Toilet # Voids 2 2 1 # Bowel Movements 1 - Exam GENERAL: The patient is alert and oriented x3, not in any acute distress. Well developed, well nourished. HEENT: Pupils are round and equally reacting to light. EOMI. No scleral icterus. No conjunctival pallor. Normocephalic, atraumatic. No pharyngeal erythema. No thyromegaly. CARDIOVASCULAR: S1 and S2 present. No murmurs, rubs, or gallops. PULMONARY: Chest is clear to auscultation, no wheezing or crackles. ABDOMEN: postoperatively soft, nontender does have left lower quadrant drain draining pus. does not have any significant rebound or rigidity, does have bowel sounds does have multiple abdominal scars consistent with previous surgeries and morbidly obese MUSCULOSKELETAL: No joint swelling or deformity. EXTREMITIES: No cyanosis, clubbing, or pedal edema. NEUROLOGICAL: Gross neurological examination did not reveal any focal deficits. SKIN: No rashes. - Labs CBC & Chem 7: 08/08/17 06:24 08/08/17 06:24 Labs: Abnormal Lab Results - Last 24 Hours (Table) 08/08/17 08/08/17 Range/Units 06:24 06:24 RBC 3.68 L (3.80-5.40) m/uL Hgb 10.6 L (11.4-16.0) gm/dL Hct 33.8 L (34.0-46.0) % Lymphocytes # 0.7 L (1.0-4.8) k/uL Chloride 108 H (98-107) mmol/L BUN 3 L (7-17) mg/dL Calcium 8.3 L (8.4-10.2) mg/dL Total Protein 5.4 L (6.3-8.2) g/dL Albumin 2.6 L (3.5-5.0) g/dL Microbiology - Last 24 Hours (Table) 08/03/17 16:15 Blood Culture - Preliminary Blood No Growth after 96 hours 08/04/17 14:00 Gram Stain - Preliminary Aspirate Body Fluid Culture - Preliminary Gram Neg Bacilli Assessment and Plan Plan: #1 severe sepsis: Possibly secondary to diverticulitis and diverticular abscess for which patient underwent CT-guided drainage by radiology. Patient is on ertapenem. general surgery is recommending repeat CAT scan of the abdomen tomorrow possibility of discharge tomorrow. #2history of rheumatoid arthritis not in failure: Patient will be continued on azathioprine and Leflunomide and patient is actually immunosuppressed because of this #3 seizure disorder #4 moderate obesity #5 nausea and vomiting, secondary to stress related gastritis for which patient was started on protonic send the discontinue nonsteroidal anti-inflammatory medications.
--- NOTE | 2017-08-08 14:29 | P.PN ---
Subjective Progress Note Date: 08/08/17 47 -year-old female seen and examined at bedside sitting up on the edge of the bed. Patient states there is a significant improvement in the abdominal discomfort after having the percutaneous drain placed to the left lower quadrant to address the abscess. Patient reportedly is tolerating a diet patient states has had a bowel movement this morning the soft denies loose stools when questioning. Is being followed by infectious disease recommendations are ertapenem once daily in the outpatient setting. PICC line has been placed. Stool for C. diff was negative on August 04 Objective - Vital Signs Vital signs: Vital Signs Temp 98.6 F 08/08/17 13:27 Pulse 70 08/08/17 13:27 Resp 16 08/08/17 13:27 BP 126/79 08/08/17 13:27 Pulse Ox 99 08/08/17 13:27 Intake & Output 08/07/17 08/08/17 08/08/17 18:59 06:59 18:59 Intake Total 720 1437.5 Output Total 40 Balance 720 1397.5 Intake: Intake, IV Titration 1437.5 Amount Sodium Chloride 0.9% 1, 1437.5 000 ml @ 125 mls/hr IV . Q8H [facility] Rx#:[id number] Oral 720 Output: Drainage 40 Left Abdomen 40 Other: Voiding Method Toilet Toilet # Voids 2 2 1 # Bowel Movements 1 - Exam GENERAL APPEARANCE: 47-year-old female patient is alert, oriented, in no acute distress. Sitting up in bed patient states pain has significantly improved since placing percutaneous drain the left lower quadrant to address the abscess VITAL SIGNS: Reviewed HEENT: Head is normocephalic and atraumatic. Pupils are equal and reactive. The nares are patent. Oropharynx is clear without lesions. NECK: Supple without lymphadenopathy. Traches midline. HEART: S1, S2. Regular rate and rhythm. Denying any chest pain no murmur LUNGS: No crackles or wheezes are heard. Adequate air movement bilaterally ABDOMEN: Soft, slight tenderness to the left lower quadrant percutaneous drain in place nondistended with good bowel sounds. No peritoneal signs. No palpable organomegaly or masses. She reports a nausea sensation no active emesis EXTREMITIES: Normal skin color and turgor. No cyanosis, rash, ulceration, clubbing or edema. Radial pedal pulses are 2/4 bilaterally. NEUROLOGICAL: No focal deficits. Strength and sensation are grossly intact. - Labs CBC & Chem 7: 08/08/17 06:24 08/08/17 06:24 Labs: Abnormal Lab Results - Last 24 Hours (Table) 08/08/17 08/08/17 Range/Units 06:24 06:24 RBC 3.68 L (3.80-5.40) m/uL Hgb 10.6 L (11.4-16.0) gm/dL Hct 33.8 L (34.0-46.0) % Lymphocytes # 0.7 L (1.0-4.8) k/uL Chloride 108 H (98-107) mmol/L BUN 3 L (7-17) mg/dL Calcium 8.3 L (8.4-10.2) mg/dL Total Protein 5.4 L (6.3-8.2) g/dL Albumin 2.6 L (3.5-5.0) g/dL Microbiology - Last 24 Hours (Table) 08/03/17 16:15 Blood Culture - Preliminary Blood No Growth after 96 hours 08/04/17 14:00 Gram Stain - Preliminary Aspirate Body Fluid Culture - Preliminary Gram Neg Bacilli Assessment and Plan Plan: impression present on admission intractable abdominal pain fever chills nausea vomiting sepsis suspect due to sigmoid diverticulitis with abscess formation Morbid obesity BMI 56 due to excessive calories chronic lower back pain CAT scan of the abdomen and pelvis showed moderate severe sigmoid diverticulitis with an abscess measuring 9.4 x 3[address]-guided abscess drainage by interventional radiology done on the july prior history of reoccurring diverticulitis with previous drainage of an intra- abdominal abscess within the last 6+ months a recent EGD and colonoscopy 06/11/2017 showed gastritis chronic, colonoscopy sigmoid diverticulosis with focal sigmoid diverticulitis 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 diff negative August 04 Plan Infectious disease to follow-up on the wound cultures Continue recommendations by infectious disease for treatment of the diverticulitis involving the sigmoid with abscess pain control No surgical intervention at this time conservative management continue to follow closely surgical course addressing clinical issues as they arise Prepped for probable discharge in the next 24 hours defer to admitting service and other consultants of management of medical issues The above impression and plan of care have been discussed and directed by signing physician. Rebeca Ruiz nurse practitioner acting as scribe for signing physician.
[2017-08-08] MEDS ORDERED: MORPHINE SULFATE 4 MG/ML SYRINGE IV PRN (14:32)
[2017-08-08] MEDS: ACETAMINOPHEN TAB 325 MG TAB PO PRN (20:22)
[2017-08-08] MEDS: ASPIRIN 81 MG PO SCH (20:23)
[2017-08-08] MEDS: MELATONIN 5 MG TABLET PO SCH (20:23)
[2017-08-08] MEDS ORDERED: FAMOTIDINE 20 MG TAB PO SCH (21:00)
--- NOTE | 2017-08-08 21:47 | P.PN ---
Subjective Progress Note Date: 08/08/17 Principal diagnosis: abdominal pain This is a 47-year-old female known to ID service as she was seen in January of this year at which time she was seen for appendicitis and peritonitis. He was discharged at that time on Augmentin to complete another 7 days. Since that time, patient underwent an outpatient CAT scan of the abdomen and pelvis with contrast that showed no suspicious intra-abdominal abnormalities. On June 11, she underwent EGD with biopsies finding gastritis, gastroesophageal reflux disease. Biopsy was positive for chronic gastritis and negative for H. pylori. Sigmoid biopsy showed no significant changes. Colonoscopy showed sigmoid diverticulosis and focal sigmoid diverticulitis. She was then admitted on March 18 for atypical chest pain following laparoscopic cholecystectomy likely secondary to Hannah-Ramos tears. She was most recently admitted in May for acute colitis. Patient states she was doing well until Tuesday at 7 PM she started with cramping abdominal pain in the right lower quadrant that then went to the left lower quadrant and it gave her a strange sensation in the vaginal area. She describes it as a spasm type pain. She had bright red blood from her rectum and following that started having some nausea and vomiting and fever. The abdominal pain worsened. By the morning her last bowel movement was a greasy film on the water. She states she has not had any food. By the afternoon she was having a sharp abdominal pain and had lost control of her bladder. She went to her doctor's office and was told to come into [facility] emergency center for evaluation. She was found to have a temperature 101 with white count of 10.8. Urinalysis was cloudy, leukoesterase large, WBC is 46 and squamous cells 12th she denies urinary symptoms. She underwent a KUB that showed nonobstructive pattern and abdominal and pelvic CAT scan with contrast showed sigmoid diverticulitis with extensive surrounding inflammatory change and abscess. She has been admitted to the hospital and started on Unasyn which is subtotally been changed by ID to Zosyn. Computed tomography guided drainages occurred. She's drained a large amount of purulent material. Of drainage is starting to reduce. She stilling having abdominal pain which is quite severe. Had nausea and emesis this morning and has had only water to drink the day today. She's quite concerned about nausea and emesis. Having difficulty with ambulation because of pain. However is improved today. Is eating solid foods without pain. And has not had nausea or emesis of solid food. Has had a bowel movement with a formed stool. Objective - Vital Signs Vital signs: Vital Signs Temp 98.2 F 08/08/17 20:00 Pulse 80 08/08/17 20:00 Resp 20 08/08/17 20:00 BP 150/91 08/08/17 20:00 Pulse Ox 94 L 08/08/17 20:00 Intake & Output 08/08/17 08/08/17 08/09/17 06:59 18:59 06:59 Intake Total 1437.5 Output Total 40 Balance 1397.5 Intake: Intake, IV Titration 1437.5 Amount Sodium Chloride 0.9% 1, 1437.5 000 ml @ 125 mls/hr IV . Q8H [facility] Rx#:[id number] Output: Drainage 40 Left Abdomen 40 Other: Voiding Method Toilet Toilet # Voids 2 1 # Bowel Movements 1 - Exam Gen: This is a morbidly obese 47-year-old female. She is found in bed and appears to be uncomfortable secondary to pain HEENT: Head is atraumatic, normocephalic. Pupils equal, round. Sclerae is anicteric. Conjunctiva pink. Mucous membranes of the mouth are dry. NECK: Supple. No JVD. No lymphadenopathy. No thyromegaly. LUNGS: Clear to auscultation. No wheezes or rhonchi. No intercostal retractions. HEART: Regular rate and rhythm. No murmur. ABDOMEN: Soft. Bowel sounds are present. Generalized abdominal tenderness most significant at the right lower quadrant. The percutaneous drain in the left lower quadrant is noted. The mucopurulent material is in the drainage bag. EXTREMITIES: No pedal edema. No calf tenderness. Dorsalis pedis is +2 bilaterally. NEUROLOGICAL: Patient is awake, alert and oriented x3. - Labs CBC & Chem 7: 08/08/17 06:24 08/08/17 06:24 Labs: Abnormal Lab Results - Last 24 Hours (Table) 08/08/17 08/08/17 Range/Units 06:24 06:24 RBC 3.68 L (3.80-5.40) m/uL Hgb 10.6 L (11.4-16.0) gm/dL Hct 33.8 L (34.0-46.0) % Lymphocytes # 0.7 L (1.0-4.8) k/uL Chloride 108 H (98-107) mmol/L BUN 3 L (7-17) mg/dL Calcium 8.3 L (8.4-10.2) mg/dL Total Protein 5.4 L (6.3-8.2) g/dL Albumin 2.6 L (3.5-5.0) g/dL Microbiology - Last 24 Hours (Table) 08/03/17 16:15 Blood Culture - Preliminary Blood No Growth after 120 hours 08/04/17 14:00 Anaerobic Culture - Final Aspirate Anaerobic Gm Negative Bacilli 08/04/17 14:00 Gram Stain - Final Aspirate Body Fluid Culture - Final Citrobacter freundii Laboratory Results WBC 4.7 k/uL (3.8-10.6) 08/08/17 06:24 RBC 3.68 m/uL (3.80-5.40) L 08/08/17 06:24 Hgb 10.6 gm/dL (11.4-16.0) L 08/08/17 06:24 Hct 33.8 % (34.0-46.0) L 08/08/17 06:24 MCV 91.9 fL (80.0-100.0) 08/08/17 06:24 MCH 28.8 pg (25.0-35.0) 08/08/17 06:24 MCHC 31.4 g/dL (31.0-37.0) 08/08/17 06:24 RDW 14.5 % (11.5-15.5) 08/08/17 06:24 Plt Count 420 k/uL (150-450) 08/08/17 06:24 Neutrophils % 70 % 08/08/17 06:24 Lymphocytes % 15 % 08/08/17 06:24 Monocytes % 7 % 08/08/17 06:24 Eosinophils % 6 % 08/08/17 06:24 Basophils % 1 % 08/08/17 06:24 Neutrophils # 3.3 k/uL (1.3-7.7) 08/08/17 06:24 Lymphocytes # 0.7 k/uL (1.0-4.8) L 08/08/17 06:24 Monocytes # 0.3 k/uL (0-1.0) 08/08/17 06:24 Eosinophils # 0.3 k/uL (0-0.7) 08/08/17 06:24 Basophils # 0.0 k/uL (0-0.2) 08/08/17 06:24 Hypochromasia Slight 08/08/17 06:24 PT 12.5 sec (9.0-12.0) H 08/04/17 09:22 INR 1.3 (<1.2) H 08/04/17 09:22 Sodium 141 mmol/L (137-145) 08/08/17 06:24 Potassium 3.5 mmol/L (3.5-5.1) 08/08/17 06:24 Chloride 108 mmol/L (98-107) H 08/08/17 06:24 Carbon Dioxide 28 mmol/L (22-30) 08/08/17 06:24 Anion Gap 5 mmol/L 08/08/17 06:24 BUN 3 mg/dL (7-17) L 08/08/17 06:24 Creatinine 0.54 mg/dL (0.52-1.04) 08/08/17 06:24 Est GFR (MDRD) Af Amer >60 (>60 ml/min/1.73 sqM) 08/08/17 06:24 Est GFR (MDRD) Non-Af >60 (>60 ml/min/1.73 sqM) 08/08/17 06:24 Glucose 90 mg/dL (74-99) 08/08/17 06:24 Plasma Lactic Acid Jose Martin 1.5 mmol/L (0.7-2.0) 08/03/17 16:30 Calcium 8.3 mg/dL (8.4-10.2) L 08/08/17 06:24 Total Bilirubin 0.3 mg/dL (0.2-1.3) 08/08/17 06:24 AST 16 U/L (14-36) 08/08/17 06:24 ALT 21 U/L (9-52) 08/08/17 06:24 Alkaline Phosphatase 102 U/L (38-126) 08/08/17 06:24 Total Protein 5.4 g/dL (6.3-8.2) L 08/08/17 06:24 Albumin 2.6 g/dL (3.5-5.0) L 08/08/17 06:24 Lipase 51 U/L (23-300) 08/03/17 16:30 Urine Color Yellow 08/03/17 16:15 Urine Appearance Cloudy (Clear) H 08/03/17 16:15 Urine pH 8.5 (5.0-8.0) H 08/03/17 16:15 Ur Specific [place] 1.023 (1.001-1.035) 08/03/17 16:15 Urine Protein 3+ (Negative) H 08/03/17 16:15 Urine Glucose (UA) Trace (Negative) H 08/03/17 16:15 Urine Ketones Negative (Negative) 08/03/17 16:15 Urine Blood Negative (Negative) 08/03/17 16:15 Urine Nitrite Negative (Negative) 08/03/17 16:15 Urine Bilirubin Negative (Negative) 08/03/17 16:15 Urine Urobilinogen 2.0 mg/dL (<2.0) 08/03/17 16:15 Ur Leukocyte Esterase Large (Negative) H 08/03/17 16:15 Urine RBC 2 /hpf (0-5) 08/03/17 16:15 Urine WBC 46 /hpf (0-5) H 08/03/17 16:15 Ur Squamous Epith Cells 12 /hpf (0-4) H 08/03/17 16:15 Urine Bacteria Rare /hpf (None) H 08/03/17 16:15 Urine Mucus Occasional /hpf (None) H 08/03/17 16:15 Urine HCG, Qual Not Detected (Not Detectd) 08/03/17 16:15 C. difficile (EIA) Intrp Negative (Negative) 08/04/17 18:10 Blood Type B Positive 08/03/17 16:15 Blood Type Confirm B Positive 08/03/17 19:09 Blood Type Recheck CABO Indicated 08/03/17 16:15 Antibody Screen NEGATIVE 08/03/17 16:15 Spec Expiration Date 08/06/2017 5508 08/03/17 16:15 Microbiology 08/03/17 16:15 Blood Blood Culture - Preliminary No Growth after 120 hours 08/04/17 14:00 Aspirate Anaerobic Culture - Final Anaerobic Gm Negative Bacilli 08/04/17 14:00 Aspirate Gram Stain - Final 08/04/17 14:00 Aspirate Body Fluid Culture - Final Citrobacter freundii 08/03/17 16:15 Urine,Voided Urine Culture - Final Assessment and Plan (1) Abscess of sigmoid colon due to diverticulitis Narrative/Plan: This 47 year old woman is known to the ID service as noted she had appendicitis earlier. Since that time she's had difficulty with a bout of colitis. She now again has intense abdominal pain was with evidence of the sigmoid diverticulitis as well as abscess. She is now had a percutaneous drainage still is having pain but feeling slightly better. The patient understands that the percutaneous drainage as a temporizing procedure and that when she is improved will need to go on to surgical resection of part of her colon. She is on significant immunotherapy for her rheumatoid arthritis. 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 That fortunately is healing well. If she is having any further difficulties with healing will suggest discontinuation of her Imuran Cultures are in progress. Prior cultures do show evidence of a Klebsiella oxytoca that is somewhat resistant to Unasyn and constantly antimicrobial therapy was changed to Zosyn , , culture now with Citrobacter freundii and anaerobic gram-negative bacilli for which Zosyn is an adequate choice but will be changed to ertapenem for her outpatient treatment With negative blood cultures a PICC line has been placed. Plans for outpatient intravenous antibiotic therapy and process. ertapenem will be utilized for once daily therapy. Status: Acute (2) Nausea & vomiting Status: Acute
[2017-08-09 07:14] LABS: Basophils # (A) 0.1 k/uL (0-0.2); Basophils % (A) 1 %; CH 29.8; CHCM 33.3; Eosinophils # (A) 0.3 k/uL (0-0.7); Eosinophils % (A) 6 %; HDW 2.94; HGB 10.8 gm/dL (11.4-16.0); Luc # (Auto) 0.06; Luc % (Auto) 1; Lymphocytes # (A) 0.7 k/uL (1.0-4.8); Lymphocytes % (A) 13 %; MCH 28.7 pg (25.0-35.0); MCHC 31.9 g/dL (31.0-37.0); MCV 89.8 fL (80.0-100.0); Mean Platelet Volume 6.6; Monocytes # (A) 0.3 k/uL (0-1.0); Monocytes % (A) 6 %; Neutrophils # (A) 3.7 k/uL (1.3-7.7); Neutrophils % (A) 73 %; RBC 3.78 m/uL (3.80-5.40); RDW 14.9 % (11.5-15.5); WBC 5.1 k/uL (3.8-10.6); WBC (Perox) 5.29
[2017-08-09 07:50] LABS: ALT 24 U/L (9-52); AST 14 U/L (14-36); Alkaline Phosphatase 114 U/L (38-126); Anion Gap 7 mmol/L; Blood Urea Nitrogen 3 mg/dL (7-17); Calcium 8.7 mg/dL (8.4-10.2); Carbon Dioxide 26 mmol/L (22-30); Chloride 107 mmol/L (98-107); Glucose 92 mg/dL (74-99); Non-African American GFR(MDRD) >60 (>60 ml/min/1.73 sqM); Potassium 3.6 mmol/L (3.5-5.1); Sodium 140 mmol/L (137-145); Total Bilirubin 0.4 mg/dL (0.2-1.3)
[2017-08-09 08:15] VITALS: BP 139/88; PULSE 78; RESP 16; TEMP 97.7
[2017-08-09] MEDS: ERTAPENEM 1 GM in SODIUM CHLORIDE 0.9% 50 ML IVPB SCH (09:17)
[2017-08-09] MEDS: MELOXICAM 7.5 MG TAB PO SCH (09:17)
[2017-08-09] MEDS: azaTHIOprine 50 MG TAB PO SCH (09:17)
[2017-08-09] MEDS: LEFLUNOMIDE 20 MG TAB PO SCH (09:18)
[2017-08-09] MEDS: ACETAMINOPHEN TAB 325 MG TAB PO PRN (09:19)
--- NOTE | 2017-08-09 10:56 | P.PN ---
Subjective Progress Note Date: 08/09/17 47-year-old female seen and examined at bedside. Patient states there is a noted improvement in the abdominal pain. Patient stated she had a formed bowel movement last night no nausea no vomiting. Anxious to be discharged. Patient has been followed by infectious diseases set up to have IV antibiotics in the outpatient setting. Discussed with the patient the plan of care. Patient will have a CAT scan of the abdomen pelvis this Tuesday with oral and IV contrast with the follow-up visit with in the office next Tuesday Patient's been followed by surgical service for sigmoid diverticulitis with abscess formation with a percutaneous drain placed to interventional radiology Objective - Vital Signs Vital signs: Vital Signs Temp 97.7 F 08/09/17 07:00 Pulse 78 08/09/17 07:00 Resp 16 08/09/17 07:00 BP 139/88 08/09/17 07:00 Pulse Ox 95 08/09/17 07:00 Intake & Output 08/08/17 08/09/17 08/09/17 18:59 06:59 18:59 Intake Total 1000 Balance 1000 Intake: Intake, IV Titration 1000 Amount Sodium Chloride 0.9% 1, 1000 000 ml @ 125 mls/hr IV . Q8H [facility] Rx#:[id number] Other: Voiding Method Toilet Toilet # Voids 1 1 # Bowel Movements 1 - Exam GENERAL APPEARANCE: 47-year-old female patient is alert, oriented, in no acute distress. Sitting up in bed patient states pain has significantly improved since placing percutaneous drain the left lower quadrant to address the abscess anxious to be discharged home VITAL SIGNS: Reviewed HEART: S1, S2. Regular rate and rhythm. Denying any chest pain no murmur LUNGS: No crackles or wheezes are heard. Adequate air movement bilaterally ABDOMEN: Soft, slight tenderness to the left lower quadrant improved percutaneous drain in place nondistended with good bowel sounds. No peritoneal signs. No palpable organomegaly or masses. She reports a nausea sensation no active emesis EXTREMITIES: Normal skin color and turgor. No cyanosis, rash, ulceration, clubbing or edema. Radial pedal pulses are 2/4 bilaterally. - Labs CBC & Chem 7: 08/09/17 06:39 08/09/17 06:39 Labs: Abnormal Lab Results - Last 24 Hours (Table) 08/09/17 08/09/17 Range/Units 06:39 06:39 RBC 3.78 L (3.80-5.40) m/uL Hgb 10.8 L (11.4-16.0) gm/dL Lymphocytes # 0.7 L (1.0-4.8) k/uL BUN 3 L (7-17) mg/dL Total Protein 6.0 L (6.3-8.2) g/dL Albumin 2.9 L (3.5-5.0) g/dL Microbiology - Last 24 Hours (Table) 08/03/17 16:15 Blood Culture - Preliminary Blood No Growth after 120 hours 08/04/17 14:00 Anaerobic Culture - Final Aspirate Anaerobic Gm Negative Bacilli 08/04/17 14:00 Gram Stain - Final Aspirate Body Fluid Culture - Final Citrobacter freundii Assessment and Plan Plan: impression present on admission intractable abdominal pain fever chills nausea vomiting sepsis suspect due to sigmoid diverticulitis with abscess formation Morbid obesity BMI 56 due to excessive calories chronic lower back pain CAT scan of the abdomen and pelvis showed moderate severe sigmoid diverticulitis with an abscess measuring 9.4 x 3.[address]-guided abscess drainage by interventional radiology done on the july prior history of reoccurring diverticulitis with previous drainage of an intra- abdominal abscess within the last 6+ months a recent EGD and colonoscopy 06/11/2017 showed gastritis chronic, colonoscopy sigmoid diverticulosis with focal sigmoid diverticulitis 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 diff negative August 04 Plan From a surgical perspective patient is felt to be clinically stable to be discharged patient will be seen next Tuesday in the office with with a CAT scan abdomen and pelvis with IV and oral contrast be done this Tuesday pain control No surgical intervention at this time conservative management continue to follow closely surgical course addressing clinical issues as they arise Prepped for probable discharge in the next 24 hours defer to admitting service and other consultants of management of medical issues The above impression and plan of care have been discussed and directed by signing physician. Rebeca Ruiz nurse practitioner acting as scribe for signing physician.
--- NOTE | 2017-08-09 15:00 | P.DS ---
Providers Date of admission: 08/03/17 19:56 Attending physician: Sunil Allred Consults: 08/03/17 19:57 Consult Physician Routine Consulting Provider: Wandy Borrero Consult Reason/Comments: established patient, recurrent intraabdominal abscess Do you want consulting provider notified?: Yes, Notify in am 08/04/17 08:56 Consult Physician Urgent Consulting Provider: Blanco Mendoza Consult Reason/Comments: Management antibiotics Do you want consulting provider notified?: Yes Primary care physician: Rica Healy [facility] Course: Patient was admitted for diverticular abscess, status post drain placement. Awaiting wound cultures patient is on ertapenem at this point of time. And the patient is still complaining of nausea, nonsteroidal anti-inflammatory medications will risk and urine patient was started on Protonix twice a day. 08/06/2017 Patient's nausea significantly improved. Wound cultures are pending and the surgical service is recommending one more day of monitoring patient doesn't have significant drainage today from the surgical drain area in the left the lower abdominal quadrant 08/07/2017 Advancing the diet today, patient will be discharged on IV antibiotics tomorrow. 08/08/2017 patient had quite a bit of nausea today morning received extra dose of Zofran and the no overnight events 08/09/2017 Patient is clinically doing well and is being discharged today patient will follow with the surgery as an outpatient for repeat CAT scan, patient has a surgical drain in place GENERAL: The patient is alert and oriented x3, not in any acute distress. Well developed, well nourished. HEENT: Pupils are round and equally reacting to light. EOMI. No scleral icterus. No conjunctival pallor. Normocephalic, atraumatic. No pharyngeal erythema. No thyromegaly. CARDIOVASCULAR: S1 and S2 present. No murmurs, rubs, or gallops. PULMONARY: Chest is clear to auscultation, no wheezing or crackles. ABDOMEN: postoperatively soft, nontender does have left lower quadrant drain draining pus. does not have any significant rebound or rigidity, does have bowel sounds does have multiple abdominal scars consistent with previous surgeries and morbidly obese MUSCULOSKELETAL: No joint swelling or deformity. EXTREMITIES: No cyanosis, clubbing, or pedal edema. NEUROLOGICAL: Gross neurological examination did not reveal any focal deficits. SKIN: No rashes. #1 severe sepsis: Possibly secondary to diverticulitis and diverticular abscess for which patient underwent CT-guided drainage by radiology. Patient is on ertapenem. Patient is being discharged today will follow-up with surgery as an outpatient for repeat CAT scan. #2history of rheumatoid arthritis not in failure: Patient will be continued on azathioprine and Leflunomide and patient is actually immunosuppressed because of this #3 seizure disorder #4 moderate obesity #5 nausea and vomiting, secondary to stress related gastritis for which patient was started on protonic send the discontinue nonsteroidal anti-inflammatory medications. Plan - Discharge Summary New Discharge Prescriptions: New Ertapenem [INVanz] 1 gm IVPB Q24H #14 bag Omeprazole [PriLOSEC] 40 mg PO AC-BRKFST #30 capsule. Ondansetron Odt [Zofran Odt] 4 mg PO Q8HR PRN #20 tab PRN Reason: Nausea And Vomiting No Action Meloxicam 15 mg PO DAILY Melatonin 5 mg PO HS Leflunomide [Arava] 20 mg PO DAILY Aspirin EC [Ecotrin Low Dose] 81 mg PO HS azaTHIOprine [Imuran] 50 mg PO TID Acetaminophen Tab [Tylenol] 650 mg PO BID PRN PRN Reason: Pain Cholecalciferol (Vitamin D3) [Vitamin D3] 10,000 unit PO DAILY Discharge Medication List Meloxicam 15 mg PO DAILY 07/15/15 [History] Melatonin 5 mg PO HS 01/28/17 [History] Leflunomide [Arava] 20 mg PO DAILY 03/09/17 [History] Aspirin EC [Ecotrin Low Dose] 81 mg PO HS 03/18/17 [History] Acetaminophen Tab [Tylenol] 650 mg PO BID PRN 06/02/17 [History] azaTHIOprine [Imuran] 50 mg PO TID 06/02/17 [History] Cholecalciferol (Vitamin D3) [Vitamin D3] 10,000 unit PO DAILY 07/14/17 [History ] Ertapenem [INVanz] 1 gm IVPB Q24H #14 bag 08/05/17 [Rx] Omeprazole [PriLOSEC] 40 mg PO AC-BRKFST #30 capsule. 08/09/17 [Rx] Ondansetron Odt [Zofran Odt] 4 mg PO Q8HR PRN #20 tab 08/09/17 [Rx] Follow up Appointment(s)/Referral(s): Wandy Borrero MD [STAFF PHYSICIAN] - 08/16/17 1:00 pm Rica Bloom III, MD [Primary Care Provider] - 08/11/17 3:45 pm Blanco Mendoza MD [STAFF PHYSICIAN] - Ambulatory/Diagnostic Orders: Basic Metabolic Panel [LAB.AMB] Location: Determined By Patient Complete Blood Count w/diff [LAB.AMB] Location: Determined By Patient Activity/Diet/Wound Care/Special Instructions: IV antibiotic infusions will be at Dr. Mendoza office. Please arrive anytime between 8:30AM -10:30AM for infusion starting the day after discharge. Care Plan Goals (MU): CAT scan abdomen and pelvis this Tuesday with IV and oral contrast results to Dr. borrero
--- NOTE | 2017-08-09 21:48 | P.PN ---
Subjective Progress Note Date: 08/09/17 Principal diagnosis: abdominal pain This is a 47-year-old female known to ID service as she was seen in January of this year at which time she was seen for appendicitis and peritonitis. He was discharged at that time on Augmentin to complete another 7 days. Since that time, patient underwent an outpatient CAT scan of the abdomen and pelvis with contrast that showed no suspicious intra-abdominal abnormalities. On June 11, she underwent EGD with biopsies finding gastritis, gastroesophageal reflux disease. Biopsy was positive for chronic gastritis and negative for H. pylori. Sigmoid biopsy showed no significant changes. Colonoscopy showed sigmoid diverticulosis and focal sigmoid diverticulitis. She was then admitted on March 18 for atypical chest pain following laparoscopic cholecystectomy likely secondary to Hannah-Ramos tears. She was most recently admitted in May for acute colitis. Patient states she was doing well until Tuesday at 7 PM she started with cramping abdominal pain in the right lower quadrant that then went to the left lower quadrant and it gave her a strange sensation in the vaginal area. She describes it as a spasm type pain. She had bright red blood from her rectum and following that started having some nausea and vomiting and fever. The abdominal pain worsened. By the morning her last bowel movement was a greasy film on the water. She states she has not had any food. By the afternoon she was having a sharp abdominal pain and had lost control of her bladder. She went to her doctor's office and was told to come into [facility] emergency center for evaluation. She was found to have a temperature 101 with white count of 10.8. Urinalysis was cloudy, leukoesterase large, WBC is 46 and squamous cells 12th she denies urinary symptoms. She underwent a KUB that showed nonobstructive pattern and abdominal and pelvic CAT scan with contrast showed sigmoid diverticulitis with extensive surrounding inflammatory change and abscess. She has been admitted to the hospital and started on Unasyn which is subtotally been changed by ID to Zosyn. Computed tomography guided drainages occurred. She's drained a large amount of purulent material. Of drainage is starting to reduce. She stilling having abdominal pain which is quite severe. Had nausea and emesis this morning and has had only water to drink the day today. She's quite concerned about nausea and emesis. Having difficulty with ambulation because of pain. However is improved today. Is eating solid foods without pain. And has not had nausea or emesis of solid food. Has had a bowel movement with a formed stool. Feels better today. Looking forward to going home. Understands importance of her outpatient intravenous antibiotic therapy. Computed tomography scan follow- up on Tuesday. Objective - Vital Signs Vital signs: Vital Signs Temp 97.7 F 08/09/17 07:00 Pulse 78 08/09/17 07:00 Resp 16 08/09/17 07:00 BP 139/88 08/09/17 07:00 Pulse Ox 95 08/09/17 07:00 Intake & Output 08/09/17 08/09/17 08/10/17 06:59 18:59 06:59 Intake Total 1000 500 Output Total 30 Balance 1000 470 Weight 136.078 kg Intake: Intake, IV Titration 1000 Amount Sodium Chloride 0.9% 1, 1000 000 ml @ 125 mls/hr IV . Q8H LAURENT Rx#:[id number] Oral 500 Output: Drainage 30 Left Abdomen 30 Other: Voiding Method Toilet # Voids 1 2 - Exam Gen: This is a morbidly obese 47-year-old female. She is found in bed and appears to be uncomfortable secondary to pain HEENT: Head is atraumatic, normocephalic. Pupils equal, round. Sclerae is anicteric. Conjunctiva pink. Mucous membranes of the mouth are dry. NECK: Supple. No JVD. No lymphadenopathy. No thyromegaly. LUNGS: Clear to auscultation. No wheezes or rhonchi. No intercostal retractions. HEART: Regular rate and rhythm. No murmur. ABDOMEN: Soft. Bowel sounds are present. Generalized abdominal tenderness most significant at the right lower quadrant. The percutaneous drain in the left lower quadrant is noted. The mucopurulent material is in the drainage bag. EXTREMITIES: No pedal edema. No calf tenderness. Dorsalis pedis is +2 bilaterally. NEUROLOGICAL: Patient is awake, alert and oriented x3. - Labs CBC & Chem 7: 08/09/17 06:39 08/09/17 06:39 Labs: Abnormal Lab Results - Last 24 Hours (Table) 08/09/17 08/09/17 Range/Units 06:39 06:39 RBC 3.78 L (3.80-5.40) m/uL Hgb 10.8 L (11.4-16.0) gm/dL Lymphocytes # 0.7 L (1.0-4.8) k/uL BUN 3 L (7-17) mg/dL Total Protein 6.0 L (6.3-8.2) g/dL Albumin 2.9 L (3.5-5.0) g/dL Microbiology - Last 24 Hours (Table) 08/03/17 16:15 Blood Culture - Final Blood No Growth after 144 hours 08/04/17 14:00 Anaerobic Culture - Final Aspirate Anaerobic Gm Negative Bacilli Laboratory Results WBC 5.1 k/uL (3.8-10.6) 08/09/17 06:39 RBC 3.78 m/uL (3.80-5.40) L 08/09/17 06:39 Hgb 10.8 gm/dL (11.4-16.0) L 08/09/17 06:39 Hct 34.0 % (34.0-46.0) 08/09/17 06:39 MCV 89.8 fL (80.0-100.0) 08/09/17 06:39 MCH 28.7 pg (25.0-35.0) 08/09/17 06:39 MCHC 31.9 g/dL (31.0-37.0) 08/09/17 06:39 RDW 14.9 % (11.5-15.5) 08/09/17 06:39 Plt Count 423 k/uL (150-450) 08/09/17 06:39 Neutrophils % 73 % 08/09/17 06:39 Lymphocytes % 13 % 08/09/17 06:39 Monocytes % 6 % 08/09/17 06:39 Eosinophils % 6 % 08/09/17 06:39 Basophils % 1 % 08/09/17 06:39 Neutrophils # 3.7 k/uL (1.3-7.7) 08/09/17 06:39 Lymphocytes # 0.7 k/uL (1.0-4.8) L 08/09/17 06:39 Monocytes # 0.3 k/uL (0-1.0) 08/09/17 06:39 Eosinophils # 0.3 k/uL (0-0.7) 08/09/17 06:39 Basophils # 0.1 k/uL (0-0.2) 08/09/17 06:39 Hypochromasia Slight 08/08/17 06:24 PT 12.5 sec (9.0-12.0) H 08/04/17 09:22 INR 1.3 (<1.2) H 08/04/17 09:22 Sodium 140 mmol/L (137-145) 08/09/17 06:39 Potassium 3.6 mmol/L (3.5-5.1) 08/09/17 06:39 Chloride 107 mmol/L (98-107) 08/09/17 06:39 Carbon Dioxide 26 mmol/L (22-30) 08/09/17 06:39 Anion Gap 7 mmol/L 08/09/17 06:39 BUN 3 mg/dL (7-17) L 08/09/17 06:39 Creatinine 0.53 mg/dL (0.52-1.04) 08/09/17 06:39 Est GFR (MDRD) Af Amer >60 (>60 ml/min/1.73 sqM) 08/09/17 06:39 Est GFR (MDRD) Non-Af >60 (>60 ml/min/1.73 sqM) 08/09/17 06:39 Glucose 92 mg/dL (74-99) 08/09/17 06:39 Plasma Lactic Acid Jose Martin 1.5 mmol/L (0.7-2.0) 08/03/17 16:30 Calcium 8.7 mg/dL (8.4-10.2) 08/09/17 06:39 Total Bilirubin 0.4 mg/dL (0.2-1.3) 08/09/17 06:39 AST 14 U/L (14-36) 08/09/17 06:39 ALT 24 U/L (9-52) 08/09/17 06:39 Alkaline Phosphatase 114 U/L (38-126) 08/09/17 06:39 Total Protein 6.0 g/dL (6.3-8.2) L 08/09/17 06:39 Albumin 2.9 g/dL (3.5-5.0) L 08/09/17 06:39 Lipase 51 U/L (23-300) 08/03/17 16:30 Urine Color Yellow 08/03/17 16:15 Urine Appearance Cloudy (Clear) H 08/03/17 16:15 Urine pH 8.5 (5.0-8.0) H 08/03/17 16:15 Ur Specific Harmony 1.023 (1.001-1.035) 08/03/17 16:15 Urine Protein 3+ (Negative) H 08/03/17 16:15 Urine Glucose (UA) Trace (Negative) H 08/03/17 16:15 Urine Ketones Negative (Negative) 08/03/17 16:15 Urine Blood Negative (Negative) 08/03/17 16:15 Urine Nitrite Negative (Negative) 08/03/17 16:15 Urine Bilirubin Negative (Negative) 08/03/17 16:15 Urine Urobilinogen 2.0 mg/dL (<2.0) 08/03/17 16:15 Ur Leukocyte Esterase Large (Negative) H 08/03/17 16:15 Urine RBC 2 /hpf (0-5) 08/03/17 16:15 Urine WBC 46 /hpf (0-5) H 08/03/17 16:15 Ur Squamous Epith Cells 12 /hpf (0-4) H 08/03/17 16:15 Urine Bacteria Rare /hpf (None) H 08/03/17 16:15 Urine Mucus Occasional /hpf (None) H 08/03/17 16:15 Urine HCG, Qual Not Detected (Not Detectd) 08/03/17 16:15 C. difficile (EIA) Intrp Negative (Negative) 08/04/17 18:10 Blood Type B Positive 08/03/17 16:15 Blood Type Confirm B Positive 08/03/17 19:09 Blood Type Recheck CABO Indicated 08/03/17 16:15 Antibody Screen NEGATIVE 08/03/17 16:15 Spec Expiration Date 08/06/2017 - 8432 08/03/17 16:15 Microbiology 08/03/17 16:15 Blood Blood Culture - Final No Growth after 144 hours 08/04/17 14:00 Aspirate Anaerobic Culture - Final Anaerobic Gm Negative Bacilli 08/04/17 14:00 Aspirate Gram Stain - Final 08/04/17 14:00 Aspirate Body Fluid Culture - Final Citrobacter freundii 08/03/17 16:15 Urine,Voided Urine Culture - Final Assessment and Plan (1) Abscess of sigmoid colon due to diverticulitis Narrative/Plan: This 47 year old woman is known to the ID service as noted she had appendicitis earlier. Since that time she's had difficulty with a bout of colitis. She now again has intense abdominal pain was with evidence of the sigmoid diverticulitis as well as abscess. She is now had a percutaneous drainage still is having pain but feeling slightly better. The patient understands that the percutaneous drainage as a temporizing procedure and that when she is improved will need to go on to surgical resection of part of her colon. She is on significant immunotherapy for her rheumatoid arthritis. 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 That fortunately is healing well. If she is having any further difficulties with healing will suggest discontinuation of her Imuran Cultures are in progress. Prior cultures do show evidence of a Klebsiella oxytoca that is somewhat resistant to Unasyn and constantly antimicrobial therapy was changed to Zosyn , culture now with Citrobacter freundii and anaerobic gram-negative bacilli for which Zosyn is an adequate choice but will be changed to ertapenem for her outpatient treatment With negative blood cultures a PICC line has been placed. Plans for outpatient intravenous antibiotic therapy and process. ertapenem will be utilized for once daily therapy. Discharge home today Status: Acute (2) Nausea & vomiting Status: Acute
== END 2017-08-09 14:50 | disposition home or self-care (01) | DRG 872 ==
LOC: EC 15:21 → 3SUR 19:56
PROVIDERS: ADMIT Internal Medicine; ATTEND Internal Medicine
PROC: 02HV33Z Insertion of Infusion Device into Superior Vena Cava, Percutaneous Approach (ICD-10-PCS; principal; 2017-08-08)
PROC: 0D9N3ZZ Drainage of Sigmoid Colon, Percutaneous Approach (ICD-10-PCS; 2017-08-08)
PROC: B518ZZA Fluoroscopy of Superior Vena Cava, Guidance (ICD-10-PCS; 2017-08-08)
PROC: B54MZZA Ultrasonography of Right Upper Extremity Veins, Guidance (ICD-10-PCS; 2017-08-08)
DX: A41.9 Sepsis, unspecified organism (principal); A04.72 Enterocolitis due to Clostridium difficile, not specified as recurrent; Z68.43 Body mass index [BMI] 50.0-59.9, adult; K57.20 Diverticulitis of large intestine with perforation and abscess without bleeding; E66.01 Morbid (severe) obesity due to excess calories; R65.20 Severe sepsis without septic shock; R11.0 Nausea; K29.60 Other gastritis without bleeding; G40.909 Epilepsy, unspecified, not intractable, without status epilepticus; T36.95XA Adverse effect of unspecified systemic antibiotic, initial encounter; R19.7 Diarrhea, unspecified; M48.00 Spinal stenosis, site unspecified; M06.9 Rheumatoid arthritis, unspecified; K21.9 Gastro-esophageal reflux disease without esophagitis; B96.89 Other specified bacterial agents as the cause of diseases classified elsewhere; Z87.19 Personal history of other diseases of the digestive system; Z83.3 Family history of diabetes mellitus; Z82.49 Family history of ischemic heart disease and other diseases of the circulatory system; Z81.8 Family history of other mental and behavioral disorders; Z80.6 Family history of leukemia; Z79.82 Long term (current) use of aspirin; Z79.899 Other long term (current) drug therapy; Z79.891 Long term (current) use of opiate analgesic; Z90.49 Acquired absence of other specified parts of digestive tract; Z90.89 Acquired absence of other organs; Z86.69 Personal history of other diseases of the nervous system and sense organs
CPT/HCPCS: 36415; 36569; 74000; 74177; 75989; 76937; 77001; 77012; 80053; 81001; 81025; 83605; 83690; 85025; 85610; 86850; 86900; 86901; 87040; 87070; 87075; 87077; 87086; 87186; 87205; 87324; 88307; 96361; 96365; 96366; 96372; 96374; 96375; 99285

== ENCOUNTER → 2017-08-12 | Outpatient (CLI) | payer MEDICARE, OTHER ==
[2017-08-12 07:23] LABS: Basophils # (A) 0.1 k/uL (0-0.2); Basophils % (A) 1 %; CH 29.9; CHCM 32.7; Eosinophils # (A) 0.3 k/uL (0-0.7); Eosinophils % (A) 6 %; HCT 38.2 % (34.0-46.0); HDW 2.86; HGB 12.2 gm/dL (11.4-16.0); Luc # (Auto) 0.09; Luc % (Auto) 2; Lymphocytes # (A) 0.8 k/uL (1.0-4.8); Lymphocytes % (A) 15 %; MCH 29.3 pg (25.0-35.0); MCHC 31.9 g/dL (31.0-37.0); MCV 91.9 fL (80.0-100.0); Mean Platelet Volume 6.9; Monocytes # (A) 0.3 k/uL (0-1.0); Monocytes % (A) 6 %; Neutrophils % (A) 71 %; RBC 4.16 m/uL (3.80-5.40); WBC 5.6 k/uL (3.8-10.6); WBC (Perox) 5.79
[2017-08-12 07:37] LABS: Anion Gap 9 mmol/L; Blood Urea Nitrogen 11 mg/dL (7-17); Calcium 8.9 mg/dL (8.4-10.2); Carbon Dioxide 26 mmol/L (22-30); Chloride 105 mmol/L (98-107); Glucose 93 mg/dL (74-99); Non-African American GFR(MDRD) >60 (>60 ml/min/1.73 sqM); Potassium 4.2 mmol/L (3.5-5.1); Sodium 140 mmol/L (137-145)
== END | disposition home or self-care (01) ==
LOC: LABWHC1 06:41
PROVIDERS: ATTEND Nurse Practitioner Family
DX: L02.211 Cutaneous abscess of abdominal wall (principal)
CPT/HCPCS: 36415; 80048; 85025

== ENCOUNTER → 2017-08-12 | Outpatient (CLI) | payer MEDICARE, OTHER ==
[2017-08-12 09:19] VITALS: BP 119/70; PULSE 80; RESP 14; TEMP 97.4
--- NOTE | 2017-08-12 09:38 | CT ---
EXAMINATION TYPE: CT abdomen pelvis w con DATE OF EXAM: 08/12/2017 COMPARISON: Prior CT 08/03/2017 HISTORY: abdomen pain and abscess CT DLP: 2631.3 mGycm Automated exposure control for dose reduction was used. TECHNIQUE: Helical acquisition of images from the lung bases through the pelvis have been completed. CONTRAST: Performed with Oral Contrast and with IV Contrast, patient injected with 100 mL of Omnipaque 300. FINDINGS: LUNG BASES: No significant abnormality is appreciated. AORTA: No significant abnormality is appreciated. Duplicated inferior vena cava is present. LIVER/GB: Stable, gallbladder is absent PANCREAS: No significant abnormality is seen. SPLEEN: No significant abnormality is seen. ADRENALS: No significant abnormality is seen. KIDNEYS: No significant abnormality is seen. REPRODUCTIVE ORGANS: No significant abnormality is seen BOWEL: Persistent bowel wall thickening is present in the sigmoid colon. Interval placement of a alejandro inage catheter is towards the left of midline, the abscess cavity has reduced in size. Minimal residu al hypodense collection is present with wall enhancement measuring approximately 3 cm in size which d oes not communicate with the angiographic catheter. FREE AIR: No Free Air visible. ASCITES: None visible. PELVIC ADENOPATHY: None visualized. RETROPERITONEAL ADENOPATHY: No Retroperitoneal Adenopathy visible. URINARY BLADDER: No significant abnormality is seen. OSSEOUS STRUCTURES: No significant abnormality is seen. IMPRESSION: SMALL RESIDUAL FLUID COLLECTION. CATHETER IS PRESENT TO THE LEFT OF MIDLINE. PERSISTENT FINDINGS OF P OSSIBLE COLITIS VERSUS MUSCULAR HYPERTROPHY WITHIN THE SIGMOID COLON, MUCH OF INFLAMMATORY CHANGE HAS RESOLVED.
== END ==
LOC: RADPROMAIN 07:00
PROVIDERS: ATTEND Surgery
DX: R18.8 Other ascites (principal)
CPT/HCPCS: 74177; Q9967

== ENCOUNTER 2017-11-05 22:03 | Emergency (ER) | payer MEDICARE, OTHER ==
[2017-11-05 22:11] VITALS: TEMP 97.7
[2017-11-05] MEDS ORDERED: MORPHINE SULFATE 5 MG/ML SYRINGE IV ONE (22:19)
[2017-11-05] MEDS ORDERED: SODIUM CHLORIDE 0.9% 1,000 ML IV ONE (22:19)
[2017-11-05] MEDS ORDERED: ONDANSETRON 4 MG/2 ML VIAL IVP STA (22:19)
[2017-11-05] MEDS ORDERED: KETOROLAC 30 MG/ML 1 ML VIAL IVP STA (22:19)
[2017-11-05 23:01] LABS: Basophils % (A) 1 %; Eosinophils # (A) 0.3 k/uL (0-0.7); Eosinophils % (A) 4 %; HCT 37.7 % (34.0-46.0); HGB 12.3 gm/dL (11.4-16.0); Lymphocytes # (A) 1.4 k/uL (1.0-4.8); Lymphocytes % (A) 21 %; MCH 29.1 pg (25.0-35.0); MCHC 32.7 g/dL (31.0-37.0); Mean Platelet Volume 7.1; Monocytes # (A) 0.3 k/uL (0-1.0); Monocytes % (A) 5 %; Neutrophils # (A) 4.4 k/uL (1.3-7.7); Neutrophils % (A) 68 %; Platelet Count 300 k/uL (150-450); RBC 4.23 m/uL (3.80-5.40); RDW 14.9 % (11.5-15.5); WBC 6.6 k/uL (3.8-10.6)
[2017-11-05 23:06] LABS: Appearance,Urine Turbid (Clear); Bilirubin,Urine Negative (Negative); Blood,Urine Trace (Negative); Color,Urine Yellow; Glucose,Urine (UA) Negative (Negative); Ketones,Urine 1+ (Negative); Leukocyte Esterase,Urine Large (Negative); Mucus,Urine Many /hpf; Nitrite,Urine Negative (Negative); PH, Urine 5.5 (5.0-8.0); Protein,Urine 1+ (Negative); RBC,Urine 4 /hpf (0-5); Squamous Epithelial Cell,Urine 31 /hpf (0-4); Urobilinogen,Urine <2.0 mg/dL (<2.0); WBC,Urine 130 /hpf (0-5)
[2017-11-05 23:07] LABS: Anion Gap 10 mmol/L; Blood Urea Nitrogen 19 mg/dL (7-17); Calcium 9.6 mg/dL (8.4-10.2); Carbon Dioxide 25 mmol/L (22-30); Chloride 105 mmol/L (98-107); Glucose 98 mg/dL (74-99); Sodium 140 mmol/L (137-145)
--- NOTE | 2017-11-05 23:59 | CT ---
EXAM: CT Abdomen and Pelvis Without Intravenous Contrast, Renal Stone Protocol CLINICAL HISTORY: Reason: Pain TECHNIQUE: Axial computed tomography images of the abdomen and pelvis without intravenous contrast using renal stone protocol. CTDI is 47.5 mGy and DLP is 2312.1 mGy-cm. This CT exam was performed using one or more of the following dose reduction techniques: automated exposure control, adjustment of the mA and/or kV according to patient size, and/or use of iterative reconstruction technique. COMPARISON: 08/12/17 FINDINGS: Lower thorax: Unremarkable as visualized. ABDOMEN: Liver: Unremarkable. Gallbladder and bile ducts: Cholecystectomy. No ductal dilation. Pancreas: Unremarkable. No ductal dilation. Spleen: Unremarkable. No splenomegaly. Adrenals: Unremarkable. No mass. Right kidney and ureter: No visualized renal stones or hydronephrosis. Ureter bladder is nondistended, precluding evaluation by CT at this time. Left kidney and ureter: See above. Stomach and bowel: Unremarkable. No obstruction. No mucosal thickening. Appendix: Colonic anastomosis at the sigmoid level. No regional inflammation. Surgical changes also noted at the cecum from likely appendectomy. PELVIS: Bladder: See above. Reproductive: Unremarkable as visualized. ABDOMEN and PELVIS: Intraperitoneal space: Unremarkable. No free air. No significant fluid collection. Bones/joints: Multilevel degenerative disc disease with disc space height loss and osteophytosis. Since previous exam, there is now a and anterolisthesis of L4 and L5, grade 1. There is also anterior disc space height loss and chronic slight right lateral shift of L4 on L5. Prominent facet joint hypertrophy noted at L4-5. No acute fracture. No dislocation. Soft tissues: Rightward abdominal ventral hernia containing fat is noted, with slight internal stranding and overlying soft tissue density which may be related to scarring. Hernia has a wide neck at 5.3 cm. Query previous regional surgery/procedure. Mild stranding likely from scarring also noted within the leftward abdominal subcutaneous tissues. Scarring from trochar sites in the right lower quadrant and umbilicus. Fatty right inguinal hernia. Vasculature: Unremarkable. No abdominal aortic aneurysm. Lymph nodes: Unremarkable. No enlarged lymph nodes. IMPRESSION: 1. No CT evidence for nephrolithiasis or hydronephrosis. 2. Postsurgical changes to the abdomen, with a prominent right upper abdomen ventral hernia containing fat with slight internal and overlying subcutaneous stranding. Correlate for any regional reactive changes clinically. No evidence for abscess. 3. New grade 1 anterolisthesis L4 and L5. 4. Nonacute findings as above.
[2017-11-06] MEDS ORDERED: cefTRIAXone IN SWFI 1,000 MG/10 ML SYRINGE IVP STA (00:23)
[2017-11-06 01:02] VITALS: BP 134/70; PULSE 69; RESP 16
--- NOTE | 2017-11-06 01:05 | ED ---
Abdominal Pain HPI - General Chief Complaint: Abdominal Pain Stated Complaint: Side pain Time Seen by Provider: 11/05/17 22:12 Source: patient, family Mode of arrival: wheelchair Limitations: no limitations - History of Present Illness Initial Comments: Patient presents with a chief complaint of right-sided flank pain going on for 1 day. The patient states she has a recent history of a colon resection for which she is worried she is having complications. Patient describes her pain as very sharp and abrupt in onset. There are no aggravating or alleviating factors. Timing is constant. Patient denies any nausea or vomiting at this time. - Related Data Home Medications Medication Instructions Recorded Confirmed Melatonin 5 mg PO HS 01/28/17 10/04/17 Aspirin EC [Ecotrin Low Dose] 81 mg PO HS 03/18/17 10/04/17 Acetaminophen Tab [Tylenol] 650 mg PO BID 06/02/17 10/04/17 Previous Rx's Medication Instructions Recorded Ciprofloxacin HCl [Cipro] 500 mg PO Q12HR #20 tablet 10/01/17 Gentamicin/Prednisol AC [Pred-G 1 applic RIGHT EYE DAILY #0 applic 10/01/17 S.O.P. Eye Ointment] HYDROcodone/APAP 5-325MG [Clifton 1 each PO Q6HR PRN #20 tab 10/01/17 5-325] metroNIDAZOLE [Flagyl] 500 mg PO TID #30 tab 10/01/17 Metoclopramide [Reglan] 10 mg PO ACHS #30 tab 10/04/17 Ondansetron Odt [Zofran ODT] 4 mg PO Q8HR PRN #20 tab 10/04/17 Scopolamine 1.5MG/72Hr Patch 1 patch TRANSDERM Q72H #4 patch 10/04/17 [TransDerm Scop] HYDROcodone/APAP 5-325MG [Clifton 1 tab PO Q4HR PRN #10 tab 11/06/17 5-325] Ondansetron [Zofran ODT] 4 mg PO Q8HR #12 tab 11/06/17 Sulfamethox-Tmp 800-160Mg [Bactrim 1 tab PO Q12HR #14 tab 11/06/17 DS 800-160 mg] Allergies Allergy/AdvReac Type Severity Reaction Status Date / Time hydromorphone [From Dilaudid] AdvReac Nausea & Verified 11/05/17 22:11 Vomiting Review of Systems ROS Statement: Those systems with pertinent positive or pertinent negative responses have been documented in the HPI. ROS Other: All systems not noted in ROS Statement are negative. 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 STATES SLEEP APNEA NO MACHINE History of Any Multi-Drug Resistant Organisms: None Reported Past Surgical History: Appendectomy, Cholecystectomy, Orthopedic Surgery Additional Past Surgical History / Comment(s): drain to diverticular abscess in and now out, PICC line in and now out, endoscopic sinus surgery, L knee arthroscopy, back epidural injections, recent EGD,colonoscopy sep 29 2017 sigmoid colon removed for diviterulitis Past Anesthesia/Blood Transfusion Reactions: Motion Sickness Past Psychological History: No Psychological Hx Reported Smoking Status: Never smoker - Past Family History Father Family Medical History: Cancer Additional Family Medical History / Comment(s): Father of leukemia at the age of 65yrs. Mother Family Medical History: Diabetes Mellitus, Hypertension, Osteoarthritis (OA) Additional Family Medical History / Comment(s): Mother has IIDM, depression. General Exam Limitations: no limitations General appearance: alert, other (Patient is in mild distress secondary to pain) Head exam: Present: atraumatic, normocephalic ENT exam: Present: mucous membranes moist Respiratory exam: Present: normal lung sounds bilaterally Cardiovascular Exam: Present: regular rate, normal rhythm GI/Abdominal exam: Present: soft. Absent: distended, tenderness Back exam: Present: CVA tenderness (R). Absent: CVA tenderness (L) Neurological exam: Present: alert, oriented X3 Psychiatric exam: Present: normal affect, normal mood Skin exam: Present: warm, dry, intact Course Vital Signs 11/05/17 22:09 Temperature 97.7 F Pulse Rate 78 Respiratory 18 Rate Blood Pressure 131/90 O2 Sat by Pulse 99 Oximetry Medical Decision Making - Medical Decision Making Patient presents with a chief complaint of abrupt onset right-sided flank pain. History of physical examination are most consistent with nephrolithiasis/ ureterolithiasis. Patient will have basic labs sent for computed tomography scan of the abdomen and pelvis without contrast. She was given morphine and Toradol for pain control. Laboratory evaluation of this patient shows evidence of a urinary tract infection with a small amount of blood. Computed tomography scan does not show any evidence of obstructive uropathy. There is a large fat-containing hernia that is noted on the CAT scan with mild surrounding inflammation likely due to recent surgery. At this time, presentation and lab evaluation are most consistent with pyelonephritis. Patient vital signs are stable, she is afebrile. After medication, her pain is much improved. She was given a gram of Rocephin in the emergency department. I discussed treatment options with her. She had decision-making was used to determine that the patient will be discharged home with Bactrim, Clifton, Zofran. Patient was instructed to return promptly to the emergency department if her symptoms worsen or change. Otherwise she is instructed to follow-up with her primary care doctor. The patient states that she has an appointment on Tuesday. At this time, patient is stable for discharge. - Lab Data Result diagrams: 11/05/17 22:33 11/05/17 22:37 Lab Results 11/05/17 11/05/17 11/05/17 Range/Units 22:33 22:37 22:37 WBC 6.6 (3.8-10.6) k/uL RBC 4.23 (3.80-5.40) m/uL Hgb 12.3 (11.4-16.0) gm/dL Hct 37.7 (34.0-46.0) % MCV 89.0 (80.0-100.0) fL MCH 29.1 (25.0-35.0) pg MCHC 32.7 (31.0-37.0) g/dL RDW 14.9 (11.5-15.5) % Plt Count 300 (150-450) k/uL Neutrophils % 68 % Lymphocytes % 21 % Monocytes % 5 % Eosinophils % 4 % Basophils % 1 % Neutrophils # 4.4 (1.3-7.7) k/uL Lymphocytes # 1.4 (1.0-4.8) k/uL Monocytes # 0.3 (0-1.0) k/uL Eosinophils # 0.3 (0-0.7) k/uL Basophils # 0.0 (0-0.2) k/uL Sodium 140 (137-145) mmol/L Potassium 4.0 (3.5-5.1) mmol/L Chloride 105 (98-107) mmol/L Carbon Dioxide 25 (22-30) mmol/L Anion Gap 10 mmol/L BUN 19 H (7-17) mg/dL Creatinine 0.50 L (0.52-1.04) mg/dL Est GFR (MDRD) Af Amer >60 (>60 ml/min/1.73 sqM) Est GFR (MDRD) Non-Af >60 (>60 ml/min/1.73 sqM) Glucose 98 (74-99) mg/dL Calcium 9.6 (8.4-10.2) mg/dL Urine Color Urine Appearance (Clear) Urine pH (5.0-8.0) Ur Specific Colton (1.001-1.035) Urine Protein (Negative) Urine Glucose (UA) (Negative) Urine Ketones (Negative) Urine Blood (Negative) Urine Nitrite (Negative) Urine Bilirubin (Negative) Urine Urobilinogen (<2.0) mg/dL Ur Leukocyte Esterase (Negative) Urine RBC (0-5) /hpf Urine WBC (0-5) /hpf Ur Squamous Epith Cells (0-4) /hpf Urine Mucus (None) /hpf Urine HCG, Qual Not Detected (Not Detectd) 11/05/17 Range/Units 22:37 WBC (3.8-10.6) k/uL RBC (3.80-5.40) m/uL Hgb (11.4-16.0) gm/dL Hct (34.0-46.0) % MCV (80.0-100.0) fL MCH (25.0-35.0) pg MCHC (31.0-37.0) g/dL RDW (11.5-15.5) % Plt Count (150-450) k/uL Neutrophils % % Lymphocytes % % Monocytes % % Eosinophils % % Basophils % % Neutrophils # (1.3-7.7) k/uL Lymphocytes # (1.0-4.8) k/uL Monocytes # (0-1.0) k/uL Eosinophils # (0-0.7) k/uL Basophils # (0-0.2) k/uL Sodium (137-145) mmol/L Potassium (3.5-5.1) mmol/L Chloride (98-107) mmol/L Carbon Dioxide (22-30) mmol/L Anion Gap mmol/L BUN (7-17) mg/dL Creatinine (0.52-1.04) mg/dL Est GFR (MDRD) Af Amer (>60 ml/min/1.73 sqM) Est GFR (MDRD) Non-Af (>60 ml/min/1.73 sqM) Glucose (74-99) mg/dL Calcium (8.4-10.2) mg/dL Urine Color Yellow Urine Appearance Turbid H (Clear) Urine pH 5.5 (5.0-8.0) Ur Specific Colton 1.030 (1.001-1.035) Urine Protein 1+ H (Negative) Urine Glucose (UA) Negative (Negative) Urine Ketones 1+ H (Negative) Urine Blood Trace H (Negative) Urine Nitrite Negative (Negative) Urine Bilirubin Negative (Negative) Urine Urobilinogen <2.0 (<2.0) mg/dL Ur Leukocyte Esterase Large H (Negative) Urine RBC 4 (0-5) /hpf Urine WBC 130 H (0-5) /hpf Ur Squamous Epith Cells 31 H (0-4) /hpf Urine Mucus Many H (None) /hpf Urine HCG, Qual (Not Detectd) Disposition Clinical Impression: Pyelonephritis, Flank pain Disposition: HOME SELF-CARE Condition: Good Instructions: Kidney Infection (ED) Prescriptions: HYDROcodone/APAP 5-325MG [Clifton 5-325] 1 tab PO Q4HR PRN #10 tab PRN Reason: Severe Pain Ondansetron [Zofran ODT] 4 mg PO Q8HR #12 tab Sulfamethox-Tmp 800-160Mg [Bactrim DS 800-160 mg] 1 tab PO Q12HR #14 tab Referrals: Rica Bloom III, MD [Primary Care Provider] - 1-2 days
== END 2017-11-06 01:14 | disposition home or self-care (01) ==
LOC: EC 22:03
DX: N12 Tubulo-interstitial nephritis, not specified as acute or chronic (principal); G47.30 Sleep apnea, unspecified; Z99.89 Dependence on other enabling machines and devices; M06.9 Rheumatoid arthritis, unspecified; Z90.49 Acquired absence of other specified parts of digestive tract; Z79.82 Long term (current) use of aspirin; Z79.899 Other long term (current) drug therapy; Z88.5 Allergy status to narcotic agent
CPT/HCPCS: 99284 ×2; 96374 ×2; 96375 ×5; 96361 ×2; 36415; 80048; 85025; 81001; 81025; 74150; J2405; J0696; J1885; J2274

== ENCOUNTER → 2018-01-07 | Outpatient (CLI) | payer MEDICARE, OTHER | LOC: LABPAT 11:30 | PROVIDERS: ATTEND Surgery Plastic and Reconstructive Surgery | DX: Z01.812 Encounter for preprocedural laboratory examination (principal) | CPT/HCPCS: 36415; 86850; 86900; 86901 ==

== ENCOUNTER 2018-01-13 05:37 | Day surgery (SDC) | payer MEDICARE, OTHER ==
[~2018-01-13 05:37] MED LIST changes: -DEXAMETHASONE SOD PHOSPHATE 10 MG/ML 1 ML VIAL IV ONE; +HEPARIN SODIUM,PORCINE 5,000 UNIT/ML 1 ML VIAL SQ ONE; -LACTATED RINGERS 1,000 ML IV SCH; -MIDAZOLAM 2 MG/2 ML VIAL IV PRN; -ONDANSETRON 4 MG/2 ML VIAL IVP ONE; -Pre Op ABX Message 1 EACH MISC MISCELLANE ONE; -SCOPOLAMINE 1.5MG/72HR PATCH TRANSDERM ONE; -fentaNYL (PF) 50 MCG/ML 2 ML AMP IV PRN
[2018-01-13] MEDS ORDERED: MIDAZOLAM 2 MG/2 ML VIAL IV PRN (05:58)
[2018-01-13] MEDS ORDERED: MORPHINE SULFATE 4 MG/ML SYRINGE IV PRN (05:58)
[2018-01-13] MEDS ORDERED: SCOPOLAMINE 1.5MG/72HR PATCH TRANSDERM ONE (05:58)
[2018-01-13] MEDS ORDERED: LIDOCAINE 1% 20 ML VIAL (10MG/ML) FOR IV START INTRADERMA PRN (05:58)
[2018-01-13] MEDS ORDERED: DEXAMETHASONE SOD PHOSPHATE 10 MG/ML 1 ML VIAL IV ONE (05:58)
[2018-01-13] MEDS: LACTATED RINGERS 1,000 ML IV SCH (06:27)
[2018-01-13] MEDS: ONDANSETRON 4 MG/2 ML VIAL IVP ONE ×2 (06:27→09:53)
--- NOTE | 2018-01-13 06:56 | P.GSHP ---
History of Present Illness H&P Date: 01/13/18 CHIEF COMPLAINT: Incisional hernia. HISTORY OF PRESENT ILLNESS: The patient is a 47-year-old female who presents with a history of swelling along the upper abdomen. Findings were consistent with incisional hernia initial presentation. Now she presents for further evaluation and management. PAST MEDICAL HISTORY: Please see list. PAST SURGICAL HISTORY: Please see list. MEDICATIONS: Please see list. ALLERGIES: Please see list. SOCIAL HISTORY: No illicit drug use FAMILY HISTORY: No reports of Crohn disease or ulcerative colitis. REVIEW OF ORGAN SYSTEMS: CONSTITUTIONAL: No reports of fevers or chills. GI: Denies any blood in stools or constipation. PHYSICAL EXAM: VITAL SIGNS: Stable GENERAL: Well-developed pleasant female in no acute distress. HEENT: No scleral icterus. Extraocular movements grossly intact. Moist buccal mucosa. NECK: Supple without lymphadenopathy. CHEST: Unlabored respirations. Equal bilateral excursions. CARDIOVASCULAR: Regular rate and rhythm. Distal 2+ pulses. ABDOMEN: Soft, nondistended. Palpable defect of the upper abdomen. MUSCULOSKELETAL: No clubbing, cyanosis, or edema. ASSESSMENT: 1. Incisional ventral hernia. 2. Morbid obesity, BMI 51.8 PLAN: 1. Recommend proceeding with a robotic ventral hernia repair with mesh. 2. Benefits and risks of surgical intervention was discussed including possibility of open technique. 3. May need overnight observation. 4. DVT prophylaxis. 5. Antibiotic prophylaxis. Past Medical History Past Medical History: Rheumatoid Arthritis (RA), Seizure Disorder, Skin Disorder , Sleep Apnea/CPAP/BIPAP Additional Past Medical History / Comment(s): NO CPAP. DIVERTICULITIS WITH RUPTURE/ABSCESS. EYE SOMETIMES GET BLOOD SHOT DUE TO RA MEDS. RA-pain in multiple joints, spinal stenosis/instability and herniated disc, spondolothisis, -difficulty walking, childhood seizures. History of Any Multi-Drug Resistant Organisms: None Reported Past Surgical History: Appendectomy, Cholecystectomy, Orthopedic Surgery Additional Past Surgical History / Comment(s): PICC LINE. 09/29/17, COLON RESECTION DUE TO DIVERTICULOSIS. Knee arthroscopy, back epidural injections. EGD,colonoscopy. Past Anesthesia/Blood Transfusion Reactions: Motion Sickness, Postoperative Nausea & Vomiting (PONV) Past Psychological History: No Psychological Hx Reported Smoking Status: Never smoker Past Alcohol Use History: None Reported Past Drug Use History: None Reported - Past Family History Father Family Medical History: Cancer Additional Family Medical History / Comment(s): Father of leukemia at the age of 65yrs. Mother Family Medical History: Diabetes Mellitus, Hypertension, Osteoarthritis (OA) Additional Family Medical History / Comment(s): Mother has IIDM, depression. Medications and Allergies Home Medications Medication Instructions Recorded Confirmed Type Melatonin 5 mg PO HS 01/28/17 01/13/18 History Aspirin EC [Ecotrin Low Dose] 81 mg PO HS 03/18/17 01/13/18 History Acetaminophen Tab [Tylenol] 650 mg PO BID 06/02/17 01/13/18 History Leflunomide [Arava] 20 mg PO QAM 01/06/18 01/13/18 History Meloxicam [Mobic] 15 mg PO QAM 01/06/18 01/13/18 History azaTHIOprine [Imuran] 50 mg PO TID 01/06/18 01/13/18 History Allergies Allergy/AdvReac Type Severity Reaction Status Date / Time adhesive AdvReac Rash/Hives Verified 01/06/18 11:20 hydromorphone [From Dilaudid] AdvReac Nausea & Verified 01/06/18 10:53 Vomiting Surgical - Exam Vital Signs Temp Pulse Resp BP Pulse Ox 97.4 F L 66 16 138/82 98 01/13/18 06:15 01/13/18 06:15 01/13/18 06:15 01/13/18 06:15 01/13/18 06:15
[2018-01-13] MEDS ORDERED: MIDAZOLAM 2 MG/2 ML VIAL ONE (06:59)
[2018-01-13] MEDS ORDERED: fentaNYL (PF) 50 MCG/ML 2 ML AMP ONE (06:59)
[2018-01-13] MEDS ORDERED: KETOROLAC 30 MG/ML 1 ML VIAL ONE (06:59)
[2018-01-13] MEDS ORDERED: SUCCINYLCHOLINE CHLORIDE VIAL 200 MG/10 ML VIAL IV ONE (06:59)
[2018-01-13] MEDS ORDERED: LIDOCAINE 1% INJ 10MG/ML (20 ML MDV) ONE (06:59)
[2018-01-13] MEDS ORDERED: NEOSTIGMINE 1 MG/ML 10 ML VIAL ONE (06:59)
[2018-01-13] MEDS ORDERED: PROPOFOL 10 MG/ML 20 ML VIAL IV ONE (06:59)
[2018-01-13] MEDS ORDERED: ROCURONIUM BROMIDE 10 MG/ML 10 ML VIAL IV ONE (06:59)
[2018-01-13] MEDS ORDERED: GLYCOPYRROLATE 0.2 MG/ML 2 ML VIAL ONE (06:59)
[2018-01-13] MEDS ORDERED: BUPIVACAINE (PF) 0.25% 30 ML VIAL SQ ONE (07:30)
[2018-01-13] MEDS ORDERED: PROMETHAZINE INJ 25 MG/ML 1 ML VIAL IVPB ONE (09:11)
--- NOTE | 2018-01-13 09:27 | P.OP ---
Date of Procedure: 01/13/18 Description of Procedure: SURGEON: HILDA BA MD [employer] INSPECTOR: SYDNEY STOVER PREOPERATIVE DIAGNOSES: 1. Incarcerated incisional hernia, initial, right upper quadrant. 2. Morbid obesity due to excess calories. 3. Body mass index 51.4 4. Chronic abdominal pain. 5. Chronic back pain. 6. Chronic pain syndrome. 7. Personal history of multiple abdominal surgeries. 8. Rheumatoid arthritis. 9. Obstructive sleep apnea 10. Spinal stenosis 11. Seizure disorder POSTOPERATIVE DIAGNOSES: 1. Incarcerated incisional hernia, initial, right upper quadrant, 5 x 6 cm. 2. Morbid obesity due to excess calories. 3. Body mass index 51.4 4. Chronic abdominal pain. 5. Chronic back pain. 6. Chronic pain syndrome. 7. Personal history of multiple abdominal surgeries. 8. Rheumatoid arthritis. 9. Obstructive sleep apnea 10. Spinal stenosis 11. Seizure disorder OPERATION: 1. Robotic-assisted da Piter Xi laparoscopic repair of incarcerated initial incisional hernia, 5 x 6 cm, repair with Bard Ventralight ST mesh 10 x 15 cm ANESTHESIA: General with local anesthetic IMPLANT: Ventralight ST Mesh LOT [id number] REF [id number] ESTIMATED BLOOD LOSS: 5 mL. Pathology: None. COMPLICATIONS: None. Condition: stable Disposition: same day Operative Findings: 1. Incarcerated ventral hernia 5 x 6 cm, right upper quadrant. 2. No peritoneal adhesions with exception of hernia identified. 3. No small bowel pathology or recurrent diverticulitis. INDICATIONS: The patient is a 47-year-old female who presents with previous history of diverticulitis with removal of specimen along the right upper abdomen 5 months ago. She had postoperative complications including a large abdominal wall seroma requiring open drainage. Additional diagnostic studies were consistent with an incarcerated fat-containing incisional ventral hernia. Given her symptoms, surgical options were reviewed. As her body habitus is over 40 and to decrease risk of additional adhesions, laparoscopic versus robotic and open techniques were reviewed. Placement of mesh was also reviewed. Benefits and risks were thoroughly described. Informed consent was obtained. DESCRIPTION OF PROCEDURE: The patient was brought into the operating room and laid in supine position. After general induction, the abdomen had been prepped and draped in standard sterile fashion. Ioban draping was also placed. Prior to incision, a timeout protocol was confirmed with surgical team regarding the patient's name including procedures to be performed. The robot was primed prior to the procedure. Initial incision was made with an #11 blade along the left upper quadrant. A 0 degree 5 mm laparoscopic trocar entry was performed. Diagnostic laparoscopy demonstrated an incarcerated hernia along the right upper quadrant involving the greater omentum. Despite her previous history of multiple abdominal surgeries, she had no adhesions. Diagnostic laparoscopy demonstrated no recurrent adhesions as well as no small bowel pathology, obstruction or recurrent diverticulitis involving the bilateral lower abdomen. An 5 mm port was placed along the left lower quadrant under direct localization avoiding the adhesions identified. The 5-mm port was exchanged for a 8 mm robotic port. A 8 mm port was placed along the left lower abdomen. A 12-mm port was placed along the left lateral abdominal wall in between the 8 mm ports. The ports were placed 15 to 20 cm away from the target anatomy. Placements of the ports were 10 to 12 cm apart. Next, an 10 x [address] mesh was entered into abdominal cavity under direct visualization with 0 Stratafix 18-inches. The [employer] robot was previously primed, prepped and draped then docked along the left side of the patient. I then sat at the robot [place] console where working arms of the robot including Bovie cautery connected to robotic scissors and graspers placed by the project administrative assistant. Initial attention was brought to the anterior abdominal wall. Using dissecting grasper as well as scissors connected to electro-Bovie cautery, the peritoneum was scored. The incarcerated omentum of the incisional hernia was reduced. The size of the defect was 5 x 6 cm after measurement. The fascia was cleaned of peritoneal fat to allow for 3 to 5 cm margin. The peritoneal defect was closed using #1 Stratafix suture, 18 inch length, with multiple imbrication of the fascia. Ventralight ST 10 x 15 cm mesh as a incision along the abdominal wall with the smooth side was placed towards the bowel. The mesh was sutured in a running fashion peritoneum to fascia to the mesh approach using 2-0 VLOC 9-inch sutures. A final endoscopic imaging was obtained. The da Piter Xi robot was undocked from the patient. I re-scrubbed into the case for closure of incisions. All instruments and pneumoperitoneum were evacuated from the abdominal cavity. The fascia of the 12- mm port was probed and less than 8 mm. The incisions were reapproximated using 4 -0 Monocryl in an interrupted subcuticular fashion. Dermabond was applied to the skin. At the end of the procedure, needle, sponge, and instrument count had been verified correct by electrical design technician. The patient was taken to the postanesthesia care unit in stable condition with abdominal binder. Intraoperative films were described to review with the family. Console time 46 minutes. Plan - Discharge Summary Discharge Rx Participant: No New Discharge Prescriptions: Continue Melatonin 5 mg PO HS Aspirin EC [Ecotrin Low Dose] 81 mg PO HS Acetaminophen Tab [Tylenol] 650 mg PO BID Leflunomide [Arava] 20 mg PO QAM azaTHIOprine [Imuran] 50 mg PO TID Meloxicam [Mobic] 15 mg PO QAM Discharge Medication List Melatonin 5 mg PO HS 01/28/17 [History] Aspirin EC [Ecotrin Low Dose] 81 mg PO HS 03/18/17 [History] Acetaminophen Tab [Tylenol] 650 mg PO BID 06/02/17 [History] Leflunomide [Arava] 20 mg PO QAM 01/06/18 [History] Meloxicam [Mobic] 15 mg PO QAM 01/06/18 [History] azaTHIOprine [Imuran] 50 mg PO TID 01/06/18 [History] Follow up Appointment(s)/Referral(s): Hilda Ba MD [STAFF PHYSICIAN] - 01/17/18 Patient Instructions/Handouts: *Surgery [facility] - (Anesthesia) Discharge Instructions Outpatient Surgery, Laparoscopic Herniorrhaphy (DC), Abdominal Binder (DC) Activity/Diet/Wound Care/Special Instructions: May re-start your Mobic for pain. Take Aleve or tylenol for pain. Wear abdominal binder at all times. May shower. No bathtub soaks. You may re-start your rheumatoid medications, January 27. No lifting over 4 pounds in 4 weeks.
[2018-01-13] MEDS ORDERED: diphenhydrAMINE 50 MG/ML 1 ML VIAL IVP ONE (09:31)
[2018-01-13] MEDS ORDERED: fentaNYL (PF) 50 MCG/ML 2 ML AMP IVP ONE (09:53)
[2018-01-13] MEDS ORDERED: NALOXONE 0.4 MG/ML 1 ML VIAL IV PRN (12:34)
[2018-01-13] MEDS ORDERED: ACETAMINOPHEN IV (For NPO) 1,000 MG in EMPTY BAG 1 BAG IVPB ONE (12:34)
[2018-01-13] MEDS ORDERED: DEXAMETHASONE SOD PHOSPHATE 10 MG/ML 1 ML VIAL IV STA ×2 (12:35→18:16)
[2018-01-13] MEDS ORDERED: MIDAZOLAM 2 MG/2 ML VIAL IV ONE (12:45)
[2018-01-13] MEDS ORDERED: METOCLOPRAMIDE 5 MG/ML 2 ML VIAL IVP ONE (13:23)
[2018-01-13] MEDS ORDERED: SCOPOLAMINE 1.5MG/72HR PATCH TRANSDERM SCH (14:00)
[2018-01-13] MEDS: KETOROLAC 30 MG/ML 1 ML VIAL IVP SCH ×2 (15:11→20:48)
[2018-01-13 16:33] VITALS: BMI 51.3
[2018-01-13] MEDS ORDERED: MORPHINE SULFATE 4 MG/ML SYRINGE IVP PRN (17:46)
[2018-01-13] MEDS: ACETAMINOPHEN TAB 325 MG TAB PO SCH (20:49)
[2018-01-13] MEDS ORDERED: ASPIRIN 81 MG PO SCH (21:00)
[2018-01-13] MEDS ORDERED: MELATONIN 5 MG TABLET PO SCH (21:00)
[2018-01-14] MEDS: KETOROLAC 30 MG/ML 1 ML VIAL IVP SCH ×3 (02:37→14:09)
[2018-01-14] MEDS: LACTATED RINGERS 1,000 ML IV SCH (02:38)
[2018-01-14] MEDS: ACETAMINOPHEN TAB 325 MG TAB PO SCH (05:36)
[2018-01-14] MEDS ORDERED: ENOXAPARIN 40 MG/0.4 ML SYRINGE SQ SCH (09:00)
[2018-01-14] MEDS ORDERED: SODIUM CHLORIDE 0.9% 1,000 ML IV ONE (09:10)
[2018-01-14] MEDS ORDERED: DEXAMETHASONE SOD PHOSPHATE 10 MG/ML 1 ML VIAL IV STA (09:11)
--- NOTE | 2018-01-14 09:47 | P.PN ---
Subjective Progress Note Date: 01/14/18 CHIEF COMPLAINT: Incisional hernia. HISTORY OF PRESENT ILLNESS: The patient is a 47-year-old female who is status post incisional hernia repair. She reports severe lower back secondary to spinal stenosis. She has severe pre-existing nausea and vomiting hence her observation post procedure. Her pain from her incisional hernia is stable; however she is wretching this morning. She reports need for back surgery which is exacerbating her daily life of chronic pain. Objective - Vital Signs Vital signs: Vital Signs Temp 98.1 F 01/14/18 07:00 Pulse 66 01/14/18 08:45 Resp 19 01/14/18 07:00 BP 111/65 01/14/18 07:00 Pulse Ox 100 01/14/18 07:00 Intake & Output 01/13/18 01/14/18 01/14/18 18:59 06:59 18:59 Intake Total 2250 Output Total 5 100 Balance 2245 -100 Weight 123.377 kg Intake: IV 2250 Output: Emesis 100 Estimated Blood Loss 5 Other: # Voids 1 1 - Exam PHYSICAL EXAM: GENERAL: Well-developed pleasant female in no acute distress. HEENT: No scleral icterus. Extraocular movements grossly intact. Moist buccal mucosa. NECK: Supple without lymphadenopathy. CHEST: Unlabored respirations. Equal bilateral excursions. CARDIOVASCULAR: Regular rate and rhythm. Distal 2+ pulses. ABDOMEN: Soft, nondistended. No recurrent hernia. Abdominal binder present. MUSCULOSKELETAL: No clubbing, cyanosis, or edema. SKIN: Poor skin turgor. Assessment and Plan (1) Chronic pain Current Visit: Yes Status: Acute Code(s): G89.29 - OTHER CHRONIC PAIN SNOMED Code(s): 13884783 (2) Spinal stenosis Current Visit: Yes Status: Acute Code(s): M48.00 - SPINAL STENOSIS, SITE UNSPECIFIED SNOMED Code(s): 14684869 (3) Incarcerated incisional hernia Current Visit: Yes Status: Acute Code(s): K43.0 - INCISIONAL HERNIA WITH OBSTRUCTION, WITHOUT GANGRENE SNOMED Code(s): 980941465 (4) Morbid (severe) obesity due to excess calories Current Visit: Yes Status: Acute Code(s): E66.01 - MORBID (SEVERE) OBESITY DUE TO EXCESS CALORIES SNOMED Code(s): 724962681 (5) BMI 50.0-59.9, adult Current Visit: Yes Status: Acute Code(s): Z68.43 - BODY MASS INDEX (BMI) 50- 59.9 , ADULT SNOMED Code(s): 476828654 (6) Nausea & vomiting Current Visit: No Status: Acute Code(s): R11.2 - NAUSEA WITH VOMITING, UNSPECIFIED SNOMED Code(s): 77649853 (7) Rheumatoid arthritis Current Visit: No Status: Acute Code(s): M06.9 - RHEUMATOID ARTHRITIS, UNSPECIFIED SNOMED Code(s): 20249289 (8) Dehydration Current Visit: Yes Status: Acute Code(s): E86.0 - DEHYDRATION SNOMED Code( s): 86144495 Plan: PLAN: 1. Decadron for intractable nausea and vomiting. 2. Magnesium level with replacement. 3. Abdominal binder at all times. 4. Bolus for clinical dehydration. 5. Inpatient hospitalization.
[2018-01-14] MEDS: MAGNESIUM SULFATE-D5W PMX 1 GM in DEXTROSE/WATER 1 100ML.BAG IVPB SCH ×2 (10:15→11:28)
[2018-01-14 11:44] VITALS: BP 117/61; PULSE 64; RESP 18; TEMP 97.4
--- NOTE | 2018-01-14 12:32 | P.PN ---
Progress Note - Text Progress Note Date: 01/14/18 Patient re-evaluated. Her nausea is resolved. Dehydration addressed. Patient reports having Zofran at home. Discharge instructions reviewed. May be discharged home. Follow-up in office in 48 hrs.
== END 2018-01-14 15:17 | disposition home or self-care (01) ==
LOC: OR 05:37 → 6PED 08:58 → OR 01-14 15:17
PROVIDERS: ATTEND Surgery Plastic and Reconstructive Surgery
DX: K43.0 Incisional hernia with obstruction, without gangrene (principal); R11.2 Nausea with vomiting, unspecified; E86.0 Dehydration; E66.01 Morbid (severe) obesity due to excess calories; Z68.43 Body mass index [BMI] 50.0-59.9, adult; R10.9 Unspecified abdominal pain; G89.4 Chronic pain syndrome; M06.9 Rheumatoid arthritis, unspecified; G40.909 Epilepsy, unspecified, not intractable, without status epilepticus; L98.9 Disorder of the skin and subcutaneous tissue, unspecified; G47.33 Obstructive sleep apnea (adult) (pediatric); M48.00 Spinal stenosis, site unspecified; K21.9 Gastro-esophageal reflux disease without esophagitis; Z98.890 Other specified postprocedural states; Z90.49 Acquired absence of other specified parts of digestive tract; Z87.19 Personal history of other diseases of the digestive system; Z79.1 Long term (current) use of non-steroidal anti-inflammatories (NSAID); Z79.82 Long term (current) use of aspirin; Z79.899 Other long term (current) drug therapy; Z88.5 Allergy status to narcotic agent
CPT/HCPCS: 49655; 94760; 81025; 83735; C1781; J2250; J0330; J2270; J1200; J1644; J1100 ×2; J2550; J2710; J2765; J0690; J2405; J2001; J1650; J3010; J1885 ×2; J3475; J0131; J2704; 36415; 86850; 86900; 86901

== ENCOUNTER 2018-06-27 17:54 | Emergency (ER) | payer MEDICARE, OTHER ==
[2018-06-27 18:00] VITALS: RESP 18; TEMP 97.7
[2018-06-27] MEDS ORDERED: HYDROcodone/APAP 7.5-325MG 1 EACH TAB PO ONE (18:18)
[2018-06-27] MEDS ORDERED: CYCLOBENZAPRINE 10 MG TAB PO STA (18:18)
[2018-06-27] MEDS ORDERED: ONDANSETRON ODT 4 MG TAB PO STA ×2 (18:40→18:49)
[2018-06-27] MEDS ORDERED: predniSONE 10 MG TAB PO STA (19:56)
--- NOTE | 2018-06-27 20:11 | ED ---
Extremity Problem HPI - General Chief complaint: Extremity Problem,Nontraumatic Stated complaint: Leg gave out on her Time Seen by Provider: 06/27/18 18:03 Source: patient Mode of arrival: wheelchair Limitations: no limitations - History of Present Illness Initial comments: This is a 48-year-old female past medical history of chronic low back pain and sciatica who presents today for chief complaint of left leg spasm times 1 week. Patient states that she has had a bad back for years and about a year and half ago she was seen by Dr. Dyer in [place] for neurosurgical consult for low back surgery. However shortly after that initial evaluation patient had other health issues including multiple abdominal surgeries with constipation. She was unable to have the back surgery as scheduled. For the past 2 months however she has had increasing low back pain and left lower extremity weakness as well as increasing left leg sciatica. Patient has been seen and evaluated again by Dr. Garland, with next appointment for surgical planning this Tuesday. 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 Pt states that this seemed to help her sciatic however since she has lowered her dose to 10 mg for the past week she has been experiencing increasing left leg pain that feels like spasms. At the beginning of the week the spasms of pain only occured once a day for 10 minutes no they are more frequent occuring multiple times a day. Pt describes the pain as very sharp shooting, that start in the center of the butt and radiates to the mid thigh. She states when these spasms or episodes occur the pain is beyond 10/10. Pt presented to the ER for mgmt of the pain/spasm. Pt denies new fall/trauma to the lumbar spine, loss of sensation of the LE, increasing LE weakness, change in characteristic of low back pain, fever, chills , loss of bowel or bladder control, urinary retention, loss of sensation between thighs, inability to weight bear. Pt does not take any pain medication at home besides tylenol. Remainder of ROS (-). Upon arrival to ED VS stable. - Related Data Home Medications Medication Instructions Recorded Confirmed Melatonin 5 mg PO HS 01/28/17 06/27/18 Aspirin EC [Ecotrin Low Dose] 81 mg PO HS 03/18/17 06/27/18 Leflunomide [Arava] 20 mg PO QA 01/06/18 06/27/18 Meloxicam [Mobic] 15 mg PO QAM 01/06/18 06/27/18 azaTHIOprine [Imuran] 50 mg PO TID 01/06/18 06/27/18 Acetaminophen [Tylenol] 1,000 mg PO BID PRN 06/27/18 06/27/18 predniSONE 10 mg PO DAILY 06/27/18 06/27/18 Previous Rx's Medication Instructions Recorded predniSONE See Taper PO DIRECTED 11 Days 06/27/18 #26 tab Allergies Allergy/AdvReac Type Severity Reaction Status Date / Time adhesive AdvReac Rash/Hives Verified 06/27/18 18:20 hydromorphone [From Dilaudid] AdvReac Nausea & Verified 06/27/18 18:20 Vomiting Review of Systems ROS Statement: Those systems with pertinent positive or pertinent negative responses have been documented in the HPI. ROS Other: All systems not noted in ROS Statement are negative. Past Medical History Past Medical History: Rheumatoid Arthritis (RA), Seizure Disorder, Skin Disorder , Sleep Apnea/CPAP/BIPAP Additional Past Medical History / Comment(s): NO CPAP. DIVERTICULITIS WITH RUPTURE/ABSCESS. EYE SOMETIMES GET BLOOD SHOT DUE TO RA MEDS. RA-pain in multiple joints, spinal stenosis/instability and herniated disc, spondolothisis, -difficulty walking, childhood seizures. History of Any Multi-Drug Resistant Organisms: None Reported Past Surgical History: Appendectomy, Cholecystectomy, Orthopedic Surgery Additional Past Surgical History / Comment(s): PICC LINE. 09/29/17, COLON RESECTION DUE TO DIVERTICULOSIS. Knee arthroscopy, back epidural injections. EGD,colonoscopy. Past Anesthesia/Blood Transfusion Reactions: Motion Sickness, Postoperative Nausea & Vomiting (PONV) Past Psychological History: No Psychological Hx Reported Smoking Status: Never smoker Past Alcohol Use History: None Reported Past Drug Use History: None Reported - Past Family History Father Family Medical History: Cancer Additional Family Medical History / Comment(s): Father of leukemia at the age of 65yrs. Mother Family Medical History: Diabetes Mellitus, Hypertension, Osteoarthritis (OA) Additional Family Medical History / Comment(s): Mother has IIDM, depression. General Exam Limitations: no limitations Course Vital Signs 06/27/18 06/27/18 06/27/18 17:57 19:18 20:31 Temperature 97.7 F Pulse Rate 96 78 75 Respiratory 18 18 18 Rate Blood Pressure 123/71 148/80 169/96 O2 Sat by Pulse 97 98 99 Oximetry Medical Decision Making - Medical Decision Making 48yo female with significant lumbar disease with cc of left leg "spasm". pt ws given 10mg flexeril, norco with zofran for pain mgmt. I was able to witness one of the spasms, however I did not feel an muscular spasms, fasiculations or tension. I feel that the spasms are sciatic and neurpathic pain. When discussing this with patient, she agrees. We discussed imaging however pt states that her low back pain and leg weakness that she has been experiencing for the past 2 months with her neurologist has not changed and she had no history of recent fall/trauma at this time we feel imaging will be of limited value. Case discussed in detail with Dr. Roger who agrees with impression and plan. Pt is not showing any signs or symptoms of cauda equina at this time. We feel pt will benefit from another steroid taper. Pt given 30mg on top of the dose of 10mg she took this morning. She was instructed to discontinue her current taper (which she states ends Tuesday) and begin a new taper. She was given instruction to take 40mg daily x2 days, 30mg daily x3 days, 20mg x3 days and 10mgx 3 days. Pt agreed with plan and stated she was ready for d/c. She has a scheduled appointment with her neuro surgeon this Tuesday. Pt back surgery is currently scheduled for August 07. Pt discharged in stable condition. Pt given specific instruction to return if she experiences worsening leg weakness, loss of bowel or bladder control, urinary retention or changes in sensation of LE. Pt agreed. Pt denied questions prior to d/c. Disposition Clinical Impression: Left leg pain, Chronic low back pain, Sciatica of left side Disposition: HOME SELF-CARE Condition: Good Instructions: Sciatica (ED), Lumbar Radiculopathy (ED) Additional Instructions: Please use medication as discussed. Please follow-up with neurologist in next 1 -2days. Please return to emergency room if the symptoms increase or worsen or for any other concerns, as discussed in detail. Prescriptions: predniSONE See Taper PO DIRECTED 11 Days #26 tab Is patient prescribed a controlled substance at d/c from ED?: No Referrals: Rica Bolom III, MD [Primary Care Provider] - 1-2 days Time of Disposition: 20:11
[2018-06-27 20:33] VITALS: BP 169/96; PULSE 75
== END 2018-06-27 20:35 | disposition home or self-care (01) ==
LOC: EC 17:54
DX: M54.42 Lumbago with sciatica, left side (principal); M06.9 Rheumatoid arthritis, unspecified; G47.30 Sleep apnea, unspecified; Z99.89 Dependence on other enabling machines and devices; Z79.82 Long term (current) use of aspirin; Z79.1 Long term (current) use of non-steroidal anti-inflammatories (NSAID); Z79.52 Long term (current) use of systemic steroids; Z79.899 Other long term (current) drug therapy; Z91.048 Other nonmedicinal substance allergy status; Z88.5 Allergy status to narcotic agent
CPT/HCPCS: 99283; J7512

== ENCOUNTER → 2018-07-18 | Outpatient (CLI) | payer MEDICARE, OTHER ==
--- NOTE | 2018-07-18 09:46 | CT ---
EXAMINATION TYPE: CT abdomen pelvis wo con DATE OF EXAM: 07/18/2018 COMPARISON: 11/05/2017 HISTORY: 48-year-old female with pain Diverticulitis CT DLP: 2273.2 mGycm. Automated exposure control for dose reduction was used. TECHNIQUE: Contiguous axial scanning of the abdomen and pelvis without IV contrast. Coronal and sagit xavi reconstructions performed. FINDINGS: Heart normal size without pericardial effusion. Minimal patchy ground glass at the basilar right midd le lobe and to a lesser extent, medial right base. No pleural effusion. Findings suggest nonspecific small infectious/inflammatory foci. Liver upper limits of normal in size at 17.9 cm. Otherwise, noncontrast appearance of the liver, adre nal glands, kidneys, spleen, and pancreas show no gross abnormal body. Patient's previous right upper quadrant abdominal wall omental fat-containing hernia appears to have been closed in the interval though there is residual protruding fat extending into the subcutaneous a dipose layer measuring 7.5 x 1.4 cm versus 7.9 x 4.9 cm, previously. Some overlying strandy soft tiss ue density suggesting scar. No dilated small bowel, free fluid, or free air. Normal appendix. Moderate stool burden with lower descending and sigmoid colonic diverticulosis. No p ericolonic inflammatory change. There is stable line along the mid sigmoid compatible with prior rese ction and re-anastomosis. No mesenteric or retroperitoneal lymphadenopathy. Uterus and ovaries are visualized. 3.0 cm dominant follicle or functional cyst in the left ovary. No abnormal fluid collection in the pelvis or pelvic lymphadenopathy. Bones: Degenerative disc disease mid to lower lumbar spine and also within the visualized lower thora cic spine. Facet arthropathy lower lumbar spine as well. IMPRESSION: 1. Patient's previous right upper quadrant abdominal wall hernia appears to have been closed in the i nterval. Residual fatty hernia sac remains protruding into the subcutaneous adipose layer measuring 7 .5 x 1.4 cm versus 7.9 x 4.9 cm, previously. Again, it appears that the neck has been closed. 2. Redemonstrated resection and re-anastomosis along the midsigmoid colon. Distal colonic diverticulo sis without evidence for acute diverticulitis.
== END | disposition home or self-care (01) ==
LOC: RADCTMAIN 07:31
PROVIDERS: ATTEND Surgery Plastic and Reconstructive Surgery
DX: K57.30 Diverticulosis of large intestine without perforation or abscess without bleeding (principal); Z90.49 Acquired absence of other specified parts of digestive tract
CPT/HCPCS: 74176

== ENCOUNTER 2018-08-27 17:08 | Observation (INO) | payer MEDICARE ==
[2018-08-27] MEDS ORDERED: SODIUM CHLORIDE 0.9% 1,000 ML IV STA (17:59)
[2018-08-27] MEDS ORDERED: MORPHINE SULFATE 4 MG/ML SYRINGE IV STA (17:59)
[2018-08-27] MEDS ORDERED: ONDANSETRON 4 MG/2 ML VIAL IVP STA (17:59)
--- NOTE | 2018-08-27 18:22 | ED ---
Abdominal Pain HPI - General Source: patient Mode of arrival: ambulatory Limitations: no limitations <Mojgan Acuña - Last Filed: 08/27/18 23:47> <Kelly Villatoro - Last Filed: 08/28/18 00:56> - General Chief Complaint: Abdominal Pain Stated Complaint: Flank pain Time Seen by Provider: 08/27/18 17:38 - History of Present Illness Initial Comments: 48-year-old female patient presents to the emergency department today for evaluation of left upper quadrant abdominal pain. Patient states the pain started last evening and has been progressively worsening since. She describes the pain as a sharp cramping pain. Denies any radiation to her back. Patient states she has been nauseated and has vomited several times. Patient states she has had little appetite. Patient denies any fevers or chills with this. States she has had 2 hard bowel movements today. States she has been passing minimal gas. She denies any hematuria, dysuria, urinary frequency, urinary urgency. Patient has had multiple abdominal surgeries including colon resection , cholecystectomy, and appendectomy. She does have a history of diverticulitis. Patient denies any recent rash, shortness breath, chest pain, numbness, tingling, dizziness, weakness, hematuria, dysuria, urinary urgency, urinary frequency, headache, visual changes, or any other complaints. (Mojgan Acuña) - Related Data Home Medications Medication Instructions Recorded Confirmed Melatonin 5 mg PO HS 01/28/17 08/27/18 Aspirin EC [Ecotrin Low Dose] 81 mg PO HS 03/18/17 08/27/18 Leflunomide [Arava] 20 mg PO QAM 01/06/18 08/27/18 Meloxicam [Mobic] 15 mg PO QAM 01/06/18 08/27/18 azaTHIOprine [Imuran] 50 mg PO TID 01/06/18 08/27/18 Acetaminophen [Tylenol] 1,000 mg PO BID PRN 06/27/18 08/27/18 Cyclobenzaprine [Flexeril] 10 mg PO TID PRN 08/27/18 08/27/18 Pregabalin [Lyrica] 75 mg PO BID 08/27/18 08/27/18 Allergies Allergy/AdvReac Type Severity Reaction Status Date / Time adhesive AdvReac Mild Rash/Hives Verified 08/27/18 23:44 hydromorphone [From Dilaudid] AdvReac Mild Nausea & Verified 08/27/18 23:44 Vomiting Review of Systems ROS Other: All systems not noted in ROS Statement are negative. <Mojgan Acuña - Last Filed: 08/27/18 23:47> ROS Other: All systems not noted in ROS Statement are negative. <Kelly Villatoro P - Last Filed: 08/28/18 00:56> ROS Statement: Those systems with pertinent positive or pertinent negative responses have been documented in the HPI. Past Medical History Past Medical History: Rheumatoid Arthritis (RA), Seizure Disorder, Skin Disorder , Sleep Apnea/CPAP/BIPAP Additional Past Medical History / Comment(s): NO CPAP. DIVERTICULITIS WITH RUPTURE/ABSCESS. EYE SOMETIMES GET BLOOD SHOT DUE TO RA MEDS. RA-pain in multiple joints, spinal stenosis/instability and herniated disc, spondolothisis, -difficulty walking, childhood seizures. History of Any Multi-Drug Resistant Organisms: None Reported Past Surgical History: Appendectomy, Cholecystectomy, Orthopedic Surgery Additional Past Surgical History / Comment(s): PICC LINE. 09/29/17, COLON RESECTION DUE TO DIVERTICULOSIS. Knee arthroscopy, back epidural injections. EGD,colonoscopy. cervical surgery at [facility] Past Anesthesia/Blood Transfusion Reactions: Motion Sickness, Postoperative Nausea & Vomiting (PONV) Past Psychological History: No Psychological Hx Reported Smoking Status: Never smoker Past Alcohol Use History: None Reported Past Drug Use History: None Reported - Past Family History Father Family Medical History: Cancer Additional Family Medical History / Comment(s): Father of leukemia at the age of 65yrs. Mother Family Medical History: Diabetes Mellitus, Hypertension, Osteoarthritis (OA) Additional Family Medical History / Comment(s): Mother has IIDM, depression. <Mojgan Acuña - Last Filed: 08/27/18 23:47> General Exam Limitations: no limitations General appearance: alert, in no apparent distress, other (This is a well- developed, well-nourished adult female patient in no acute distress. Vital signs upon presentation are temperature 98.4F, pulse 85, respirations 18, blood pressure 145/55, pulse ox 98% on room air.) Eye exam: Present: normal appearance, PERRL, EOMI. Absent: scleral icterus, conjunctival injection, periorbital swelling ENT exam: Present: normal exam, normal oropharynx, mucous membranes moist Respiratory exam: Present: normal lung sounds bilaterally. Absent: respiratory distress, wheezes, rales, rhonchi, stridor Cardiovascular Exam: Present: regular rate, normal rhythm, normal heart sounds. Absent: systolic murmur, diastolic murmur, rubs, gallop, clicks GI/Abdominal exam: Present: soft, tenderness (Left upper quadrant and midepigastric tenderness), normal bowel sounds. Absent: distended, guarding, rebound, rigid Neurological exam: Present: alert, oriented X3, CN II-XII intact Psychiatric exam: Present: normal affect, normal mood Skin exam: Present: warm, dry, intact, normal color. Absent: rash <Mojgan Acuña - Last Filed: 08/27/18 23:47> Vital Signs 08/27/18 08/27/18 08/27/18 17:16 19:00 19:10 Temperature 98.4 F Pulse Rate 85 77 75 Respiratory 18 18 18 Rate Blood Pressure 145/55 161/87 161/87 O2 Sat by Pulse 98 100 99 Oximetry 08/27/18 08/27/18 08/27/18 19:32 19:40 20:00 Temperature Pulse Rate 82 73 Respiratory 18 18 Rate Blood Pressure 166/100 166/100 O2 Sat by Pulse 100 100 100 Oximetry 08/27/18 08/27/18 08/27/18 20:10 20:29 20:40 Temperature Pulse Rate 80 90 74 Respiratory 16 16 18 Rate Blood Pressure 131/105 131/105 143/112 O2 Sat by Pulse 99 99 99 Oximetry 08/27/18 08/27/18 08/27/18 21:10 21:40 22:30 Temperature Pulse Rate 75 82 90 Respiratory 16 16 16 Rate Blood Pressure 137/93 146/106 146/106 O2 Sat by Pulse 99 97 Oximetry Medical Decision Making - Lab Data Result diagrams: 08/27/18 18:10 08/27/18 18:10 - EKG Data -: EKG Interpreted by [place] - Radiology Data Radiology results: report reviewed, image reviewed <Mojgan Acuña - Last Filed: 08/27/18 23:47> - Lab Data Result diagrams: 08/27/18 18:10 08/27/18 18:10 <Kelly Villatoro - Last Filed: 08/28/18 00:56> - Medical Decision Making 48-year-old female patient presents to the emergency department today with complaints of left upper quadrant abdominal pain. Patient denies any radiation of the pain to her back. Physical examination did reveal midepigastric and left upper quadrant abdominal tenderness. Labs reviewed and are unremarkable. Upon reevaluation and after receiving 4 mg of morphine patient was still in significant discomfort. We did attempt doing a GI cocktail, this also did not relieve symptoms. We did give an additional 4 mg of morphine it didn't seem to help very much. Patient will be admitted for intractable abdominal pain for evaluation by Dr. Ba with whom she has had several abdominal surgeries. Early shingles is in the differential, we'll monitor for development of rash. Patient's vital signs are stable with no evidence of fever. CT abdomen and pelvis is unremarkable. Did discuss findings and results with patient and she is agreeable with this plan. (Mojgan Acuña) I personally saw and examined the patient. I reviewed and agree with the mid- level provider findings including all diagnostic interpretations and treatment plans as written unless otherwise stated. I was present for hudson portions of any procedures performed. (Kelly Villatoro) - Lab Data Lab Results 08/27/18 08/27/18 08/27/18 Range/Units 18:10 18:10 18:10 WBC 5.7 (3.8-10.6) k/uL RBC 4.30 (3.80-5.40) m/uL Hgb 12.9 (11.4-16.0) gm/dL Hct 40.7 (34.0-46.0) % MCV 94.6 (80.0-100.0) fL MCH 30.1 (25.0-35.0) pg MCHC 31.8 (31.0-37.0) g/dL RDW 13.9 (11.5-15.5) % Plt Count 307 (150-450) k/uL Neutrophils % 69 % Lymphocytes % 19 % Monocytes % 5 % Eosinophils % 4 % Basophils % 1 % Neutrophils # 3.9 (1.3-7.7) k/uL Lymphocytes # 1.1 (1.0-4.8) k/uL Monocytes # 0.3 (0-1.0) k/uL Eosinophils # 0.2 (0-0.7) k/uL Basophils # 0.1 (0-0.2) k/uL Sodium 139 (137-145) mmol/L Potassium 4.5 (3.5-5.1) mmol/L Chloride 110 H (98-107) mmol/L Carbon Dioxide 24 (22-30) mmol/L Anion Gap 5 mmol/L BUN 20 H (7-17) mg/dL Creatinine 0.55 (0.52-1.04) mg/dL Est GFR (CKD-EPI)AfAm >90 (>60 ml/min/1.73 sqM) Est GFR (CKD-EPI)NonAf >90 (>60 ml/min/1.73 sqM) Glucose 102 H (74-99) mg/dL Plasma Lactic Acid Jose Martin 1.7 (0.7-2.0) mmol/L Calcium 8.8 (8.4-10.2) mg/dL Total Bilirubin 0.7 (0.2-1.3) mg/dL AST 20 (14-36) U/L ALT 26 (9-52) U/L Alkaline Phosphatase 97 (38-126) U/L Total Creatine Kinase (30-135) U/L CK-MB (CK-2) (0.0-2.4) ng/mL CK-MB (CK-2) Rel Index Troponin I (0.000-0.034) ng/mL Total Protein 7.0 (6.3-8.2) g/dL Albumin 3.6 (3.5-5.0) g/dL Amylase 57 (30-110) U/L Lipase 126 (23-300) U/L Urine Color Urine Appearance (Clear) Urine pH (5.0-8.0) Ur Specific [place] (1.001-1.035) Urine Protein (Negative) Urine Glucose (UA) (Negative) Urine Ketones (Negative) Urine Blood (Negative) Urine Nitrite (Negative) Urine Bilirubin (Negative) Urine Urobilinogen (<2.0) mg/dL Ur Leukocyte Esterase (Negative) 08/27/18 08/27/18 Range/Units 18:10 18:10 WBC (3.8-10.6) k/uL RBC (3.80-5.40) m/uL Hgb (11.4-16.0) gm/dL Hct (34.0-46.0) % MCV (80.0-100.0) fL MCH (25.0-35.0) pg MCHC (31.0-37.0) g/dL RDW (11.5-15.5) % Plt Count (150-450) k/uL Neutrophils % % Lymphocytes % % Monocytes % % Eosinophils % % Basophils % % Neutrophils # (1.3-7.7) k/uL Lymphocytes # (1.0-4.8) k/uL Monocytes # (0-1.0) k/uL Eosinophils # (0-0.7) k/uL Basophils # (0-0.2) k/uL Sodium (137-145) mmol/L Potassium (3.5-5.1) mmol/L Chloride (98-107) mmol/L Carbon Dioxide (22-30) mmol/L Anion Gap mmol/L BUN (7-17) mg/dL Creatinine (0.52-1.04) mg/dL Est GFR (CKD-EPI)AfAm (>60 ml/min/1.73 sqM) Est GFR (CKD-EPI)NonAf (>60 ml/min/1.73 sqM) Glucose (74-99) mg/dL Plasma Lactic Acid Jose Martin (0.7-2.0) mmol/L Calcium (8.4-10.2) mg/dL Total Bilirubin (0.2-1.3) mg/dL AST (14-36) U/L ALT (9-52) U/L Alkaline Phosphatase (38-126) U/L Total Creatine Kinase 68 (30-135) U/L CK-MB (CK-2) 0.3 (0.0-2.4) ng/mL CK-MB (CK-2) Rel Index 0.4 Troponin I <0.012 (0.000-0.034) ng/mL Total Protein (6.3-8.2) g/dL Albumin (3.5-5.0) g/dL Amylase (30-110) U/L Lipase (23-300) U/L Urine Color Yellow Urine Appearance Clear (Clear) Urine pH 5.0 (5.0-8.0) Ur Specific [place] 1.022 (1.001-1.035) Urine Protein Negative (Negative) Urine Glucose (UA) Negative (Negative) Urine Ketones Negative (Negative) Urine Blood Negative (Negative) Urine Nitrite Negative (Negative) Urine Bilirubin Negative (Negative) Urine Urobilinogen <2.0 (<2.0) mg/dL Ur Leukocyte Esterase Negative (Negative) - EKG Data EKG Comments: EKG obtained at 1838 shows normal sinus rhythm with a ventricular rate of 88, MD interval 188, QR sabianism 70, QT 384, QTC 464. No evidence of ST elevation or depression. (Mojgan Acuña) - Radiology Data CT abdomen and pelvis with contrast was obtained. Report was reviewed in its entirety. Impression by Dr. Camejo shows small right-sided ventral hernia containing fat. Otherwise negative exam. No evidence of acute abdomen and pelvis. (Mojgan Acuña) Disposition Decision to Admit Reason: Admit from EC Decision Date: 08/27/18 Decision Time: 21:22 <Mojgan Acuña - Last Filed: 08/27/18 23:47> <Kelly Villatoro - Last Filed: 08/28/18 00:56> Clinical Impression: Intractable abdominal pain Disposition: ADMITTED IP TO THIS [facility] Condition: Serious
[2018-08-27 18:31] LABS: Basophils # (A) 0.1 k/uL (0-0.2); Basophils % (A) 1 %; Eosinophils # (A) 0.2 k/uL (0-0.7); Eosinophils % (A) 4 %; HCT 40.7 % (34.0-46.0); HGB 12.9 gm/dL (11.4-16.0); Lymphocytes # (A) 1.1 k/uL (1.0-4.8); Lymphocytes % (A) 19 %; MCH 30.1 pg (25.0-35.0); MCHC 31.8 g/dL (31.0-37.0); MCV 94.6 fL (80.0-100.0); Mean Platelet Volume 6.5; Monocytes # (A) 0.3 k/uL (0-1.0); Monocytes % (A) 5 %; Neutrophils # (A) 3.9 k/uL (1.3-7.7); Neutrophils % (A) 69 %; Platelet Count 307 k/uL (150-450); RDW 13.9 % (11.5-15.5); WBC 5.7 k/uL (3.8-10.6)
[2018-08-27 18:32] LABS: Appearance,Urine Clear (Clear); Bilirubin,Urine Negative (Negative); Blood,Urine Negative (Negative); Color,Urine Yellow; Glucose,Urine (UA) Negative (Negative); Ketones,Urine Negative (Negative); Leukocyte Esterase,Urine Negative (Negative); Nitrite,Urine Negative (Negative); Protein,Urine Negative (Negative); Specific Gravity,Urine 1.022 (1.001-1.035); Urobilinogen,Urine <2.0 mg/dL (<2.0)
[2018-08-27 18:42] LABS: ALT 26 U/L (9-52); AST 20 U/L (14-36); Albumin 3.6 g/dL (3.5-5.0); Alkaline Phosphatase 97 U/L (38-126); Amylase 57 U/L (30-110); Anion Gap 5 mmol/L; Blood Urea Nitrogen 20 mg/dL (7-17); Calcium 8.8 mg/dL (8.4-10.2); Carbon Dioxide 24 mmol/L (22-30); Chloride 110 mmol/L (98-107); Glucose 102 mg/dL (74-99); Lipase 126 U/L (23-300); Potassium 4.5 mmol/L (3.5-5.1); Sodium 139 mmol/L (137-145); Total Bilirubin 0.7 mg/dL (0.2-1.3)
[2018-08-27 18:52] LABS: Creatine Kinase 68 U/L (30-135)
[2018-08-27 19:05] LABS: Creatine Kinase MB 0.3 ng/mL (0.0-2.4); Troponin I <0.012 ng/mL (0.000-0.034)
--- NOTE | 2018-08-27 19:47 | CT ---
EXAMINATION TYPE: CT abdomen pelvis w con DATE OF EXAM: 08/27/2018 COMPARISON: 07/18/2018 HISTORY: LUQ pain, nausea, fever CT DLP: 2747.9 mGycm Automated exposure control for dose reduction was used. TECHNIQUE: Helical acquisition of images was performed from the lung bases through the pelvis. CONTRAST: Performed without Oral Contrast and with IV Contrast, patient injected with 100 mL of Isovue 300. FINDINGS: Lung bases are clear. There is no pleural effusion. Heart size is normal. There is no pericardial eff usion. Liver and spleen appear normal. There is no pancreatic mass. There are clips from cholecystect leno. Bile ducts are not dilated. There is no adrenal mass. Kidneys show satisfactory contrast opacification. There is no hydronephrosi s. There is small ventral hernia that contains omental fat on the right mid abdomen. This measures 6 x 2 cm. Ureters are not dilated. Bladder distends smoothly. There is no inguinal hernia. There is no free fluid in the pelvis. Uterus is anteverted. I see no intestinal wall thickening. There are no dil ated loops. There is previous surgery at the sigmoid colon. There are spondylotic changes at L4-5 L5- S1 with vacuum disc. There is no compression fracture. Appendix is not seen. There is no sign of appe ndicitis. There is no mesenteric edema or adenopathy.: IMPRESSION: SMALL RIGHT-SIDED VENTRAL HERNIA CONTAINS FAT. OTHERWISE NEGATIVE EXAM. NO EVIDENCE OF ACUTE ABDOMEN AND PELVIS.
[2018-08-27] MEDS ORDERED: MAG HYDROX/AL HYDROX/SIMETH 30 ML, HYOSCYAMINE ELIXIR 10 ML, CIMETIDINE HCL 300 MG, LID... PO STA ×4 (20:13)
[2018-08-27] MEDS ORDERED: MORPHINE SULFATE 4 MG/ML SYRINGE IVP STA (20:48)
[2018-08-27] MEDS ORDERED: NALOXONE 0.4 MG/ML 1 ML VIAL IV PRN (21:20)
[2018-08-27] MEDS ORDERED: ONDANSETRON 4 MG/2 ML VIAL IVP PRN (21:20)
[2018-08-28] MEDS ORDERED: CYCLOBENZAPRINE 10 MG TAB PO PRN (00:03)
[2018-08-28] MEDS: KETOROLAC 30 MG/ML 1 ML VIAL IVP PRN ×2 (01:10→07:38)
[2018-08-28] MEDS: LEFLUNOMIDE 20 MG TAB PO SCH (09:24)
[2018-08-28] MEDS: PREGABALIN 75 MG CAP PO SCH ×2 (10:40→20:35)
[2018-08-28] MEDS: azaTHIOprine 50 MG TAB PO SCH ×3 (11:13→21:47)
[2018-08-28] MEDS ORDERED: MORPHINE SULFATE 2 MG/ML SYRINGE IVP PRN (13:01)
[2018-08-28] MEDS: PANTOPRAZOLE 40 MG/10 ML VIAL IVP SCH (13:38)
--- NOTE | 2018-08-28 15:07 | P.HPIM ---
History of Present Illness H&P Date: 08/28/18 Chief Complaint: Abdominal pain Patient is a 48-year-old female with a known history of rheumatoid arthritis on immunosuppressive therapy, seizure disorder, obstructive sleep apnea on CPAP at home, history of diverticulitis with rupture with colon resection in 2017, spinal stenosis and morbid obesity BMI 58.8 came to ER with complaints of abdominal pain mainly left upper quadrant. Patient says that her pain started yesterday evening and is getting worse, cramping and radiated to the back and gets worse with movement and deep palpation. Patient did have nausea and vomiting at home. No complaints of chest pain or shortness of breath. No fever no chills. No headache or dizziness or lightheadedness. No visual changes. No dysuria or hematuria. Patient says that she had a history of right-sided ventral hernia but denied any complaints of right upper quadrant pain. Denied any history of peptic ulcer disease. Patient says that she had multiple abdominal surgeries including appendectomy, cholecystectomy and history of colon resection due to diverticulosis. CT of the abdomen pelvis showed small right-sided ventral hernia contains fat. Otherwise negative exam. No evidence of acute abdomen and pelvis. Patient recently had cervical spine surgery about 3 weeks ago and was started on Mobic. Denied any hematemesis or melena. Review of Systems Constitutional: Patient denies any fever or chills . No generalized weakness or weight loss. Abdomen: Patient denied nausea vomiting and diarrhea. Patient does have left upper quadrant abdominal pain and tenderness Cardiovascular: Patient denies any chest pain or short of breath no palpitations. Respiratory: patient denied any cough is from production. No shortness of breath Neurologic: Patient denied any numbness or tingling headache. Musculoskeletal: Patient denies any complaints of joint swelling or deformity. Skin: Negative Psychiatric: Negative Endocrine: No heat or cold intolerance. No recent weight gain. Genitourinary: No dysuria or hematuria. All other 14 point ROS negative except the above Past Medical History Past Medical History: Rheumatoid Arthritis (RA), Seizure Disorder, Skin Disorder , Sleep Apnea/CPAP/BIPAP Additional Past Medical History / Comment(s): NO CPAP. DIVERTICULITIS WITH RUPTURE/ABSCESS. EYE SOMETIMES GET BLOOD SHOT DUE TO RA MEDS. RA-pain in multiple joints, spinal stenosis/instability and herniated disc, spondolothisis, -difficulty walking, childhood seizures. History of Any Multi-Drug Resistant Organisms: MRSA Date of last positivie culture/infection: 2013 MDRO Source:: stomach, back Past Surgical History: Appendectomy, Cholecystectomy, Orthopedic Surgery Additional Past Surgical History / Comment(s): PICC LINE. 09/29/17, COLON RESECTION DUE TO DIVERTICULOSIS. Knee arthroscopy, back epidural injections. EGD,colonoscopy. cervical surgery at [facility] Past Anesthesia/Blood Transfusion Reactions: Motion Sickness, Postoperative Nausea & Vomiting (PONV) Past Psychological History: No Psychological Hx Reported Smoking Status: Never smoker Past Alcohol Use History: None Reported Past Drug Use History: None Reported - Past Family History Father Family Medical History: Cancer Additional Family Medical History / Comment(s): Father of leukemia at the age of 65yrs. Mother Family Medical History: Diabetes Mellitus, Hypertension, Osteoarthritis (OA) Additional Family Medical History / Comment(s): Mother has IIDM, depression. Medications and Allergies Home Medications Medication Instructions Recorded Confirmed Type Aspirin EC [Ecotrin Low Dose] 81 mg PO HS 03/18/17 08/28/18 History Leflunomide [Arava] 20 mg PO QAM 01/06/18 08/28/18 History Meloxicam [Mobic] 15 mg PO QAM 01/06/18 08/28/18 History azaTHIOprine [Imuran] 50 mg PO TID 01/06/18 08/28/18 History Acetaminophen [Tylenol] 1,000 mg PO BID PRN 06/27/18 08/28/18 History Cyclobenzaprine [Flexeril] 10 mg PO TID PRN 08/27/18 08/28/18 History Pregabalin [Lyrica] 75 mg PO BID 08/27/18 08/28/18 History Allergies Allergy/AdvReac Type Severity Reaction Status Date / Time adhesive AdvReac Mild Rash/Hives Verified 08/28/18 08:23 hydromorphone [From Dilaudid] AdvReac Mild Nausea & Verified 08/28/18 08:23 Vomiting Physical Exam Vitals: Vital Signs Temp Pulse Pulse Resp BP BP Pulse Ox 08/28/18 07:53 97.8 F 68 16 116/75 99 08/28/18 00:00 98.2 F 77 18 132/83 99 08/27/18 22:30 90 16 146/106 08/27/18 21:40 82 16 146/106 97 08/27/18 21:10 75 16 137/93 99 08/27/18 20:40 74 18 143/112 99 08/27/18 20:29 90 16 131/105 99 08/27/18 20:10 80 16 131/105 99 08/27/18 20:00 100 08/27/18 19:40 73 18 166/100 100 08/27/18 19:32 82 18 166/100 100 08/27/18 19:10 75 18 161/87 99 08/27/18 19:00 77 18 161/87 100 08/27/18 17:16 98.4 F 85 18 145/55 98 Intake and Output 08/27/18 08/28/18 08/28/18 22:59 06:59 14:59 Intake Total 585 100 Balance 585 100 Intake: Oral 585 100 Other: # Voids 1 Weight 141.067 kg PHYSICAL EXAMINATION: Patient is lying in the bed comfortably, no acute distress, awake alert and oriented. Morbidly obese.. HEENT: Normocephalic. Neck is supple. Pupils reactive. Nostrils clear. Oral cavity is moist. Ears reveal no drainage. Neck reveals no JVD, carotid bruits, or thyromegaly. CHEST EXAMINATION: Trachea is central. Symmetrical expansion. Lung mas clear to auscultation and percussion. CARDIAC: Normal S1, S2 with no gallops. No murmurs ABDOMEN: Soft. Left upper quadrant tenderness with deep palpation. Bowel sounds normal. No organomegaly. No abdominal bruits. Extremities: reveal no edema. No clubbing or cyanosis Neurologically awake, alert, oriented x3 with well-coordinated movements. No focal deficits noted Skin: No rash or skin lesions. Psychiatric: Coperative. Nonsuicidal Musculoskeletal: No joint swelling or deformity. Normal range of motion. Results CBC & Chem 7: 08/27/18 18:10 08/27/18 18:10 Labs: Abnormal Lab Results - Last 24 Hours (Table) 08/27/18 Range/Units 18:10 Chloride 110 H (98-107) mmol/L BUN 20 H (7-17) mg/dL Glucose 102 H (74-99) mg/dL Thrombosis Risk Factor Assmnt - DVT/VTE Prophylaxis DVT/VTE Prophylaxis: Pharmacologic Prophylaxis ordered - Choose All That Apply Any of the Below Risk Factors Present?: Yes Each Factor Represents 1 point: Age 41-60 years, History of prior major surgery (<1month), Obesity (BMI >25) Other Risk Factors: No Thrombosis Risk Factor Assessment Total Risk Factor Score: 3 Thrombosis Risk Factor Assessment Level: Moderate Risk Assessment and Plan Assessment: Right upper quadrant abdominal pain. Possible gastritis versus musculoskeletal. CT negative. Right-sided small ventral hernia. Cervical neck surgery recently Chronic rheumatoid arthritis on immunosuppressive therapy Seizure disorder as a child Obstructive sleep apnea on CPAP at home spinal stenosis/instability and herniated disc spondolothisis,-difficulty walking History of diverticulitis with rupture/abscess status post colon resection. Chronic back pain with history of epidural injections Morbid obesity BMI 58.8 DVT prophylaxis Plan: Patient be continued on gentle hydration. Patient was given Toradol. Continue the pain management with morphine. Current with the PPI and follow closely. General surgery was consulted. Further conditions based on the clinical course. will continue the home medications. Time with Patient: Greater than 30
[2018-08-28] MEDS: SODIUM CHLORIDE 0.9% 1,000 ML IV SCH (16:07)
[2018-08-28] MEDS: HEPARIN SODIUM,PORCINE 5,000 UNIT/ML 1 ML VIAL SQ SCH ×2 (16:07→23:53)
[2018-08-28] MEDS: ACETAMINOPHEN TAB 325 MG TAB PO PRN (16:40)
[2018-08-28] MEDS ORDERED: MELATONIN 5 MG TABLET PO SCH (21:00)
--- NOTE | 2018-08-28 23:31 | P.GSCN ---
History of Present Illness Consult date: 08/28/18 History of present illness: CHIEF COMPLAINT: Epigastric abdominal pain including left upper quadrant abdominal pain with swallowing HISTORY OF PRESENT ILLNESS: The patient is a 48-year-old female with history of chronic abdominal pain including diverticulitis. She reports developing new onset epigastric including left upper gastric abdominal pain and swelling 2 days ago. She has history of recent cervical spine surgery with a neck brace on 08/12/2018, 2 weeks ago. She reports taking Flexeril including Tylenol for pain. She has history of rheumatoid arthritis including diverticulitis. Since admission, her abdominal swelling and dull ache of the epigastrium has improved with an antacid therapy with Protonix. She is tolerating diet. PAST MEDICAL HISTORY: Please see list. PAST SURGICAL HISTORY: Please see list. MEDICATIONS: Please see list. ALLERGIES: Please see list. SOCIAL HISTORY: No illicit drug use FAMILY HISTORY: No reports of Crohn disease. Has colitis. REVIEW OF ORGAN SYSTEMS: CONSTITUTIONAL: Denies any fever or chills. HEENT: Denies any trouble with vision or nosebleeds. LYMPHATIC: The patient denies any lumps and bumps around the neck. ENDOCRINE: Denies any thyroid disorders. Has blood sugar glucose intolerance. RESPIRATORY: Denies pneumonia. Denies any troubles with breathing or dyspnea on exertion. CARDIOVASCULAR: Denies any chest pain, palpitations, or recent heart attacks. GASTROINTESTINAL: See HPI. GENITOURINARY: No recent urinary tract infection. The risks and kidney stones. MUSCULOSKELETAL: Has back pain, stiffness, joint arthritis. NEUROLOGIC: Denies any numbness or tingling along the distal extremities. No seizure disorders or headaches. PSYCHIATRIC: Past history of acute depression. No suidical ideation. HEMATOLOGIC: Denies any abnormal bleeding or bruising. PHYSICAL EXAM: VITAL SIGNS: Stable GENERAL: Well-developed pleasant in no acute distress. HEENT: No scleral icterus. Extraocular movements grossly intact. Moist buccal mucosa. NECK: Neck brace present. Transverse incision along anterior neck clean dry and intact. CHEST: Unlabored respirations. Equal bilateral excursions. CARDIOVASCULAR: Regular rate and rhythm. Distal 2+ pulses. ABDOMEN: Soft, minimal tenderness epigastrium. No peritonitis. Minimal distention. MUSCULOSKELETAL: No clubbing, cyanosis, or edema. NEURO: Cranial nerves 2-12 grossly intact. PSYCH: Alert and oriented to person place and time. ASSESSMENT: 1. Epigastric abdominal pain. 2. Left upper quadrant abdominal pain. 3. Left upper quadrant abdominal swelling improved 4. Previous history of chronic abdominal pain. 5. Past history of intractable nausea and vomiting. 6. Gastritis, acute on chronic PLAN: 1. Clinically she has improved. No surgical intervention needed. 2. Continue Protonix upon discharge. 3. Follow-up as needed as outpatient. 4. Maintain weightlifting restrictions per neurosurgeon Past Medical History Past Medical History: Rheumatoid Arthritis (RA), Seizure Disorder, Skin Disorder , Sleep Apnea/CPAP/BIPAP Additional Past Medical History / Comment(s): NO CPAP. DIVERTICULITIS WITH RUPTURE/ABSCESS. EYE SOMETIMES GET BLOOD SHOT DUE TO RA MEDS. RA-pain in multiple joints, spinal stenosis/instability and herniated disc, spondolothisis, -difficulty walking, childhood seizures. History of Any Multi-Drug Resistant Organisms: MRSA Year Discovered:: 2013 MDRO Source:: stomach, back Past Surgical History: Appendectomy, Cholecystectomy, Orthopedic Surgery Additional Past Surgical History / Comment(s): PICC LINE. 09/29/17, COLON RESECTION DUE TO DIVERTICULOSIS. Knee arthroscopy, back epidural injections. EGD,colonoscopy. cervical surgery at [facility] Past Anesthesia/Blood Transfusion Reactions: Motion Sickness, Postoperative Nausea & Vomiting (PONV) Past Psychological History: No Psychological Hx Reported Smoking Status: Never smoker Past Alcohol Use History: None Reported Past Drug Use History: None Reported - Past Family History Father Family Medical History: Cancer Additional Family Medical History / Comment(s): Father of leukemia at the age of 65yrs. Mother Family Medical History: Diabetes Mellitus, Hypertension, Osteoarthritis (OA) Additional Family Medical History / Comment(s): Mother has IIDM, depression. Medications and Allergies Home Medications Medication Instructions Recorded Confirmed Type Aspirin EC [Ecotrin Low Dose] 81 mg PO HS 03/18/17 08/28/18 History Leflunomide [Arava] 20 mg PO QAM 01/06/18 08/28/18 History Meloxicam [Mobic] 15 mg PO QAM 01/06/18 08/28/18 History azaTHIOprine [Imuran] 50 mg PO TID 01/06/18 08/28/18 History Acetaminophen [Tylenol] 1,000 mg PO BID PRN 06/27/18 08/28/18 History Cyclobenzaprine [Flexeril] 10 mg PO TID PRN 08/27/18 08/28/18 History Pregabalin [Lyrica] 75 mg PO BID 08/27/18 08/28/18 History Allergies Allergy/AdvReac Type Severity Reaction Status Date / Time adhesive AdvReac Mild Rash/Hives Verified 08/28/18 08:23 hydromorphone [From Dilaudid] AdvReac Mild Nausea & Verified 08/28/18 08:23 Vomiting Surgical - Exam Vital Signs Temp Pulse Resp BP Pulse Ox 98.4 F 85 18 145/55 98 08/27/18 17:16 08/27/18 17:16 08/27/18 17:16 08/27/18 17:16 08/27/18 17:16 Results - Labs 08/27/18 18:10 08/27/18 18:10 - Imaging CT scan - abdomen: report reviewed CT scan - pelvis: report reviewed (No evidence of free air or colitis identified. Previously repaired right ventral hernia noted.) Assessment and Plan (1) Left upper quadrant abdominal tenderness Current Visit: Yes Status: Acute Code(s): R10.812 - LEFT UPPER QUADRANT ABDOMINAL TENDERNESS SNOMED Code(s): 500688503 (2) Epigastric abdominal pain Current Visit: Yes Status: Acute Code(s): R10.13 - EPIGASTRIC PAIN SNOMED Code(s): 36455598 (3) Gastritis Current Visit: Yes Status: Acute Code(s): K29.70 - GASTRITIS, UNSPECIFIED, WITHOUT BLEEDING SNOMED Code(s): 3125094 (4) Intractable abdominal pain Current Visit: Yes Status: Acute Code(s): R10.9 - UNSPECIFIED ABDOMINAL PAIN SNOMED Code(s): 45380983 (5) BMI 50.0-59.9, adult Current Visit: No Status: Acute Code(s): Z68.43 - BODY MASS INDEX (BMI) 50- 59.9, ADULT SNOMED Code(s): 820949241
[2018-08-29] MEDS: ACETAMINOPHEN TAB 325 MG TAB PO PRN (05:09)
[2018-08-29] MEDS: LEFLUNOMIDE 20 MG TAB PO SCH (06:04)
[2018-08-29] MEDS: SODIUM CHLORIDE 0.9% 1,000 ML IV SCH (06:04)
[2018-08-29] MEDS: azaTHIOprine 50 MG TAB PO SCH (06:04)
[2018-08-29] MEDS: PREGABALIN 75 MG CAP PO SCH (07:51)
[2018-08-29] MEDS: PANTOPRAZOLE 40 MG/10 ML VIAL IVP SCH (07:52)
[2018-08-29] MEDS: HEPARIN SODIUM,PORCINE 5,000 UNIT/ML 1 ML VIAL SQ SCH (07:52)
--- NOTE | 2018-08-29 09:56 | P.PN ---
<Rebeca Ruiz M - Last Filed: 08/29/18 09:52> Subjective Progress Note Date: 08/29/18 8-year-old female seen sitting up in a chair. Patient states the IV protonix has helped relieve the epigastric discomfort. Patient has a neck brace on. Patient underwent a recent cervical spine surgery on August 12 2 weeks prior. Objective - Vital Signs Vital signs: Vital Signs Temp 97.6 F 08/29/18 08:21 Pulse 71 08/29/18 08:21 Resp 16 08/29/18 08:21 BP 128/88 08/29/18 08:21 Pulse Ox 98 08/29/18 08:21 Intake & Output 08/28/18 08/29/18 08/29/18 18:59 06:59 18:59 Intake Total 100 1405 Balance 100 1405 Intake: Oral 100 1405 Other: # Voids 1 1 - Exam Physical exam 48-year-old female sitting up in a chair with peersnoacutedistress Lungs clear on room air Heart S1-S2 audible regular Abdomen obese soft nontender states is an improvement in the epigastric discomfort no nausea no vomiting Extremities no edema - Labs CBC & Chem 7: 08/27/18 18:10 08/27/18 18:10 Assessment and Plan Assessment: Impression Present on admission left upper quadrant abdominal pain with epigastric discomfort History of a recent cervical spine surgery 2 weeks prior History of rheumatoid arthritis including diverticulitis History of past intractable nausea vomiting Chronic abdominal pain Plan From a surgical perspective patient is appropriate to be discharged no surgical intervention needed A prescription for protonix take as directed Follow-up as an on needed basis Will sign off defer to the timing to the attending for discharge The above impression and plan of care have been discussed and directed by signing physician. Rebeca Ruiz nurse practitioner acting as scribe for signing physician. <Hilda Ba N - Last Filed: 08/29/18 19:20> Subjective 48-year-old female seen sitting up in a chair Objective - Vital Signs Vital signs: Vital Signs Temp 97.8 F 08/29/18 12:02 Pulse 78 08/29/18 12:02 Resp 14 08/29/18 12:02 BP 114/79 08/29/18 12:02 Pulse Ox 99 08/29/18 12:02 Intake & Output 08/29/18 08/29/1808/30/18 06:59 18:59 06:59 Intake Total 1405 Balance 1405 Intake: Oral 1405 Other: # Voids 1 2 # Bowel Movements 1 - Labs CBC & Chem 7: 08/27/18 18:10 08/27/18 18:10 Assessment and Plan (1) Left upper quadrant abdominal tenderness Status: Acute Code(s): R10.812 - LEFT UPPER QUADRANT ABDOMINAL TENDERNESS SNOMED Code(s): 665192471 (2) Epigastric abdominal pain Status: Acute Code(s): R10.13 - EPIGASTRIC PAIN SNOMED Code(s): 93129064 (3) Gastritis Status: Acute Code(s): K29.70 - GASTRITIS, UNSPECIFIED, WITHOUT BLEEDING SNOMED Code(s): 5038458 (4) Intractable abdominal pain Status: Acute Code(s): R10.9 - UNSPECIFIED ABDOMINAL PAIN SNOMED Code(s): 79176223 (5) BMI 50.0-59.9, adult Status: Acute Code(s): Z68.43 - BODY MASS INDEX (BMI) 50-59.9, ADULT SNOMED Code(s): 327825035
[2018-08-29 12:27] VITALS: BP 114/79; PULSE 78; RESP 14; TEMP 97.8
[2018-08-30] MEDS ORDERED: PANTOPRAZOLE 40 MG TABLET PO SCH (07:30)
--- NOTE | 2018-09-01 21:10 | P.DS ---
Providers Date of admission: 08/27/18 21:22 Expected date of discharge: 08/29/18 Attending physician: Lina Miranda Consults: 08/27/18 21:20 Consult Physician Routine Consulting Provider: Hilda Ba Consult Reason/Comments: Intractable abdominal pain Do you want consulting provider notified?: Yes Primary care physician: [facility] Course: Discharge diagnosis Right upper quadrant abdominal pain. Possible gastritis versus musculoskeletal. CT negative. Right-sided small ventral hernia. Cervical neck surgery recently Chronic rheumatoid arthritis on immunosuppressive therapy Seizure disorder as a child Obstructive sleep apnea on CPAP at home spinal stenosis/instability and herniated disc spondolothisis,-difficulty walking History of diverticulitis with rupture/abscess status post colon resection. Chronic back pain with history of epidural injections Morbid obesity BMI 58.8 DVT prophylaxis Hospital course Patient is a 48-year-old female with a known history of rheumatoid arthritis on immunosuppressive therapy, seizure disorder, obstructive sleep apnea on CPAP at home, history of diverticulitis with rupture with colon resection in 2017, spinal stenosis and morbid obesity BMI 58.8 came to ER with complaints of abdominal pain mainly left upper quadrant. Patient says that her pain started yesterday evening and is getting worse, cramping and radiated to the back and gets worse with movement and deep palpation. Patient did have nausea and vomiting at home. No complaints of chest pain or shortness of breath. No fever no chills. No headache or dizziness or lightheadedness. No visual changes. No dysuria or hematuria. Patient says that she had a history of right-sided ventral hernia but denied any complaints of right upper quadrant pain. Denied any history of peptic ulcer disease. Patient says that she had multiple abdominal surgeries including appendectomy, cholecystectomy and history of colon resection due to diverticulosis. CT of the abdomen pelvis showed small right-sided ventral hernia contains fat. Otherwise negative exam. No evidence of acute abdomen and pelvis. Patient recently had cervical spine surgery about 3 weeks ago and was started on Mobic. Denied any hematemesis or melena. 08/29/2018 Patient did improve clinically after starting Protonix. Tolerating oral diet now. No chest pain. No nausea vomiting or abdominal pain. Patient is stable to be discharged home. Cleared from surgical standpoint. Discharge physical examination was done and vitals reviewed. Patient Condition at Discharge: Good Plan - Discharge Summary Discharge Rx Participant: No New Discharge Prescriptions: New Pantoprazole Sodium [Protonix] 40 mg PO AC-BRKFST #30 tablet. Continue Aspirin EC [Ecotrin Low Dose] 81 mg PO HS Leflunomide [Arava] 20 mg PO QAM azaTHIOprine [Imuran] 50 mg PO TID Acetaminophen [Tylenol] 1,000 mg PO BID PRN PRN Reason: Pain Pregabalin [Lyrica] 75 mg PO BID Cyclobenzaprine [Flexeril] 10 mg PO TID PRN PRN Reason: Pain Discontinued Meloxicam [Mobic] 15 mg PO QAM Discharge Medication List Aspirin EC [Ecotrin Low Dose] 81 mg PO HS 03/18/17 [History] Leflunomide [Arava] 20 mg PO QAM 01/06/18 [History] azaTHIOprine [Imuran] 50 mg PO TID 01/06/18 [History] Acetaminophen [Tylenol] 1,000 mg PO BID PRN 06/27/18 [History] Cyclobenzaprine [Flexeril] 10 mg PO TID PRN 08/27/18 [History] Pregabalin [Lyrica] 75 mg PO BID 08/27/18 [History] Pantoprazole Sodium [Protonix] 40 mg PO AC-BRKFST #30 tablet. 08/29/18 [Rx] Follow up Appointment(s)/Referral(s): Rica Bloom III, MD [Primary Care Provider] - 08/30/18 3:30 pm (Saima Muller NP) Hilda Ba MD [STAFF PHYSICIAN] - As Needed Activity/Diet/Wound Care/Special Instructions: Continue diet as tolerated. fluids are encouraged. Follow up with physician as directed. Call physician with any questions comments concerns worsening returning symptoms, pain not controlled by pain medications already prescribed to you, fever 101.1 or higher, not tolerating diet, not tolerating fluids. Discharge Disposition: HOME SELF-CARE
== END 2018-08-29 13:50 | disposition home or self-care (01) ==
LOC: EC 17:08 → 6PED 21:22
PROVIDERS: ADMIT Hospitalist; ATTEND Hospitalist
DX: R10.12 Left upper quadrant pain (principal); R11.2 Nausea with vomiting, unspecified; R10.13 Epigastric pain; K43.9 Ventral hernia without obstruction or gangrene; M06.9 Rheumatoid arthritis, unspecified; K57.90 Diverticulosis of intestine, part unspecified, without perforation or abscess without bleeding; G47.33 Obstructive sleep apnea (adult) (pediatric); G40.909 Epilepsy, unspecified, not intractable, without status epilepticus; L98.9 Disorder of the skin and subcutaneous tissue, unspecified; Z99.89 Dependence on other enabling machines and devices; M48.00 Spinal stenosis, site unspecified; G89.29 Other chronic pain; M54.9 Dorsalgia, unspecified; R26.2 Difficulty in walking, not elsewhere classified; M53.2X9 Spinal instabilities, site unspecified; M43.10 Spondylolisthesis, site unspecified; Z68.43 Body mass index [BMI] 50.0-59.9, adult; E66.01 Morbid (severe) obesity due to excess calories; Z79.1 Long term (current) use of non-steroidal anti-inflammatories (NSAID); Z79.82 Long term (current) use of aspirin; Z79.899 Other long term (current) drug therapy; Z88.5 Allergy status to narcotic agent; Z91.048 Other nonmedicinal substance allergy status; Z90.49 Acquired absence of other specified parts of digestive tract; Z90.89 Acquired absence of other organs; Z80.6 Family history of leukemia; Z81.8 Family history of other mental and behavioral disorders; Z83.3 Family history of diabetes mellitus; Z82.49 Family history of ischemic heart disease and other diseases of the circulatory system; Z82.61 Family history of arthritis
CPT/HCPCS: 96361 ×2; 96372 ×2; 96375 ×2; 96376 ×2; 96374; 99285; 36415; 93005; 80053; 82150; 82550; 82553; 83605; 83690; 84484; 85025; 81003; 74177; G0378 ×3; J7500 ×2; J2270; J1644 ×2; J2405 ×2; J1885; C9113 ×2; Q9967

== ENCOUNTER 2019-02-24 00:58 | Emergency (ER) | payer MEDICARE, OTHER ==
[2019-02-24 01:09] VITALS: RESP 20
[2019-02-24] MEDS ORDERED: MORPHINE SULFATE 4 MG/ML SYRINGE IVP STA (01:42)
[2019-02-24] MEDS ORDERED: DIAZEPAM 5 MG/ML 2 ML INJ IVP STA (01:42)
--- NOTE | 2019-02-24 01:43 | ED ---
Back Pain HPI - General Chief Complaint: Back Pain/Injury Stated Complaint: post spine surgery concerns Time Seen by Provider: 02/24/19 01:17 Source: patient, family Limitations: no limitations - History of Present Illness Initial Comments: 48-year-old female presenting today status post lumbar fusion for chief complaint of back pain x 1 day. Patient states she was discharged without any pain medications she states that today she is experiencing sharp pain down the left leg is similar to her pain prior to her surgery. Burning pain down the left leg, she denies weakness of loss of sensation, she denies any loss of bowel bladder control she denies any urinary retention she has fever or chills night sweats. Patient states she cathy spasm in the left leg. Patient states she attempted to call her surgeon because she originally declined pain medication upon discharge, to retrieve prescription however was not able to get a hold of her physician and presents emergency department for evaluation and pain control. Upon arrival pt does appears uncomfortable in specific positions, however nontoxic/well appearing, ambulatory. - Related Data Home Medications Medication Instructions Recorded Confirmed Aspirin EC [Ecotrin Low Dose] 81 mg PO HS 03/18/17 08/28/18 Leflunomide [Arava] 20 mg PO QAM 01/06/18 08/28/18 azaTHIOprine [Imuran] 50 mg PO TID 01/06/18 08/28/18 Acetaminophen [Tylenol] 1,000 mg PO BID PRN 06/27/18 08/28/18 Cyclobenzaprine [Flexeril] 10 mg PO TID PRN 08/27/18 08/28/18 Pregabalin [Lyrica] 75 mg PO BID 08/27/18 08/28/18 Previous Rx's Medication Instructions Recorded Pantoprazole Sodium [Protonix] 40 mg PO AC-[id number] #30 tablet. 08/29/18 Diazepam [Valium] 5 mg PO Q12H PRN 2 Days #4 tab 02/24/19 HYDROcodone/APAP 5-325MG [[place] 5] 1 each PO Q6HR PRN 1 Days #4 tab 02/24/19 Allergies Allergy/AdvReac Type Severity Reaction Status Date / Time adhesive AdvReac Mild Rash/Hives Verified 02/24/19 01:09 hydromorphone [From Dilaudid] AdvReac Mild Nausea & Verified 02/24/19 01:09 Vomiting Review of Systems ROS Statement: Those systems with pertinent positive or pertinent negative responses have been documented in the HPI. ROS Other: All systems not noted in ROS Statement are negative. Past Medical History Past Medical History: Rheumatoid Arthritis (RA), Seizure Disorder, Skin Disorder, Sleep Apnea/CPAP/BIPAP Additional Past Medical History / Comment(s): NO CPAP. DIVERTICULITIS WITH RUPT URE/ABSCESS. EYE SOMETIMES GET BLOOD SHOT DUE TO RA MEDS. RA-pain in multiple joints, spinal stenosis/instability and herniated disc, spondolothisis,- difficulty walking, childhood seizures. History of Any Multi-Drug Resistant Organisms: MRSA Date of last positivie culture/infection: 2013 MDRO Source:: stomach, back Past Surgical History: Appendectomy, Cholecystectomy, Orthopedic Surgery Additional Past Surgical History / Comment(s): PICC LINE. 09/29/17, COLON RESECTION DUE TO DIVERTICULOSIS. Knee arthroscopy, back epidural injections. EGD,colonoscopy. cervical surgery at [facility] Past Anesthesia/Blood Transfusion Reactions: Motion Sickness, Postoperative Nausea & Vomiting (PONV) Past Psychological History: No Psychological Hx Reported Smoking Status: Never smoker Past Alcohol Use History: None Reported Past Drug Use History: None Reported - Past Family History Father Family Medical History: Cancer Additional Family Medical History / Comment(s): Father of leukemia at the age of 65yrs. Mother Family Medical History: Diabetes Mellitus, Hypertension, Osteoarthritis (OA) Additional Family Medical History / Comment(s): Mother has IIDM, depression. General Exam - General Exam Comments Initial Comments: General: The patient is awake and alert, in no distress, and does not appear acutely ill. Eye: Pupils are equal, round and reactive to light, extra-ocular movements are intact. No nystagmus. There is normal conjunctiva bilaterally. No signs of icterus. Ears, nose, mouth and throat: There are moist mucous membranes and no oral lesions. Neck: The neck is supple, there is no tenderness or JVD. Cardiovascular: There is a regular rate and rhythm. No murmur, rub or gallop is appreciated. Respiratory: Lungs are clear to auscultation, respirations are non-labored, breath sounds are equal. No wheezes, stridor, rales, or rhonchi. Gastrointestinal: Soft, non-distended, non-tender abdomen without masses or organomegaly noted. There is no rebound or guarding present. Bowel sounds are unremarkable. Musculoskeletal: Normal ROM of the lower extremities including the hips bilaterally knees and ankles., no tenderness. Strength 5/5 of the lower extremity equally bilaterally. Sensation intact of the lower extremities equal and comparison bilaterally including saddle region. Radial pulses equal bilaterally 2+. No myoclonus or fasciculations noted. Neurological: A&O x 3. CN II-XII intact, There are no obvious motor or sensory deficits. Coordination appears grossly intact. Speech is normal. Skin: Skin is warm and dry and no rashes or lesions are noted. Psychiatric: Cooperative, appropriate mood & affect, normal judgment. Limitations: no limitations Course Vital Signs 02/24/19 02/24/19 01:07 03:59 Temperature 97.7 F 98.2 F Pulse Rate 102 H 87 Respiratory 20 20 Rate Blood Pressure 135/55 144/99 O2 Sat by Pulse 99 96 Oximetry Medical Decision Making - Medical Decision Making Well-appearing 48-year-old female presenting for sharp burning pain down left leg. Patient has no muscle weakness or loss of sensation. It is no signs or history concerning cauda equina. Patient states she does not have proper pain management. Patient was given Valium and morphine in the emergency department this alleviate pain. Patient states she has been calm and ready for discharge. Patient is occasional symptoms fever or signs concerning for infectious process. Left wrist there is really no leukocytosis. Hemoglobin stable. Patient appears well. Patient be provided prescription for Valium for muscle spasm as well as. Advised patient is discontinued taking her Flexeril, she verbalized understanding. I also educated patient detail for the appropriate use of Valium as well as norco. I recommended not taking the medications at the same time with 24 hour span of each other. Patient verbalizes understanding. Patient is aware of the risks including overdosed or addiction to opioids use. Discussed the case attempted provider Dr. Roberts who is agreeable with plan of care and discharge. I did attempt to reach patient's surgeon, no no call number provided on answering service. Pt was instructed to call Tuesday and follow -up with surgeon. Pt is agreeable with plan as well as all return parameters, discussed sings of cauda equina and infection, she verbalized understanding importance of return parameters patient discharged appearing well - Lab Data Result diagrams: 02/24/19 02:07 02/24/19 02:07 Lab Results 02/24/19 02/24/19 Range/Units 02:07 02:07 WBC 6.0 (3.8-10.6) k/uL RBC 3.78 L (3.80-5.40) m/uL Hgb 11.2 L (11.4-16.0) gm/dL Hct 33.8 L (34.0-46.0) % MCV 89.5 (80.0-100.0) fL MCH 29.7 (25.0-35.0) pg MCHC 33.2 (31.0-37.0) g/dL RDW 15.0 (11.5-15.5) % Plt Count 446 (150-450) k/uL Neutrophils % 68 % Lymphocytes % 18 % Monocytes % 6 % Eosinophils % 4 % Basophils % 1 % Neutrophils # 4.1 (1.3-7.7) k/uL Lymphocytes # 1.1 (1.0-4.8) k/uL Monocytes # 0.4 (0-1.0) k/uL Eosinophils # 0.3 (0-0.7) k/uL Basophils # 0.1 (0-0.2) k/uL Sodium 139 (137-145) mmol/L Potassium 3.6 (3.5-5.1) mmol/L Chloride 105 (98-107) mmol/L Carbon Dioxide 26 (22-30) mmol/L Anion Gap 8 mmol/L BUN 12 (7-17) mg/dL Creatinine 0.54 (0.52-1.04) mg/dL Est GFR (CKD-EPI)AfAm >90 (>60 ml/min/1.73 sqM) Est GFR (CKD-EPI)NonAf >90 (>60 ml/min/1.73 sqM) Glucose 114 H (74-99) mg/dL Calcium 9.3 (8.4-10.2) mg/dL Total Bilirubin 0.6 (0.2-1.3) mg/dL AST 41 H (14-36) U/L ALT 47 (9-52) U/L Alkaline Phosphatase 88 (38-126) U/L Total Protein 6.5 (6.3-8.2) g/dL Albumin 3.7 (3.5-5.0) g/dL Disposition Clinical Impression: Post-operative pain Disposition: HOME SELF-CARE Condition: Good Instructions (If sedation given, give patient instructions): Back Pain (ED) Additional Instructions: Please use medication as discussed, do not drive operate machinery work drink up all with Valium. Please do not take the [place] and Valium at the same time within 4 hours of each medication. Please follow-up with surgeon next week and discussed and primary provider Tuesday. Please return to emergency room if the symptoms increase or worsen or for any other concerns. Prescriptions: HYDROcodone/APAP 5-325MG [[place] 5] 1 each PO Q6HR PRN 1 Days #4 tab PRN Reason: Severe Pain Diazepam [Valium] 5 mg PO Q12H PRN 2 Days #4 tab PRN Reason: Spasms Is patient prescribed a controlled substance at d/c from ED?: No Referrals: Rica Bloom III, MD [Primary Care Provider] - 1-2 days Time of Disposition: 03:48
[2019-02-24 02:12] LABS: Basophils # (A) 0.1 k/uL (0-0.2); Basophils % (A) 1 %; Eosinophils # (A) 0.3 k/uL (0-0.7); Eosinophils % (A) 4 %; HCT 33.8 % (34.0-46.0); HGB 11.2 gm/dL (11.4-16.0); Lymphocytes # (A) 1.1 k/uL (1.0-4.8); Lymphocytes % (A) 18 %; MCH 29.7 pg (25.0-35.0); MCHC 33.2 g/dL (31.0-37.0); MCV 89.5 fL (80.0-100.0); Mean Platelet Volume 6.6; Monocytes # (A) 0.4 k/uL (0-1.0); Monocytes % (A) 6 %; Neutrophils # (A) 4.1 k/uL (1.3-7.7); Neutrophils % (A) 68 %; Platelet Count 446 k/uL (150-450); RBC 3.78 m/uL (3.80-5.40)
[2019-02-24 02:22] LABS: ALT 47 U/L (9-52); AST 41 U/L (14-36); Albumin 3.7 g/dL (3.5-5.0); Alkaline Phosphatase 88 U/L (38-126); Anion Gap 8 mmol/L; Blood Urea Nitrogen 12 mg/dL (7-17); Calcium 9.3 mg/dL (8.4-10.2); Carbon Dioxide 26 mmol/L (22-30); Chloride 105 mmol/L (98-107); Glucose 114 mg/dL (74-99); Potassium 3.6 mmol/L (3.5-5.1); Sodium 139 mmol/L (137-145); Total Bilirubin 0.6 mg/dL (0.2-1.3); Total Protein 6.5 g/dL (6.3-8.2)
[2019-02-24] MEDS ORDERED: MORPHINE SULFATE 2 MG/ML SYRINGE IVP STA (03:45)
[2019-02-24 04:01] VITALS: BP 144/99; PULSE 87; TEMP 98.2
== END 2019-02-24 04:14 | disposition home or self-care (01) ==
LOC: EC 00:58
DX: G89.18 Other acute postprocedural pain (principal); M54.9 Dorsalgia, unspecified; M79.605 Pain in left leg; M62.830 Muscle spasm of back; M06.9 Rheumatoid arthritis, unspecified; G47.30 Sleep apnea, unspecified; Z79.82 Long term (current) use of aspirin; Z79.899 Other long term (current) drug therapy; Z91.048 Other nonmedicinal substance allergy status; Z88.5 Allergy status to narcotic agent; Z98.1 Arthrodesis status
CPT/HCPCS: 36415; 80053; 85025; 99283; 96374; 96375; 96376; J2270 ×2; J3360

== ENCOUNTER 2019-02-24 22:52 | Emergency (ER) | payer MEDICARE, OTHER ==
--- NOTE | 2019-02-25 | XR ---
EXAM: XR Lumbar Spine, 2 or 3 Views CLINICAL HISTORY: ITS.REASON XR Reason: Pain TECHNIQUE: Frontal and lateral views of the lumbar spine. COMPARISON: No relevant prior studies available. FINDINGS: Vertebrae: Unremarkable. No acute fracture. Normal alignment. Disc spaces: No suspicious findings. No significant narrowing. Soft tissues: Unremarkable. Other findings: Hardware is intact. IMPRESSION: No acute findings.
--- NOTE | 2019-02-25 00:31 | ED ---
Extremity Problem HPI - General Chief complaint: Extremity Problem,Nontraumatic Stated complaint: leg pain Time Seen by Provider: 02/24/19 23:18 Source: patient Mode of arrival: ambulatory Limitations: no limitations - History of Present Illness Initial comments: Is a 48-year-old female with a history of recent lower back surgery who presents emergency department for left sided leg discomfort. She states that it feels like a cold and burning sensation to the left lateral thigh. She states that she has some decreased sensation in this area as well. She states that it started yesterday and is been persistent into today. She states that after the surgery she felt good and was walking however this developed yesterday. She was seen here yesterday emergency department and told that it was likely neuropathic and given her: Valium which she states improves the pain briefly however she had persistent pain. She was seen by her primary doctor who sent her back here to evaluate her for DVT. She denies any fevers or chills. No pain at the incision site. No other acute complaints. - Related Data Home Medications Medication Instructions Recorded Confirmed Aspirin EC [Ecotrin Low Dose] 81 mg PO HS 03/18/17 02/24/19 Leflunomide [Arava] 20 mg PO QAM 01/06/18 02/24/19 azaTHIOprine [Imuran] 50 mg PO TID 01/06/18 02/24/19 Acetaminophen [Tylenol] 1,000 mg PO BID PRN 06/27/18 02/24/19 Cyclobenzaprine [Flexeril] 10 mg PO TID PRN 08/27/18 02/24/19 Pregabalin [Lyrica] 75 mg PO BID 08/27/18 02/24/19 HYDROcodone/APAP 5-325MG [[place] 5] 1 tab PO Q6HR PRN 02/24/19 02/24/19 Melatonin 5 mg PO HS PRN 02/24/19 02/24/19 Meloxicam [Mobic] 15 mg PO DAILY 02/24/19 02/24/19 Previous Rx's Medication Instructions Recorded Diazepam [Valium] 5 mg PO Q12H PRN 2 Days #4 tab 02/24/19 Allergies Allergy/AdvReac Type Severity Reaction Status Date / Time adhesive AdvReac Mild Rash/Hives Verified 02/24/19 23:07 hydromorphone [From Dilaudid] AdvReac Mild Nausea & Verified 02/24/19 23:07 Vomiting Review of Systems ROS Statement: Those systems with pertinent positive or pertinent negative responses have been documented in the HPI. ROS Other: All systems not noted in ROS Statement are negative. Past Medical History Past Medical History: Rheumatoid Arthritis (RA), Seizure Disorder, Skin Disorder, Sleep Apnea/CPAP/BIPAP Additional Past Medical History / Comment(s): NO CPAP. DIVERTICULITIS WITH RUPTURE/ABSCESS. EYE SOMETIMES GET BLOOD SHOT DUE TO RA MEDS. RA-pain in multiple joints, spinal stenosis/instability and herniated disc, spondolothisis,-difficulty walking, childhood seizures. History of Any Multi-Drug Resistant Organisms: MRSA Date of last positivie culture/infection: 2013 MDRO Source:: stomach, back Past Surgical History: Appendectomy, Cholecystectomy, Orthopedic Surgery Additional Past Surgical History / Comment(s): PICC LINE. 09/29/17, COLON RESECTION DUE TO DIVERTICULOSIS. Knee arthroscopy, back epidural injections. EGD,colonoscopy. cervical surgery at [facility] Past Anesthesia/Blood Transfusion Reactions: Motion Sickness, Postoperative Nausea & Vomiting (PONV) Past Psychological History: No Psychological Hx Reported Smoking Status: Never smoker Past Alcohol Use History: None Reported Past Drug Use History: None Reported - Past Family History Father Family Medical History: Cancer Additional Family Medical History / Comment(s): Father of leukemia at the age of 65yrs. Mother Family Medical History: Diabetes Mellitus, Hypertension, Osteoarthritis (OA) Additional Family Medical History / Comment(s): Mother has IIDM, depression. General Exam - General Exam Comments Initial Comments: Constitutional: Awake alert Appears comfortable Head: Normocephalic atraumatic Eyes: no conjunctival injection No scleral icterus EOMI Neck: No JVD Supple Heart: Regular rate rhythm normal S1-S2 no murmurs Lungs: Clear to auscultation bilaterally No wheezing No rales Abdomen: Soft nondistended nontender Back: The patient has a clean dry and intact dressing to the midline lumbar area . No surrounding erythema or tenderness to palpation. Extremities: Non edematous DP pulses intact Radial pulses intact, the patient reports decreased sensation to the left lateral thigh. The patient has 5 out of 5 strength with plantar flexion and dorsiflexion bilaterally, 2 out of 4 patellar reflexes Neuro: A&Ox3 No focal neurologic deficits Psych: Appropriate mood and affect Limitations: no limitations Course Vital Signs 02/24/19 22:56 Temperature 98.4 F Pulse Rate 96 Respiratory 20 Rate Blood Pressure 134/87 O2 Sat by Pulse 96 Oximetry Medical Decision Making - Medical Decision Making Is a 48-year-old female who presents emergency department for left-sided leg discomfort. Patient describe it as a burning and tingling sensation. I suspect the patient is having neuropathic pain. Bilateral lower Chev[place] Dopplers were negative for DVT. I did do an x-ray of her lumbar spine to ensure hardware was in appropriate position and it was. No other acute findings. The patient initially declined pain medications however just prior to leaving she stated that she would like some. I gave her some morphine. Told to continue with [place] and Valium at home and to call her surgeon for a follow-up appointment. The patient stated that she understood and agreed. Return emergency Department if she develops any weakness, bowel or bladder incontinence, or any other worsening symptoms. All questions answered. Disposition Clinical Impression: Radiculopathy Disposition: HOME SELF-CARE Condition: Stable Instructions (If sedation given, give patient instructions): Lumbar Radiculopathy (ED) Is patient prescribed a controlled substance at d/c from ED?: No Referrals: Rica Bloom III, MD [Primary Care Provider] - 1-2 days
--- NOTE | 2019-02-25 01:23 | US ---
EXAM: US Duplex Bilateral Lower Extremity Veins CLINICAL HISTORY: ITS.REASON US Reason: Pain TECHNIQUE: Real-time duplex ultrasound scan of the bilateral lower extremity veins integrating B-mode two-dimensional vascular structure, Doppler spectral analysis, color flow Doppler imaging and compression. COMPARISON: No relevant prior studies available. FINDINGS: Right deep veins: Unremarkable. No DVT in the right common femoral, femoral, proximal deep femoral or popliteal veins. The veins demonstrate normal color flow, are normally compressible, with normal phasic flow and/or augmentation response. Right superficial veins: Unremarkable. No thrombus in the visualized right great saphenous vein. Left deep veins: Unremarkable. No DVT in the left common femoral, femoral, proximal deep femoral or popliteal veins. The veins demonstrate normal color flow, are normally compressible, with normal phasic flow and/or augmentation response. Left superficial veins: Unremarkable. No thrombus in the visualized left great saphenous vein. Soft tissues: No suspicious findings. No popliteal cyst. IMPRESSION: Normal bilateral lower extremity duplex venous ultrasound.
[2019-02-25] MEDS ORDERED: MORPHINE SULFATE 4 MG/ML SYRINGE IVP STA (01:41)
[2019-02-25 02:03] VITALS: BP 133/75; PULSE 77; RESP 18; TEMP 97
== END 2019-02-25 02:03 | disposition home or self-care (01) ==
LOC: EC 22:52
DX: M54.10 Radiculopathy, site unspecified (principal); M06.9 Rheumatoid arthritis, unspecified; G40.909 Epilepsy, unspecified, not intractable, without status epilepticus; Z88.5 Allergy status to narcotic agent; Z91.048 Other nonmedicinal substance allergy status; Z79.1 Long term (current) use of non-steroidal anti-inflammatories (NSAID); Z79.82 Long term (current) use of aspirin; Z79.899 Other long term (current) drug therapy; Z86.14 Personal history of Methicillin resistant Staphylococcus aureus infection; Z98.890 Other specified postprocedural states; Z82.61 Family history of arthritis
CPT/HCPCS: 99284 ×2; 96374 ×2; 96376; 96375; 99283; 36415; 80053; 85025; 72100; 93970; J2270 ×3; J3360

== ENCOUNTER 2019-04-09 15:17 | Emergency (ER) | payer MEDICARE, OTHER ==
[2019-04-09 17:19] LABS: Basophils % (A) 1 %; Eosinophils # (A) 0.1 k/uL (0-0.7); Eosinophils % (A) 2 %; HCT 36.3 % (34.0-46.0); HGB 11.8 gm/dL (11.4-16.0); Lymphocytes # (A) 0.7 k/uL (1.0-4.8); Lymphocytes % (A) 8 %; MCH 28.8 pg (25.0-35.0); MCHC 32.5 g/dL (31.0-37.0); MCV 88.5 fL (80.0-100.0); Mean Platelet Volume 6.5; Monocytes # (A) 0.3 k/uL (0-1.0); Monocytes % (A) 4 %; Neutrophils # (A) 8.1 k/uL (1.3-7.7); Neutrophils % (A) 86 %; Platelet Count 500 k/uL (150-450); RDW 13.9 % (11.5-15.5); WBC 9.4 k/uL (3.8-10.6)
[2019-04-09 17:29] LABS: ALT 25 U/L (9-52); AST 31 U/L (14-36); African American GFR (CKD) >90 (>60 ml/min/1.73 sqM); Albumin 3.8 g/dL (3.5-5.0); Alkaline Phosphatase 118 U/L (38-126); Anion Gap 8 mmol/L; Blood Urea Nitrogen 18 mg/dL (7-17); Carbon Dioxide 24 mmol/L (22-30); Chloride 104 mmol/L (98-107); Glucose 120 mg/dL (74-99); Potassium 3.9 mmol/L (3.5-5.1); Sodium 136 mmol/L (137-145); Total Bilirubin 0.6 mg/dL (0.2-1.3); Total Protein 7.1 g/dL (6.3-8.2)
[2019-04-09] MEDS ORDERED: MORPHINE SULFATE 4 MG/ML SYRINGE IVP STA (19:26)
[2019-04-09] MEDS ORDERED: ONDANSETRON 4 MG/2 ML VIAL IVP STA (19:27)
[2019-04-09] MEDS ORDERED: ACETAMINOPHEN TAB 500 MG TAB PO STA (19:27)
--- NOTE | 2019-04-09 19:34 | ED ---
Fever HPI - General Chief Complaint: Fever Stated Complaint: Post Op-dizzy, back pain, fever Time Seen by Provider: 04/09/19 19:06 Source: patient Mode of arrival: wheelchair Limitations: no limitations - History of Present Illness Initial Comments: 49-year-old female patient who is status post lumbar fusion surgery on 04/03/2019 presents to the emergency department today for evaluation of fever. Patient states that she has been having fevers on and off since the surgery. Patient states that Tuesday she developed a severe headache. States the pain is radiating from the base of her skull and going forward to her eyes. Patent encompasses her entire head. States she is having light sensitivity. Denies any blurred or double vision. States she has been nauseated but has not vomited. She denies any neck pain or stiffness. She denies any chest pain, cough, shortness of breath, calf pain, hematuria, dysuria, urinary frequency, urinary urgency. Patient denies any numbness or tingling to her extremities. States that she does have increased pain to the low back. Denies any abnormal drainage from the incision site. States she is having a friend care for the area. Patient denies any recent rash, abdominal pain, diarrhea, constipation, back pain, numbness, tingling, dizziness, weakness, or any other complaints. - Related Data Home Medications Medication Instructions Recorded Confirmed Leflunomide [Arava] 20 mg PO QAM 01/06/18 04/09/19 azaTHIOprine [Imuran] 50 mg PO TID 01/06/18 04/09/19 Acetaminophen [Tylenol] 1,000 mg PO BID PRN 06/27/18 04/09/19 Cyclobenzaprine [Flexeril] 10 mg PO TID PRN 08/27/18 04/09/19 Melatonin 5 mg PO HS PRN 02/24/19 04/09/19 Meloxicam [Mobic] 15 mg PO DAILY 02/24/19 04/09/19 Pregabalin [Lyrica] 75 mg PO TID 04/09/19 04/09/19 Previous Rx's Medication Instructions Recorded Cephalexin [Keflex] 500 mg PO Q6HR #40 cap 04/09/19 Sulfamethoxazole/Trimethoprim 1 each PO BID #20 tablet 04/09/19 [Bactrim DS 800-160 mg] Allergies Allergy/AdvReac Type Severity Reaction Status Date / Time adhesive AdvReac Mild Rash/Hives Verified 04/09/19 19:19 hydromorphone [From Dilaudid] AdvReac Mild Nausea & Verified 04/09/19 19:19 Vomiting Review of Systems ROS Statement: Those systems with pertinent positive or pertinent negative responses have been documented in the HPI. ROS Other: All systems not noted in ROS Statement are negative. Past Medical History Past Medical History: Rheumatoid Arthritis (RA), Seizure Disorder, Skin Disorder, Sleep Apnea/CPAP/BIPAP Additional Past Medical History / Comment(s): NO CPAP. DIVERTICULITIS WITH RUPTURE/ABSCESS. EYE SOMETIMES GET BLOOD SHOT DUE TO RA MEDS. RA-pain in multiple joints, spinal stenosis/instability and herniated disc, spondolothisis,-difficulty walking, childhood seizures. chronic back pain History of Any Multi-Drug Resistant Organisms: MRSA Date of last positivie culture/infection: 2013 MDRO Source:: stomach, back Past Surgical History: Appendectomy, Back Surgery, Bowel Resection, Cholecystectomy, Orthopedic Surgery Additional Past Surgical History / Comment(s): PICC LINE. 09/29/17, COLON RESECTION DUE TO DIVERTICULOSIS. Knee arthroscopy, back epidural injections. EGD,colonoscopy. cervical surgery at [facility] Past Anesthesia/Blood Transfusion Reactions: Motion Sickness, Postoperative Nausea & Vomiting (PONV) Past Psychological History: No Psychological Hx Reported Smoking Status: Never smoker Past Alcohol Use History: None Reported Past Drug Use History: None Reported - Past Family History Father Family Medical History: Cancer Additional Family Medical History / Comment(s): Father of leukemia at the age of 65yrs. Mother Family Medical History: Diabetes Mellitus, Hypertension, Osteoarthritis (OA) Additional Family Medical History / Comment(s): Mother has IIDM, depression. General Exam Limitations: no limitations General appearance: alert, in no apparent distress, other (Physical well-developed, obese adult female patient in mild distress. Eitel signs on presentation her temperature 100.1F, pulse 108, respirations 20, blood pressure 147/89, pulse ox 98% on room air.) Eye exam: Present: normal appearance, PERRL, EOMI. Absent: scleral icterus, conjunctival injection, periorbital swelling ENT exam: Present: normal exam, normal oropharynx, mucous membranes moist Neck exam: Present: normal inspection, full ROM. Absent: tenderness, meningismus, lymphadenopathy Respiratory exam: Present: normal lung sounds bilaterally. Absent: respiratory distress, wheezes, rales, rhonchi, stridor Cardiovascular Exam: Present: normal rhythm, tachycardia, normal heart sounds. Absent: systolic murmur, diastolic murmur, rubs, gallop, clicks GI/Abdominal exam: Present: soft, normal bowel sounds, other (Patient has 2 superficial wounds to the lower abdomen, no surrounding erythema no drainage.). Absent: distended, tenderness, guarding, rebound, rigid Extremities exam: Present: full ROM, normal capillary refill, other (Patient has a superficial wound to the right lateral thigh, no surrounding erythema, no drainage.). Absent: normal inspection, tenderness, pedal edema, joint swelling, calf tenderness Back exam: Present: other (Patient has midline vertical incision over the lumbar spine, this is well approximated with Steri-Strips, no purulent drainage. No surrounding erythema. There is surrounding tenderness.). Absent: normal inspection Neurological exam: Present: alert, oriented X3, CN II-XII intact, other (Strength in the upper extremities is 4/5, strength in the lower extremities is 3/5.) Psychiatric exam: Present: normal affect, normal mood Skin exam: Present: warm, dry, intact, normal color. Absent: rash Course Vital Signs 04/09/19 04/09/19 16:38 22:44 Temperature 100.1 F H 98.9 F Pulse Rate 108 H 107 H Respiratory 20 18 Rate Blood Pressure 147/89 126/78 O2 Sat by Pulse 98 97 Oximetry Medical Decision Making - Medical Decision Making 41-year-old female patient presented to the emergency department today for evaluation of fever, vomiting, headache, and increased back pain. Physical examination did reveal an intact midline lumbar incision with no surrounding erythema or drainage. Patient also had wounds to the abdomen and the right lateral thigh which showed no evidence for infection. Labs reviewed and did reveal white blood cell count of 9.4. Chest x-ray showed no acute cardiopulmonary process. Did obtain CT of the lumbar spine that showed bilateral superficial fluid collections. Plan was to transfer patient to [facility] where she underwent lumbar fusion surgery 1 week ago. I did discuss the case with her surgeon Dr. Garland who would rather patient be started on by mouth antibiotics and discharged to follow-up in her clinic. Should make an appointment for her at the office on at 3:30 PM. We will start Keflex and Bactrim orally. I did discuss this plan with the patient, she is agreeable. We did discuss return parameters and great detail. She verbalizes understanding. - Lab Data Result diagrams: 04/09/19 17:05 04/09/19 17:05 Lab Results 04/09/19 04/09/19 04/09/19 Range/Units 17:05 17:05 17:05 WBC 9.4 (3.8-10.6) k/uL RBC 4.10 (3.80-5.40) m/uL Hgb 11.8 (11.4-16.0) gm/dL Hct 36.3 (34.0-46.0) % MCV 88.5 (80.0-100.0) fL MCH 28.8 (25.0-35.0) pg MCHC 32.5 (31.0-37.0) g/dL RDW 13.9 (11.5-15.5) % Plt Count 500 H (150-450) k/uL Neutrophils % 86 % Lymphocytes % 8 % Monocytes % 4 % Eosinophils % 2 % Basophils % 1 % Neutrophils # 8.1 H (1.3-7.7) k/uL Lymphocytes # 0.7 L (1.0-4.8) k/uL Monocytes # 0.3 (0-1.0) k/uL Eosinophils # 0.1 (0-0.7) k/uL Basophils # 0.0 (0-0.2) k/uL Sodium 136 L (137-145) mmol/L Potassium 3.9 (3.5-5.1) mmol/L Chloride 104 (98-107) mmol/L Carbon Dioxide 24 (22-30) mmol/L Anion Gap 8 mmol/L BUN 18 H (7-17) mg/dL Creatinine 0.63 (0.52-1.04) mg/dL Est GFR (CKD-EPI)AfAm >90 (>60 ml/min/1.73 sqM) Est GFR (CKD-EPI)NonAf >90 (>60 ml/min/1.73 sqM) Glucose 120 H (74-99) mg/dL Plasma Lactic Acid Jose Martin 0.9 (0.7-2.0) mmol/L Calcium 9.0 (8.4-10.2) mg/dL Total Bilirubin 0.6 (0.2-1.3) mg/dL AST 31 (14-36) U/L ALT 25 (9-52) U/L Alkaline Phosphatase 118 (38-126) U/L Total Protein 7.1 (6.3-8.2) g/dL Albumin 3.8 (3.5-5.0) g/dL Urine Color Urine Appearance (Clear) Urine pH (5.0-8.0) Ur Specific [place] (1.001-1.035) Urine Protein (Negative) Urine Glucose (UA) (Negative) Urine Ketones (Negative) Urine Blood (Negative) Urine Nitrite (Negative) Urine Bilirubin (Negative) Urine Urobilinogen (<2.0) mg/dL Ur Leukocyte Esterase (Negative) Urine RBC (0-5) /hpf Urine WBC (0-5) /hpf Ur Squamous Epith Cells (0-4) /hpf Urine Mucus (None) /hpf 04/09/19 Range/Units 19:50 WBC (3.8-10.6) k/uL RBC (3.80-5.40) m/uL Hgb (11.4-16.0) gm/dL Hct (34.0-46.0) % MCV (80.0-100.0) fL MCH (25.0-35.0) pg MCHC (31.0-37.0) g/dL RDW (11.5-15.5) % Plt Count (150-450) k/uL Neutrophils % % Lymphocytes % % Monocytes % % Eosinophils % % Basophils % % Neutrophils # (1.3-7.7) k/uL Lymphocytes # (1.0-4.8) k/uL Monocytes # (0-1.0) k/uL Eosinophils # (0-0.7) k/uL Basophils # (0-0.2) k/uL Sodium (137-145) mmol/L Potassium (3.5-5.1) mmol/L Chloride (98-107) mmol/L Carbon Dioxide (22-30) mmol/L Anion Gap mmol/L BUN (7-17) mg/dL Creatinine (0.52-1.04) mg/dL Est GFR (CKD-EPI)AfAm (>60 ml/min/1.73 sqM) Est GFR (CKD-EPI)NonAf (>60 ml/min/1.73 sqM) Glucose (74-99) mg/dL Plasma Lactic Acid Jose Martin (0.7-2.0) mmol/L Calcium (8.4-10.2) mg/dL Total Bilirubin (0.2-1.3) mg/dL AST (14-36) U/L ALT (9-52) U/L Alkaline Phosphatase (38-126) U/L Total Protein (6.3-8.2) g/dL Albumin (3.5-5.0) g/dL Urine Color Yellow Urine Appearance Clear (Clear) Urine pH 7.5 (5.0-8.0) Ur Specific [place] 1.024 (1.001-1.035) Urine Protein 1+ H (Negative) Urine Glucose (UA) Negative (Negative) Urine Ketones Negative (Negative) Urine Blood Small H (Negative) Urine Nitrite Negative (Negative) Urine Bilirubin Negative (Negative) Urine Urobilinogen <2.0 (<2.0) mg/dL Ur Leukocyte Esterase Trace H (Negative) Urine RBC 8 H (0-5) /hpf Urine WBC 9 H (0-5) /hpf Ur Squamous Epith Cells 3 (0-4) /hpf Urine Mucus Occasional H (None) /hpf - Radiology Data Radiology results: report reviewed, image reviewed Two-view x-ray of the chest is obtained. Report was reviewed in its entirety. Impression by Dr. Irma Ramírez shows no acute process. CT lumbar spine without contrast was obtained. Report was reviewed in its entirety. Impression by Dr. Irma Ramírez shows L4 to 5 changes as discussed. Bilateral subcutaneous fluid collections, superficial to the dorsal spinal musculature. Disposition Clinical Impression: Low grade fever, Post op infection Disposition: HOME SELF-CARE Condition: Good Instructions (If sedation given, give patient instructions): Fever in Adults (ED) Additional Instructions: Take antibiotics as directed. Follow-up on at 3:[address] Dyer's clinic. Follow-up sooner if he become worse. Return to the emergenc y department for any new, worsening or concerning symptoms. Prescriptions: Sulfamethoxazole/Trimethoprim [Bactrim DS 800-160 mg] 1 each PO BID #20 tablet Cephalexin [Keflex] 500 mg PO Q6HR #40 cap Is patient prescribed a controlled substance at d/c from ED?: No Referrals: Rica Bloom III, MD [Primary Care Provider] - 1-2 days Time of Disposition: 23:12
[2019-04-09 20:28] LABS: Appearance,Urine Clear (Clear); Bilirubin,Urine Negative (Negative); Blood,Urine Small (Negative); Color,Urine Yellow; Glucose,Urine (UA) Negative (Negative); Ketones,Urine Negative (Negative); Leukocyte Esterase,Urine Trace (Negative); Mucus,Urine Occasional /hpf; Nitrite,Urine Negative (Negative); PH, Urine 7.5 (5.0-8.0); Protein,Urine 1+ (Negative); RBC,Urine 8 /hpf (0-5); Specific Gravity,Urine 1.024 (1.001-1.035); Squamous Epithelial Cell,Urine 3 /hpf (0-4); Urobilinogen,Urine <2.0 mg/dL (<2.0); WBC,Urine 9 /hpf (0-5)
--- NOTE | 2019-04-09 21:29 | XR ---
EXAMINATION: XR chest 2V DATE AND TIME: 04/09/2019 7:58 PM CLINICAL INDICATION: PHH; Pain TECHNIQUE: Departmental protocol COMPARISON: 03/18/2017 FINDINGS: The overlying soft tissues are prominent. Lungs are clear. The pleural spaces are negative. The cardiac silhouette is not enlarged. The remainder of the mediastinal silhouette is unremarkable. The skeletal structures and soft tissues are negative for acute findings. IMPRESSION: NO ACUTE PROCESS.
--- NOTE | 2019-04-09 22:00 | CT ---
EXAMINATION TYPE: CT lumbar spine wo con DATE OF EXAM: 04/09/2019 9:12 PM HISTORY: Lumbar fusion 04/03/19, Fever, and increased pain. CT DLP: 2127.4 mGycm Automated exposure control for dose reduction was used. TECHNIQUE: Unenhanced CT of the lumbar spine was performed. Bone and soft tissue window settings ar e submitted as well as coronal and sagittal reconstructions. FINDINGS: The bilateral pedicle fixation screws at the the L4 and L5 levels are intact. There are tiny gas bubbles at the level of the L4-5 level, left greater than right, seen predominantl y related to the left lateral margin of the SPECT the position of the thecal sac. There is metallic beam hardening artifact limiting visualization. Posterior to the dorsal spinal musculature at this level are bilateral 5 cm mean diameter ill-defined fluid density collections, situated between the skin surface and the dorsal spinal musculature. Thes e are perhaps most conspicuously seen on tissue reconstruction algorithm axial sequence (image 46 of 96). IMPRESSION: 1) L4-5 changes as discussed, which can be further characterized utilizing MRI with metallic-quellin g sequences. 2) Bilateral subcutaneous fluid collections, superficial to the dorsal spinal musculature. These can also be simultaneously further characterized at the time of MRI.
[2019-04-09] MEDS ORDERED: diphenhydrAMINE 50 MG/ML 1 ML VIAL IVP STA (22:29)
[2019-04-09] MEDS ORDERED: METOCLOPRAMIDE 5 MG/ML 2 ML VIAL IVP STA (22:29)
[2019-04-09] MEDS ORDERED: SODIUM CHLORIDE 0.9% 1,000 ML IV ONE (22:30)
[2019-04-09 22:47] VITALS: BP 126/78; PULSE 107; RESP 18; TEMP 98.9
[2019-04-09] MEDS ORDERED: PIPERACILLIN-TAZOBACTAM 3.375 GM in SODIUM CHLORIDE 0.9% 100 ML IVPB STA (22:56)
[2019-04-09] MEDS ORDERED: VANCOMYCIN IV PER PHARMACY 1 EACH MISC MISCELLANE PRN (22:56)
[2019-04-09] MEDS ORDERED: ACET/COD 300 MG/30 MG STARTER PACK 6 TAB BTL PO STA (23:13)
[2019-04-09] MEDS ORDERED: CEPHALEXIN 500MG STARTER PACK 4 CAP BTL PO STA (23:13)
[2019-04-09] MEDS ORDERED: ONDANSETRON 4 MG ODT STARTER PACK 2 TAB BTL PO STA (23:13)
[2019-04-09] MEDS ORDERED: SULFAMETH-TMP DS STARTER PACK 2 TAB BTL PO STA (23:13)
[2019-04-09] MEDS ORDERED: VANCOMYCIN 2,000 MG in SODIUM CHLORIDE 0.9% 500 ML 500 ML IVPB ONE (23:45)
== END 2019-04-09 23:48 | disposition home or self-care (01) ==
LOC: EC 15:17
DX: T81.40XA Infection following a procedure, unspecified, initial encounter (principal); R50.9 Fever, unspecified; Z98.1 Arthrodesis status; G47.30 Sleep apnea, unspecified; M06.9 Rheumatoid arthritis, unspecified; G40.909 Epilepsy, unspecified, not intractable, without status epilepticus; Z79.1 Long term (current) use of non-steroidal anti-inflammatories (NSAID); Z79.899 Other long term (current) drug therapy; Z88.5 Allergy status to narcotic agent; Z91.048 Other nonmedicinal substance allergy status
CPT/HCPCS: 36415; 80053; 83605; 85025; 81001; 87040; 71046; 72131; 99284; 96374; 96375 ×3; 96361; J2270; J1200; J2765; J2405; S0119

== ENCOUNTER 2019-04-10 20:36 | Emergency (ER) | payer MEDICARE, OTHER ==
[2019-04-10] MEDS ORDERED: ONDANSETRON 4 MG/2 ML VIAL IVP STA (21:08)
[2019-04-10] MEDS ORDERED: SODIUM CHLORIDE 0.9% 500 ML 500 ML IV STA ×2 (21:08→21:55)
[2019-04-10 21:40] LABS: Basophils # (A) 0.1 k/uL (0-0.2); Basophils % (A) 1 %; Eosinophils # (A) 0.1 k/uL (0-0.7); Eosinophils % (A) 2 %; HCT 33.9 % (34.0-46.0); HGB 11.2 gm/dL (11.4-16.0); Lymphocytes # (A) 0.8 k/uL (1.0-4.8); Lymphocytes % (A) 12 %; MCH 28.8 pg (25.0-35.0); MCV 87.3 fL (80.0-100.0); Mean Platelet Volume 7.1; Monocytes # (A) 0.4 k/uL (0-1.0); Monocytes % (A) 5 %; Neutrophils # (A) 5.4 k/uL (1.3-7.7); Neutrophils % (A) 79 %; Platelet Count 417 k/uL (150-450); RBC 3.88 m/uL (3.80-5.40); RDW 14.3 % (11.5-15.5); WBC 6.8 k/uL (3.8-10.6)
[2019-04-10 21:49] LABS: ALT 30 U/L (9-52); AST 48 U/L (14-36); African American GFR (CKD) >90 (>60 ml/min/1.73 sqM); Albumin 3.9 g/dL (3.5-5.0); Alkaline Phosphatase 142 U/L (38-126); Anion Gap 6 mmol/L; Blood Urea Nitrogen 18 mg/dL (7-17); Calcium 8.8 mg/dL (8.4-10.2); Carbon Dioxide 27 mmol/L (22-30); Chloride 104 mmol/L (98-107); Glucose 102 mg/dL (74-99); Potassium 3.8 mmol/L (3.5-5.1); Sodium 137 mmol/L (137-145); Total Bilirubin 0.7 mg/dL (0.2-1.3)
[2019-04-10] MEDS ORDERED: MORPHINE SULFATE 4 MG/ML SYRINGE IV STA (21:52)
--- NOTE | 2019-04-10 21:52 | ED ---
Nausea/Vomiting/Diarrhea HPI - General Chief complaint: Nausea/Vomiting/Diarrhea Stated complaint: Vomiting-post surgery issues Time Seen by Provider: 04/10/19 21:07 Source: patient, family Mode of arrival: wheelchair Limitations: no limitations - History of Present Illness Initial comments: This patient is a 49-year-old woman presenting with a number of complaints have developed over the past 1-2 days. She states she has had mainly nausea and vomiting which have limited her taking her postoperative medications, as well as what is now a whole head headache. Patient states that she had a lumbar fusion performed April 03, at [facility] by Dr. Dyer. She states that she began having nausea and vomiting as well as headaches going on 2 days ago now. She was seen here yesterday, where she had workup that included labs and computed tomography scan of her surgical area. Her case was discussed with her surgeon who wanted her to start to antibiotics and have close follow-up in the clinic. The patient reports trying to take the antibiotics but having recurrence of vomiting this evening and not been able to tolerate them. She states that the headache has continued. Patient also does have some postsurgical pain at the site of the surgery. She states that she does feel little worse but has not been tolerating the Tylenol with Codeine that she had been taking. Patient has not noted fevers today. She denies other symptoms of infection. No cough, dyspnea, chest pain, palpitations. No change in urination. No leg pain or swelling. MD complaint: nausea, vomiting Onset/Timin -: days(s) Description of Vomiting: food contents Associated Abdominal Pain: No Improves with: none Worsens with: medication Associated Symptoms: headaches - Related Data Home Medications Medication Instructions Recorded Confirmed Leflunomide [Arava] 20 mg PO QAM 01/06/18 04/10/19 azaTHIOprine [Imuran] 50 mg PO TID 01/06/18 04/10/19 Acetaminophen [Tylenol] 1,000 mg PO BID PRN 06/27/18 04/10/19 Cyclobenzaprine [Flexeril] 10 mg PO TID PRN 08/27/18 04/10/19 Melatonin 5 mg PO HS PRN 02/24/19 04/10/19 Meloxicam [Mobic] 15 mg PO DAILY 02/24/19 04/10/19 Pregabalin [Lyrica] 75 mg PO TID 04/09/19 04/10/19 Sulfamethoxazole/Trimethoprim 1 tab PO BID 04/10/19 04/10/19 [Bactrim DS 800-160 mg] Previous Rx's Medication Instructions Recorded Cephalexin [Keflex] 500 mg PO Q6HR #40 cap 04/09/19 Promethazine [Phenergan] 25 mg PO Q6HR PRN #12 tablet 04/11/19 Allergies Allergy/AdvReac Type Severity Reaction Status Date / Time adhesive AdvReac Mild Rash/Hives Verified 04/10/19 21:11 hydromorphone [From Dilaudid] AdvReac Mild Nausea & Verified 04/10/19 21:11 Vomiting Review of Systems ROS Statement: Those systems with pertinent positive or pertinent negative responses have been documented in the HPI. ROS Other: All systems not noted in ROS Statement are negative. Constitutional: Denies: fever, chills Eyes: Denies: vision change ENT: Denies: throat pain, congestion Respiratory: Denies: cough, dyspnea Cardiovascular: Denies: chest pain, palpitations, edema Gastrointestinal: Reports: nausea, vomiting. Denies: abdominal pain, diarrhea, hematemesis, melena, hematochezia Genitourinary: Denies: dysuria, frequency, hematuria Musculoskeletal: Reports: as per HPI, back pain (Postsurgical) Skin: Denies: rash Neurological: Reports: as per HPI, headache. Denies: weakness, numbness, paresthesias, confusion Past Medical History Past Medical History: Rheumatoid Arthritis (RA), Seizure Disorder, Skin Disorder, Sleep Apnea/CPAP/BIPAP Additional Past Medical History / Comment(s): NO CPAP. DIVERTICULITIS WITH RUPTURE/ABSCESS. EYE SOMETIMES GET BLOOD SHOT DUE TO RA MEDS. RA-pain in multiple joints, spinal stenosis/instability and herniated disc, spondolothisis,-difficulty walking, childhood seizures. chronic back pain History of Any Multi-Drug Resistant Organisms: MRSA Date of last positivie culture/infection: 2013 MDRO Source:: stomach, back Past Surgical History: Appendectomy, Back Surgery, Bowel Resection, Cholecystect leno, Orthopedic Surgery Additional Past Surgical History / Comment(s): PICC LINE. 09/29/17, COLON RESECTION DUE TO DIVERTICULOSIS. Knee arthroscopy, back epidural injections. EGD,colonoscopy. cervical surgery at [facility] Past Anesthesia/Blood Transfusion Reactions: Motion Sickness, Postoperative Nausea & Vomiting (PONV) Past Psychological History: No Psychological Hx Reported Smoking Status: Never smoker Past Alcohol Use History: None Reported Past Drug Use History: None Reported - Past Family History Father Family Medical History: Cancer Additional Family Medical History / Comment(s): Father of leukemia at the age of 65yrs. Mother Family Medical History: Diabetes Mellitus, Hypertension, Osteoarthritis (OA) Additional Family Medical History / Comment(s): Mother has IIDM, depression. General Exam Limitations: no limitations General appearance: alert, in no apparent distress, other (Patient appears photophobic) Head exam: Present: atraumatic, normocephalic ENT exam: Present: mucous membranes dry Respiratory exam: Present: normal lung sounds bilaterally. Absent: respiratory distress, wheezes, rales, rhonchi, stridor Cardiovascular Exam: Present: regular rate, normal rhythm, normal heart sounds. Absent: systolic murmur, diastolic murmur, rubs, gallop GI/Abdominal exam: Present: soft. Absent: distended, tenderness, guarding, rigid, mass Extremities exam: Present: normal inspection, normal capillary refill. Absent: pedal edema, calf tenderness Neurological exam: Present: alert, oriented X3. Absent: motor sensory deficit Skin exam: Present: warm, dry, intact, normal color. Absent: rash Course Vital Signs 04/10/19 20:55 Temperature 98.9 F Pulse Rate 97 Respiratory 18 Rate Blood Pressure 137/75 O2 Sat by Pulse 97 Oximetry Medical Decision Making - Medical Decision Making Patient is a 49-year-old woman with vomiting, headache, and back pain following a lumbar fusion surgery. I reviewed the patient's studies from yesterday. There is the fluid collection and given that she did have borderline temperature disc reggie with patient that there is concerned about possibility of postope rative infection. The patient is asking to be admitted here. I explained that we do not have a neurosurgeon here and that given possibility of postoperative infection she needs to be cleared by a neurosurgeon. The patient is refusing that. She is now tolerating oral intake. She has been given doses of her antibiotics. - Lab Data Result diagrams: 04/10/19 21:32 04/10/19 21:32 Lab Results 04/10/19 04/10/19 Range/Units 21:32 21:32 WBC 6.8 (3.8-10.6) k/uL RBC 3.88 (3.80-5.40) m/uL Hgb 11.2 L (11.4-16.0) gm/dL Hct 33.9 L (34.0-46.0) % MCV 87.3 (80.0-100.0) fL MCH 28.8 (25.0-35.0) pg MCHC 33.0 (31.0-37.0) g/dL RDW 14.3 (11.5-15.5) % Plt Count 417 (150-450) k/uL Neutrophils % 79 % Lymphocytes % 12 % Monocytes % 5 % Eosinophils % 2 % Basophils % 1 % Neutrophils # 5.4 (1.3-7.7) k/uL Lymphocytes # 0.8 L (1.0-4.8) k/uL Monocytes # 0.4 (0-1.0) k/uL Eosinophils # 0.1 (0-0.7) k/uL Basophils # 0.1 (0-0.2) k/uL Sodium 137 (137-145) mmol/L Potassium 3.8 (3.5-5.1) mmol/L Chloride 104 (98-107) mmol/L Carbon Dioxide 27 (22-30) mmol/L Anion Gap 6 mmol/L BUN 18 H (7-17) mg/dL Creatinine 0.70 (0.52-1.04) mg/dL Est GFR (CKD-EPI)AfAm >90 (>60 ml/min/1.73 sqM) Est GFR (CKD-EPI)NonAf >90 (>60 ml/min/1.73 sqM) Glucose 102 H (74-99) mg/dL Calcium 8.8 (8.4-10.2) mg/dL Total Bilirubin 0.7 (0.2-1.3) mg/dL AST 48 H (14-36) U/L ALT 30 (9-52) U/L Alkaline Phosphatase 142 H (38-126) U/L Total Protein 7.0 (6.3-8.2) g/dL Albumin 3.9 (3.5-5.0) g/dL Disposition Clinical Impression: Vomiting, Postoperative pain after spinal surgery Disposition: Left Against Medical Advice Condition: Fair Instructions (If sedation given, give patient instructions): Acute Nausea and Vomiting (ED) Prescriptions: Promethazine [Phenergan] 25 mg PO Q6HR PRN #12 tablet PRN Reason: Vomiting Is patient prescribed a controlled substance at d/c from ED?: No Referrals: Rica Bloom III, MD [Primary Care Provider] - 1-2 days
[2019-04-10] MEDS ORDERED: PROMETHAZINE INJ 25 MG in SODIUM CHLORIDE 0.9% 50 ML IVPB STA (23:14)
[2019-04-10] MEDS ORDERED: SODIUM CHLORIDE 0.9% 1,000 ML IV ONE (23:14)
[2019-04-11] MEDS ORDERED: ceFAZolin IN SWFI 2 GM/20 ML SYRINGE IVP ONE (01:30)
[2019-04-11] MEDS ORDERED: SULFAMETHOX-TMP 80-16MG/ML 320 MG in DEXTROSE 5% IN WATER 500 ML IVPB SCH ×2 (02:00)
[2019-04-11] MEDS ORDERED: MORPHINE SULFATE 4 MG/ML SYRINGE IV STA (04:01)
[2019-04-11] MEDS ORDERED: PROMETHAZINE INJ 25 MG in SODIUM CHLORIDE 0.9% 50 ML IVPB STA (04:08)
[2019-04-11 05:00] VITALS: BP 133/90; PULSE 94; RESP 20; TEMP 98.4
== END 2019-04-11 05:22 | disposition left against medical advice (07) ==
LOC: EC 20:36
DX: G89.18 Other acute postprocedural pain (principal); M96.89 Other intraoperative and postprocedural complications and disorders of the musculoskeletal system; R11.2 Nausea with vomiting, unspecified; R51 Headache; M54.9 Dorsalgia, unspecified; M06.9 Rheumatoid arthritis, unspecified; G40.909 Epilepsy, unspecified, not intractable, without status epilepticus; Z88.5 Allergy status to narcotic agent; Z91.048 Other nonmedicinal substance allergy status; Z79.1 Long term (current) use of non-steroidal anti-inflammatories (NSAID); Z79.899 Other long term (current) drug therapy; Z86.14 Personal history of Methicillin resistant Staphylococcus aureus infection; Z98.1 Arthrodesis status; Z82.61 Family history of arthritis; Z53.20 Procedure and treatment not carried out because of patient's decision for unspecified reasons
CPT/HCPCS: 99284; 96365; 96367; 96366; 96375 ×3; 96376 ×2; 96361 ×3; 36415; 80053; 85025; J2270; J2550; J2405

== ENCOUNTER 2019-11-28 01:28 | Emergency (ER) | payer MEDICARE ==
[2019-11-28 01:33] VITALS: RESP 18; TEMP 98
[2019-11-28] MEDS ORDERED: ASPIRIN 81 MG PO STA (02:20)
--- NOTE | 2019-11-28 02:31 | XR ---
EXAMINATION TYPE: XR chest 2V DATE OF EXAM: 11/28/2019 COMPARISON: 04/09/2019 HISTORY: Back surgery. Chest pain TECHNIQUE: FINDINGS: Heart and mediastinum are normal. Lungs are clear. Diaphragm is normal. There are chest alma ds. Bony thorax is intact. IMPRESSION: Normal chest. No change.
[2019-11-28 02:32] LABS: Basophils # (A) 0.1 k/uL (0-0.2); Basophils % (A) 1 %; Eosinophils # (A) 0.2 k/uL (0-0.7); Eosinophils % (A) 2 %; HGB 11.8 gm/dL (11.4-16.0); Lymphocytes # (A) 0.8 k/uL (1.0-4.8); Lymphocytes % (A) 10 %; MCH 27.9 pg (25.0-35.0); MCHC 31.9 g/dL (31.0-37.0); MCV 87.4 fL (80.0-100.0); Mean Platelet Volume 6.4; Monocytes # (A) 0.4 k/uL (0-1.0); Monocytes % (A) 5 %; Neutrophils # (A) 6.4 k/uL (1.3-7.7); Neutrophils % (A) 82 %; Platelet Count 397 k/uL (150-450); RBC 4.23 m/uL (3.80-5.40); RDW 15.6 % (11.5-15.5); WBC 7.9 k/uL (3.8-10.6)
[2019-11-28 02:40] LABS: ALT 9 U/L (4-34); AST 22 U/L (14-36); African American GFR (CKD) >90 (>60 ml/min/1.73 sqM); Albumin 3.5 g/dL (3.5-5.0); Alkaline Phosphatase 98 U/L (38-126); Anion Gap 5 mmol/L; Blood Urea Nitrogen 18 mg/dL (7-17); Calcium 8.7 mg/dL (8.4-10.2); Carbon Dioxide 24 mmol/L (22-30); Chloride 109 mmol/L (98-107); Glucose 119 mg/dL (74-99); INR 0.9 (<1.2); Magnesium 1.9 mg/dL (1.6-2.3); Non-African American GFR(CKD) >90 (>60 ml/min/1.73 sqM); Partial Thromboplastin Time 24.1 sec (22.0-30.0); Potassium 4.1 mmol/L (3.5-5.1); Prothrombin Time 9.9 sec (9.0-12.0); Sodium 138 mmol/L (137-145); Total Bilirubin 0.5 mg/dL (0.2-1.3); Total Protein 6.9 g/dL (6.3-8.2)
[2019-11-28] MEDS: NITROGLYCERIN SL TABS 0.4 MG TAB SUBLINGUAL PRN ×2 (04:33→04:54)
--- NOTE | 2019-11-28 04:38 | ED ---
Chest Pain HPI - General Source: patient Mode of arrival: ambulatory Limitations: no limitations <Caleb Napoles - Last Filed: 11/28/19 04:39> <Kelly Villatoro - Last Filed: 11/28/19 06:44> - General Chief Complaint: Chest Pain Stated Complaint: Chest Pain Time Seen by Provider: 11/28/19 02:20 - History of Present Illness Initial Comments: Patient is a 49-year-old female presenting to the emergency department with a chief complaint of chest pain. Patient states the pain started about 8 hours prior to arrival. Patient reports left-sided chest pain that is dull in nature and that is radiating to her left shoulder left jaw. Patient reports the pain is reproducible with palpation and on full inspiration. Patient denies any shortness of breath. Patient does report some lightheadedness but denies any dizziness. She denies any nausea vomiting, back pain or abdominal pain. Patient does report taking aspirin prior to arrival. Patient has no history of hypertension, hyperlipidemia or diabetes. She does have a family history of early cardiac related . She denies any headaches or blurry vision at this time. (Caleb Napoles) - Related Data Home Medications Medication Instructions Recorded Confirmed Leflunomide [Arava] 20 mg PO QAM 01/06/18 04/10/19 azaTHIOprine [Imuran] 50 mg PO TID 01/06/18 04/10/19 Acetaminophen [Tylenol] 1,000 mg PO BID PRN 06/27/18 04/10/19 Cyclobenzaprine [Flexeril] 10 mg PO TID PRN 08/27/18 04/10/19 Melatonin 5 mg PO HS PRN 02/24/19 04/10/19 Meloxicam [Mobic] 15 mg PO DAILY 02/24/19 04/10/19 Pregabalin [Lyrica] 75 mg PO TID 04/09/19 04/10/19 Sulfamethoxazole/Trimethoprim 1 tab PO BID 04/10/19 04/10/19 [Bactrim DS 800-160 mg] Previous Rx's Medication Instructions Recorded Cephalexin [Keflex] 500 mg PO Q6HR #40 cap 04/09/19 Promethazine [Phenergan] 25 mg PO Q6HR PRN #12 tablet 04/11/19 Allergies Allergy/AdvReac Type Severity Reaction Status Date / Time adhesive AdvReac Mild Rash/Hives Verified 11/28/19 01:34 hydromorphone [From Dilaudid] AdvReac Mild Nausea & Verified 11/28/19 01:34 Vomiting Review of Systems ROS Other: All systems not noted in ROS Statement are negative. <Caleb Napoles - Last Filed: 11/28/19 04:39> ROS Other: All systems not noted in ROS Statement are negative. <Kelly Villatoro - Last Filed: 11/28/19 06:44> ROS Statement: Those systems with pertinent positive or pertinent negative responses have been documented in the HPI. EKG Findings - EKG Comments: EKG Findings:: Normal sinus rhythm, no ST changes, Q-wave in lead 3 there was also present in the last EKG. A code rate 99, PA interval 170, QRS duration 66, QTC 430. <Caleb Napoles - Last Filed: 11/28/19 04:39> Past Medical History Past Medical History: Rheumatoid Arthritis (RA), Seizure Disorder, Skin Disorder, Sleep Apnea/CPAP/BIPAP Additional Past Medical History / Comment(s): NO CPAP. DIVERTICULITIS WITH RUPTURE/ABSCESS. EYE SOMETIMES GET BLOOD SHOT DUE TO RA MEDS. RA-pain in multiple joints, spinal stenosis/instability and herniated disc, spondolothisis,-difficulty walking, childhood seizures. chronic back pain History of Any Multi-Drug Resistant Organisms: MRSA Date of last positivie culture/infection: 2013 MDRO Source:: stomach, back Past Surgical History: Appendectomy, Back Surgery, Bowel Resection, Cholecystectomy, Orthopedic Surgery Additional Past Surgical History / Comment(s): PICC LINE. 09/29/17, COLON RESECTION DUE TO DIVERTICULOSIS. Knee arthroscopy, back epidural injections. EGD,colonoscopy. cervical surgery at [facility] Past Anesthesia/Blood Transfusion Reactions: Motion Sickness, Postoperative Nausea & Vomiting (PONV) Past Psychological History: No Psychological Hx Reported Smoking Status: Never smoker Past Alcohol Use History: None Reported Past Drug Use History: None Reported - Past Family History Father Family Medical History: Cancer Additional Family Medical History / Comment(s): Father of leukemia at the age of 65yrs. Mother Family Medical History: Diabetes Mellitus, Hypertension, Osteoarthritis (OA) Additional Family Medical History / Comment(s): Mother has IIDM, depression. <Caleb Napoles - Last Filed: 11/28/19 04:39> General Exam Limitations: no limitations General appearance: alert, in no apparent distress, obese Head exam: Present: atraumatic, normocephalic, normal inspection Eye exam: Present: normal appearance, PERRL, EOMI Pupils: Present: normal accommodation ENT exam: Present: normal exam, normal oropharynx, mucous membranes moist Neck exam: Present: normal inspection, full ROM Respiratory exam: Present: normal lung sounds bilaterally, chest wall tenderness (Left-sided chest wall tenderness). Absent: wheezes, rales Cardiovascular Exam: Present: regular rate, normal rhythm, normal heart sounds Extremities exam: Present: normal inspection, full ROM Back exam: Present: normal inspection, full ROM Neurological exam: Present: alert, oriented X3 Psychiatric exam: Present: normal affect, normal mood Skin exam: Present: warm, dry, intact, normal color <Caleb Napoles - Last Filed: 11/28/19 04:39> Course Vital Signs 11/28/19 11/28/19 11/28/19 01:31 02:54 05:46 Temperature 98 F Pulse Rate 109 H 93 99 Respiratory 18 18 18 Rate Blood Pressure 160/94 119/97 139/90 O2 Sat by Pulse 98 98 98 Oximetry Chest Pain [facility] <Kelly Villatoro - Last Filed: 11/28/19 06:44> - [facility] Patient care was signed out to me by Caleb ALMANZA. This is a 49-year-old female history of obesity, nonsmoker no known cardiac disease presenting with left- sided shoulder pain that she reports radiates from her neck to her shoulder is worse with movement of her shoulder not associated with diaphoresis lightheadedness or shortness of breath. Patient had an initial troponin that was negative, patient was signed out pending repeat troponin. Patient was asymptomatic resting comfortably. Repeat troponin was negative upon my reevaluation patient reported she was feeling better after resting, she did attempt to range her shoulder and had a popping sensation in her collarbone that she said was somewhat uncomfortable but pain did not return. She had no associated shortness breath diaphoresis or lightheadedness is comfortable with plan for discharge home. (Kelly Villatoro) Disposition <Caleb Napoles - Last Filed: 11/28/19 04:39> Is patient prescribed a controlled substance at d/c from ED?: No <Kelly Villatoro - Last Filed: 11/28/19 06:44> Clinical Impression: Atypical chest pain Disposition: HOME SELF-CARE Condition: Stable Instructions (If sedation given, give patient instructions): Chest Pain (ED) Additional Instructions: Follow-up with her primary care physician, return to the ER if he have any worsening chest pain palpitation shortness breath or develop any new or concer [place] symptoms. Referrals: Rica Bloom III, MD [Primary Care Provider] - 1-2 days
[2019-11-28 06:54] VITALS: BP 122/92; PULSE 92
== END 2019-11-28 06:58 | disposition home or self-care (01) ==
LOC: EC 01:28
DX: R07.89 Other chest pain (principal); M25.512 Pain in left shoulder; M54.2 Cervicalgia; R68.84 Jaw pain; R42 Dizziness and giddiness; M06.9 Rheumatoid arthritis, unspecified; G40.909 Epilepsy, unspecified, not intractable, without status epilepticus; G89.29 Other chronic pain; Z88.5 Allergy status to narcotic agent; Z91.048 Other nonmedicinal substance allergy status; Z79.1 Long term (current) use of non-steroidal anti-inflammatories (NSAID); Z79.899 Other long term (current) drug therapy; Z86.14 Personal history of Methicillin resistant Staphylococcus aureus infection; Z98.890 Other specified postprocedural states; Z82.49 Family history of ischemic heart disease and other diseases of the circulatory system
CPT/HCPCS: 36415; 71046; 80053; 83735; 84484; 85025; 85610; 85730; 93005; 99285

== ENCOUNTER → 2020-08-20 | Outpatient (CLI) | payer MEDICARE ==
--- NOTE | 2020-08-25 13:29 | MM ---
Reason for exam: screening (asymptomatic). Last mammogram was performed 3 years and 2 months ago. History: Took hormonal contraceptives for 1 year beginning at age 21. Physical Findings: A clinical breast exam by your physician is recommended on an annual basis and results should be correlated with mammographic findings. MG 3D Screening Mammo W/Cad Bilateral CC, MLO, and XCCL view(s) were taken. Prior study comparison: June 28, 2017, bilateral MG 3d screening mammo w/cad. There are scattered fibroglandular densities. There is no discrete abnormality. ASSESSMENT: Negative, BI-RAD 1 RECOMMENDATION: Routine screening mammogram of both breasts in 1 year.
== END | disposition home or self-care (01) ==
LOC: RADMAMWWP 15:15
PROVIDERS: ATTEND Family Medicine
DX: Z12.31 Encounter for screening mammogram for malignant neoplasm of breast (principal)
CPT/HCPCS: 77063; 77067

== ENCOUNTER 2023-04-14 09:54 | Emergency (ER) | payer MEDICARE, OTHER ==
[2023-04-14 10:04] VITALS: TEMP 97.7
[2023-04-14] MEDS ORDERED: KETOROLAC 15 MG/ML 1 ML VIAL IM STA (10:24)
[2023-04-14] MEDS ORDERED: ONDANSETRON ODT 4 MG TAB PO STA (10:24)
--- NOTE | 2023-04-14 10:33 | ED ---
Extremity Problem HPI - General Chief complaint: Extremity Problem,Nontraumatic Stated complaint: Right side pain Shoulder/Neck. Fall last Month Time Seen by Provider: 04/14/23 10:06 Source: patient, RN notes reviewed, old records reviewed Mode of arrival: wheelchair Limitations: no limitations - History of Present Illness Initial comments: This is a nontoxic-appearing tearful 53-year-old female that presents to the emergency room with complaints of right shoulder pain that started at midnight. Patient states it did not wake her as she had not been asleep yet and has not been sleeping well. She denies any injury. No fevers. States that she does have a history of rheumatoid arthritis and has had pain in this shoulder in the past. States due to the pain she has had a couple episodes of vomiting this morning. Denies any chest pain or shortness of breath. She states that she is taking Imuran and mobic for her RA. Was taking Lyrica in the past but has discontinued. Does not have a primary care doctor at this time. History of hypertension, rheumatoid arthritis, seizure disorder, appendectomy, cholecystectomy, morbid obesity. MD Complaint: extremity pain, joint pain (right shoulder) -: hour(s) (10) Location: right, upper extremity (shoulder) History of Same: Yes -: Yes arthralgia Radiation: other (neck right side) Severity scale (1-10): 9 Quality: constant Consistency: constant Worsens with: palpation, other (movement) Associated Symptoms: other (nausea) - Related Data Home Medications Medication Instructions Recorded Confirmed Leflunomide [Arava] 20 mg PO QAM 01/06/18 04/14/23 azaTHIOprine [Imuran] 50 mg PO TID 01/06/18 04/14/23 Acetaminophen [Tylenol] 1,000 mg PO BID PRN 06/27/18 04/14/23 Cyclobenzaprine [Flexeril] 10 mg PO TID 08/27/18 04/14/23 Meloxicam [Mobic] 15 mg PO DAILY 02/24/19 04/14/23 Aspirin EC [Ecotrin Low Dose] 162 mg PO HS 04/14/23 04/14/23 hydroCHLOROthiazide [Hydrodiuril] 50 mg PO DAILY 04/14/23 04/14/23 Previous Rx's Medication Instructions Recorded Lidocaine 5% Patch [Lidoderm] 1 patch TOPICAL DAILY 14 Days #14 04/14/23 patch Allergies Allergy/AdvReac Type Severity Reaction Status Date / Time adhesive Allergy Mild Rash/Hives Verified 04/14/23 11:32 hydromorphone [From Dilaudid] AdvReac Mild Nausea & Verified 04/14/23 11:32 Vomiting Review of Systems ROS Statement: Those systems with pertinent positive or pertinent negative responses have been documented in the HPI. ROS Other: All systems not noted in ROS Statement are negative. Past Medical History Past Medical History: Hypertension, Rheumatoid Arthritis (RA), Seizure Disorder, Skin Disorder, Sleep Apnea/CPAP/BIPAP Additional Past Medical History / Comment(s): NO CPAP. DIVERTICULITIS WITH RUPTURE/ABSCESS. EYE SOMETIMES GET BLOOD SHOT DUE TO RA MEDS. RA-pain in multiple joints, spinal stenosis/instability and herniated disc, spondolothisis,-difficulty walking, childhood seizures. chronic back pain History of Any Multi-Drug Resistant Organisms: MRSA Date of last positivie culture/infection: 2013 MDRO Source:: stomach, back Past Surgical History: Appendectomy, Back Surgery, Bowel Resection, Cholecystectomy, Orthopedic Surgery Additional Past Surgical History / Comment(s): PICC LINE. 09/29/17, COLON RESECTION DUE TO DIVERTICULOSIS. Knee arthroscopy, back epidural injections. EGD,colonoscopy. cervical surgery at [facility] Past Anesthesia/Blood Transfusion Reactions: Motion Sickness, Postoperative Nausea & Vomiting (PONV) Past Psychological History: No Psychological Hx Reported Smoking Status: Never smoker Past Alcohol Use History: None Reported Past Drug Use History: None Reported - Past Family History Father Family Medical History: Cancer Additional Family Medical History / Comment(s): Father of leukemia at the age of 65yrs. Mother Family Medical History: Diabetes Mellitus, Hypertension, Osteoarthritis (OA) Additional Family Medical History / Comment(s): Mother has IIDM, depression. General Exam Limitations: no limitations General appearance: alert, other (tearful) Head exam: Present: atraumatic Eye exam: Present: normal appearance. Absent: scleral icterus, conjunctival injection, periorbital swelling ENT exam: Present: mucous membranes moist Neck exam: Present: normal inspection, tenderness (right lateral). Absent: meningismus, lymphadenopathy, thyromegaly Expanded Neck exam: Absent: midline deformity, anterior neck swelling, tracheal deviation Respiratory exam: Present: normal lung sounds bilaterally. Absent: respiratory distress, accessory muscle use Cardiovascular Exam: Present: tachycardia GI/Abdominal exam: Present: soft Extremities exam: Present: normal capillary refill. Absent: pedal edema Right Shoulder Exam: Present: tenderness, tenderness over AC joint. Absent: swelling, abrasion, laceration, ecchymosis, deformity, crepitus, dislocation, erythema Upper Arm exam: Present: tenderness. Absent: swelling, abrasion, laceration, ecchymosis, deformity, crepidus, dislocation, erythema Vascular: Present: normal capillary refill, radial pulse. Absent: vascular c ompromise Back exam: Absent: tenderness, CVA tenderness (R), CVA tenderness (L), paraspinal tenderness, vertebral tenderness, rash noted Neurological exam: Present: alert, oriented X3 Psychiatric exam: Present: depressed (tearful) Skin exam: Present: warm, dry, normal color. Absent: cyanosis, diaphoretic, petechiae, pallor Course Vital Signs 04/14/23 04/14/23 04/14/23 09:57 11:30 12:07 Temperature 97.7 F Pulse Rate 102 H 100 98 Respiratory 18 20 20 Rate Blood Pressure 118/79 132/76 132/78 O2 Sat by Pulse 96 95 98 Oximetry Medical Decision Making - Medical Decision Making Was pt. sent in by a medical professional or institution (ARCHIE Arthur, [employer], urgent care, hospital, or detention...) When possible be specific @ -No Did you speak to anyone other than the patient for history (EMS, parent, family, police, friend...)? What history was obtained from this source @ -No Did you review nursing and triage notes (agree or disagree)? Why? @ -I reviewed and agree with nursing and triage notes Were old charts reviewed (outside hosp., previous admission, EMS record, old EKG, old radiological studies, urgent care reports/EKG's, detention records)? Report findings @ -No old charts were reviewed Differential Diagnosis (chest pain, altered mental status, abdominal pain women, abdominal pain men, vaginal bleeding, weakness, fever, dyspnea, syncope, headache, dizziness, GI bleed, back pain, seizure, CVA, palpatations, mental health, musculoskeletal)? @ -Septic joint, fracture, dislocation, cellulitis, arthritis EKG interpreted by me (3pts min.). @ -yes EKG was performed by triage nurse and interpreted by me showing sinus tachycardia with a ventricular rate of 102, WI interval 0.159, QRS 0.78, QTC 0.404, normal axis. No change compared to old 11/28/2019 X-rays interpreted by me (1pt min.). @ -yes X-ray of the right shoulder interpreted by me shows no evidence of fracture or dislocation. Arthritis at AC joint. CT interpreted by me (1pt min.). @ -None done U/S interpreted by me (1pt. min.). @ -None done What testing was considered but not performed or refused? (CT, X-rays, U/S, labs)? Why? @ -None What meds were considered but not given or refused? Why? @ -Narcotic pain medications were offered and patient declined Did you discuss the management of the patient with other professionals (professionals i.e. , PA, [employer], lab, RT, psych nurse, social service agency director, electrical subcontractor, teacher, fire information officer, housing case manager)? Give summary @ -No Was smoking cessation discussed for >3mins.? @ -No Was critical care preformed (if so, how long)? @ -No Were there social determinants of health that impacted care today? How? (Homelessness, low income, unemployed, alcoholism, drug addiction, transportation, low edu. Level, literacy, decrease access to med. care, detention, rehab)? @ -No Was there de-escalation of care discussed even if they declined (Discuss DNR or withdrawal of care, Hospice)? DNR status @ -No What co-morbidities impacted this encounter? (DM, HTN, Smoking, COPD, CAD, Cancer, CVA, ARF, Chemo, Hep., AIDS, mental health diagnosis, sleep apnea, morbid obesity)? @ -History of hypertension, rheumatoid arthritis, seizure disorder, appendectomy, cholecystectomy, morbid obesity. Was patient admitted / discharged? Hospital course, mention meds given and route, prescriptions, significant lab abnormalities, going to OR and other pertinent info. @ -Discharged This is a nontoxic-appearing tearful 53-year-old female that presents to the emergency room with complaints of right shoulder pain that started at midnight. Patient states it did not wake her as she had not been asleep yet and has not been sleeping well. She denies any injury. No fevers. States that she does have a history of rheumatoid arthritis and has had pain in this shoulder in the past. States due to the pain she has had a couple episodes of vomiting this morning. Denies any chest pain or shortness of breath. No fevers. She states that she is taking Imuran, leflunomide, and mobic for her RA. Was taking Lyrica in the past but has discontinued. Does not have a primary care doctor at this time. Was seeing Dr. Bloom but scheduled to see Dr. Mccormack, her first appointment is April 19. EKG was performed by triage nurse and interpreted by me showing sinus tachycardia with a ventricular rate of 102, WI interval 0.159, QRS 0.78, QTC 0.404, normal axis. No change compared to old 11/28/2019 Patient was offered a narcotic for her pain in addition to Lidoderm, Toradol and Zofran and declined stating she does not like to take narcotics. Radiologist interpretation ac joint arthropathy correlate for impingement. Patient is neurovascularly intact. Pain is likely due to her rheumatoid arthritis. States has had similar episodes in the past and received injections. Patient was given a prescription for Lidoderm patches. Sling for comfort and directed to follow up with orthopedics or her manager intel next week. She is agreeable to this plan of care. Case discussed with Dr. Orozco Undiagnosed new problem with uncertain prognosis? @ -No Drug Therapy requiring intensive monitoring for toxicity (Heparin, Nitro, Insulin, Cardizem)? @ -No Were any procedures done? @ -No Diagnosis/symptom? @ -Right shoulder pain, rheumatoid arthritis Acute, or Chronic, or Acute on Chronic? @ -Acute on chronic Uncomplicated (without systemic symptoms) or Complicated (systemic symptoms)? @ -Uncomplicated Side effects of treatment? @ -No Exacerbation, Progression, or Severe Exacerbation? @ -No Poses a threat to life or bodily function? How? (Chest pain, [place], [place], pneumonia, PE, COPD, DKA, ARF, appy, cholecystitis, CVA, Diverticulitis, Homicidal, Suicidal, threat to staff... and all critical care pts) @ -No - EKG Data -: EKG Interpreted by Me EKG shows normal: sinus rhythm (EKG interpreted by me showing sinus tachycardia with a ventricular rate of 102, WI interval 0.159, QRS 0.78, QTC 0.404; normal axis) Disposition Clinical Impression: Shoulder pain, right, Rheumatoid arthritis Disposition: HOME SELF-CARE Condition: Good Instructions (If sedation given, give patient instructions): Shoulder Pain (ED) Additional Instructions: Continue taking your previously prescribed medications. He can use Lidoderm patches as prescribed topically. If not covered by her insurance she can get [id number] topical pain relievers like BenGay, icy hot, Biofreeze or [place] balm. Follow-up with orthopedics next week. Wear sling for comfort. Return to the emergency room with any new or concerning symptoms. Prescriptions: Lidocaine 5% Patch [Lidoderm] 1 patch TOPICAL DAILY 14 Days #14 patch Is patient prescribed a controlled substance at d/c from ED?: No Referrals: Rambo Mckeon PAC [PHYSICIAN SOIL CHEMIST] - 1-2 days None,Stated [REFERRING] - 1-2 days Megan Ventura MD [STAFF PHYSICIAN] - 1-2 days Forms: Area PCPs Time of Disposition: 11:39
[2023-04-14] MEDS ORDERED: LIDOCAINE 5% PATCH TOPICAL SCH (10:45)
--- NOTE | 2023-04-14 10:58 | XR ---
EXAMINATION TYPE: XR shoulder complete RT DATE OF EXAM: 04/14/2023 COMPARISON: NONE HISTORY: Pain TECHNIQUE: Three views are submitted. FINDINGS: The osseous structures are intact. There is no acute fracture or dislocation. The AC joint arthropa thy with spur along the distal. IMPRESSION: 1. AC joint arthropathy correlate for impingement..
[2023-04-14 11:37] VITALS: RESP 20
[2023-04-14] MEDS ORDERED: DEXAMETHASONE SOD PHOSPHATE 10 MG/ML 1 ML VIAL IM STA (11:56)
[2023-04-14 12:14] VITALS: BP 132/78; PULSE 98
== END 2023-04-14 12:14 | disposition home or self-care (01) ==
LOC: EC 09:54
DX: M25.511 Pain in right shoulder (principal); M06.9 Rheumatoid arthritis, unspecified; I10 Essential (primary) hypertension; E66.01 Morbid (severe) obesity due to excess calories; G47.30 Sleep apnea, unspecified; Z68.44 Body mass index [BMI] 60.0-69.9, adult; Z79.1 Long term (current) use of non-steroidal anti-inflammatories (NSAID); Z79.82 Long term (current) use of aspirin; Z79.899 Other long term (current) drug therapy; Z88.5 Allergy status to narcotic agent; Z90.49 Acquired absence of other specified parts of digestive tract
CPT/HCPCS: 73030; 99284; 96372 ×2; J1100; J1885

== ENCOUNTER → 2023-08-09 | Outpatient (CLI) | payer MEDICARE, OTHER ==
--- NOTE | 2023-08-10 21:18 | MM ---
Reason for Exam: Screening (asymptomatic). Last mammogram was performed 3 year(s) and 0 month(s) ago. Patient History: Menarche at age 13. Patient has no children. Postmenopausal. Hormonal Contraceptives for 1 year from age 21 until age 22. Risk Values: Serena 5 year model risk: 1.2%. NCI Lifetime model risk: 9.6%. Prior Study Comparison: 06/28/2017 Bilateral Screening Mammogram, [facility]. 08/20/2020 Bilateral Screening Mammogram, [facility]. Tissue Density: There are scattered fibroglandular densities. Findings: Analyzed By CAD. There is no suspicious group of microcalcifications or new suspicious mass in either breast. Overall Assessment: Negative, BI-RAD 1 Management: Screening Mammogram of both breasts in 1 year. . Patient should continue monthly self-breast exams. A clinical breast exam by your physician is recommended on an annual basis. This exam should not preclude additional follow-up of suspicious palpable abnormalities. Note on Serena scores and lifetime risk: 1. A Serena score greater than 3% is considered moderate risk. If this is the case, consider specialist referral to assess eligibility for a risk reducing agent. 2. If overall lifetime risk for the development of breast cancer is 20% or higher, the patient may qualify for future screening with alternating mammogram and breast MRI. Electronically signed and approved by: Greta Vizcarra M.D. Radiologist
== END | disposition home or self-care (01) ==
LOC: RADMAMWWP 15:02
PROVIDERS: ATTEND Family Medicine
DX: Z12.31 Encounter for screening mammogram for malignant neoplasm of breast (principal); Z78.0 Asymptomatic menopausal state
CPT/HCPCS: 77063; 77067

== ENCOUNTER 2024-10-25 19:44 | Emergency (ER) | payer MEDICARE, OTHER ==
[2024-10-25 19:48] VITALS: TEMP 98.1
[2024-10-25] MEDS: ACETAMINOPHEN TAB 500 MG TAB PO STA (20:23)
--- NOTE | 2024-10-25 20:37 | ED ---
Head Injury HPI - General Chief complaint: Head Injury Stated complaint: Head injury Time Seen by Provider: 10/25/24 20:01 Source: patient, RN notes reviewed Mode of arrival: wheelchair Limitations: no limitations - History of Present Illness Initial comments: This is a 54-year-old female who presents to the emergency department for a head injury. Patient states that 2 days ago a chair broke and she fell onto the ground and hit her head. Denies any loss of consciousness. Not taking any blood thinners. She has since continued to have pain to her head and neck. She is concerned because she does have a history of a cervical fusion and also wants to make sure nothing is wrong with that. MD Complaint: head injury - Related Data Home Medications Medication Instructions Recorded Confirmed Leflunomide [Arava] 20 mg PO QAM 01/06/18 11/04/23 azaTHIOprine [Imuran] 50 mg PO TID 01/06/18 11/04/23 Acetaminophen [Tylenol] 1,000 mg PO BID PRN 06/27/18 11/04/23 Cyclobenzaprine [Flexeril] 10 mg PO TID 08/27/18 11/04/23 Meloxicam [Mobic] 15 mg PO DAILY 02/24/19 11/04/23 Aspirin EC [Ecotrin Low Dose] 162 mg PO HS 04/14/23 11/04/23 hydroCHLOROthiazide [Hydrodiuril] 50 mg PO DAILY 04/14/23 11/04/23 Mv-Mn/C/Glutamin/Lysin/[id number] 1 tablet PO DAILY 11/04/23 11/04/23 [Airborne Gummies] Allergies/Adverse reactions: Allergies Allergy/AdvReac Type Severity Reaction Status Date / Time adhesive Allergy Mild Rash/Hives Verified 10/25/24 19:49 hydromorphone [From Dilaudid] AdvReac Mild Nausea & Verified 10/25/24 19:49 Vomiting Review of Systems ROS Statement: Those systems with pertinent positive or pertinent negative responses have been documented in the HPI. ROS Other: All systems not noted in ROS Statement are negative. Past Medical History Past Medical History: Blood Disorder, GERD/Reflux, Hypertension, Rheumatoid Arthritis (RA), Seizure Disorder, Skin Disorder, Sleep Apnea/CPAP/BIPAP Additional Past Medical History / Comment(s): NO CPAP. DIVERTICULITIS WITH RUPTURE/ABSCESS. EYE SOMETIMES GET BLOOD SHOT DUE TO RA MEDS. RA-pain in multiple joints, spinal stenosis/instability and herniated disc, spondolothisis,-difficulty walking, childhood seizures. chronic back pain. sometimes patient has anemia. sometimes get sores to trunk back buttocks, now has one lower back and buttock History of Any Multi-Drug Resistant Organisms: MRSA Date of last positivie culture/infection: 2013 MDRO Source:: stomach, back Past Surgical History: Appendectomy, Back Surgery, Bowel Resection, Cholecystectomy, Orthopedic Surgery Additional Past Surgical History / Comment(s): PICC LINE. 2017, 09/29/17, COLON RESECTION DUE TO DIVERTICULOSIS. Knee arthroscopy, back epidural injections. EGD,colonoscopy. cervical surgery at [facility] .tumour removed from right hand middle finger. hiatal hernia repair 2018, tonsil stones, sinus surgery 2010 Past Anesthesia/Blood Transfusion Reactions: Motion Sickness, Postoperative Nausea & Vomiting (PONV) Additional Past Anesthesia/Blood Transfusion Reaction / Comment(s): no blood transfusion Past Psychological History: No Psychological Hx Reported Smoking Status: Never smoker Past Alcohol Use History: Rare Past Drug Use History: None Reported - Past Family History Father Family Medical History: Cancer Additional Family Medical History / Comment(s): Father of leukemia at the age of 65yrs. Mother Family Medical History: Diabetes Mellitus, Hypertension, Osteoarthritis (OA) Additional Family Medical History / Comment(s): Mother has IIDM, depression. General Exam Limitations: no limitations General appearance: alert, in no apparent distress Head exam: Present: atraumatic, normocephalic, normal inspection Eye exam: Present: normal appearance, PERRL, EOMI. Absent: scleral icterus, conjunctival injection, periorbital swelling Neck exam: Present: normal inspection, tenderness, full ROM Respiratory exam: Present: normal lung sounds bilaterally. Absent: respiratory distress, wheezes, rales, rhonchi, stridor Cardiovascular Exam: Present: regular rate, normal rhythm, normal heart sounds. Absent: systolic murmur, diastolic murmur, rubs, gallop, clicks Neurological exam: Present: alert, oriented X3, CN II-XII intact Psychiatric exam: Present: normal affect, normal mood Skin exam: Present: warm, dry, intact, normal color. Absent: rash Course Vital Signs 10/25/24 10/25/24 19:46 21:28 Temperature 98.1 F Pulse Rate 101 H 78 Respiratory 20 16 Rate Blood Pressure 142/7 O2 Sat by Pulse 99 97 Oximetry Medical Decision Making - Medical Decision Making This is a 54-year-old female who presents to the emergency department for a head injury. Was pt. sent in by a medical professional or institution? @ -No Did you speak to anyone other than the patient for history? @ -No Did you review nursing and triage notes? @ -Yes, and I agree, it is accurate with regards to the patient's symptoms. Were old charts reviewed? @ -No Differential Diagnosis? @ -Differential Diagnosis Head Injury: Contusion, hematoma, intracranial hemorrhage, skull fracture, whiplash, concussion, this is not meant to be an all-inclusive list. EKG interpreted by me (3pts min.)? @ -Not obtained X-rays interpreted by me (1pt min.)? @ -Not obtained CT interpreted by me (1pt min.)? @ -Computed tomography scan of the brain and c-spine obtained. My interpretation identifies no evidence of an acute intracranial hemorrhage, skull fracture, or cervical spine fracture. U/S interpreted by me (1pt. min.)? @ -Not obtained What testing was considered but not performed? (CT, X-rays, U/S, labs)? Why? @ -None What meds were considered but not given? Why? @ -None Did you discuss the management of the patient with other professionals? @ -No Did you reconcile home meds? @ -No Was smoking cessation discussed for >3mins.? @ -No Was critical care preformed (if so, how long)? @ -No Were there social determinants of health that impacted care today? How? (Homele ssness, low income, unemployed, alcoholism, drug addiction, transportation, low edu. Level, literacy, decrease access to med. care, [place] [facility], rehab)? @ -No Was there de-escalation of care discussed even if they declined? (Discuss DNR or withdrawal of care, Hospice)? @ -No What co-morbidities impacted this encounter? (DM, HTN, Smoking, COPD, CAD, Canc er, CVA, Hep., AIDS, mental health diagnosis, sleep apnea, morbid obesity)? @ -None Was patient admitted / discharged? @ -Discharged. CT scan of the brain and C-spine obtained revealing no acute process. Pain was treated with Tylenol. Advised she continue with Tylenol as needed for pain relief and follow-up with her primary care provider. Patient discharged home in stable condition. Case discussed with ED attending Dr. Perales. Return precautions reviewed in depth, the patient is instructed to return to the emergency department with any new, worsening, or concerning symptoms. Patient verbalized understanding. Undiagnosed new problem with uncertain prognosis? @ -None Drug Therapy requiring intensive monitoring for toxicity (Heparin, Nitro, Insulin, Cardizem)? @ -None Were any procedures done? @ -None Diagnosis/symptom? @ -Head injury, neck pain Acute, or Chronic, or Acute on Chronic? @ -Acute Uncomplicated (without systemic symptoms) or Complicated (systemic symptoms)? @ -Uncomplicated Side effects of treatment? @ -None Exacerbation, Progression, or Severe Exacerbation] @ -Not applicable Poses a threat to life or bodily function? @ -No - Radiology Data Radiology results: report reviewed, image reviewed Disposition Clinical Impression: Closed head injury, Neck pain Disposition: HOME SELF-CARE Instructions (If sedation given, give patient instructions): Cervical Strain (ED) Additional Instructions: Return to the emergency department with any new, worsening, or concerning symptoms. Continue to take Tylenol as needed for pain relief. Follow up with your primary care provider in 1-2 days. Is patient prescribed a controlled substance at d/c from ED?: No Referrals: Ramirez Mccormack MD [Primary Care Provider] - 1-2 days Time of Disposition: 20:55
--- NOTE | 2024-10-25 20:38 | CT ---
EXAMINATION TYPE: CT brain cspine wo con CT DLP: 1983.6 mGycm, Automated exposure control for dose reduction was used. DATE OF EXAM: 10/25/2024 8:30 PM COMPARISON: None. CLINICAL INDICATION:Female, 54 years old with history of Fall, head injury; Fell x2days ago. C/O Head & Neck pain. No LOC. TECHNIQUE: Brain: Multiple axial CT images of the brain were obtained without IV contrast. Cspine: Axial CT images from the skull base to the inferior aspect of T2 we obtained without intraven ous contrast. Coronal and sagittal reformatted images were also reviewed. FINDINGS: Brain: Extra-axial spaces: No abnormal extra-axial fluid collections. Ventricular system: Within normal limits Cerebral parenchyma: No acute intraparenchymal hemorrhage or mass effect. The mcdowell-white junction is well differentiated. Cerebellum: Unremarkable. Mass effect: No evidence of midline shift. Intracranial vasculature: unremarkable Soft tissues: Normal. Calvarium/osseous structures: No depressed skull fracture. Paranasal sinuses and mastoid air cells: Clear. Visualized orbits: Orbital contents are intact. Cervical spine: Fracture: None. Osseous structures: Multilevel degenerative disc disease changes with endplate spurring and disc oste ophyte complex's. Anterior fusion at C3-C4. Vertebral alignment: Straightening of the normal cervical lordotic curve. Spinal canal/Neural Foramina: No evidence of significant spinal canal narrowing. No evidence for sign ificant neural foraminal stenosis. Neck soft tissues: Prevertebral soft tissues are within normal limits. Other: The airway is patent. The lung apices are clear. IMPRESSION: CTA HEAD: No acute intracranial process. CT cervical spine: No evidence of cervical spine fracture. [facility], , 10/25/2024 8:35 PM
[2024-10-25 21:29] VITALS: BP 142/7; PULSE 78; RESP 16
== END 2024-10-25 21:28 | disposition home or self-care (01) ==
LOC: EC 19:44
DX: S09.90XA Unspecified injury of head, initial encounter (principal); M54.2 Cervicalgia; Z91.048 Other nonmedicinal substance allergy status; Z88.8 Allergy status to other drugs, medicaments and biological substances; W07.XXXA Fall from chair, initial encounter
CPT/HCPCS: 70450; 72125; 99283